=== PATIENT | female | born 1935 | race Caucasian/White ===

== ENCOUNTER → 2016-07-09 | Outpatient (CLI) | payer BC ==
[~2016-07-09] MED LIST: ACET-1256 PO; ACET-1311 PO; ACET-176 PO; AMIO0.1T PO; AMIO200T4 PO; ASPI325T45 PO; ASPI81TA28 PO; CALC600T9 PO; CALCTAB13 PO; CARB25TA12 PO; CHOL1000 PO; CHOL100010 PO; CLON0.5T3 PO; CLON1TAB3 PO; CZR25 PO; DOCU100C31 PO; DRGTP12 TD; DXM1 PO; FLUT0.15 NAE; FNTTP50 TD; GABA400C PO; LDDP5 TD; LOSA1TAB PO; LPR25 PO; LPT40 PO; MCLIN; METO25TA56 PO; METO50TA17 PO; MOML PO; MRLP17 PO; MULTCHW PO; MULTTAB63 PO; NALO1TAB2 PO; NF656 TD; NRN/600 PO; NTRGSL/4 SL; OXYC-57 PO; OXYC-609 PO; POLY335019 PO; PRLSR20 PO; PRT/40 PO; SPIR25TA PO; TRAM-10 PO; TYLOTC500 PO; WARF1TAB6 PO
[2016-07-09 09:57] LABS: BLOOD UREA NITROGEN 18 mg/dl (7-18); BUN/CREATININE RATIO 23.3 (10-20); CALCIUM 9.3 mg/dl (8.5-10.1); CARBON DIOXIDE 33 mmol/L (21-32); CHLORIDE 102 mmol/L (98-107); CREATININE 0.75 mg/dl (0.60-1.20); GLUCOSE 94 mg/dl (70-99); SODIUM 143 mmol/L (136-145)
== END | disposition home or self-care (01) ==
LOC: C.LAB1850 07:53
PROVIDERS: ATTEND Internal Medicine Geriatric Medicine
DX: I10 Essential (primary) hypertension (principal)

== ENCOUNTER → 2016-07-16 | Outpatient (CLI) | payer BC ==
--- NOTE | 2016-07-16 12:42 | DIAGNOSTIC IMAGING REPORT ---
RIGHT HUMERUS MIN 2 VIEWS ROUTINE CLINICAL HISTORY: Right arm pain following fall. COMPARISON: None FINDINGS: There is a moderately displaced comminuted right humeral head fracture that extends to the humeral neck. No additional fracture of the right humerus is identified on this examination. IMPRESSION: Acute moderately displaced, comminuted right humeral head fracture that extends through the greater tuberosity. Electronically signed by: Geoff Blue M.D. 07/16/2016 12:40 PM Dictated Date/Time: 07/16/2016 12:40 PM
--- NOTE | 2016-07-16 12:42 | DIAGNOSTIC IMAGING REPORT ---
RIGHT SHOULDER MIN 2 VIEWS ROUTINE CLINICAL HISTORY: Right shoulder pain following fall COMPARISON: Chest radiograph February 19, 2015. FINDINGS: There is an acute moderately displaced fracture that extends through the greater tuberosity. There is extension to the level of the humeral neck. There is inferior displacement of the humeral head. There is no evidence for anterior or posterior dislocation. Moderate AC joint arthritis is noted. IMPRESSION: Moderately displaced comminuted right humeral head fracture with extension to the humeral neck. Apparent inferior subluxation of the humeral head with respect to the glenoid. This could be positional. No evidence for anterior or posterior dislocation. Electronically signed by: Geoff Blue M.D. 07/16/2016 12:40 PM Dictated Date/Time: 07/16/2016 12:37 PM
--- NOTE | 2016-07-16 13:00 | DIAGNOSTIC IMAGING REPORT ---
RIGHT WRIST MIN 3 VIEWS ROUTINE, RIGHT FOREARM 2 VIEWS ROUTINE CLINICAL HISTORY: Right arm and wrist pain after fall. COMPARISON STUDY: None. FINDINGS: The bones are osteopenic. Vascular calcifications are noted. There is positive ulnar variance at the wrist. There is moderate cartilage space narrowing at the STT and radiocarpal joints. No acute fracture or dislocation within the right forearm or right wrist. Mild deformity at the distal radius and ulna favor old, healed fractures. IMPRESSION: No acute fracture or dislocation within the right forearm or right wrist. Electronically signed by: Prashant Medina M.D. 07/16/2016 12:58 PM Dictated Date/Time: 07/16/2016 12:53 PM
--- NOTE | 2016-07-16 13:07 | DIAGNOSTIC IMAGING REPORT ---
RIGHT RIBS UNILATERAL WITH PA CHEST CLINICAL HISTORY: Right-sided rib pain. Fall. COMPARISON STUDY: Chest 02/19/2015. FINDINGS: There is a right humeral head fracture which is mildly displaced. No pneumothorax. No pleural effusions. There is chronic elevation of the right hemidiaphragm. The heart is mildly enlarged. There are poststernotomy changes. No new focal lung consolidations. There are old, healed bilateral rib fractures. No acute rib fractures identified. IMPRESSION: 1. Old, healed bilateral rib fractures. No acute rib fractures. 2. Right humeral head fracture. Electronically signed by: Prashant Medina M.D. 07/16/2016 1:05 PM Dictated Date/Time: 07/16/2016 1:01 PM
== END | disposition home or self-care (01) ==
LOC: C.RADBC 11:23
PROVIDERS: ATTEND Internal Medicine Geriatric Medicine
DX: S42.201A Unspecified fracture of upper end of right humerus, initial encounter for closed fracture (principal); W19.XXXA Unspecified fall, initial encounter

== ENCOUNTER 2016-08-08 15:35 | Emergency (ER) | payer BC ==
[~2016-08-08] VITALS: Ht 152.4 cm; Wt 57.7 kg
[~2016-08-08 15:35] MED LIST changes: -ACET-1256 PO; -ACET-176 PO; -AMIO0.1T PO; -ASPI325T45 PO; -ASPI81TA28 PO; -CALC600T9 PO; -CHOL1000 PO; -CLON1TAB3 PO; -CZR25 PO; -DOCU100C31 PO; -DRGTP12 TD; -DXM1 PO; -FNTTP50 TD; -GABA400C PO; -LDDP5 TD; -LPR25 PO; -MCLIN; -METO25TA56 PO; -MOML PO; -MRLP17 PO; -MULTTAB63 PO; -NALO1TAB2 PO; -NF656 TD; -NRN/600 PO; -OXYC-57 PO; -OXYC-609 PO; -POLY335019 PO; -PRLSR20 PO; -TYLOTC500 PO
[2016-08-08 15:47] VITALS: TEMP 36.9; Ht 152.4 cm; Wt 57.7 kg
--- NOTE | 2016-08-08 15:53 | EMERGENCY ROOM VISIT NOTE ---
History Report prepared by Stephany: Judy Zelaya Under the Supervision of: Abby FlanaganO. First contact with patient: 15:37 Chief Complaint: FALL Stated Complaint: FALL, BILAT. HIP PAIN History of Present Illness The patient is an 81 year old female who presents to the Emergency Room with complaints of a sudden fall that occurred prior to arrival. The patient states that she fell backwards and hit her head. She states that she lives at home. The patient notes that she fell three weeks ago and broke her right shoulder. She states that she was discharged to [facility] for rehabilitation and then went home from there. The patient states that she is experiencing side pain, bilateral hip pain, and back pain. She notes that she is on Warfarin and was instructed to come to the emergency department for further work up. The patient notes a headache due to the fall, but denies any loss of consciousness due to the fall. Source of History: patient Onset: prior to arrival Position: other (global) Quality: other (fall) Timing: other (sudden) Associated Symptoms: + back pain, + headache, No LOC Note: Associated Symptoms: bilateral hip pain, side pain Review of Systems See HPI for pertinent positives & negatives. A total of 10 systems reviewed and were otherwise negative. Past Medical & Surgical Medical Problems: (1) Heart disease (2) HTN (hypertension) Family History Cancer Heart disease Hypertension Social History Smoking Status: Never Smoker Drug Use: none Marital Status: Housing Status: lives with significant other Occupation Status: retired Current/Historical Medications Scheduled Amiodarone Hcl (Cordarone), 100 MG PO BID Atorvastatin (Atorvastatin Calcium), 40 MG PO QPM Calcium Carbonate-Vitamin D (Calcium + D), 1 TAB PO BID Carbidopa/Levodopa (Sinemet 25MG/100MG), 1.5 TAB PO QID Cholecalciferol (Vitamin D3), 1 TAB PO DAILY Clonazepam (Klonopin), 0.5 MG PO BID Fluticasone Propionate (Nasal) (Flonase Allergy Relief), 2 SPRAYS REMI DAILY Losartan Potassium (Cozaar), 25 MG PO DAILY Metoprolol Tartrate (Metoprolol Tartrate), 12.5 MG PO BID Multiple Vitamins W/ Minerals (Centrum Silver), 1 TAB PO DAILY Pantoprazole (Pantoprazole Sodium), 40 MG PO QPM Spironolactone (Aldactone), 12.5 MG PO DAILY Warfarin Sod (Jantoven), 2 MG PO DAILY Scheduled PRN Acetaminophen (Tylenol), 325 MG PO DAILY PRN for Pain Nitroglycerin (Nitrostat), 0.4 MG SL UD PRN for Chest Pain Tramadol (Ultram), 1-2 TAB PO Q6H PRN for Pain Allergies Coded Allergies: Atropine (Verified Allergy, Mild, 08/08/16) Diphenoxylate (Verified Allergy, Mild, 08/08/16) Diazepam (Verified Allergy, Unknown, unknown, 08/08/16) Lisinopril (Verified Adverse Reaction, Unknown, [place]IGHT[place], 08/08/16) Physical Exam Vital Signs Date Time Temp Pulse Resp B/P Pulse Ox O2 Delivery O2 Flow Rate FiO2 08/08/16 18:05 82 18 163/114 98 Room Air 08/08/16 17:13 58 20 177/80 93 Room Air 08/08/16 17:13 59 08/08/16 15:47 36.9 63 18 197/73 93 Room Air Physical Exam GENERAL: Patient is awake, alert, non-anxious appearing and appears comfortable. EYES: The conjunctivae are clear. The pupils are round and reactive. EARS, NOSE, MOUTH AND THROAT: The nose is without any evidence of any deformity. Mucous membranes are moist tongue is midline NECK: No tenderness to palpation. Range of motion appeared uninhibited. RESPIRATORY: Normal respiratory effort is noted there is no evidence of wheezing rhonchi or rales CARDIOVASCULAR: Regular rate and rhythm noted to auscultation. Systolic murmur appreciated. GASTROINTESTINAL: The abdomen is soft. Bowel sounds are present in all quadrants. Abdomen is nontender BACK: Low lumbar tenderness to palpation. Range of motion elicited pain, no stepoff or ecchymosis noted. MUSCULOSKELETAL/EXTREMITIES: Right upper extremity is held in a sling from a previous injury. No range of motion limitations in the lower extremities. SKIN: There is no obvious evidence of any rash. There are no petechiae, pallor or cyanosis noted. NEUROLOGIC: Patient is awake alert and oriented x3. Medical Decision & Procedures ER Provider Diagnostic Interpretation: Radiology results as stated below per my review and radiologist interpretation: PELVIS 1 OR 2 VIEW ROUTINE CLINICAL HISTORY: fall trauma. Pain. COMPARISON: None. DISCUSSION: Moderate degenerative change. No acute bony abnormality. No evidence for acetabular protrusion. There is no evidence for soft tissue swelling. IMPRESSION: Degenerative change. No acute bony abnormality. Electronically signed by: Jericho Bryant M.D. 08/08/2016 5:22 PM Dictated Date/Time: 08/08/2016 5:[address] OF THE LUMBAR SPINE WITHOUT CONTRAST CLINICAL HISTORY: Fall. TECHNIQUE: Axial images of the lumbar spine were obtained without IV contrast. Sagittal and coronal reconstructions were viewed. COMPARISON STUDY: CT of the abdomen and pelvis January 22, 2015. FINDINGS: For purposes of numbering on this exam, the L5-S1 disc space is assigned to axial image 270 of 320. Grade I anterolisthesis of L4 on L5 is unchanged since CT of January 22, 2015. 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 There is a mild acute compression fracture involving the superior endplate of L3 with minimal loss of vertebral body height and no retropulsion. No extension into the posterior elements is identified on this exam. No additional acute lumbar spine fractures are present. Central canal and neural foramen are suboptimally assessed by CT. Paravertebral soft tissues are unremarkable. Mild to moderate multilevel degenerative changes of the lumbar spine are present. IMPRESSION: Acute mild compression fracture of the superior endplate of L3 with minimal loss of vertebral body height and no retropulsion. Electronically signed by: Geoff Blue M.D. 08/08/2016 4:45 PM Dictated Date/Time: 08/08/2016 4:[address] OF THE HEAD WITHOUT CONTRAST CLINICAL HISTORY: Fall. COMPARISON STUDY: MRI of the brain July 15, 2015. CT DOSE: 1566.26 mGy.cm TECHNIQUE: Helical axial images of the head were obtained without IV contrast. Automated exposure control was utilized for the study. FINDINGS: No acute intracranial hemorrhage, midline shift or mass effect is present. Ventricular system is stable. The basilar cisterns are patent. There are no extra-axial collections. White matter hypodensity suggests small vessel disease. There are no findings to suggest acute dural sinus thrombosis or acute territorial infarct. There is a posterior scalp contusion. There is no calvarial fracture. IMPRESSION: 1. No acute intracranial findings. 2. Posterior scalp contusion. No calvarial fracture. Electronically signed by: Geoff Blue M.D. 08/08/2016 4:37 PM Dictated Date/Time: 08/08/2016 4:35 PM CHEST 2 VIEWS ROUTINE CLINICAL HISTORY: fall trauma COMPARISON STUDY: 02/19/2015 FINDINGS: Chronic elevation right hemidiaphragm. Lungs are considered clear. No acute process. IMPRESSION: Negative chest. Electronically signed by: Jericho Bryant M.D. 08/08/2016 5:21 PM Dictated Date/Time: 08/08/2016 5:[address] DOSE: HISTORY: Trauma. Pain. fall TECHNIQUE: Multiaxial CT images of the cervical spine were performed and reformatted in the sagittal and coronal plane without the use of contrast. COMPARISON: None. FINDINGS: No fractures. No subluxation. Prevertebral soft tissues and the C1-C2 interval are intact. No pneumothorax. Moderate degenerative change throughout. There is slight wedge deformity superior endplate T1 radiographically considered old. IMPRESSION: Degenerative change. No acute process. Electronically signed by: Jericho Bryant M.D. 08/08/2016 4:38 PM Dictated Date/Time: 08/08/2016 4:35 PM Medications Administered Medications (Trade) Dose Ordered Sig/Naomi Route Start Time Stop Time Status Last Admin Dose Admin Acetaminophen (Tylenol Tab) 500 mg NOW STAT PO 08/08/16 17:56 08/08/16 17:57 DC 08/08/16 18:04 500 MG ED Course 1540: The patient was evaluated in room A3. A complete history and physical examination were performed. 1756: Ordered Tylenol Tab 500 mg PO. I reevaluated the patient and she is resting comfortably. I discussed the exam findings with her and I discussed the treatment plan. She verbalized complete understanding and agreement. She is ready to go home. Medical Decision Differential diagnosis: Etiologies such as fracture, dislocation, intra-abdominal, pneumothorax, intrathoracic , intracranial, neurologic, as well as other traumatic pathologies were entertained. Nursing notes reviewed. The patient is an 81-year-old female who had a fall from a standing position. She fell backwards. She was recently here for similar complaints and had a fracture to her right upper extremity. The patient states this is why she fell she lost her balance when she was trying use her walker. She fell backwards striking the back of her head. She had a small scalp contusion. She had no laceration. The patient is on blood thinners. CT the head as well as cervical spine were obtained but did not show any traumatic injury. The patient was found have a compression fracture in her lumbar spine. She was offered pain medication in the emergency department but did not wish to have any. She was taking pain medication because of her shoulder injury and feels that this might be why she is unstable on her feet. She was treated with Tylenol. She was reevaluated multiple times. She was encouraged to continue all medications as prescribed. She was also encouraged to follow-up with her family doctor soon as possible for further evaluation but return to the emergency Department immediately if symptoms change worsen or the need arises. Impression Primary Impression: Fall Additional Impressions: Head injury Lumbar compression fracture Scribe Attestation The scribe's documentation has been prepared under my direction and personally reviewed by me in its entirety. I confirm that the note above accurately reflects all work, treatment, procedures, and medical decision making performed by me. Departure Information Dispostion Home / Self-Care Referrals Jose A Ruiz M.D. (PCP) Forms HOME CARE DOCUMENTATION FORM, IMPORTANT VISIT INFORMATION Patient Instructions ED Fx Comp Vertebral, ED Head Injury Closed, My [facility] Additional Instructions Call your family in the morning to schedule a follow-up appointment. Rest and avoid any strenuous activity. Avoid any heavy lifting. Continue all medications as prescribed. Problem Qualifiers
--- NOTE | 2016-08-08 16:38 | DIAGNOSTIC IMAGING REPORT ---
CT OF THE HEAD WITHOUT CONTRAST CLINICAL HISTORY: Fall. COMPARISON STUDY: MRI of the brain July 15, 2015. CT DOSE: 1566.26 mGy.cm TECHNIQUE: Helical axial images of the head were obtained without IV contrast. Automated exposure control was utilized for the study. FINDINGS: No acute intracranial hemorrhage, midline shift or mass effect is present. Ventricular system is stable. The basilar cisterns are patent. There are no extra-axial collections. White matter hypodensity suggests small vessel disease. There are no findings to suggest acute dural sinus thrombosis or acute territorial infarct. There is a posterior scalp contusion. There is no calvarial fracture. IMPRESSION: 1. No acute intracranial findings. 2. Posterior scalp contusion. No calvarial fracture. Electronically signed by: Geoff Blue M.D. 08/08/2016 4:37 PM Dictated Date/Time: 08/08/2016 4:35 PM
--- NOTE | 2016-08-08 16:39 | DIAGNOSTIC IMAGING REPORT ---
CERVICAL SPINE CT CT DOSE: HISTORY: Trauma. Pain. fall TECHNIQUE: Multiaxial CT images of the cervical spine were performed and reformatted in the sagittal and coronal plane without the use of contrast. COMPARISON: None. FINDINGS: No fractures. No subluxation. Prevertebral soft tissues and the C1-C2 interval are intact. No pneumothorax. Moderate degenerative change throughout. There is slight wedge deformity superior endplate T1 radiographically considered old. IMPRESSION: Degenerative change. No acute process. Electronically signed by: Jericho Bryant M.D. 08/08/2016 4:38 PM Dictated Date/Time: 08/08/2016 4:35 PM
--- NOTE | 2016-08-08 16:47 | DIAGNOSTIC IMAGING REPORT ---
CT OF THE LUMBAR SPINE WITHOUT CONTRAST CLINICAL HISTORY: Fall. TECHNIQUE: Axial images of the lumbar spine were obtained without IV contrast. Sagittal and coronal reconstructions were viewed. COMPARISON STUDY: CT of the abdomen and pelvis January 22, 2015. FINDINGS: For purposes of numbering on this exam, the L5-S1 disc space is assigned to axial image 270 of 320. Grade I anterolisthesis of L4 on L5 is unchanged since CT of January 22, 2015. 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 There is a mild acute compression fracture involving the superior endplate of L3 with minimal loss of vertebral body height and no retropulsion. No extension into the posterior elements is identified on this exam. No additional acute lumbar spine fractures are present. Central canal and neural foramen are suboptimally assessed by CT. Paravertebral soft tissues are unremarkable. Mild to moderate multilevel degenerative changes of the lumbar spine are present. IMPRESSION: Acute mild compression fracture of the superior endplate of L3 with minimal loss of vertebral body height and no retropulsion. Electronically signed by: Geoff Blue M.D. 08/08/2016 4:45 PM Dictated Date/Time: 08/08/2016 4:37 PM
--- NOTE | 2016-08-08 17:22 | DIAGNOSTIC IMAGING REPORT ---
CHEST 2 VIEWS ROUTINE CLINICAL HISTORY: fall trauma COMPARISON STUDY: 02/19/2015 FINDINGS: Chronic elevation right hemidiaphragm. Lungs are considered clear. No acute process. IMPRESSION: Negative chest. Electronically signed by: Jericho Bryant M.D. 08/08/2016 5:21 PM Dictated Date/Time: 08/08/2016 5:20 PM
--- NOTE | 2016-08-08 17:23 | DIAGNOSTIC IMAGING REPORT ---
PELVIS 1 OR 2 VIEW ROUTINE CLINICAL HISTORY: fall trauma. Pain. COMPARISON: None. DISCUSSION: Moderate degenerative change. No acute bony abnormality. No evidence for acetabular protrusion. There is no evidence for soft tissue swelling. IMPRESSION: Degenerative change. No acute bony abnormality. Electronically signed by: Jericho Bryant M.D. 08/08/2016 5:22 PM Dictated Date/Time: 08/08/2016 5:21 PM
[2016-08-08] MEDS ORDERED: CHOL1000 PO (17:31)
[2016-08-08] MEDS ORDERED: CALC600T9 PO (17:31)
[2016-08-08] MEDS ORDERED: ACETAMINOPHEN 500 MG TAB PO STA (17:56)
[2016-08-08 18:05] VITALS: BP 163/114; PULSE 82; O2SAT 98
[2016-09-18] MEDS ORDERED: DXM1 PO (11:40)
[2016-09-18] MEDS ORDERED: MCLIN (11:40)
[2016-09-18] MEDS ORDERED: CLON1TAB3 PO (11:40)
[2016-09-18] MEDS ORDERED: CZR25 PO (11:40)
[2016-09-18] MEDS ORDERED: LPR25 PO (11:40)
[2017-03-20] MEDS ORDERED: OXYC-609 PO (13:11)
== END 2016-08-08 18:40 | disposition home or self-care (01) ==
LOC: EDBD 15:35 → C.EDA 15:36
DX: S09.90XA Unspecified injury of head, initial encounter (principal); S32.030A Wedge compression fracture of third lumbar vertebra, initial encounter for closed fracture; W19.XXXA Unspecified fall, initial encounter; Y92.019 Unspecified place in single-family (private) house as the place of occurrence of the external cause; I10 Essential (primary) hypertension; I51.9 Heart disease, unspecified; Z79.01 Long term (current) use of anticoagulants; Z79.899 Other long term (current) drug therapy; Z91.81 History of falling; Z88.8 Allergy status to other drugs, medicaments and biological substances; Z80.9 Family history of malignant neoplasm, unspecified; Z82.49 Family history of ischemic heart disease and other diseases of the circulatory system

== ENCOUNTER → 2016-08-30 | Outpatient (CLI) | payer BC ==
[~2016-08-30] MED LIST changes: +ACET-1256 PO; +ACET-176 PO; +AMIO0.1T PO; +ASPI325T45 PO; +ASPI81TA28 PO; +CALC600T9 PO; -CALCTAB13 PO; +CHOL1000 PO; -CHOL100010 PO; +CLON1TAB3 PO; +CZR25 PO; +DOCU100C31 PO; +DRGTP12 TD; +DXM1 PO; +FNTTP50 TD; +GABA400C PO; +LDDP5 TD; +LPR25 PO; +MCLIN; +METO25TA56 PO; +MOML PO; +MRLP17 PO; +MULTTAB63 PO; +NALO1TAB2 PO; +NF656 TD; +NRN/600 PO; +OXYC-57 PO; +OXYC-609 PO; +POLY335019 PO; +PRLSR20 PO; +TYLOTC500 PO
== END | disposition home or self-care (01) ==
LOC: C.MAMM 09:42
PROVIDERS: ATTEND Internal Medicine Geriatric Medicine
DX: M85.89 Other specified disorders of bone density and structure, multiple sites (principal); S42.309A Unspecified fracture of shaft of humerus, unspecified arm, initial encounter for closed fracture; S32.030A Wedge compression fracture of third lumbar vertebra, initial encounter for closed fracture; R29.6 Repeated falls; X58.XXXA Exposure to other specified factors, initial encounter

== ENCOUNTER 2016-09-13 05:14 | Inpatient (IN) | payer BC, OTHER ==
[~2016-09-13] VITALS: Ht 149.9 cm; Wt 58.1 kg
[~2016-09-13 05:14] MED LIST changes: -ACET-1256 PO; -ACET-176 PO; -AMIO0.1T PO; -ASPI325T45 PO; -ASPI81TA28 PO; -CLON1TAB3 PO; -CZR25 PO; -DOCU100C31 PO; -DRGTP12 TD; -DXM1 PO; -FNTTP50 TD; -GABA400C PO; -LDDP5 TD; -LPR25 PO; -MCLIN; -METO25TA56 PO; -MOML PO; -MRLP17 PO; -MULTTAB63 PO; -NALO1TAB2 PO; -NF656 TD; -NRN/600 PO; -OXYC-57 PO; -OXYC-609 PO; -POLY335019 PO; -PRLSR20 PO; -TYLOTC500 PO
[2016-09-13] MEDS ORDERED: SODIUM CHLORIDE 0.9% 1000ML 250 ML IV STA (05:45)
[2016-09-13] MEDS ORDERED: SODIUM CHLORIDE 0.9% 1000ML 1,000 ML IV STA (05:45)
--- NOTE | 2016-09-13 05:52 | EMERGENCY ROOM VISIT NOTE ---
History Report prepared by Stephany: Judy Zelaya Under the Supervision of: Dr. Jakub Pringle M.D. First contact with patient: 05:35 Chief Complaint: HIP PAIN Stated Complaint: BACK PAIN History of Present Illness The patient is an 81 year old female who presents to the Emergency Room with complaints of persistent left hip pain that began prior to arrival. The patient states that she has recently had several falls. She states that she fell and broke her right shoulder and also injured her back recently. The patient states that she is unsure why she continues to fall. She denies any weakness or loss of consciousness. The patient states that she cannot get out of bed on her own. She states that she mentioned her pain to her PCP yesterday at her three month check up. The patient notes left hip pain and left leg pain today. She denies any shortness of breath, chest pain, nausea, vomiting, or urinary symptoms. The patient notes that she is on Coumadin for her heart valve. 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 Source of History: patient Onset: prior to arrival Position: other (left hip) Timing: other (persistent) Associated Symptoms: No LOC, No SOB, No chest pain, No nausea, No urinary symptoms, No vomiting, No weakness Note: Associated Symptoms: left leg pain Review of Systems See HPI for pertinent positives & negatives. A total of 10 systems reviewed and were otherwise negative. Past Medical & Surgical Medical Problems: (1) Compression fracture of L3 lumbar vertebra (2) Frequent falls (3) Heart disease (4) HTN (hypertension) Old medical records were reviewed. Nurse's notes were reviewed and I agree with. Family History Cancer Heart disease Hypertension Social History Smoking Status: Never Smoker Drug Use: none Marital Status: Housing Status: lives with significant other Occupation Status: retired Current/Historical Medications Scheduled Amiodarone Hcl (Cordarone), 100 MG PO DAILY Atorvastatin (Atorvastatin Calcium), 40 MG PO QPM Calcium Carbonate-Vitamin D (Calcium + D), 1 TAB PO BID Carbidopa/Levodopa (Sinemet 25MG/100MG), 1.5 TAB PO QID Cholecalciferol (Vitamin D3), 1,000 MG PO DAILY Clonazepam (Klonopin), 0.5 MG PO BID Fluticasone Propionate (Nasal) (Flonase Allergy Relief), 1 SPRAY REMI DAILY Losartan Potassium (Cozaar), 50 MG PO DAILY Metoprolol Tartrate (Lopressor) (Lopressor), 12.5 MG PO BID Multiple Vitamins W/ Minerals (Centrum Silver), 1 TAB PO DAILY Pantoprazole (Pantoprazole Sodium), 40 MG PO QPM Spironolactone (Aldactone), 25 MG PO DAILY Warfarin Sod (Jantoven), 2 MG PO DAILY Scheduled PRN Acetaminophen (Tylenol), 1,000 MG PO TID PRN for Pain Docusate Sodium (Docusate Sodium), 100 MG PO BID PRN for Constipation Magnesium Hydroxide (Milk Of Magnesia), 30 ML PO DAILY PRN for Constipation Nitroglycerin (Nitrostat), 0.4 MG SL UD PRN for Chest Pain Allergies Coded Allergies: Atropine (Verified Allergy, Mild, 08/08/16) Diphenoxylate (Verified Allergy, Mild, 08/08/16) Diazepam (Verified Allergy, Unknown, unknown, 08/08/16) Lisinopril (Verified Adverse Reaction, Unknown, [place], 08/08/16) Physical Exam Vital Signs Date Time Temp Pulse Resp B/P Pulse Ox O2 Delivery O2 Flow Rate FiO2 09/13/16 16:50 97 16 194/89 97 Room Air 09/13/16 14:35 80 19 182/86 95 Room Air 09/13/16 12:44 69 180/84 96 Room Air 09/13/16 10:24 156/81 09/13/16 09:46 82 16 203/96 96 Room Air 09/13/16 09:13 81 96 09/13/16 07:54 80 18 174/87 93 Room Air 09/13/16 06:12 65 17 187/81 94 Room Air 09/13/16 05:19 36.7 70 18 215/89 92 Room Air Physical Exam General: Well developed well nourished, non-ill appearing older female in no acute distress, breathing comfortably on room air. Normal speech HEENT: Normal cephalic atraumatic. Pupils are equal round and reactive to light. Extraocular movements are intact. Oropharynx is pink with moist mucous membranes. No swelling of the mouth lips or tongue. Neck: Supple with a midline trachea. No meningeal signs or stiffness, no JVD or bruits. No Stridor. Chest: Clear to auscultation bilaterally. No wheezes or rhonchi. No increased work of breathing. Heart: regular rate and rhythm. Abdomen: Soft nontender, nondistended without rebound guarding or rigidity. Extremities: Left hip has mild tenderness with movement. No redness or warmth. No cyanosis clubbing or edema. No calf tenderness or assymetry Spine/Back. Non tender to palpation. No CVA tenderness Skin: Good turgor without rashes. Neurologic exam: Cranial nerves two through 12 are intact. Motor and sensation are intact and symmetrical throughout. Medical Decision & Procedures ER Provider Diagnostic Interpretation: CT results as stated below per my review and radiologist interpretation: CT pelvis PELVIS NO IV/ORAL CONT (CT) CLINICAL HISTORY: eval for fx on left trauma TECHNIQUE: Transaxial acquisition. Multiple axial reformatted images COMPARISON STUDY: None FINDINGS: Moderate degenerative change throughout. No evidence for fracture. No evidence for acetabular protrusion. IMPRESSION: Degenerative change. No acute process. Electronically signed by: Jericho Bryant M.D. 09/13/2016 6:50 AM Dictated Date/Time: 09/13/2016 6:47 AM Laboratory Results Test 09/13/16 06:00 09/13/16 06:53 Immature Granulocyte % (Auto) 0.8 % White Blood Count 11.82 K/uL (4.8-10.8) Red Blood Count 4.65 M/uL (4.2-5.4) Hemoglobin 14.1 g/dL (12.0-16.0) Hematocrit 41.7 % (37-47) Mean Corpuscular Volume 89.7 fL (80-100) Mean Corpuscular Hemoglobin 30.3 pg (25-34) Mean Corpuscular Hemoglobin Concent 33.8 g/dl (32-36) Platelet Count 343 K/uL (130-400) Mean Platelet Volume 8.1 fL (7.4-10.4) Neutrophils (%) (Auto) 80.3 % Lymphocytes (%) (Auto) 9.7 % Monocytes (%) (Auto) 8.2 % Eosinophils (%) (Auto) 0.8 % Basophils (%) (Auto) 0.2 % Neutrophils # (Auto) 9.49 K/uL (1.4-6.5) Lymphocytes # (Auto) 1.15 K/uL (1.2-3.4) Monocytes # (Auto) 0.97 K/uL (0.11-0.59) Eosinophils # (Auto) 0.09 K/uL (0-0.5) Basophils # (Auto) 0.02 K/uL (0-0.2) Immature Granulocyte # (Auto) 0.10 K/uL (0.00-0.02) Total Bilirubin 0.5 mg/dl (0.2-1) Direct Bilirubin 0.2 mg/dl (0-0.2) Aspartate Amino Transf (AST/SGOT) 16 U/L (15-37) Alanine Aminotransferase (ALT/SGPT) 14 U/L (12-78) Alkaline Phosphatase 139 U/L (45-117) Total Creatine Kinase 40 U/L (26-192) Creatine Kinase MB 1.0 ng/ml (0.5-3.6) Creatine Kinase MB Ratio 2.5 (0-3.0) Total Protein 7.0 gm/dl (6.4-8.2) Albumin 2.9 gm/dl (3.4-5.0) Lipase 78 U/L (73-393) Urine Color YELLOW Urine Appearance CLEAR (CLEAR) Urine pH 7.5 (4.5-7.5) Urine Specific [place] 1.005 (1.000-1.030) Urine Protein NEG (NEG) Urine Glucose (UA) NEG (NEG) Urine Ketones NEG (NEG) Urine Occult Blood NEG (NEG) Urine Nitrite NEG (NEG) Urine Bilirubin NEG (NEG) Urine Urobilinogen NEG (NEG) Urine Leukocyte Esterase NEG (NEG) Date/Time Source Procedure Growth Status 09/13/16 06:53 Urine , Clean Catch Urine Culture - Final THREE TYPES OF ORGANISMS PRESENT, ALL... Complete Laboratory studies as stated above per my review. Medications Administered Medications (Trade) Dose Ordered Sig/Naomi Route Start Time Stop Time Status Last Admin Dose Admin Sodium Chloride 250 ml @ 999 mls/hr Q16M STAT IV 09/13/16 05:45 09/13/16 06:00 DC 09/13/16 06:12 999 MLS/HR Sodium Chloride (Nss 1000ml) 1,000 ml @ 100 mls/hr Q10H STAT IV 09/13/16 05:45 09/13/16 15:44 DC 09/13/16 06:12 100 MLS/HR Acetaminophen (Tylenol Tab) 650 mg NOW STAT PO 09/13/16 07:29 09/13/16 07:32 DC 09/13/16 07:53 650 MG Metoprolol Tartrate (Lopressor Tab) 25 mg NOW PO 09/13/16 10:15 09/13/16 11:34 DC 09/13/16 10:47 25 MG Losartan Potassium (coZAAR TAB) 25 mg NOW PO 09/13/16 10:15 09/13/16 11:34 DC 09/13/16 10:47 25 MG Spironolactone (Aldactone Tab) 25 mg NOW ONCE PO 09/13/16 10:15 09/13/16 10:16 DC 09/13/16 10:47 25 MG Atorvastatin Calcium (Lipitor Tab) 40 mg NOW PO 09/13/16 10:15 09/13/16 11:33 DC 09/13/16 10:48 40 MG Amiodarone HCl (Cordarone Tab) 200 mg NOW ONCE PO 09/13/16 10:15 09/13/16 10:16 DC 09/13/16 10:47 200 MG Acetaminophen (Tylenol Tab) 1,000 mg NOW STAT PO 09/13/16 14:49 09/13/16 14:55 DC 09/13/16 14:49 1,000 MG Acetaminophen (Tylenol Tab) 650 mg Q4H PRN PO 09/13/16 18:45 09/14/16 12:28 DC 09/14/16 09:42 650 MG Ondansetron HCl (Zofran Inj) 4 mg Q6H PRN IV 09/13/16 18:45 10/13/16 18:44 09/14/16 09:44 4 MG Hydralazine HCl (HydrALAZINE INJ) 10 mg Q6H PRN IV. 09/13/16 18:45 10/13/16 18:44 09/15/16 04:23 10 MG ECG Indication: other (hip pain) Rate (beats per minute): 67 Rhythm: normal sinus Findings: no acute ischemic change, no ectopy, other (poor baseline, nonspecific T wave abnormalities) ED Course 0543: Past medical records reviewed. The patient was evaluated in room A10, and a complete history and physical examination were performed. 0545: Ordered Sodium Chloride 1000 ml @ 100 mls/hr IV, Sodium Chloride 250 ml @ 999 mls/hr IV. 0649: I went to reevaluate the patient and the nursing staff is obtaining a urine from the patient. 0659: I reevaluated the patient and she is resting comfortably. The patient is currently undergoing outpatient therapy at [facility]. The patient will have an OT/PT evaluation for [facility] consultation. 0730: The patient was signed out to Dr. Cole at change of shift. Medical Decision Differentials include, but are not limited to; hip or pelvic fracture, electrolyte or metabolic abnormality, UTI, hemorrhage. This patient comes in as described above she is weakness and frequent falls she is left leg pain. She has a history of compression fracture. She is on Coumadin. IV access established and blood work was obtained. I did obtain a pelvis CT and no acute fracture seen. Her INR came back at 5 elevated and in light of this I also did order a CAT scan of her head and abdomen and pelvis to rule out any retroperitoneal hemorrhage or any intracranial hemorrhage. She's nothing to suggest acute coronary syndrome or arrhythmia. She's had no acute electrolyte or metabolic abnormality. She does not feel that she is safe to go home. I did order PT and OT evaluation. She was signed to Dr. Vogel at shift change will follow-up on this. Impression Primary Impression: Left hip pain Scribe Attestation The scribe's documentation has been prepared under my direction and personally reviewed by me in its entirety. I confirm that the note above accurately reflects all work, treatment, procedures, and medical decision making performed by me. Departure Information Dispostion Still a Patient Referrals Jose A Ruiz M.D. (PCP)
[2016-09-13 06:15] LABS: BASO % 0.2 %; BASO ABS # 0.02 K/uL (0-0.2); COMPLETE YES; EOS % 0.8 %; HEMATOCRIT 41.7 % (37-47); IG% 0.8 %; LYMPH % 9.7 %; LYMPH ABS # 1.15 K/uL (1.2-3.4); MEAN CELL VOLUME 89.7 fL (80-100); MEAN CORPUSCULAR HEMOGLOBIN 30.3 pg (25-34); MEAN CORPUSCULAR HGB CONC 33.8 g/dl (32-36); MEAN PLATELET VOLUME 8.1 fL (7.4-10.4); MONO % 8.2 %; NEUT % 80.3 %; PLATELET COUNT 343 K/uL (130-400); RED BLOOD COUNT 4.65 M/uL (4.2-5.4); WHITE BLOOD COUNT 11.82 K/uL (4.8-10.8)
[2016-09-13] MEDS ORDERED: CLON1TAB3 PO (06:30)
[2016-09-13 06:31] LABS: BUN/CREATININE RATIO 19.8 (10-20); CALCIUM 8.9 mg/dl (8.5-10.1); CREATININE 0.53 mg/dl (0.60-1.20)
[2016-09-13] MEDS ORDERED: DOCU100C31 PO (06:31)
[2016-09-13 06:36] LABS: CKMB/CK RATIO 2.5 (0-3.0)
[2016-09-13] MEDS ORDERED: METO25TA56 PO (06:40)
[2016-09-13] MEDS ORDERED: ACET-1256 PO (06:43)
[2016-09-13 06:49] LABS: PARTIAL THROMBOPLASTIN RATIO 2.4; PROTHROMBIN TIME (PATIENT) 57.5 SECONDS (9.0-12.0)
[2016-09-13] MEDS ORDERED: MOML PO (06:49)
--- NOTE | 2016-09-13 06:51 | DIAGNOSTIC IMAGING REPORT ---
CT pelvis PELVIS NO IV/ORAL CONT (CT) CLINICAL HISTORY: eval for fx on left trauma TECHNIQUE: Transaxial acquisition. Multiple axial reformatted images COMPARISON STUDY: None FINDINGS: Moderate degenerative change throughout. No evidence for fracture. No evidence for acetabular protrusion. IMPRESSION: Degenerative change. No acute process. Electronically signed by: Jericho Bryant M.D. 09/13/2016 6:50 AM Dictated Date/Time: 09/13/2016 6:47 AM
[2016-09-13 07:20] LABS: URINE APPEARANCE CLEAR (CLEAR); URINE BILIRUBIN NEG (NEG); URINE COLOR YELLOW; URINE NITRITE NEG (NEG); URINE PH 7.5 (4.5-7.5); URINE SPECIFIC GRAVITY 1.005 (1.000-1.030); UROBILINOGEN NEG (NEG)
[2016-09-13 07:23] LABS: MANUAL MICROSCOPIC REQUIRED? NO; REVIEW REQ? NO
[2016-09-13] MEDS ORDERED: ACETAMINOPHEN 325 MG TAB PO STA (07:29)
[2016-09-13] MEDS ORDERED: OPTIRAY 320 IV PRN (08:00)
--- NOTE | 2016-09-13 08:01 | DIAGNOSTIC IMAGING REPORT ---
HEAD CT NONCONTRAST CT DOSE: HISTORY: Fall. Head injury. TECHNIQUE: Multiaxial CT images of the head were performed without the use of intravenous contrast. Automated exposure control was utilized for this study. Comparison: Head CT 08/08/2016. Findings: The paranasal sinuses and mastoid air cells are clear. The calvarium and skull base are intact. There is no mass, hematoma, midline shift, acute infarct. White matter hypodensity is nonspecific but suggestive of microvascular ischemic change. The ventricles and sulci demonstrate mild age-related involutional changes. Stable prominence of the extra-axial space at the left high convexity measuring 4.6 cm. This likely represents an arachnoid cyst. Impression: No significant change compared to the prior study. No acute intracranial abnormality. Electronically signed by: Prashant Medina M.D. 09/13/2016 8:00 AM Dictated Date/Time: 09/13/2016 7:55 AM
--- NOTE | 2016-09-13 08:05 | DIAGNOSTIC IMAGING REPORT ---
ABDOMEN AND PELVIS CT WITH IV CONTRAST CT DOSE: 1128.51 mGy.cm HISTORY: Trauma left hip and pelvis pain, elevated inh eval for hematoma TECHNIQUE: Multiaxial CT images of the abdomen and pelvis were performed following the use of intravenous contrast. COMPARISON STUDY: None. FINDINGS: Lung bases are generally clear. Minimal dependent basilar atelectasis. Findings suggesting early hepatic cirrhosis. Cleft posterior right hepatic margin with no well-defined perihepatic or subcapsular fluid pocket. Mild cortical scarring of the kidneys. No significant retroperitoneal hematoma. Spleen is uniform in bowel pattern overall is nonobstructive. There is no well-defined abscess or collection. Mild chronic sigmoid diverticulosis. No free fluid within the pelvic cul-de-sac. IMPRESSION: No acute process. Compression deformity L3 considered progressive compared to a prior study 08/08/2016. Mild posterior displacement of the posterior margin of the L3 vertebral body. Electronically signed by: Jericho Bryant M.D. 09/13/2016 8:03 AM Dictated Date/Time: 09/13/2016 7:59 AM
[2016-09-13 09:13] VITALS: BP 203/96; PULSE 81; O2SAT 96
--- NOTE | 2016-09-13 10:13 | EMERGENCY ROOM VISIT NOTE ---
ED Visit Note First contact with patient: 10:07 Received in sign out from Dr. Pringle Briefly patient is a 81-year-old female with persistent hip pain, no evidence of fracture seen on CT scan, likely requires admission to rehabilitation for continued pain and ambulatory dysfunction. Ordered the patient's morning medications as confirmed by the education reconciliation.. At the present time I am awaiting formal physical therapy and occupational therapy evaluation, [facility] will also be by to evaluate the patient for possible direct admission to their facility. Patient has received a formal evaluation by physical therapy, occupational therapy, and [facility]. There were attempting to obtain insurance approval, this was denied. Currently at 1415 we're attempting to do a doc to doc preapproval for acute rehabilitation. I have signed the patient over to Dr. Perez for a period appear consultation. If her not able to obtain. Appear consultation or the patient is denied for acute rehabilitation she'll likely be admitted for ambulatory dysfunction.
[2016-09-13] MEDS ORDERED: SPIRONOLACTONE 25 MG TAB PO ONE (10:15)
[2016-09-13] MEDS ORDERED: METOPROLOL TARTRATE 25 MG TAB PO SCH (10:15)
[2016-09-13] MEDS ORDERED: ATORVASTATIN 40 MG TAB PO SCH (10:15)
[2016-09-13] MEDS ORDERED: AMIODARONE 200 MG TAB PO ONE (10:15)
[2016-09-13] MEDS ORDERED: LOSARTAN POTASSIUM 25 MG TAB PO SCH (10:15)
[2016-09-13] MEDS ORDERED: ACETAMINOPHEN 500 MG TAB PO STA (14:49)
[2016-09-13] MEDS ORDERED: NITROGLYCERIN 0.4 MG SL PER TAB CHARGE SL PRN (18:45)
[2016-09-13] MEDS ORDERED: ALUMINUM/MAGNESIUM/SIMETH (MAALOX MAX) 30 ML UDC PO PRN (18:45)
[2016-09-13] MEDS ORDERED: MAGNESIUM HYDROXIDE SUSP 30 ML UDC PO PRN ×2 (18:45)
--- NOTE | 2016-09-13 19:06 | History and Physical ---
History & Physical Date & Time of Service: Sep 13, 2016 at 18:49 Chief Complaint: Back Pain Primary Care Physician: Jose A Ruiz M.D. History of Present Illness Source: patient, clinic records, hospital records This is an 81 y/o female with a history of CAD, A. fib, depression, CHF, hyperlipidemia, essential tremor, hypertension, Parkinson's, and GERD who presented to the ED on 09/13 with left hip pain. Patient states that she has been having multiple falls in the last few weeks. She states she's not sure why she's having these falls and denies any lightheadedness or dizziness. She states that these typically occur when she bends over and she then falls backward. The patient denies any weakness lately, but states that she's been more fatigued and napping more often. She presents to the ED today with left hip pain that she states has been going on for 1-2 weeks and that she suspects is due to one of her falls, but she is not sure which. She complains of no pain at rest. She has a 10 out of 10 sharp pain in the left hip going down the left leg with weightbearing or any range of motion. The patient was evaluated by physical therapy and occupational therapy in the ED and the patient has been accepted to [facility]. They will not be able to take her until tomorrow, so the patient will be admitted for observation until transport tomorrow. The patient denies fevers, chills, sweats, chest pain, palpitations, claudication, cough, wheezing, shortness of breath, nausea, vomiting, abdominal pain, dysuria , hematuria, urinary retention, paralysis, weakness, numbness and tingling. Past Medical/Surgical History Medical Problems: (1) Heart disease Status: Chronic (2) HTN (hypertension) Status: Chronic Family History Cancer Heart disease Hypertension Stroke Social History Smoking Status: Never Smoker Smokeless Tobacco Use: No Alcohol Use: none Drug Use: none Marital Status: Housing status: lives with significant other Occupational Status: retired Multi-Drug Resistant Organisms History of MDRO: No Allergies Coded Allergies: Atropine (Verified Allergy, Mild, 08/08/16) Diphenoxylate (Verified Allergy, Mild, 08/08/16) Diazepam (Verified Allergy, Unknown, unknown, 08/08/16) Lisinopril (Verified Adverse Reaction, Unknown, NIGHTMARES, 08/08/16) Home Medications Scheduled Amiodarone Hcl (Cordarone), 100 MG PO DAILY Atorvastatin (Atorvastatin Calcium), 40 MG PO QPM Calcium Carbonate-Vitamin D (Calcium + D), 1 TAB PO BID Carbidopa/Levodopa (Sinemet 25MG/100MG), 1.5 TAB PO QID Cholecalciferol (Vitamin D3), 1,000 MG PO DAILY Clonazepam (Klonopin), 0.5 MG PO BID Fluticasone Propionate (Nasal) (Flonase Allergy Relief), 1 SPRAY REMI DAILY Losartan Potassium (Cozaar), 50 MG PO DAILY Metoprolol Tartrate (Lopressor) (Lopressor), 12.5 MG PO BID Multiple Vitamins W/ Minerals (Centrum Silver), 1 TAB PO DAILY Pantoprazole (Pantoprazole Sodium), 40 MG PO QPM Spironolactone (Aldactone), 25 MG PO DAILY Warfarin Sod (Jantoven), 2 MG PO DAILY Scheduled PRN Acetaminophen (Tylenol), 1,000 MG PO TID PRN for Pain Docusate Sodium (Docusate Sodium), 100 MG PO BID PRN for Constipation Magnesium Hydroxide (Milk Of Magnesia), 30 ML PO DAILY PRN for Constipation Nitroglycerin (Nitrostat), 0.4 MG SL UD PRN for Chest Pain Review of Systems Constitutional: + fatigue, No chills, No fever, No sweats, No weakness Eyes: No diplopia, No eye pain, No worsening of vision ENT: No hearing loss, No sore throat, No trouble swallowing Respiratory: No cough, No shortness of breath, No wheezing Cardiovascular: + palpitations (occasional, none currently), No chest pain, No claudication Abdomen: + constipation, No nausea, No pain, No vomiting Musculoskeletal: No calf pain, No joint pain, No muscle pain Genitourinary - Female: No dysuria, No hematuria, No urinary retention Neurologic: No numbness/tingling, No paralysis, No weakness Integumentary: No color change, No itch, No rash Physical Exam Vital Signs Date Time Temp Pulse Resp B/P Pulse Ox O2 Delivery O2 Flow Rate FiO2 09/13/16 16:50 97 16 194/89 97 Room Air 09/13/16 14:35 80 19 182/86 95 Room Air 09/13/16 12:44 69 180/84 96 Room Air 09/13/16 10:24 156/81 09/13/16 09:46 82 16 203/96 96 Room Air 09/13/16 09:13 81 96 09/13/16 07:54 80 18 174/87 93 Room Air 09/13/16 06:12 65 17 187/81 94 Room Air 09/13/16 05:19 36.7 70 18 215/89 92 Room Air General Appearance: WD/WN, no apparent distress Head: normocephalic, atraumatic Eyes: normal inspection, PERRL, EOMI ENT: normal ENT inspection, hearing grossly normal, pharynx normal Neck: supple, no JVD, trachea midline Respiratory/Chest: lungs clear, normal breath sounds, no respiratory distress Cardiovascular: regular rate, rhythm, no gallop, no murmur Abdomen/GI: normal bowel sounds, soft, + tenderness (mild epigastric tenderness ) Extremities/Musculoskelatal: normal inspection, no calf tenderness, no pedal edema, + pertinent finding (L hip TTP. L lateral knee TTP.) Neurologic/Psych: alert, normal mood/affect, oriented x 3, + pertinent finding (essential tremor. bradykinesia, rigidity of Parkinson's) Skin: normal color, warm/dry, no rash Diagnostics Laboratory Results Results Past 24 Hours Test 09/13/16 05:45 09/13/16 06:00 09/13/16 06:53 Range/Units Creatine Kinase MB Ratio 2.5 0-3.0 White Blood Count 11.82 4.8-10.8 K/uL Red Blood Count 4.65 4.2-5.4 M/uL Hemoglobin 14.1 12.0-16.0 g/dL Hematocrit 41.7 37-47 % Mean Corpuscular Volume 89.7 80-100 fL Mean Corpuscular Hemoglobin 30.3 25-34 pg Mean Corpuscular Hemoglobin Concent 33.8 32-36 g/dl Platelet Count 343 130-400 K/uL Mean Platelet Volume 8.1 7.4-10.4 fL Neutrophils (%) (Auto) 80.3 % Lymphocytes (%) (Auto) 9.7 % Monocytes (%) (Auto) 8.2 % Eosinophils (%) (Auto) 0.8 % Basophils (%) (Auto) 0.2 % Neutrophils # (Auto) 9.49 1.4-6.5 K/uL Lymphocytes # (Auto) 1.15 1.2-3.4 K/uL Monocytes # (Auto) 0.97 0.11-0.59 K/uL Eosinophils # (Auto) 0.09 0-0.5 K/uL Basophils # (Auto) 0.02 0-0.2 K/uL RDW Standard Deviation 45.6 36.4-46.3 fL RDW Coefficient of Variation 14.0 11.5-14.5 % Immature Granulocyte % (Auto) 0.8 % Immature Granulocyte # (Auto) 0.10 0.00-0.02 K/uL Prothrombin Time 57.5 9.0-12.0 SECONDS Prothromb Time International Ratio 5.0 0.9-1.1 Activated Partial Thromboplast Time 61.3 21.0-31.0 SECONDS Partial Thromboplastin Ratio 2.4 Sodium Level 139 136-145 mmol/L Potassium Level 4.0 3.5-5.1 mmol/L Chloride Level 101 98-107 mmol/L Carbon Dioxide Level 32 21-32 mmol/L Anion Gap 6.0 3-11 mmol/L Blood Urea Nitrogen 11 7-18 mg/dl Creatinine 0.53 0.60-1.20 mg/dl Est Creatinine Clear Calc Drug Dose 65.7 ml/min Estimated GFR () 103.9 Estimated GFR (Non- 89.7 BUN/Creatinine Ratio 19.8 10-20 Random Glucose 91 70-99 mg/dl Calcium Level 8.9 8.5-10.1 mg/dl Total Bilirubin 0.5 0.2-1 mg/dl Direct Bilirubin 0.2 0-0.2 mg/dl Aspartate Amino Transf (AST/SGOT) 16 15-37 U/L Alanine Aminotransferase (ALT/SGPT) 14 12-78 U/L Alkaline Phosphatase 139 45-117 U/L Total Creatine Kinase 40 26-192 U/L Creatine Kinase MB 1.0 0.5-3.6 ng/ml Total Protein 7.0 6.4-8.2 gm/dl Albumin 2.9 3.4-5.0 gm/dl Lipase 78 73-393 U/L Urine Color YELLOW Urine Appearance CLEAR CLEAR Urine pH 7.5 4.5-7.5 Urine Specific [place] 1.005 1.000-1.030 Urine Protein NEG NEG Urine Glucose (UA) NEG NEG Urine Ketones NEG NEG Urine Occult Blood NEG NEG Urine Nitrite NEG NEG Urine Bilirubin NEG NEG Urine Urobilinogen NEG NEG Urine Leukocyte Esterase NEG NEG Microbiology Results 09/13/16 Urine Culture, Received Pending Diagnostic Radiology Reviewed the following studies and agree with interpretation as follows: Patient Name: HUSSAIN DIOP Unit Number: [id number] Dictated: 09/13/16646 Transcribed: 09/13/16646 MS Printed Date/Time: [~ rep prt dt]/[~ rep prt tm] [~ rep ct labl] - [~ rep ct ivnm] [facility] [place] [place] [address] Dictated: 09/13/16646 Transcribed: 09/13/16646 MS Printed Date/Time: [~ rep prt dt]/[~ rep prt tm] [~ rep ct labl] - [~ rep ct ivnm] Patient: HUSSAIN DIOP Address1: [address] [place] [address] Rec: [id number] Address2: Acct ID: [id number] [facility] Zip: [place] [address] Date: 1935 Sex: F Room/Bed: Ref Phy: Jose A Ruiz M.D. SC: GHASSAN Att Phy: Report #: [id number] Elyssa Phy: Jose A Ruiz M.D. Test: PVSWO Admit Phy: Traffic Sign Erection Supervisor: GIANFRANCO Interpreting Phy: Jericho Bryant M.D. Diagnosis: BACK PAIN Ordering Phy: Jakub Pringle M.D. Service Date: 09/13/16 Admit Date: 09/13/16 MNE: PWRSCRIBE CONF: DICTATED BY: Jericho Bryant M.D.]] CC: Jose A Ruiz M.D. Newcomb, Brian D., M.D. Endcc: [~ rep ct add3]] CT pelvis PELVIS NO IV/ORAL CONT (CT) CLINICAL HISTORY: eval for fx on left trauma TECHNIQUE: Transaxial acquisition. Multiple axial reformatted images COMPARISON STUDY: None FINDINGS: Moderate degenerative change throughout. No evidence for fracture. No evidence for acetabular protrusion. IMPRESSION: Degenerative change. No acute process. Electronically signed by: Jericho Bryant M.D. 09/13/2016 6:50 AM Dictated Date/Time: 09/13/2016 6:47 AM The status of this report is Signed. Draft = Not yet reviewed or approved by Radiologist. Signed = Reviewed and approved by Radiologist. <AttendingPhy></AttendingPhy> <FamilyPhy>Jose A Ruiz M.D.</FamilyPhy> < PrimaryPhy>Jose A Ruiz M.D.</PrimaryPhy> <UnitNumber>[id number]</UnitNumber > <VisitNumber>[id number]</VisitNumber> <PatientName>HUSSAIN DIOP</ PatientName> <DateOfBirth>1935</DateOfBirth> <Location>[facility]</Location> < ServiceDate>09/13/16</ServiceDate> <MNE>ESINDI</MNE> <OrderingPhy>Jakub Pringle M.D.</OrderingPhy> <OrderingPhyMNE>f rep ord dr pickens</OrderingPhyMNE> < DictatingPhyMNE>f rep dict dr pickens</DictatingPhyMNE> <CCListMNE>f rep ct mne</ CCListMNE> <AdmittingPhyMNE>f pt admit dr pickens</AdmittingPhyMNE> <AttendingPhyMNE >f pt attend dr pickens</AttendingPhyMNE> <ConsultingPhyMNE>f pt consult dr pickens</ConsultingPhyMNE> <FamilyPhyMNE>f pt fam dr pickens</FamilyPhyMNE> <OtherPhyMNE>f pt other dr pickens</OtherPhyMNE> < PrimaryPhyMNE>f pt prim care dr pickens</PrimaryPhyMNE> <ReferringPhyMNE>f pt referring dr pickens</ReferringPhyMNE> Patient Name: HUSSAIN DIOP Unit Number: [id number] Dictated: 09/13/16754 Transcribed: 09/13/16754 [facility] Printed Date/Time: [~ rep prt dt]/[~ rep prt tm] [~ rep ct labl] - [~ rep ct ivnm] [facility] [place] [place] [address] Dictated: 09/13/16754 Transcribed: 09/13/16754 [facility] Printed Date/Time: [~ rep prt dt]/[~ rep prt tm] [~ rep ct labl] - [~ rep ct ivnm] Patient: HUSSAIN DIOP Address1: [address] [facility] Rec: [id number] Address2: Acct ID: [id number] [facility] Zip: [place] [address] Date: 1935 Sex: F Room/Bed: Ref Phy: Jose A Ruiz M.D. SC: GHASSAN Att Phy: Report #: [id number] Elyssa Phy: Jose A Ruiz M.D. Test: HWO Admit Phy: Traffic Sign Erection Supervisor: [facility] Interpreting Phy: Prashant Medina MD Diagnosis: BACK PAIN Ordering Phy: Jakub Pringle M.D. Service Date: 09/13/16 Admit Date: 09/13/16 MNE: PWRSCRIBE CONF: DICTATED BY: Prashant Medina M.D.]] CC: Jose A Ruiz M.D. Newcomb, Brian D., M.D. Endcc: [~ rep ct add3]] HEAD CT NONCONTRAST CT DOSE: HISTORY: Fall. Head injury. TECHNIQUE: Multiaxial CT images of the head were performed without the use of intravenous contrast. Automated exposure control was utilized for this study. Comparison: Head CT 08/08/2016. Findings: The paranasal sinuses and mastoid air cells are clear. The calvarium and skull base are intact. There is no mass, hematoma, midline shift, acute infarct. White matter hypodensity is nonspecific but suggestive of microvascular ischemic change. The ventricles and sulci demonstrate mild age-related involutional changes. Stable prominence of the extra-axial space at the left high convexity measuring 4.6 cm. This likely represents an arachnoid cyst. Impression: No significant change compared to the prior study. No acute intracranial abnormality. Electronically signed by: Prashant Medina M.D. 09/13/2016 8:00 AM Dictated Date/Time: 09/13/2016 7:55 AM The status of this report is Signed. Draft = Not yet reviewed or approved by Radiologist. Signed = Reviewed and approved by Radiologist. <AttendingPhy></AttendingPhy> <FamilyPhy>Jose A Ruiz M.D.</FamilyPhy> < PrimaryPhy>Jose A Ruiz M.D.</PrimaryPhy> <UnitNumber>[id number]</UnitNumber > <VisitNumber>[id number]</VisitNumber> <PatientName>HUSSAIN DIOP</ PatientName> <DateOfBirth>1935</DateOfBirth> <Location>[facility]</Location> < ServiceDate>09/13/16</ServiceDate> <MNE>ESINDI</MNE> <OrderingPhy>Jakub Pringle M.D.</OrderingPhy> <OrderingPhyMNE>f rep ord dr pickens</OrderingPhyMNE> < DictatingPhyMNE>f rep dict dr pickens</DictatingPhyMNE> <CCListMNE>f rep ct mne</ CCListMNE> <AdmittingPhyMNE>f pt admit dr pickens</AdmittingPhyMNE> <AttendingPhyMNE >f pt attend dr pickens</AttendingPhyMNE> <ConsultingPhyMNE>f pt consult dr pickens</ConsultingPhyMNE> <FamilyPhyMNE>f pt fam dr pickens</FamilyPhyMNE> <OtherPhyMNE>f pt other dr pickens</OtherPhyMNE> < PrimaryPhyMNE>f pt prim care dr pickens</PrimaryPhyMNE> <ReferringPhyMNE>f pt referring dr pickens</ReferringPhyMNE> Patient Name: HUSSAIN DIOP Unit Number: [id number] Dictated: 09/13/16758 Transcribed: 09/13/16 075 MS Printed Date/Time: [~ rep prt dt]/[~ rep prt tm] [~ rep ct labl] - [~ rep ct ivnm] [facility] [place] [place] [address] Dictated: 09/13/16758 Transcribed: 09/13/16758 MS Printed Date/Time: [~ rep prt dt]/[~ rep prt tm] [~ rep ct labl] - [~ rep ct ivnm] Patient: HUSSAIN DIOP Address1: [address] [facility] Rec: [id number] Address2: Acct ID: [id number] [facility] Zip: [place] [address] Date: 1935 Sex: F Room/Bed: Ref Phy: Jose A Ruiz M.D. SC: GHASSAN Att Phy: Report #: [id number] Elyssa Phy: Jose A Ruiz M.D. Test: APIV Admit Phy: Traffic Sign Erection Supervisor: [facility] Interpreting Phy: Jericho Bryant M.D. Diagnosis: BACK PAIN Ordering Phy: Jakub Pringle M.D. Service Date: 09/13/16 Admit Date: 09/13/16 MNE: PWRSCRIBE CONF: DICTATED BY: Jericho Bryant M.D.]] CC: Jose A Ruiz M.D. Newcomb, Brian D., M.D. Endcc: [~ rep ct add3]] ABDOMEN AND PELVIS CT WITH IV CONTRAST CT DOSE: 1128.51 mGy.cm HISTORY: Trauma left hip and pelvis pain, elevated inh eval for hematoma TECHNIQUE: Multiaxial CT images of the abdomen and pelvis were performed following the use of intravenous contrast. COMPARISON STUDY: None. FINDINGS: Lung bases are generally clear. Minimal dependent basilar atelectasis. Findings suggesting early hepatic cirrhosis. Cleft posterior right hepatic margin with no well-defined perihepatic or subcapsular fluid pocket. Mild cortical scarring of the kidneys. No significant retroperitoneal hematoma. Spleen is uniform in bowel pattern overall is nonobstructive. There is no well-defined abscess or collection. Mild chronic sigmoid diverticulosis. No free fluid within the pelvic cul-de-sac. IMPRESSION: No acute process. Compression deformity L3 considered progressive compared to a prior study 08/08/2016. Mild posterior displacement of the posterior margin of the L3 vertebral body. Electronically signed by: Jericho Bryant M.D. 09/13/2016 8:03 AM Dictated Date/Time: 09/13/2016 7:59 AM The status of this report is Signed. Draft = Not yet reviewed or approved by Radiologist. Signed = Reviewed and approved by Radiologist. <AttendingPhy></AttendingPhy> <FamilyPhy>Jose A Ruiz M.D.</FamilyPhy> < PrimaryPhy>Jose A Ruiz M.D.</PrimaryPhy> <UnitNumber>[id number]</UnitNumber > <VisitNumber>[id number]</VisitNumber> <PatientName>HUSSAIN DIOP</ PatientName> <DateOfBirth>1935</DateOfBirth> <Location>[facility]</Location> < ServiceDate>09/13/16</ServiceDate> <MNE>ESINDI</MNE> <OrderingPhy>Jakub Pringle M.D.</OrderingPhy> <OrderingPhyMNE>f rep ord dr pickens</OrderingPhyMNE> < DictatingPhyMNE>f rep dict dr pickens</DictatingPhyMNE> <CCListMNE>f rep ct nelia</ CCListMNE> <AdmittingPhyMNE>f pt admit dr pickens</AdmittingPhyMNE> <AttendingPhyMNE >f pt attend dr pickens</AttendingPhyMNE> <ConsultingPhyMNE>f pt consult dr pickens</ConsultingPhyMNE> <FamilyPhyMNE>f pt fam dr pickens</FamilyPhyMNE> <OtherPhyMNE>f pt other dr pickens</OtherPhyMNE> < PrimaryPhyMNE>f pt prim care dr pickens</PrimaryPhyMNE> <ReferringPhyMNE>f pt referring dr pickens</ReferringPhyMNE> EKG Reviewed EKG and agree with interpretation as follows: 67 bpm, NSR Impression Assessment and Plan 81 y/o female with a history of CAD, A. fib, depression, CHF, hyperlipidemia, essential tremor, hypertension, Parkinson's, and GERD who presented to the ED on 09/13 with left hip pain. Patient with frequent falls lately. She was evaluated by physical therapy and occupational therapy in the ED and has been accepted to [facility]. Patient is being admitted for observation overnight until she can be transported to tomorrow. CT of abdomen and pelvis shows progressive L3 compression deformity. CT pelvis shows no fractures or acute findings, positive for degenerative changes. Head CT no acute disease. EKG no ischemic changes, normal sinus rhythm. BP 215/89 arrival. WBC is slightly elevated at 11.8. INR supratherapeutic at 5.0. Frequent falls, left hip pain--patient going to [facility] tomorrow -[facility] -PT/OT -Fall precautions -Check orthostatics HTN--last recorded BP 194/89 -Continue losartan 50 mg PO qd and Lopressor 12.5 mg PO BID -Cover with hydralazine 10 mg IV q6h prn SBP >180 Atrial fibrillation--currently in sinus rhythm -Continue amiodarone 100 mg PO qd and Lopressor as above -Hold warfarin as INR is supratherapeutic -Check PT/INR tomorrow morning Chronic diastolic CHF--stable, pt euvolemic -Continue spironolactone 25 mg PO qd HLD -Continue atorvastatin 40 mg PO qd Parkinson's -Continue carbidopa-levodopa 25/100 1.5 tablets PO QID Essential tremor -Continue clonazepam 0.5 mg PO BID GERD -Continue Protonix 40 mg PO qd DVT prophylaxis -Hold warfarin as INR supratherapeutic -DHAVAL Wynn Code Status -Level I, FULL RESUSCITATION STATUS I agree with PA assessment and plan and have seen and examined pt myself Pt with repeated fall VSS CVS: RRR no m/r/g INR supratherapeutic, hold coumadin [facility] in AM Cont PT/OT Level of Care Med/Surg (observation) Resuscitation Status FULL RESUSCITATION VTE Prophylaxis VTE Risk Assessment Done? Y/N: Yes Risk Level: Moderate Given or contraindicated: T.E.D. Stockings, SCD's
[2016-09-13] MEDS ORDERED: IV FLUIDS COMPLETED PRN (20:00)
[2016-09-13 20:10] VITALS: BP 198/79; PULSE 50; TEMP 36.7; Ht 149.9 cm; Wt 58.1 kg
[2016-09-13] MEDS ORDERED: DOCUSATE SODIUM 100 MG CAP PO PRN (20:45)
[2016-09-13] MEDS ORDERED: POLYETHYLENE (MIRALAX) 17 GM PACK PO PRN (20:45)
[2016-09-13] MEDS: HydrALAZINE HCL 20 MG/ML VIAL IV. PRN (20:53)
[2016-09-13] MEDS: METOPROLOL TARTRATE 25 MG TAB PO SCH (21:00)
[2016-09-13] MEDS ORDERED: CALCIUM 600MG + VIT D 400 IU TAB PO SCH (21:00)
[2016-09-13] MEDS: CALCIUM 600MG + VIT D 400 IU TAB PO SCH (21:15)
[2016-09-13] MEDS: PANTOprazole SOD 40 MG TAB PO SCH (21:15)
[2016-09-13] MEDS: ATORVASTATIN 40 MG TAB PO SCH (21:15)
[2016-09-13] MEDS: CARBIDOPA/LEVODOPA 25/100MG TAB PO SCH (21:15)
[2016-09-13] MEDS: CLONAZEPAM 0.5 MG TAB PO SCH (21:15)
[2016-09-13 21:45] VITALS: BP 162/75
[2016-09-13] MEDS: ACETAMINOPHEN 325 MG TAB PO PRN (21:58)
[2016-09-13 22:25] VITALS: BP 153/74
[2016-09-13 23:00] VITALS: BP 142/72; PULSE 85; TEMP 37.2; O2SAT 93
--- NOTE | 2016-09-13 23:24 | EMERGENCY ROOM VISIT NOTE ---
ED Visit Note First contact with patient: 15:01 81 yr old female with chronic weakness gradually worsening. On coumadin for her Afib with several falls over last few weeks resulting in fractures and worsening weakness. Living at home with though to point where she can not even get to bathroom without significant help from . Initially seen and evaluated by Dr Pringle this morning who did extensive labs, imaging, work- up for her worsening weakness. Found to have mild worsening of lumbar compression fracture, modestly serotherapeutic INR and just too weak to get around. Attempted to place throughout the day by Dr Cole. Awaiting Doc to Doc with insurance company when signed out to me. Dr Zambrano of her insurance company discussed case with me and notes that inpatient rehab will not be agreed , however she will be allowed nursing facility care. Case management did extensive work trying to place and she was tentatively accepted to [facility] though can not go until at earliest tomorrow. Thus we will bring in here overnight and further further monitoring.
[2016-09-14] MEDS: ONDANSETRON INJ 2 MG/ML 2 ML VIAL IV PRN ×2 (01:28→09:44)
[2016-09-14 05:35] VITALS: BP_SYST 136; BP_SYST 141; BP_DIAS 64; BP_DIAS 76; BP_DIAS 82; PULSE 101; PULSE 85; PULSE 92
[2016-09-14 06:58] VITALS: BP 147/78; PULSE 82; TEMP 37; O2SAT 92
[2016-09-14 07:25] LABS: HEMATOCRIT 43.5 % (37-47); MEAN CELL VOLUME 90.2 fL (80-100); MEAN CORPUSCULAR HEMOGLOBIN 30.5 pg (25-34); MEAN CORPUSCULAR HGB CONC 33.8 g/dl (32-36); MEAN PLATELET VOLUME 8.2 fL (7.4-10.4); PLATELET COUNT 377 K/uL (130-400); RED BLOOD COUNT 4.82 M/uL (4.2-5.4); WHITE BLOOD COUNT 11.22 K/uL (4.8-10.8)
[2016-09-14 07:28] LABS: PARTIAL THROMBOPLASTIN RATIO 2.3; PROTHROMBIN TIME (PATIENT) 44.3 SECONDS (9.0-12.0)
[2016-09-14 07:39] LABS: BUN/CREATININE RATIO 25.2 (10-20); CALCIUM 9.5 mg/dl (8.5-10.1); CREATININE 0.54 mg/dl (0.60-1.20); POTASSIUM 3.9 mmol/L (3.5-5.1)
[2016-09-14 07:42] LABS: INR 3.9 (0.9-1.1)
[2016-09-14] MEDS: FLUTICASONE PROPIONATE NA SPR 16 GM BTL NAE SCH (09:06)
[2016-09-14] MEDS: CALCIUM 600MG + VIT D 400 IU TAB PO SCH ×2 (09:07→20:36)
[2016-09-14] MEDS: CARBIDOPA/LEVODOPA 25/100MG TAB PO SCH ×4 (09:07→20:36)
[2016-09-14] MEDS: LOSARTAN POTASSIUM 50 MG TAB PO SCH (09:08)
[2016-09-14] MEDS: SPIRONOLACTONE 25 MG TAB PO SCH (09:08)
[2016-09-14] MEDS: AMIODARONE 200 MG TAB PO SCH (09:08)
[2016-09-14] MEDS: CHOLECALCIFEROL 1000 INTER.UNIT TAB PO SCH (09:08)
[2016-09-14] MEDS: CEROVITE ADV FORMULA TAB PO SCH (09:08)
[2016-09-14] MEDS: METOPROLOL TARTRATE 25 MG TAB PO SCH ×2 (09:09→20:36)
[2016-09-14] MEDS: CLONAZEPAM 0.5 MG TAB PO SCH ×2 (09:18→20:36)
[2016-09-14] MEDS: ACETAMINOPHEN 325 MG TAB PO PRN (09:42)
[2016-09-14] MEDS ORDERED: TAPENTADOL HCL 50 MG TAB PO PRN (12:15)
[2016-09-14] MEDS ORDERED: CALCITONIN SALMON NA 200 IU/AC 3.7 ML BTL ONE (13:00)
--- NOTE | 2016-09-14 13:54 | DIAGNOSTIC IMAGING REPORT ---
MRI OF THE LUMBAR SPINE WITHOUT IV CONTRAST CLINICAL HISTORY: Compression fracture. COMPARISON STUDY: Abdominal CT dated 09/13/2016. CT scan of the lumbar spine dated 08/08/2016. TECHNIQUE: MRI of the lumbar spine is performed utilizing various T1 and T2-weighted sequences in the axial and sagittal planes. IV contrast was not administered for this examination. FINDINGS: Lumbar spine: There is a severe compression deformity of L3. Mild edema is noted within the L3 vertebral body. Fragments are retropulsed by up to 5 mm. Vertebral body height is otherwise maintained throughout the lumbar spine. Minimal anterolisthesis is noted at L4-L5. Degenerative endplate edema is seen involving the inferior endplate of L2. The transverse and spinous processes are grossly intact. There is no evidence of spondylolysis. Small anterior osteophytes are noted throughout. No clear destructive osseous lesion is identified. Vertebral discs: Degenerative disc desiccation and mild loss of height is seen throughout the lumbar spine. Spinal cord: The visualized spinal cord is normal in morphology and signal intensity. The conus medullaris terminates at the T12-L1 interspace. The nerve roots of the cauda equina are normal in morphology. L1-L2: Unremarkable. L2-L3: There is minimal disc bulge eccentric to the left. This causes mild left-sided subarticular stenosis. Facet arthropathy is of no consequence. L3: Retropulsed fragments are identified. This causes moderate acquired compromise of the central canal with a minimum AP diameter of 9 mm. This likely abuts several of the transiting bilateral nerve roots. L3-L4: There is a small disc bulge eccentric to the left. This causes mild left-sided subarticular stenosis. Facet arthropathy causes mild left greater than right neural foraminal narrowing. There is no significant acquired compromise of the central canal at this level. L4-L5: There is a posterior disc bulge eccentric to the left. In conjunction with hypertrophy of the ligamentum flavum this causes moderate acquired compromise of the central canal with a minimum AP diameter of 5 mm. There is bilateral subarticular stenosis, with possible impingement on the exiting left L4 nerve root. This also likely abuts the transiting bilateral L5 nerve roots. L5-S1: Facet arthropathy causes mild bilateral neural foraminal stenosis. The disc bulge eccentric to the left causes left-sided subarticular stenosis. This may impinge on the exiting left L5 nerve root and may abut the transiting left S1 nerve root. Sacrum: Visualized sacrum is normal in morphology and signal intensity. Soft tissues: There is paravertebral edema identified at L3 at the level of the fracture. There is fatty atrophy of the paraspinous musculature. IMPRESSION: 1. There is a severe compression deformity of L3, and the degree of collapse has increased from the 08/08/2016 examination. Marrow edema is noted and there is surrounding paravertebral edema. 2. Retropulsed fragments at L3 contribute to acquired compromise of the central canal at this level and may impinge on the transiting nerve roots. See above discussion. 3. Vertebral body height is otherwise maintained throughout the lumbar spine. Degenerative endplate edema is noted in L2. 4. Multilevel lumbosacral spondylosis as above. There is moderate acquired compromise of the central canal at L4-L5. See discussion for detailed level by level analysis. Dictated: 09/14/2016 1:15 PM Transcribed: 09/14/2016 1:53 PM GRACE_Steven Electronically signed by: Cj Brown M.D. 09/14/2016 2:26 PM Dictated Date/Time: 09/14/2016 1:15 PM
[2016-09-14 14:00] VITALS: BP_SYST 116; BP_SYST 119; BP_SYST 127; BP_DIAS 68; BP_DIAS 69; BP_DIAS 71; PULSE 71; PULSE 75; PULSE 77
[2016-09-14] MEDS: ACETAMINOPHEN 500 MG TAB PO SCH ×2 (14:02→20:36)
[2016-09-14] MEDS: DEXAMETHASONE INJ 4 MG in SYRINGE 0 ML IV SCH ×2 (15:11→23:03)
--- NOTE | 2016-09-14 20:14 | Progress Note ---
Subjective Date of Service: Sep 14, 2016. Subjective Pt evaluation today including: conversation w/ patient, physical exam, chart review, lab review, review of studies (MRI L-spine), conversation w/ senior consumer insights consultant (orthopedics, Dr. Whitehead), review of inpatient medication list Pain: none in back, severe in left leg - latter w/ activity PO Intake: normal Voiding: no voiding problems pt still with considerable pain extending from the lateral left hip and down to the knee region. it is located on the side of the leg - denies anterior or posterior leg pain. denies paresthesias. if she lies still the pain is controlled; very severe, 10/10, with movement. denies back pain denies right leg pain denies that pain is worsened with laying on left side/left hip. Problem List Medical Problems: (1) Fall Status: Acute (2) Head injury Status: Acute (3) Left hip pain Status: Acute (4) Lumbar compression fracture Status: Acute Review of Systems Constitutional: No fever Respiratory: No dyspnea on exertion, No shortness of breath Cardiac: No chest pain Abdomen: No pain Objective Vital Signs Date Time Temp Pulse Resp B/P Pulse Ox O2 Delivery O2 Flow Rate FiO2 09/14/16 15:05 Room Air 09/14/16 14:00 71 127/71 75 119/68 77 116/69 09/14/16 07:15 Room Air 09/14/16 06:58 37.0 82 17 147/78 92 Room Air 09/14/16 05:35 92 136/76 09/14/16 05:35 85 141/64 09/14/16 05:35 101 141/82 09/13/16 23:45 Room Air 09/13/16 23:00 37.2 85 16 142/72 93 Room Air 09/13/16 22:25 153/74 09/13/16 21:45 162/75 09/13/16 20:10 36.7 50 16 198/79 Room Air Physical Exam General Appearance: no apparent distress, + pertinent finding (resting tremors of facial muscles and arms noted) ENT: pharynx normal Neck: no JVD Respiratory/Chest: lungs clear, no respiratory distress, no accessory muscle use Cardiovascular: regular rate, rhythm, no gallop, no murmur Abdomen: normal bowel sounds, non tender, soft, no organomegaly Extremities: no pedal edema, + pertinent finding (left hip - passive flexion, extension, and rotation do NOT reproduce ANY pain. NO pain over left trochanteric bursal area w/ palpation.) Neurologic/Psychiatric: alert, oriented x 3, + pertinent finding (strength 5/5 x 4 exts) Comments: back - no abnormalities of l-spine noted w/ inspection. No pain or tenderness over paraspinal areas or the l-spine spinous processes. Laboratory Results Last 24 Hours Test 09/14/16 06:40 White Blood Count 11.22 K/uL Red Blood Count 4.82 M/uL Hemoglobin 14.7 g/dL Hematocrit 43.5 % Mean Corpuscular Volume 90.2 fL Mean Corpuscular Hemoglobin 30.5 pg Mean Corpuscular Hemoglobin Concent 33.8 g/dl RDW Standard Deviation 47.0 fL RDW Coefficient of Variation 14.2 % Platelet Count 377 K/uL Mean Platelet Volume 8.2 fL Prothrombin Time 44.3 SECONDS Prothromb Time International Ratio 3.9 Activated Partial Thromboplast Time 60.6 SECONDS Partial Thromboplastin Ratio 2.3 Sodium Level 139 mmol/L Potassium Level 3.9 mmol/L Chloride Level 103 mmol/L Carbon Dioxide Level 27 mmol/L Anion Gap 9.0 mmol/L Blood Urea Nitrogen 14 mg/dl Creatinine 0.54 mg/dl Est Creatinine Clear Calc Drug Dose 64.5 ml/min Estimated GFR () 103.3 Estimated GFR (Non- 89.1 BUN/Creatinine Ratio 25.2 Random Glucose 85 mg/dl Calcium Level 9.5 mg/dl Assessment and Plan 81yo female: 1. left hip/left lateral leg pain - suspect radicular pain from L-spine disease. Incidental note made of L3 compression fracture that has WORSENED since imaging in July. She has had multiple falls since her initial fall in July that led to that compression fracture. I suspect the worsening L3 fracture is from the recurrent falls. MRI L-spine obtained today showing retrograde propulsion of bony fragments from the L3 fracture. There is also nerve compromise. I suspect much of her left leg pain is due to her radiculopathy. On exam there is no evidence of intrinsic left hip disease or trochanteric bursitis. 2. L3 compression fracture - worse radiographically and clinically - with suspected radiculopathy: * consult spine, Dr. Whitehead; patient has established relationship with [facility] * miacalcin nasal spray daily * tylenol 1 gm TID * nucynta prn * decadron 4mg IV q8h * PT, OT consults * will need rehab depending on what orthopedics recommends 3. CAD - no symptoms of ischemia. Cont BB, etc. Unclear why she does not take aspirin or plavix. 4. h/o a. fib - remains in NSR clinically. Cont to hold coumadin due to supratherapeutic INR. repeat INR in am. Cont amiodarone. Most recent TSH was normal. 5. falls - suspect 2nd to parkinson's disease. B12 level about 2 years ago was robust. TSH normal. gait training/rehab/therapy. 6. HTN - controlled with outpatient meds. 7. GERD - PPI. 8. essential tremor - BB. 9. parkinson's disease - continue sinemet per outpatient regimen. 10. chronic diastolic CHF - compensated. Patient with severe pain with any activity and with worsening L3 compression fracture. Needs orthopedic consultation. Will she need surgery? In my clinical judgment this beneficiary meets acute admission criteria, established by CMS, that includes being hospitalized through two midnights. Thus, will change to full admission status. Continued [facility] stay due to: ambulation difficulties, multiple IV medications needed, home environment unsafe for pt Discharge planning: senior care facility
[2016-09-14 20:28] VITALS: BP_SYST 134; BP_SYST 144; BP_SYST 161; BP_DIAS 72; BP_DIAS 78; BP_DIAS 87; PULSE 78; PULSE 80
[2016-09-14] MEDS: PANTOprazole SOD 40 MG TAB PO SCH (20:36)
[2016-09-14] MEDS: ATORVASTATIN 40 MG TAB PO SCH (20:36)
[2016-09-14] MEDS: POLYETHYLENE (MIRALAX) 17 GM PACK PO SCH (21:46)
[2016-09-14 22:45] VITALS: BP 137/75; PULSE 61; TEMP 36.7; O2SAT 93
[2016-09-15] VITALS (9 sets, daily range): BP systolic 105–192; BP diastolic 61–102; PULSE 72–91; TEMP 36.5–36.7; O2SAT 92–96
[2016-09-15] MEDS: HydrALAZINE HCL 20 MG/ML VIAL IV. PRN (04:23)
[2016-09-15] MEDS: DEXAMETHASONE INJ 4 MG in SYRINGE 0 ML IV SCH ×3 (06:31→22:25)
[2016-09-15 07:23] LABS: INR 3.5 (0.9-1.1); PROTHROMBIN TIME (PATIENT) 39.1 SECONDS (9.0-12.0)
[2016-09-15] MEDS: CARBIDOPA/LEVODOPA 25/100MG TAB PO SCH ×4 (08:35→20:46)
[2016-09-15] MEDS: CALCIUM 600MG + VIT D 400 IU TAB PO SCH ×2 (08:35→20:47)
[2016-09-15] MEDS: LOSARTAN POTASSIUM 50 MG TAB PO SCH (08:35)
[2016-09-15] MEDS: SPIRONOLACTONE 25 MG TAB PO SCH (08:36)
[2016-09-15] MEDS: AMIODARONE 200 MG TAB PO SCH (08:36)
[2016-09-15] MEDS: CEROVITE ADV FORMULA TAB PO SCH (08:37)
[2016-09-15] MEDS: CHOLECALCIFEROL 1000 INTER.UNIT TAB PO SCH (08:37)
[2016-09-15] MEDS: POLYETHYLENE (MIRALAX) 17 GM PACK PO SCH (08:37)
[2016-09-15] MEDS: METOPROLOL TARTRATE 25 MG TAB PO SCH ×2 (08:37→20:47)
[2016-09-15] MEDS: ACETAMINOPHEN 500 MG TAB PO SCH ×3 (08:38→20:46)
[2016-09-15] MEDS: CALCITONIN SALMON NA 200 IU/AC 3.7 ML BTL SCH (08:38)
[2016-09-15] MEDS: FLUTICASONE PROPIONATE NA SPR 16 GM BTL NAE SCH (08:38)
[2016-09-15] MEDS: CLONAZEPAM 0.5 MG TAB PO SCH ×2 (08:41→20:47)
--- NOTE | 2016-09-15 09:20 | HISTORY & PHYSICAL EXAMINATION ---
DATE OF ADMISSION: 09/14/2016 CHIEF ORTHOPEDIC COMPLAINT: Back and lower extremity difficulty HISTORY OF PRESENT ILLNESS: Abi is a delightful patient. She is 81. I am meeting her for the first time with back and lower extremity difficulty. At rest, she is comfortable. She does have pain with ambulation trying to get her mobilized. PAST MEDICAL HISTORY: Positive for coronary artery disease, atrial fibrillation, depression, heart failure, hyperlipidemia. She has Parkinson essential tremor. She has GERD. She has had multiple falls. She is a little unsure exactly what fall led to this painful process, but it within the last several weeks. Interestingly, her MRI scan has characteristics of much older injury. MEDICAL HISTORY: Listed. FAMILY HISTORY: Cancer, heart disease, hypertension. SOCIAL HISTORY: Nonsmoker, nonalcohol user. She is retired. She is . MEDICATIONS: All listed in the questionnaire. They are reviewed. I have not dictated those rather than be redundant. REVIEW OF SYSTEMS: She denies blurred vision, double vision, tinnitus, vertigo. No current chest pain. No nausea, vomiting. No urgency, frequency, dysuria. Major complaint is musculoskeletal back issues, lower extremity issues. PHYSICAL EXAMINATION: VITAL SIGNS: Blood pressure 180/81, pulse 65, respiration rate 16. GENERAL: She is in no acute distress. Her mentation is good. She is able to communicate well. No terrible distress. HEART AND LUNG: Normal. ABDOMEN: Soft, nontender. NEUROLOGIC: Intact. I did not discovering any motor loss, sensory or reflex changes. She did have pain with percussion to the spine in the area of her compression deformity. MRI scan of lumbar spine demonstrate a compression deformity L3, somewhat progressive over the last month. There is some mild posterior displacement. There is some mild stenosis present but not overly compromised. SUMMARY: Includes that is a delightful young lady, 81 years of age with a compression deformity of the spine L3, minimal canal compromise, moderate pain. DISPOSITION: I would recommend a nonsurgical approach to the problem. The kyphoplasty procedure would not be for her. The vertebrae quite frankly is too compressed. I would recommend physical therapy which is in order and ongoing, also I would recommend back brace for support and I will order that this morning.
--- NOTE | 2016-09-15 14:11 | Progress Note ---
Subjective Date of Service: Sep 15, 2016. Subjective Pt evaluation today including: conversation w/ patient, conversation w/ family , physical exam, chart review, lab review, review of studies, review of inpatient medication list Voiding: no voiding problems, no incontinence Pt still with pain extending from the lateral left hip and down to the knee region, she states pain 4-5/10. Pt denies any motor or sensory weakness in bilateral lower extremities. Pt denies any difficulty with urination and defecation. Pt MRI spine reviewed. Pt denies back pain, denies that pain is worsened with laying on left side/left hip. Problem List Medical Problems: (1) Fall Status: Acute (2) Head injury Status: Acute (3) Left hip pain Status: Acute (4) Lumbar compression fracture Status: Acute Review of Systems Constitutional: No fever Respiratory: No dyspnea on exertion, No shortness of breath Cardiac: No chest pain Abdomen: No pain Medications Medications (Trade) Dose Ordered Sig/Naomi Route Start Time Stop Time Status Last Admin Dose Admin Calcitonin Arabi 1 spray 1 spray DAILY NA 09/15/16 09:00 10/15/16 08:59 09/15/16 08:38 1 SPRAY Dexamethasone Sodium Phosphate/ Syringe (Decadron Inj/ Syringe) 1 ml @ 1 mls/min Q8H IV 09/14/16 15:00 10/14/16 14:59 09/15/16 13:50 1 MLS/MIN Polyethylene (Miralax Powder Packet) 17 gm DAILY PO 09/14/16 19:55 10/14/16 19:54 09/15/16 08:37 17 GM Objective Vital Signs Date Time Temp Pulse Resp B/P Pulse Ox O2 Delivery O2 Flow Rate FiO2 09/15/16 07:59 36.7 89 16 115/68 94 Room Air 09/15/16 07:45 Room Air 09/15/16 06:38 88 126/70 09/15/16 05:31 105/61 09/15/16 03:22 79 19 192/102 92 Room Air 09/15/16 03:21 74 19 167/91 92 Room Air 09/15/16 03:20 36.7 72 18 176/90 92 Room Air 09/14/16 23:59 Room Air 09/14/16 22:45 36.7 61 17 137/75 93 Room Air 09/14/16 20:28 78 134/72 78 144/78 80 161/87 09/14/16 15:05 Room Air Physical Exam Comments: General Appearance: no apparent distress, + pertinent finding (resting tremors of facial muscles and arms noted) ENT: pharynx normal Neck: no JVD Respiratory/Chest: lungs clear, no respiratory distress, no accessory muscle use Cardiovascular: regular rate, rhythm, no gallop, no murmur Abdomen: normal bowel sounds, non tender, soft, no organomegaly Extremities: no pedal edema, + pertinent finding (left hip - passive flexion, extension, and rotation do NOT reproduce ANY pain. NO pain over left trochanteric bursal area w/ palpation.) Neurologic/Psychiatric: alert, oriented x 3, + pertinent finding (strength 5/5 x 4 exts) Comments: back - no abnormalities of l-spine noted w/ inspection. No pain or tenderness over paraspinal areas or the l-spine spinous processes. Laboratory Results Last 24 Hours Test 09/15/16 06:03 Prothrombin Time 39.1 SECONDS Prothromb Time International Ratio 3.5 25-Hydroxy Vitamin D Total 38.6 ng/ml Assessment and Plan 1. left hip/left lateral leg pain - Radicular pain from L-spine disease. - Incidental note made of L3 compression fracture that has WORSENED since imaging in July. - She has had multiple falls since her initial fall in July that led to that compression fracture. - We suspect the worsening L3 fracture is from the recurrent falls. MRI L-spine obtained today showing retrograde propulsion of bony fragments from the L3 fracture. There is also nerve compromise. I suspect much of her left leg pain is due to her radiculopathy. On exam there is no evidence of intrinsic left hip disease or trochanteric bursitis. 2. L3 compression fracture - worse radiographically and clinically - with suspected radiculopathy: - Ortho on case, recommends non- approach surgical - Back brace. - tylenol 1 gm TID - nucynta prn - decadron 4mg IV q8h - PT/OT - need rehab depending on what orthopedics recommends - [facility] at [facility] time. 3. CAD - no symptoms of ischemia. Cont BB, etc. Unclear why she does not take aspirin or plavix. 4. H/o a. fib - remains in NSR clinically. -Cont to hold Coumadin due to supra-therapeutic INR 3.5 slowly rending down. -repeat INR in am. -Cont amiodarone. 5. falls - suspect 2nd to Parkinson's disease. - gait training/rehab/therapy. 6. HTN - controlled with outpatient meds. 7. GERD - PPI. 8. Essential tremor - BB. 9. Parkinson's disease - continue Sinemet per outpatient regimen. 10. chronic diastolic CHF - compensated. Continued [facility] stay due to: ambulation difficulties, multiple IV medications needed, home environment unsafe for pt Discharge planning: longterm facility
[2016-09-15 15:54] LABS: INR 3.5 (0.9-1.1); PROTHROMBIN TIME (PATIENT) 39.8 SECONDS (9.0-12.0)
[2016-09-15] MEDS: PANTOprazole SOD 40 MG TAB PO SCH (20:46)
[2016-09-15] MEDS: ATORVASTATIN 40 MG TAB PO SCH (20:47)
[2016-09-16] VITALS (10 sets, daily range): BP systolic 105–196; BP diastolic 61–90; PULSE 62–94; TEMP 36.2–36.9; O2SAT 93–96
[2016-09-16] MEDS: DEXAMETHASONE INJ 4 MG in SYRINGE 0 ML IV SCH ×3 (06:30→22:33)
[2016-09-16] MEDS: ACETAMINOPHEN 500 MG TAB PO SCH ×3 (08:29→20:41)
[2016-09-16] MEDS: METOPROLOL TARTRATE 25 MG TAB PO SCH ×2 (08:30→20:42)
[2016-09-16] MEDS: CEROVITE ADV FORMULA TAB PO SCH (08:30)
[2016-09-16] MEDS: AMIODARONE 200 MG TAB PO SCH (08:30)
[2016-09-16] MEDS: CARBIDOPA/LEVODOPA 25/100MG TAB PO SCH ×4 (08:30→20:40)
[2016-09-16] MEDS: CALCITONIN SALMON NA 200 IU/AC 3.7 ML BTL SCH (08:31)
[2016-09-16] MEDS: FLUTICASONE PROPIONATE NA SPR 16 GM BTL NAE SCH (08:31)
[2016-09-16] MEDS: SPIRONOLACTONE 25 MG TAB PO SCH (08:31)
[2016-09-16] MEDS: CHOLECALCIFEROL 1000 INTER.UNIT TAB PO SCH (08:31)
[2016-09-16] MEDS: LOSARTAN POTASSIUM 50 MG TAB PO SCH (08:31)
[2016-09-16] MEDS: CALCIUM 600MG + VIT D 400 IU TAB PO SCH ×2 (08:31→21:27)
[2016-09-16] MEDS: POLYETHYLENE (MIRALAX) 17 GM PACK PO SCH (08:34)
[2016-09-16] MEDS: CLONAZEPAM 0.5 MG TAB PO SCH ×2 (08:53→20:40)
[2016-09-16] MEDS: ATORVASTATIN 40 MG TAB PO SCH (20:40)
[2016-09-16] MEDS: PANTOprazole SOD 40 MG TAB PO SCH (20:42)
--- NOTE | 2016-09-16 23:08 | Progress Note ---
Subjective Date of Service: Sep 16, 2016. Subjective Pt evaluation today including: conversation w/ patient, physical exam, chart review, review of inpatient medication list Pain: no pain reported PO Intake: excellent Voiding: no voiding problems, no incontinence pt denies any complain at present, waiting placement in [facility] rehab. Problem List Medical Problems: (1) Fall Status: Acute (2) Head injury Status: Acute (3) Left hip pain Status: Acute (4) Lumbar compression fracture Status: Acute Review of Systems All Other Systems: Reviewed and Negative Objective Vital Signs Date Time Temp Pulse Resp B/P Pulse Ox O2 Delivery O2 Flow Rate FiO2 09/16/16 19:14 36.8 65 18 124/67 94 Room Air 09/16/16 15:38 173/75 09/16/16 15:36 196/84 09/16/16 15:36 169/87 09/16/16 15:30 Room Air 09/16/16 15:05 36.2 65 18 154/79 94 Room Air 09/16/16 14:42 149/77 167/75 163/74 09/16/16 08:00 Room Air 09/16/16 06:50 36.9 65 16 158/85 96 Room Air 09/16/16 02:19 76 17 105/76 96 Room Air 09/16/16 02:19 76 19 139/61 93 Room Air 09/16/16 02:19 67 19 147/64 94 Room Air 09/15/16 23:25 Room Air Physical Exam General Appearance: WD/WN, no apparent distress Neck: supple Respiratory/Chest: lungs clear, normal breath sounds, no respiratory distress Cardiovascular: regular rate, rhythm, no edema, no gallop, no murmur Abdomen: soft Extremities: no pedal edema, no calf tenderness Neurologic/Psychiatric: no motor/sensory deficits, alert, normal mood/affect, oriented x 3 Skin: no rash Assessment and Plan 1. left hip/left lateral leg pain - Radicular pain from L-spine disease. - Incidental note made of L3 compression fracture that has WORSENED since imaging in July. - She has had multiple falls since her initial fall in July that led to that compression fracture. - We suspect the worsening L3 fracture is from the recurrent falls. MRI L-spine obtained today showing retrograde propulsion of bony fragments from the L3 fracture. There is also nerve compromise. I suspect much of her left leg pain is due to her radiculopathy. On exam there is no evidence of intrinsic left hip disease or trochanteric bursitis. 2. L3 compression fracture - worse radiographically and clinically - with suspected radiculopathy: - Ortho on case, recommends non- approach surgical - Back brace waiting. - tylenol 1 gm TID - nucynta prn - decadron 4mg IV q8h - PT/OT - waiting for [facility] re[facility] for bed at this time. 3. CAD - no symptoms of ischemia. Cont BB, etc. Unclear why she does not take aspirin or plavix. 4. H/o a. fib - remains in NSR clinically. -Cont to hold Coumadin due to supra-therapeutic INR 3.5 slowly rending down. -repeat INR in am. -Cont amiodarone. 5. falls - suspect 2nd to Parkinson's disease. - gait training/rehab/therapy. 6. HTN - controlled with outpatient meds. 7. GERD - PPI. 8. Essential tremor - BB. 9. Parkinson's disease - continue Sinemet per outpatient regimen. 10. chronic diastolic CHF - compensated. Continued [facility] stay due to: ambulation difficulties, home environment unsafe for pt Discharge planning: [facility] facility
[2016-09-17 00:39] LABS: PROTHROMBIN TIME (PATIENT) 49.7 SECONDS (9.0-12.0)
[2016-09-17 00:49] LABS: INR 4.4 (0.9-1.1)
[2016-09-17] MEDS: DEXAMETHASONE INJ 4 MG in SYRINGE 0 ML IV SCH (06:26)
[2016-09-17 06:56] VITALS: BP 166/83; PULSE 74; TEMP 36.6; O2SAT 95
[2016-09-17] MEDS: FLUTICASONE PROPIONATE NA SPR 16 GM BTL NAE SCH (08:26)
[2016-09-17] MEDS: CALCITONIN SALMON NA 200 IU/AC 3.7 ML BTL SCH (08:27)
[2016-09-17] MEDS: SPIRONOLACTONE 25 MG TAB PO SCH (08:27)
[2016-09-17] MEDS: CALCIUM 600MG + VIT D 400 IU TAB PO SCH ×2 (08:29→20:45)
[2016-09-17] MEDS: LOSARTAN POTASSIUM 50 MG TAB PO SCH (08:30)
[2016-09-17] MEDS: AMIODARONE 200 MG TAB PO SCH (08:30)
[2016-09-17] MEDS: POLYETHYLENE (MIRALAX) 17 GM PACK PO SCH (08:31)
[2016-09-17] MEDS: METOPROLOL TARTRATE 25 MG TAB PO SCH ×2 (08:31→20:46)
[2016-09-17] MEDS: CARBIDOPA/LEVODOPA 25/100MG TAB PO SCH ×4 (08:32→20:44)
[2016-09-17] MEDS: CEROVITE ADV FORMULA TAB PO SCH (08:32)
[2016-09-17] MEDS: CLONAZEPAM 0.5 MG TAB PO SCH ×2 (08:34→20:44)
[2016-09-17] MEDS: ACETAMINOPHEN 500 MG TAB PO SCH ×3 (08:34→20:45)
[2016-09-17] MEDS: CHOLECALCIFEROL 1000 INTER.UNIT TAB PO SCH (08:35)
--- NOTE | 2016-09-17 09:53 | Progress Note ---
Subjective Date of Service: Sep 17, 2016. Subjective Pt evaluation today including: conversation w/ patient, physical exam, chart review, lab review, review of studies, conversation w/ apartment leasing consultant, review of inpatient medication list Voiding: no voiding problems In bed, decreased hearing, conversational, no special complaint, reported lower back has no pain when no movement and in resting Problem List Medical Problems: (1) Fall Status: Acute (2) Head injury Status: Acute (3) Left hip pain Status: Acute (4) Lumbar compression fracture Status: Acute Review of Systems Constitutional: + fatigue, + weakness, No chills, No fever, No problem reported , No sweats, No weight loss Eyes: No diplopia, No discharge, No eye pain, No redness, No worsening of vision ENT: No dental problems, No hearing loss, No nasal symptoms, No sore throat, No tinnitus, No trouble swallowing, No unusual epistaxis Respiratory: No cough, No dyspnea at rest, No dyspnea on exertion, No hemoptysis, No shortness of breath, No sputum, No wheezing Cardiac: No PND, No chest pain, No claudication, No edema, No orthopnea, No palpitations Abdomen: No constipation, No diarrhea, No nausea, No pain, No vomiting Musculoskeletal: + joint pain, No calf pain, No muscle pain, No swelling Female : No abnormal vaginal bleeding, No dysuria, No hematuria, No incontinence, No urinary frequency, No vaginal discharge Neurologic: No balance problems, No memory loss, No numbness/tingling, No paralysis, No vertigo, No weakness Psychiatric: No anhedonism, No anxiety, No depression symptoms, No insomnia, No substance abuse Heme: No abnormal bleeding/bruising, No clotting problems, No night sweats, No swollen lymph nodes Endo: No excessive thirst, No excessive urination, No fatigue Skin: No bleeding, No color change, No itch, No new/changing skin lesions, No rash Objective Vital Signs Date Time Temp Pulse Resp B/P Pulse Ox O2 Delivery O2 Flow Rate FiO2 09/17/16 08:01 Room Air 09/17/16 06:56 36.6 74 16 166/83 95 Room Air 09/16/16 23:25 Room Air 09/16/16 23:10 147/73 09/16/16 23:10 147/90 09/16/16 23:08 36.8 62 16 154/76 95 Room Air 09/16/16 19:14 36.8 65 18 124/67 94 Room Air 09/16/16 15:38 173/75 09/16/16 15:36 196/84 09/16/16 15:36 169/87 09/16/16 15:30 Room Air 09/16/16 15:05 36.2 65 18 154/79 94 Room Air 09/16/16 14:42 149/77 167/75 163/74 Physical Exam General Appearance: WD/WN, no apparent distress, + pertinent finding (frail) Eyes: normal inspection, PERRL, EOMI, sclerae normal ENT: normal ENT inspection, hearing grossly normal, pharynx normal Neck: supple, no adenopathy, thyroid normal, no JVD, no carotid bruits, trachea midline Respiratory/Chest: chest non-tender, normal breath sounds, no respiratory distress, + decreased breath sounds Cardiovascular: regular rate, rhythm, no edema, no gallop, no JVD, no murmur Abdomen: normal bowel sounds, non tender, soft, no organomegaly, no pulsatile mass Extremities: normal inspection, no pedal edema, no calf tenderness, normal capillary refill, pelvis stable, + pertinent finding (left lateral leg, and lower back has some mild tender, skin has no bluish, there is no signs of bleeding) Neurologic/Psychiatric: shirt trimmer II-XII nml as tested, no motor/sensory deficits, alert, normal mood/affect, oriented x 3 Skin: normal color, warm/dry, no rash Lymphatic: no adenopathy Laboratory Results Last 24 Hours Test 09/17/16 00:10 Prothrombin Time 49.7 SECONDS Prothromb Time International Ratio 4.4 Assessment and Plan 81 years white female admitted on 09/15/2016 because of frequent fall with fracture left hip/left lateral leg pain L3 compression fracture Stable worse radiographically and clinically with suspected radiculopathy: Ortho on case, recommends non- approach surgical - Back brace waiting. - tylenol 1 gm TID - nucynta prn - decadron 4mg IV q8h - PT/OT - [facility] time. hx of CAD and afib: Stable - no symptoms of ischemia. Cont BB, etc. Unclear why she does not take aspirin or plavix. - remains in NSR clinically. -Cont to hold Coumadin due to supra-therapeutic INR , today is 4.4, watch for sign of bleeding -repeat INR in am. -Cont amiodarone. Accelerated hypertension, will adjust the medication falls, GERD, Essential tremor, Parkinson's disease, chronic diastolic CHF - compensated: Stable continue current medication Possible going back to halfway after PT OT evaluation I called to [facility], message left to call me back, need to further discuss about code status, she was full code in last discharge Continued [facility] stay due to: ambulation difficulties, home environment unsafe for pt Discharge planning: detention facility
[2016-09-17] MEDS ORDERED: LOSARTAN POTASSIUM 25 MG TAB PO ONE (10:15)
[2016-09-17] MEDS: DEXAMETHASONE 1 MG TAB PO SCH ×2 (13:47→21:52)
[2016-09-17 15:23] VITALS: BP 154/83; PULSE 91; TEMP 37; O2SAT 92
[2016-09-17] MEDS: ATORVASTATIN 40 MG TAB PO SCH (20:44)
[2016-09-17] MEDS: PANTOprazole SOD 40 MG TAB PO SCH (20:45)
[2016-09-17 21:30] VITALS: BP_SYST 153; BP_SYST 160; BP_SYST 168; BP_DIAS 80; BP_DIAS 83
[2016-09-17 22:44] VITALS: BP_SYST 172; BP_SYST 175; BP_DIAS 63; BP_DIAS 87; PULSE 75; TEMP 36.8; O2SAT 96
[2016-09-18] VITALS (8 sets, daily range): BP systolic 135–193; BP diastolic 64–106; PULSE 51–74; TEMP 36.4–36.8; O2SAT 94–96
[2016-09-18] MEDS: DEXAMETHASONE 1 MG TAB PO SCH ×3 (05:30→20:42)
[2016-09-18 05:47] LABS: BASO % 0.1 %; BASO ABS # 0.01 K/uL (0-0.2); COMPLETE YES; HEMATOCRIT 43.3 % (37-47); IG% 1.1 %; LYMPH % 9.3 %; MEAN CELL VOLUME 88.7 fL (80-100); MEAN CORPUSCULAR HEMOGLOBIN 29.9 pg (25-34); MEAN CORPUSCULAR HGB CONC 33.7 g/dl (32-36); MONO % 8.7 %; NEUT % 80.8 %; PLATELET COUNT 396 K/uL (130-400); RED BLOOD COUNT 4.88 M/uL (4.2-5.4); WHITE BLOOD COUNT 10.71 K/uL (4.8-10.8)
[2016-09-18 06:03] LABS: PROTHROMBIN TIME (PATIENT) 42.9 SECONDS (9.0-12.0)
[2016-09-18 06:04] LABS: INR 3.8 (0.9-1.1)
[2016-09-18 06:11] LABS: CALCIUM 8.5 mg/dl (8.5-10.1); CREATININE 0.6 mg/dl (0.60-1.20); MAGNESIUM 2.4 mg/dl (1.8-2.4); POTASSIUM 4.6 mmol/L (3.5-5.1)
[2016-09-18] MEDS: CHOLECALCIFEROL 1000 INTER.UNIT TAB PO SCH (07:56)
[2016-09-18] MEDS: SPIRONOLACTONE 25 MG TAB PO SCH (07:56)
[2016-09-18] MEDS: AMIODARONE 200 MG TAB PO SCH (07:57)
[2016-09-18] MEDS: LOSARTAN POTASSIUM 25 MG TAB PO SCH (07:57)
[2016-09-18] MEDS: METOPROLOL TARTRATE 25 MG TAB PO SCH ×2 (07:57→20:42)
[2016-09-18] MEDS: FLUTICASONE PROPIONATE NA SPR 16 GM BTL NAE SCH (07:58)
[2016-09-18] MEDS: ACETAMINOPHEN 500 MG TAB PO SCH ×3 (07:58→20:43)
[2016-09-18] MEDS: CALCITONIN SALMON NA 200 IU/AC 3.7 ML BTL SCH (07:58)
[2016-09-18] MEDS: CEROVITE ADV FORMULA TAB PO SCH (07:59)
[2016-09-18] MEDS: CARBIDOPA/LEVODOPA 25/100MG TAB PO SCH ×4 (07:59→20:44)
[2016-09-18] MEDS: CALCIUM 600MG + VIT D 400 IU TAB PO SCH ×2 (07:59→20:42)
[2016-09-18] MEDS: POLYETHYLENE (MIRALAX) 17 GM PACK PO SCH (07:59)
[2016-09-18] MEDS: CLONAZEPAM 0.5 MG TAB PO SCH ×2 (08:04→20:42)
[2016-09-18] MEDS ORDERED: METOPROLOL TARTRATE 25 MG TAB PO ONE (09:45)
[2016-09-18] MEDS ORDERED: CZR25 PO (11:40)
[2016-09-18] MEDS ORDERED: DXM1 PO (11:40)
[2016-09-18] MEDS ORDERED: CLON1TAB3 PO (11:40)
[2016-09-18] MEDS ORDERED: MCLIN (11:40)
[2016-09-18] MEDS ORDERED: LPR25 PO (11:40)
--- NOTE | 2016-09-18 18:04 | Progress Note ---
Subjective Date of Service: Sep 18, 2016. Subjective Pt evaluation today including: conversation w/ patient, physical exam, chart review, lab review, review of studies, review of inpatient medication list HAS BEEN doing ok, has been up and walk with commercial real estate assistant Problem List Medical Problems: (1) Fall Status: Acute (2) Head injury Status: Acute (3) Left hip pain Status: Acute (4) Lumbar compression fracture Status: Acute Review of Systems Constitutional: + fatigue, + weakness Eyes: No diplopia, No discharge, No eye pain, No redness, No worsening of vision ENT: No dental problems, No hearing loss, No nasal symptoms, No sore throat, No tinnitus, No trouble swallowing, No unusual epistaxis Respiratory: No cough, No dyspnea at rest, No dyspnea on exertion, No hemoptysis, No shortness of breath, No sputum, No wheezing Cardiac: No PND, No chest pain, No claudication, No edema, No orthopnea, No palpitations Abdomen: No constipation, No diarrhea, No nausea, No pain, No vomiting Musculoskeletal: + joint pain, No calf pain, No muscle pain, No swelling Female : No abnormal vaginal bleeding, No dysuria, No hematuria, No incontinence, No urinary frequency, No vaginal discharge Neurologic: No balance problems, No memory loss, No numbness/tingling, No paralysis, No vertigo, No weakness Psychiatric: No anhedonism, No anxiety, No depression symptoms, No insomnia, No substance abuse Heme: No abnormal bleeding/bruising, No clotting problems, No night sweats, No swollen lymph nodes Endo: No excessive thirst, No excessive urination, No fatigue Skin: No bleeding, No color change, No itch, No new/changing skin lesions, No rash Objective Vital Signs Date Time Temp Pulse Resp B/P Pulse Ox O2 Delivery O2 Flow Rate FiO2 09/18/16 17:42 158/87 151/78 09/18/16 16:33 175/69 09/18/16 16:33 161/72 09/18/16 16:33 163/79 09/18/16 15:23 36.4 74 16 156/72 94 Room Air 09/18/16 09:49 65 16 148/73 96 Room Air 151/75 136/64 09/18/16 08:00 Room Air 09/18/16 07:24 36.5 73 16 193/81 94 Room Air 09/18/16 00:51 71 17 178/89 96 Room Air 09/18/16 00:51 66 18 190/106 95 Room Air 09/18/16 00:50 64 17 169/83 96 Room Air 09/17/16 23:20 Room Air 09/17/16 22:44 172/63 09/17/16 22:44 36.8 75 17 175/87 96 Room Air 09/17/16 21:30 160/80 09/17/16 21:30 168/83 09/17/16 21:30 153/80 09/17/16 20:05 Room Air Physical Exam General Appearance: WD/WN, no apparent distress, + thin, + pertinent finding ( frail) Eyes: normal inspection, PERRL, EOMI, sclerae normal ENT: normal ENT inspection, hearing grossly normal, pharynx normal Neck: supple, no adenopathy, thyroid normal, no JVD, no carotid bruits, trachea midline Respiratory/Chest: chest non-tender, normal breath sounds, no respiratory distress, no accessory muscle use, + decreased breath sounds Cardiovascular: regular rate, rhythm, no edema, no gallop, no JVD, no murmur Abdomen: normal bowel sounds, non tender, soft, no organomegaly, no pulsatile mass Extremities: normal range of motion, non-tender, normal inspection, no pedal edema, no calf tenderness, normal capillary refill, pelvis stable Neurologic/Psychiatric: scout 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 II-XII nml as tested, no motor/sensory deficits, alert, normal mood/affect, oriented x 3 Skin: normal color, warm/dry, no rash Lymphatic: no adenopathy Laboratory Results Last 24 Hours Test 09/18/16 05:05 09/18/16 05:08 White Blood Count 10.71 K/uL Red Blood Count 4.88 M/uL Hemoglobin 14.6 g/dL Hematocrit 43.3 % Mean Corpuscular Volume 88.7 fL Mean Corpuscular Hemoglobin 29.9 pg Mean Corpuscular Hemoglobin Concent 33.7 g/dl Platelet Count 396 K/uL Mean Platelet Volume 8.0 fL Neutrophils (%) (Auto) 80.8 % Lymphocytes (%) (Auto) 9.3 % Monocytes (%) (Auto) 8.7 % Eosinophils (%) (Auto) 0.0 % Basophils (%) (Auto) 0.1 % Neutrophils # (Auto) 8.65 K/uL Lymphocytes # (Auto) 1.00 K/uL Monocytes # (Auto) 0.93 K/uL Eosinophils # (Auto) 0.00 K/uL Basophils # (Auto) 0.01 K/uL RDW Standard Deviation 45.7 fL RDW Coefficient of Variation 14.0 % Immature Granulocyte % (Auto) 1.1 % Immature Granulocyte # (Auto) 0.12 K/uL Prothrombin Time 42.9 SECONDS Prothromb Time International Ratio 3.8 Sodium Level 138 mmol/L Potassium Level 4.6 mmol/L Chloride Level 101 mmol/L Carbon Dioxide Level 30 mmol/L Anion Gap 7.0 mmol/L Blood Urea Nitrogen 23 mg/dl Creatinine 0.60 mg/dl Est Creatinine Clear Calc Drug Dose 58.1 ml/min Estimated GFR () 99.8 Estimated GFR (Non- 86.1 BUN/Creatinine Ratio 38.0 Random Glucose 104 mg/dl Calcium Level 8.5 mg/dl Magnesium Level 2.4 mg/dl Assessment and Plan 81 years white female admitted on 09/15/2016 because of frequent fall with fracture left hip/left lateral leg pain, and L3 compression fracture Ortho on case, recommends non- approach surgical - cont back bracing, stable - tylenol 1 gm TID - nucynta prn - decadron 4mg IV q8h - cont PT/OT - waiting for rehab for bed at this time. hx of CAD and afib: Stable - no symptoms of ischemia. Cont BB, etc. Unclear why she does not take aspirin or plavix. - remains in NSR clinically. -Cont to hold Coumadin due to supra-therapeutic INR , yesterday was 4.4,today si better, watch for sign of bleeding -repeat INR in am. -Cont amiodarone. Accelerated hypertension, will adjust the medication, had increased losartan yesterday, today will increase metoprolol falls, GERD, Essential tremor, Parkinson's disease, chronic diastolic CHF - compensated: Stable continue current medication Possible going back to senior care after PT OT evaluation I called to [facility], message left to call me back, need to further discuss about code status, she was full code in last discharge today per request, i discussed pt's insurance, I reported that pt need ECf because of " frequent fall, high risks of fall, is on coumadin, coumadin is out off range, can cause if fall, and pt has fluctuation is BP " as well. Continued [facility] stay due to: ambulation difficulties, home environment unsafe for pt Discharge planning: senior living facility
[2016-09-18] MEDS: PANTOprazole SOD 40 MG TAB PO SCH (20:42)
[2016-09-18] MEDS: ATORVASTATIN 40 MG TAB PO SCH (20:42)
[2016-09-19] VITALS (11 sets, daily range): BP systolic 109–223; BP diastolic 57–103; PULSE 55–79; TEMP 36.3–36.8; O2SAT 90–96
[2016-09-19] MEDS: HydrALAZINE HCL 20 MG/ML VIAL IV. PRN (02:34)
[2016-09-19] MEDS: DEXAMETHASONE 1 MG TAB PO SCH ×2 (05:44→14:32)
[2016-09-19] MEDS: CLONAZEPAM 0.5 MG TAB PO SCH (08:15)
[2016-09-19] MEDS: LOSARTAN POTASSIUM 25 MG TAB PO SCH (08:16)
[2016-09-19] MEDS: POLYETHYLENE (MIRALAX) 17 GM PACK PO SCH (08:16)
[2016-09-19] MEDS: CEROVITE ADV FORMULA TAB PO SCH (08:16)
[2016-09-19] MEDS: ACETAMINOPHEN 500 MG TAB PO SCH ×2 (08:17→14:32)
[2016-09-19] MEDS: FLUTICASONE PROPIONATE NA SPR 16 GM BTL NAE SCH (08:17)
[2016-09-19] MEDS: CALCITONIN SALMON NA 200 IU/AC 3.7 ML BTL SCH (08:17)
[2016-09-19] MEDS: CARBIDOPA/LEVODOPA 25/100MG TAB PO SCH ×3 (08:19→16:01)
[2016-09-19] MEDS: SPIRONOLACTONE 25 MG TAB PO SCH (08:20)
[2016-09-19] MEDS: METOPROLOL TARTRATE 25 MG TAB PO SCH (08:20)
[2016-09-19] MEDS: CHOLECALCIFEROL 1000 INTER.UNIT TAB PO SCH (08:20)
[2016-09-19] MEDS: CALCIUM 600MG + VIT D 400 IU TAB PO SCH (08:20)
[2016-09-19] MEDS: AMIODARONE 200 MG TAB PO SCH (08:21)
--- NOTE | 2016-09-19 11:24 | Discharge Instructions ---
Discharge Instructions Date of Service Sep 19, 2016. Admission Reason for Admission: Frequent Falls Discharge Discharge Diagnosis / Problem: left hip/left lateral leg pain, and L3 compression fracture Discharge Goals Goal(s): Decrease discomfort, Improve function, Increase independence, Improve disease control, Improve nutritional status, Learn about illness, Diagnostic testing, Therapeutic intervention, Prevent Disease Progression, Specific goals Activity Recommendations Activity Limitations: as noted below Exercise/Sports Limitations: as tolerated . Instructions / Follow-Up Instructions / Follow-Up you have left hip/left lateral leg pain, and L3 compression fracture you need to follow up with Orthopedic as instructed you was on Coumadin, I continue to hold it due to supra-therapeutic INR, you need to be seen by your pcp in 3-5 days, and restart if appropriated, I would like to let you know again you are in high risks of fall , to be on coumadin and when fall may cause severe damage and , your blood pressure medicine has been changes you need to continue home health care to do therapy - you need to follow up with your primary care physician in 1 week, - call your pcp if have chest pain, sob, palpitation, or if has any questions - take medication as instructed, never overdose or any misuse, or take with alcohol, because misuse of medicine may cause organ damage or , call your primary care physician if have questions of medicaitons. - call your primary care physician OR go to local emergency room if has any fever/chill, chest pain, shortness of breathing, nausea/vomiting/abdominal pain , facial droop/slurry speech/local weakness, or if has any questions. - fall precaution - diet as instructed - you need to follow up with your subspecialist - you should understand that it is important to follow up the above instruction , and "not following the above instruction" may cause delayed or missed care of your medical conditions which may cause permanent organ damage and even . Current Hospital Diet Patient's current hospital diet: Regular Diet Discharge Diet Recommended Diet: AHA Diet (Heart Healthy) Pending Studies Studies pending at discharge: no Medical Emergencies . Who to Call and When: Medical Emergencies: If at any time you feel your situation is an emergency, please call 911 immediately. . Non-Emergent Contact Non-Emergency issues call your: Primary Care Provider, Specialist (ortho) . . "Provider Documentation" section prepared by Yoan Boggs. VTE Core Measure Inpt VTE Proph given/why not?: Jessica Mccabe, [facility]
--- NOTE | 2016-09-19 12:34 | Discharge Summary ---
Discharge Summary Date of Service Sep 19, 2016. Discharge Summary Admission Date: Sep 14, 2016 at 19:50 Discharge Date: Sep 19, 2016 Discharge Disposition: Home with services Principal Diagnosis: left hip/left lateral leg pain, and L3 compression fracture Problems/Secondary Diagnoses: supra-therapeutic INR, Accelerated hypertension Dementia -Risk on the fall Procedures: No Consultations: Orthopedic Medication Reconciliation New Medications: Calcitonin [place] (Calcitonin-[place]) 30 Goltry/3.7 Ml Soln 1 SPRAY NA DAILY for 30 Days Dexamethasone (Dexamethasone) 1 Mg Tab 2 MG PO Q8 for 8 Days, #15 TAB 2 tab po bid for 2 days, then 1 tab po bid for 2 days then 1 tab po daily for 2 days then 1/2 tab po daily for 2 days, then stop Losartan Potassium (Losartan Potassium) 25 Mg Tab 75 MG PO DAILY for 30 Days, #90 TAB Metoprolol Tartrate (Lopressor) 25 Mg Tab 25 MG PO BID for 30 Days, #60 TAB hold when sbp <105, HR <65 Continued Medications: Acetaminophen (Tylenol) 500 Mg Tab 1000 MG PO TID PRN for Pain, TAB Amiodarone Hcl (Cordarone) 200 Mg Tab 100 MG PO DAILY, TAB Atorvastatin (Atorvastatin Calcium) 40 Mg Tab 40 MG PO QPM Calcium Carbonate-Vitamin D (Calcium + D) 1 Tab Tab 1 TAB PO BID Carbidopa/Levodopa (Sinemet 25MG/100MG) Tab 1.5 TAB PO QID, TAB Cholecalciferol (Vitamin D3) 1,000 Unit Tab 1000 MG PO DAILY Clonazepam (Klonopin) 1 Mg Tab 0.5 MG PO BID for 3 Days, #3 TAB (This prescription has been renewed) Docusate Sodium (Docusate Sodium) 100 Mg Cap 100 MG PO BID PRN for Constipation, CAP Fluticasone Propionate (Nasal) (Flonase Allergy Relief) 50 Mcg/Act Spr 1 SPRAY REMI DAILY Magnesium Hydroxide (Milk Of Magnesia) 30 Ml Susp 30 ML PO DAILY PRN for Constipation, ML Multiple Vitamins W/ Minerals (Centrum Silver) 1 Chw Chw 1 TAB PO DAILY Nitroglycerin (Nitrostat) 0.4 Mg Tab 0.4 MG SL UD PRN for Chest Pain Pantoprazole (Pantoprazole Sodium) 40 Mg Tab 40 MG PO QPM TAKE THIS MEDICATION ONCE DAILY 30 MINUTES BEFORE A MEAL. Spironolactone (Aldactone) 25 Mg Tab 25 MG PO DAILY, TAB Discontinued Medications: Losartan Potassium (Cozaar) 25 Mg Tab 50 MG PO DAILY, TAB Metoprolol Tartrate (Lopressor) (Lopressor) 25 Mg Tab 12.5 MG PO BID, TAB Warfarin Sod (Jantoven) 1 Mg Tab 2 MG PO DAILY, TAB Discharge Exam Sitting up in chair, a little more stress because insurance company declined and is in surgery today Review of Systems: Constitutional: No chills, No fatigue, No fever, No problem reported, No sweats, No weakness, No weight loss Eyes: No diplopia, No discharge, No eye pain, No problem reported, No redness, No worsening of vision ENT: No dental problems, No hearing loss, No nasal symptoms, No problem reported, No sore throat, No tinnitus, No trouble swallowing, No unusual epistaxis Respiratory: No cough, No dyspnea at rest, No dyspnea on exertion, No hemoptysis, No problem reported, No shortness of breath, No sputum, No wheezing Cardiovascular: No PND, No chest pain, No claudication, No edema, No orthopnea, No palpitations, No problem reported Abdomen: No GI bleeding, No constipation, No diarrhea, No nausea, No pain, No problem reported, No vomiting Musculoskeletal: + joint pain (in left lower back), No calf pain, No muscle pain, No problem reported, No swelling Genitourinary - Female: No dysmenorrhea, No dysuria, No hematuria, No menorrhagia, No metrorrhagia, No , No problem reported, No rash, No urinary frequency, No urinary incontinence, No urinary retention, No urinary urgency, No vaginal bleeding, No vaginal discharge, No vaginal itching, No vulvodynia Neurologic: No balance problems, No memory loss, No numbness/tingling, No paralysis, No problem reported, No vertigo, No weakness Psychiatric: No anhedonism, No anxiety, No depression symptoms, No insomnia , No problem reported, No substance abuse Endocrine: No excessive thirst, No excessive urination, No fatigue, No problem reported Hematologic / Lymphatic: No abnormal bleeding/bruising, No clotting problems , No night sweats, No problem reported, No swollen lymph nodes Integumentary: No bleeding, No color change, No itch, No new/changing skin lesions, No problem reported, No rash Physical Exam: General Appearance: WD/WN, + pertinent finding (frail, pleasant, decreased cognition) Eyes: normal inspection, PERRL ENT: normal ENT inspection, hearing grossly normal Neck: supple, no adenopathy Respiratory/Chest: chest non-tender, no respiratory distress, no accessory muscle use, + decreased breath sounds Cardiovascular: regular rate, rhythm, no edema, no gallop, no murmur Abdomen / GI: normal bowel sounds, non tender, soft, no organomegaly, no pulsatile mass Extremities: normal inspection, no calf tenderness, normal capillary refill Neurologic/Psychiatric: 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-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 as tested, no motor/sensory deficits , alert, normal mood/affect, normal reflexes Skin: normal color, warm/dry Hospital Course 81 years white female admitted on 09/15/2016 because of frequent fall with fracture left hip/left lateral leg pain, and L3 compression fracture Ortho on case, recommends non- approach surgical - cont back bracing, stable, continue pain control - tylenol 1 gm TID - nucynta prn - decadron 4mg IV q8h, has been tapering down and have oral Decadron tapering dose to home - cont PT/OT -PT OT recommend rehabilitation placement, however insurance company declined it , I talked to the insurance company physician, I feel this is unreasonable hx of CAD and afib: Stable - no symptoms of ischemia. Cont BB, etc. Unclear why she does not take aspirin or plavix. May need to consider aspirin or Plavix if not restart all Coumadin - remains in NSR clinically. -Cont to hold Coumadin due to supra-therapeutic INR , yesterday was 4.4,today si better, watch for sign of bleeding, has ordered labs of BMP PT/INR in 2 days and PCP to adjust that dose, PCP need to decide if need to continue Coumadin or not - I person and not recommend about continue Coumadin because patient is high risk on the fall and can cause severe damages if fall and on Coumadin -Cont amiodarone. Accelerated hypertension, is better,, had increased losartan to 75 mg by mouth daily increase metoprolol to 25 mg by mouth twice a day, need to watch no vital signs and adjust the medicine accordingly falls, GERD, Essential tremor, Parkinson's disease, chronic diastolic CHF - compensated: Stable continue current medication I called to [facility], message left to call me back, need to further discuss about code status, she was full code in last discharge, I never get a phone call From On 09/18/2016, i discussed pt's insurance, I reported that pt need ECf because of " frequent fall, high risks of fall, is on coumadin, coumadin is out off range, can cause if fall, and pt has fluctuation is BP " as well. Instructions / Follow-Up you have left hip/left lateral leg pain, and L3 compression fracture you need to follow up with Orthopedic as instructed you was on Coumadin, I continue to hold it due to supra-therapeutic INR, you need to be seen by your pcp in 3-5 days, and restart if appropriated, I would like to let you know again you are in high risks of fall , to be on coumadin and when fall may cause severe damage and , your blood pressure medicine has been changes you need to continue home health care to do therapy - you need to follow up with your primary care physician in 1 week, - call your pcp if have chest pain, sob, palpitation, or if has any questions - take medication as instructed, never overdose or any misuse, or take with alcohol, because misuse of medicine may cause organ damage or , call your primary care physician if have questions of medicaitons. - call your primary care physician OR go to local emergency room if has any fever/chill, chest pain, shortness of breathing, nausea/vomiting/abdominal pain , facial droop/slurry speech/local weakness, or if has any questions. - fall precaution - diet as instructed - you need to follow up with your subspecialist - you should understand that it is important to follow up the above instruction , and "not following the above instruction" may cause delayed or missed care of your medical conditions which may cause permanent organ damage and even . Total Time Spent: Greater than 30 minutes This includes examination of the patient, discharge planning, medication reconciliation, and communication with other providers. Discharge Instructions Please refer to the electronic Patient Visit Report (Discharge Instructions) for additional information. Additional Copies To Jose A Ruiz M.D.
[2017-03-20] MEDS ORDERED: OXYC-609 PO (13:11)
== END 2016-09-19 16:30 | disposition home health service (06) | DRG 543 ==
LOC: ENRESERVDT → ENRESERVTM → EDBD 05:14 → C.EDA 05:15 → C.MSW 18:45 → OBSVTOIN 09-14 19:50
PROVIDERS: ADMIT Hospitalist; ATTEND Hospitalist
DX: M48.56XA Collapsed vertebra, not elsewhere classified, lumbar region, initial encounter for fracture (principal); I50.32 Chronic diastolic (congestive) heart failure; M54.16 Radiculopathy, lumbar region; I25.10 Atherosclerotic heart disease of native coronary artery without angina pectoris; I48.91 Unspecified atrial fibrillation; F32.9 Major depressive disorder, single episode, unspecified; E78.5 Hyperlipidemia, unspecified; I10 Essential (primary) hypertension; G20 Parkinson's disease; K21.9 Gastro-esophageal reflux disease without esophagitis; Z80.9 Family history of malignant neoplasm, unspecified; Z82.49 Family history of ischemic heart disease and other diseases of the circulatory system; Z82.3 Family history of stroke; Z88.8 Allergy status to other drugs, medicaments and biological substances; K59.00 Constipation, unspecified; F03.90 Unspecified dementia, unspecified severity, without behavioral disturbance, psychotic disturbance, mood disturbance, and anxiety; Z91.81 History of falling; Z79.899 Other long term (current) drug therapy

== ENCOUNTER → 2016-09-21 | Outpatient (CLI) | payer BC ==
[~2016-09-21] MED LIST changes: +ACET-1256 PO; -ACET-1311 PO; +ACET-176 PO; +AMIO0.1T PO; +ASPI325T45 PO; +ASPI81TA28 PO; +CLON1TAB3 PO; +CZR25 PO; +DOCU100C31 PO; +DRGTP12 TD; +DXM1 PO; +FNTTP50 TD; +FNTTP75 TOP; +GABA400C PO; +LDDP5 TD; -LOSA1TAB PO; +LPR25 PO; +MCLIN; -METO50TA17 PO; +MOML PO; +MRLP17 PO; +MULTTAB63 PO; +NALO1TAB2 PO; +NF656 TD; +NRN/600 PO; +OXYC-57 PO; +OXYC-609 PO; +PANT40TA2 PO; +POLY335019 PO; +PRLSR20 PO; -PRT/40 PO; -TRAM-10 PO; +TYLOTC500 PO; -WARF1TAB6 PO
[2016-09-21 09:51] LABS: BLOOD UREA NITROGEN 21 mg/dl (7-18); BUN/CREATININE RATIO 39.6 (10-20); CALCIUM 8.7 mg/dl (8.5-10.1); CARBON DIOXIDE 27 mmol/L (21-32); CHLORIDE 98 mmol/L (98-107); CREATININE 0.54 mg/dl (0.60-1.20); GLUCOSE 95 mg/dl (70-99); POTASSIUM 4.2 mmol/L (3.5-5.1); SODIUM 133 mmol/L (136-145)
[2016-09-21 09:52] LABS: INR 1.7 (0.9-1.1); PROTHROMBIN TIME (PATIENT) 18.7 SECONDS (9.0-12.0)
--- NOTE | 2016-09-24 10:30 | CODING QUERY NO DIAGNOSIS ---
Valid Physician Order Needed A valid physician order must be submitted in order to properly bill for the service(s) provided, including date of service(s), valid diagnosis, and physician signature. If these tests are done on a recurring basis the original physican order must be submitted in order to code and bill for the service(s) provided. Please fax us the original, signed physician order so that we may expedite billing to [phone] DOS 09/21/2016 * PARTIAL RENAL PROFILE * PT/INR Thank you Lily [facility]
== END | disposition home or self-care (01) ==
LOC: C.LABSPEC 09:19
PROVIDERS: ATTEND Internal Medicine Geriatric Medicine
DX: I48.91 Unspecified atrial fibrillation (principal); I10 Essential (primary) hypertension; R53.1 Weakness

== ENCOUNTER 2016-09-29 12:39 | Observation (INO) | payer BC ==
[~2016-09-29] VITALS: Ht 152.4 cm; Wt 55.0 kg
[~2016-09-29 12:39] MED LIST changes: -ACET-176 PO; -AMIO0.1T PO; -ASPI325T45 PO; -ASPI81TA28 PO; -CLON0.5T3 PO; -DRGTP12 TD; -FNTTP50 TD; -FNTTP75 TOP; -GABA400C PO; -LDDP5 TD; -MRLP17 PO; -MULTTAB63 PO; -NALO1TAB2 PO; -NF656 TD; -NRN/600 PO; -OXYC-57 PO; -OXYC-609 PO; -POLY335019 PO; -PRLSR20 PO; -TYLOTC500 PO
--- NOTE | 2016-09-29 13:23 | DIAGNOSTIC IMAGING REPORT ---
THORACIC SPINE 3 VIEWS ROUTINE CLINICAL HISTORY: thoracic back pain COMPARISON STUDY: 03/19/2008 FINDINGS: There are postsurgical changes of a midline sternotomy. The paraspinal line is not significantly displaced. The bones are osteopenic. There are multilevel degenerative changes. There is a mild age-indeterminate T2 compression deformity.. IMPRESSION: Mild age-indeterminate T2 compression deformity. Multilevel degenerative change. Electronically signed by: Yaya Curtis M.D. 09/29/2016 1:21 PM Dictated Date/Time: 09/29/2016 1:19 PM
--- NOTE | 2016-09-29 13:24 | DIAGNOSTIC IMAGING REPORT ---
PELVIS 1 OR 2 VIEW ROUTINE CLINICAL HISTORY: Left hip pain status post trauma COMPARISON STUDY: 08/08/2016 FINDINGS: The bones are mildly osteopenic. No fractures or dislocations are visualized. Vascular calcifications are visualized. IMPRESSION: No fractures identified. Electronically signed by: Yaya Curtis M.D. 09/29/2016 1:22 PM Dictated Date/Time: 09/29/2016 1:21 PM
[2016-09-29] MEDS ORDERED: ACETAMINOPHEN 325 MG TAB PO STA (14:24)
[2016-09-29] MEDS ORDERED: ASPI81TA28 PO (14:25)
[2016-09-29] MEDS ORDERED: TYLOTC500 PO (14:25)
--- NOTE | 2016-09-29 14:42 | EMERGENCY ROOM VISIT NOTE ---
ED Visit Note First contact with patient: 12:48 81-year-old female with prior back injury now here with her recent fall. The patient was fully evaluated by Kristopher Santiago PA-C. Please see his note. I also independently evaluated the patient and spoke with the patient and . They feel that she is unable to return home because she is unable to walk. Case management was consulted.
[2016-09-29] MEDS ORDERED: MAGNESIUM HYDROXIDE SUSP 30 ML UDC PO PRN ×2 (16:45)
[2016-09-29] MEDS ORDERED: DOCUSATE SODIUM 100 MG CAP PO PRN (16:45)
[2016-09-29] MEDS ORDERED: POLYETHYLENE (MIRALAX) 17 GM PACK PO PRN (16:45)
[2016-09-29] MEDS ORDERED: ONDANSETRON INJ 2 MG/ML 2 ML VIAL IV PRN (16:45)
[2016-09-29] MEDS ORDERED: NITROGLYCERIN 0.4 MG SL PER TAB CHARGE SL PRN (16:45)
--- NOTE | 2016-09-29 17:01 | EMERGENCY ROOM VISIT NOTE ---
History First contact with patient: 12:48 Chief Complaint: HIP PAIN Stated Complaint: FALL History of Present Illness The patient is a 81 year old white female who presents to the Emergency Room by S ambulance with complaints of back pain and left hip pain after falling at home today. Patient was previously admitted here 2 weeks ago for back pain after a fall. A thorough workup was performed, which found an acute compression fracture of L3 with nerve root impingement. She was initially scheduled to go to [facility], but her insurance denied both rehabilitation as well as a alf facility. She went home with home health. She has been doing a home exercise program. She states today she was standing, doing her shoulder exercises with a rehabilitation cane. She lost her balance and fell backwards, landing on her buttock and back. She did not strike her head. There was no loss of consciousness. She complains of pain in her back both thoracic and lumbar. She also complains of pain over her left hip. Her was unable to get her up and called EMS. She has not been a bee [place] yet. She denies any numbness or tingling. Back pain is worse with attempts at sitting up. No nausea or vomiting. No other complaints. Review of Systems REVIEW OF SYSTEM: HEENT: No visual problems, hearing loss, or tinnitus. There is no difficulty swallowing and no oral lesions are present. PULMONARY: No cough, shortness of breath, sputum production or hemoptysis. CARDIOVASCULAR: No chest pain, palpitations, shortness of breath or peripheral edema. GASTROINTESTINAL: No diarrhea, constipation, nausea, vomiting, or abdominal pain. GENITOURINARY: No dysuria, frequency, urgency or nocturia. NEUROLOGIC: No muscle tenderness, epilepsy or history of neurological problems. MUSCULOSKELETAL: No prior history of joint tenderness/swelling. Positive history of arthritis and arthralgias. SKIN: No rashes or lesions. PSYCHIATRIC: No history of depression or mental illness. ENDOCRINE: No history of diabetes, thyroid disorders, or abnormal hair growth. Past Medical/Surgical History Medical Problems: (1) Compression fracture of L3 lumbar vertebra (2) Frequent falls (3) Heart disease (4) HTN (hypertension) Family History Cancer Heart disease Hypertension Stroke Social History Smoking Status: Never Smoker Smokeless Tobacco Use: No Drug Use: none Marital Status: Housing Status: lives with significant other Occupation Status: retired Current/Historical Medications Scheduled Acetaminophen (Tylenol), 1,000 MG PO DAILY Amiodarone Hcl (Cordarone), 100 MG PO DAILY Aspirin (Aspirin Ec), 81 MG PO DAILY Atorvastatin (Atorvastatin Calcium), 40 MG PO QPM Calcitonin Maxwell (Calcitonin-Maxwell), 1 SPRAY NA DAILY Calcium Carbonate-Vitamin D (Calcium + D), 1 TAB PO BID Carbidopa/Levodopa (Sinemet 25MG/100MG), 1.5 TAB PO QID Cholecalciferol (Vitamin D3), 1,000 MG PO DAILY Clonazepam (Klonopin), 0.5 MG PO BID Dexamethasone (Dexamethasone), 2 MG PO Q8 Fluticasone Propionate (Nasal) (Flonase Allergy Relief), 1 SPRAY REMI DAILY Losartan Potassium (Losartan Potassium), 75 MG PO DAILY Metoprolol Tartrate (Lopressor), 25 MG PO BID Multiple Vitamins W/ Minerals (Centrum Silver), 1 TAB PO DAILY Pantoprazole (Pantoprazole Sodium), 40 MG PO QPM Spironolactone (Aldactone), 25 MG PO DAILY Scheduled PRN Docusate Sodium (Docusate Sodium), 100 MG PO BID PRN for Constipation Magnesium Hydroxide (Milk Of Magnesia), 30 ML PO DAILY PRN for Constipation Nitroglycerin (Nitrostat), 0.4 MG SL UD PRN for Chest Pain Allergies Coded Allergies: Atropine (Verified Allergy, Mild, 09/29/16) Diphenoxylate (Verified Allergy, Mild, 09/29/16) Diazepam (Verified Allergy, Unknown, unknown, 09/29/16) Lisinopril (Verified Adverse Reaction, Unknown, NIGHTMARES, 09/29/16) Physical Exam Vital Signs Date Time Temp Pulse Resp B/P Pulse Ox O2 Delivery O2 Flow Rate FiO2 09/29/16 16:42 144/74 95 09/29/16 14:35 58 20 208/94 96 Room Air 09/29/16 12:48 36.4 78 18 188/82 92 Room Air Pain Rating (0-10): 5.0 Physical Exam Gen.: Frail, elderly white female, in no acute distress. Laying on a bed. Alert and oriented. Skin:Warm and dry with fair turgor. No rashes or lesions. Mild ecchymosis on her buttock. No edema or erythema. The patient is not diaphoretic. No abrasions. HEENT: Normocephalic atraumatic. Eyes PERRLA, EOMI. No conjunctiva or scleral injection. Nares patent bilaterally without turbinate enlargement. No significant drainage. No epistaxis. Oropharynx without erythema or exudate. Uvula midline, oral mucosa moist. No lesions present. Heart: Heart RRR. No G/R. Peripheral pulses are 2+. Lungs: Lungs are clear to auscultation. No crackles rhonchi or wheezing. Good air movement. The patient is able to take a deep breath. Abdomen: Abdomen was inspected, auscultated, and palpated. Bowel sounds present x 4. Soft, nontender to palpation. No hepato-splenomegaly. No masses noted. Musculoskeletal: Patient has full range of motion of her shoulders, elbows, and wrists. No pain with palpation over the shoulders or upper extremities. She has intact passive and active motion to her hips, knees, and ankles. No pain with log rolling of the legs or passive hip flexion. No pain with palpation over the anterior flexion crease in either leg, greater trochanters, or knees. No discomfort with palpation over her cervical spine. Full range of motion of her neck for rotation, lateral flexion, and forward flexion. Mild discomfort with palpation over her thoracic spine. This is around the T8 level. She has significant discomfort with palpation over the right erector muscle extending into the right SI joint. She denies pain with palpation over the lumbar spine or left SI joint. Neurologic: Gross sensation is intact across the upper and lower extremities by soft touch. DTRs are 1+ bilaterally at the knees. Peripheral pulses are 2+. She has a baseline tremor of her right arm and jaw. She denies any diagnosis of Parkinson's. Medical Decision & Procedures ER Provider Diagnostic Interpretation: Radiographic imaging obtained today of the pelvis and thoracic spine was obtained. No evidence for acute fracture is present. She does have an old T2 fracture that is not tender at this time. These were read by radiology. She previously had an MRI of the lumbar spine 2 weeks ago suggesting an acute lumbar spine fracture with nerve root impingement. No MRI imaging was repeated. Laboratory Results Test 09/29/16 16:42 Medications Administered Medications (Trade) Dose Ordered Sig/Naomi Route Start Time Stop Time Status Last Admin Dose Admin Acetaminophen (Tylenol Tab) 650 mg NOW STAT PO 09/29/16 14:24 09/29/16 14:25 DC 09/29/16 14:55 650 MG Tylenol 650 mg by mouth ED Course Patient and her were educated regarding today's findings. Conservative care measures were discussed. Radiographic imaging was obtained. She was given Tylenol 650 mg orally. PT and OT consults were obtained. She was able to ambulate 30 feet with a walker while in the ED. She really had no significant pain during the ambulation trial. Worst pain was getting up and down from the bed. She would like to go to [facility] if possible. I think that a rehabilitation hospital would be good option for her to develop strength and better balance. This is her second fall in 2 weeks. [facility] does not have a bed today, and her feels she cannot go home. She will be observed overnight in hopes of placement tomorrow. Case was discussed with the [facility] hospitalist, who will admit the patient for observation. She remained stable while in the ED. Patient was seen in conjunction with Dr. Paz , who also evaluated the patient and concurred with today's diagnosis and treatment plan. Medical Decision Possibility of intracranial injury, cervical spine injury, acute lumbar fracture , nerve root impingement, Parkinson's disease, cardiac event, pelvic fracture, hip fracture were all considered. Impression Primary Impression: Frequent falls Additional Impressions: Fall at home Right lumbar pain Departure Information Referrals Jose A Ruiz M.D. (PCP) Patient Instructions My [facility] Problem Qualifiers Additional Impressions: Fall at home Encounter type: initial encounter Qualified Codes: W19.XXXA - Unspecified fall, initial encounter; Y92.099 - Unspecified place in other non-institutional residence as the place of occurrence of the external cause
--- NOTE | 2016-09-29 17:08 | History and Physical ---
History & Physical Date & Time of Service: Sep 29, 2016 at 16:51 Chief Complaint: FALL Primary Care Physician: Jose A Ruiz M.D. History of Present Illness Source: patient, spouse Pt is a81 yo female with hx of diastolic CHF, afib, parkinsons, CAD with recent admission to [facility] 2 weeks ago for mechanical fall sustaining compression fracture. Pt was discharged home after acute inpt rehab was declined. Pt reports doing her exercises at home for strength and gait training when she fell backwards and landed on her hip. Pt reports no chest pain, LOC, palpitations, shortness of breath, dizziness, headaches, visual changes prior to fall. No sustained fractures on thoracic and pelvis XR. Pt was brought to ER for placement. Past Medical/Surgical History Medical Problems: (1) Heart disease Status: Chronic (2) HTN (hypertension) Status: Chronic Family History Cancer Heart disease Hypertension Stroke Social History Smoking Status: Never Smoker Drug Use: none Marital Status: Housing status: lives with significant other Occupational Status: retired Multi-Drug Resistant Organisms History of MDRO: No Allergies Coded Allergies: Atropine (Verified Allergy, Mild, 09/29/16) Diphenoxylate (Verified Allergy, Mild, 09/29/16) Diazepam (Verified Allergy, Unknown, unknown, 09/29/16) Lisinopril (Verified Adverse Reaction, Unknown, NIGHTMARES, 09/29/16) Home Medications Scheduled Acetaminophen (Tylenol), 1,000 MG PO DAILY Amiodarone Hcl (Cordarone), 100 MG PO DAILY Aspirin (Aspirin Ec), 81 MG PO DAILY Atorvastatin (Atorvastatin Calcium), 40 MG PO QPM Calcitonin [place] (Calcitonin-Be[place]), 1 SPRAY NA DAILY Calcium Carbonate-Vitamin D (Calcium + D), 1 TAB PO BID Carbidopa/Levodopa (Sinemet 25MG/100MG), 1.5 TAB PO QID Cholecalciferol (Vitamin D3), 1,000 MG PO DAILY Clonazepam (Klonopin), 0.5 MG PO BID Dexamethasone (Dexamethasone), 2 MG PO Q8 Fluticasone Propionate (Nasal) (Flonase Allergy Relief), 1 SPRAY REMI DAILY Losartan Potassium (Losartan Potassium), 75 MG PO DAILY Metoprolol Tartrate (Lopressor), 25 MG PO BID Multiple Vitamins W/ Minerals (Centrum Silver), 1 TAB PO DAILY Pantoprazole (Pantoprazole Sodium), 40 MG PO QPM Spironolactone (Aldactone), 25 MG PO DAILY Scheduled PRN Docusate Sodium (Docusate Sodium), 100 MG PO BID PRN for Constipation Magnesium Hydroxide (Milk Of Magnesia), 30 ML PO DAILY PRN for Constipation Nitroglycerin (Nitrostat), 0.4 MG SL UD PRN for Chest Pain Review of Systems Constitutional: + fatigue, + weakness, No chills, No fever Respiratory: No cough, No sputum Cardiovascular: No chest pain, No orthopnea Abdomen: No constipation, No diarrhea, No nausea, No pain, No vomiting Musculoskeletal: + joint pain, No muscle pain Genitourinary - Female: No dysuria, No urinary frequency, No urinary urgency Neurologic: No paralysis, No weakness Psychiatric: No anhedonism, No depression symptoms Physical Exam Vital Signs Date Time Temp Pulse Resp B/P Pulse Ox O2 Delivery O2 Flow Rate FiO2 09/29/16 16:42 144/74 95 09/29/16 14:35 58 20 208/94 96 Room Air 09/29/16 12:48 36.4 78 18 188/82 92 Room Air General Appearance: WD/WN, + mild distress, + thin Eyes: normal inspection, EOMI Neck: supple, no adenopathy Respiratory/Chest: lungs clear, normal breath sounds Cardiovascular: no edema, no gallop Abdomen/GI: non tender, soft Neurologic/Psych: alert, normal mood/affect, oriented x 3, + pertinent finding (rolling tremor in bilateral hands) Skin: warm/dry, no rash Diagnostics Laboratory Results Results Past 24 Hours Test 09/29/16 16:42 Range/Units Impression Assessment and Plan 81 years white female admitted on 09/15/2016 because of frequent fall with fracture who comes to ER s/p mechanical fall at home Mechanical fall with hx of L3 compression fracture Thoracic XR determined old compression fx and pelvix XR determined no acute fx No LOC or preceeding sx prior to fall - tylenol PRN - cont decadron taper - cont PT/OT - awaiting [facility] placement, CM consulted hx of CAD and afib: stable - no symptoms of ischemia. Cont BB, has been recently taken off coumadin and placed on ASA only - cont amiodarone. Accelerated hypertension - cont amio, BB, losartan, hydralazine PRN Essential tremor/Parkinson's disease - stable, cont sinemet, neurology consulted Chronic diastolic CHF - compensated, will trend trops, cont spirnolactone, BB, lipitor Pt is DNR VTE Prophylaxis VTE Risk Assessment Done? Y/N: Yes Risk Level: Moderate
[2016-09-29] MEDS ORDERED: HydrALAZINE HCL 20 MG/ML VIAL IV. PRN (17:15)
[2016-09-29 17:21] VITALS: Ht 152.4 cm; Wt 55.0 kg
[2016-09-29] MEDS ORDERED: IV FLUIDS COMPLETED PRN (18:00)
[2016-09-29 18:45] VITALS: BP 190/83; PULSE 73; TEMP 36.9; O2SAT 95
[2016-09-29 20:06] LABS: BASO % 0.1 %; BASO ABS # 0.02 K/uL (0-0.2); COMPLETE YES; EOS % 0.4 %; HEMATOCRIT 44.5 % (37-47); IG% 2.5 %; LYMPH % 12.2 %; LYMPH ABS # 1.94 K/uL (1.2-3.4); MEAN CELL VOLUME 88.6 fL (80-100); MEAN CORPUSCULAR HEMOGLOBIN 30.7 pg (25-34); MEAN CORPUSCULAR HGB CONC 34.6 g/dl (32-36); MEAN PLATELET VOLUME 8.2 fL (7.4-10.4); MONO % 10.3 %; NEUT % 74.5 %; PLATELET COUNT 316 K/uL (130-400); RED BLOOD COUNT 5.02 M/uL (4.2-5.4); WHITE BLOOD COUNT 15.87 K/uL (4.8-10.8)
[2016-09-29] MEDS: CARBIDOPA/LEVODOPA 25/100MG TAB PO SCH ×2 (20:22→20:37)
[2016-09-29 20:25] LABS: INR 0.9 (0.9-1.1); PROTHROMBIN TIME (PATIENT) 10.1 SECONDS (9.0-12.0)
[2016-09-29 20:29] LABS: BUN/CREATININE RATIO 14.3 (10-20); CALCIUM 9.4 mg/dl (8.5-10.1); CREATININE 0.84 mg/dl (0.60-1.20); POTASSIUM 3.9 mmol/L (3.5-5.1)
[2016-09-29 20:30] VITALS: BP 117/64; PULSE 65; O2SAT 93
[2016-09-29 20:32] LABS: ALB/GLOB RATIO 0.8 (0.9-2)
[2016-09-29] MEDS: CLONAZEPAM 0.5 MG TAB PO SCH (20:33)
[2016-09-29] MEDS: ATORVASTATIN 40 MG TAB PO SCH (20:34)
[2016-09-29] MEDS: METOPROLOL TARTRATE 25 MG TAB PO SCH (20:36)
[2016-09-29] MEDS: PANTOprazole SOD 40 MG TAB PO SCH (20:37)
[2016-09-29] MEDS: DEXAMETHASONE 1 MG TAB PO SCH (22:18)
[2016-09-29] MEDS: HEPARIN SOD 5000 UNIT/0.5 ML CARP SQ SCH (22:19)
[2016-09-29 22:59] VITALS: BP 123/68; PULSE 59; TEMP 36.8; O2SAT 95
[2016-09-30] MEDS: DEXAMETHASONE 1 MG TAB PO SCH ×3 (05:52→21:35)
[2016-09-30] MEDS: HEPARIN SOD 5000 UNIT/0.5 ML CARP SQ SCH ×3 (05:54→21:36)
[2016-09-30 06:48] LABS: INR 0.9 (0.9-1.1); PROTHROMBIN TIME (PATIENT) 10.1 SECONDS (9.0-12.0)
[2016-09-30 08:01] VITALS: BP 120/71; PULSE 60; TEMP 37; O2SAT 92
[2016-09-30] MEDS: FLUTICASONE PROPIONATE NA SPR 16 GM BTL NAE SCH (08:42)
[2016-09-30] MEDS: CALCITONIN SALMON NA 200 IU/AC 3.7 ML BTL SCH (08:42)
[2016-09-30] MEDS: SPIRONOLACTONE 25 MG TAB PO SCH (08:43)
[2016-09-30] MEDS: AMIODARONE 200 MG TAB PO SCH (08:44)
[2016-09-30] MEDS: ASPIRIN 81 MG ECTAB PO SCH (08:45)
[2016-09-30] MEDS: LOSARTAN POTASSIUM 25 MG TAB PO SCH (08:45)
[2016-09-30] MEDS: CLONAZEPAM 0.5 MG TAB PO SCH ×2 (08:45→21:24)
[2016-09-30] MEDS: METOPROLOL TARTRATE 25 MG TAB PO SCH ×2 (08:46→21:26)
[2016-09-30] MEDS: CARBIDOPA/LEVODOPA 25/100MG TAB PO SCH ×4 (08:47→21:25)
[2016-09-30] MEDS: ACETAMINOPHEN 500 MG TAB PO SCH (08:48)
[2016-09-30 08:52] LABS: BASO % 0.1 %; BASO ABS # 0.01 K/uL (0-0.2); COMPLETE YES; IG% 2.3 %; LYMPH % 5.5 %; MEAN CELL VOLUME 89.2 fL (80-100); MEAN CORPUSCULAR HEMOGLOBIN 30.8 pg (25-34); MEAN CORPUSCULAR HGB CONC 34.5 g/dl (32-36); MEAN PLATELET VOLUME 8.1 fL (7.4-10.4); MONO % 6.5 %; NEUT % 85.6 %; PLATELET COUNT 315 K/uL (130-400); RED BLOOD COUNT 4.71 M/uL (4.2-5.4); WHITE BLOOD COUNT 12.84 K/uL (4.8-10.8)
[2016-09-30] MEDS: LIDODERM (LIDOCAINE) PATCH 5% TD SCH (11:08)
--- NOTE | 2016-09-30 11:48 | Progress Note ---
Subjective Date of Service: Sep 30, 2016. Subjective Pt evaluation today including: conversation w/ patient, conversation w/ family , physical exam, chart review, lab review, review of studies, review of inpatient medication list Resting comfortably in chair States mod pain still No fevers or chills Awaiting placement Concerns addressed Problem List Medical Problems: (1) Fall Status: Acute (2) Fall at home Status: Acute (3) Head injury Status: Acute (4) Left hip pain Status: Acute (5) Lumbar compression fracture Status: Acute (6) Right lumbar pain Status: Acute Review of Systems Constitutional: No chills, No fever Respiratory: No cough, No dyspnea on exertion, No shortness of breath, No sputum, No wheezing Cardiac: No chest pain, No orthopnea Abdomen: No diarrhea, No nausea, No pain, No vomiting Musculoskeletal: + joint pain, + muscle pain Female : No dysuria, No urinary frequency Psychiatric: No anhedonism, No depression symptoms Objective Vital Signs Date Time Temp Pulse Resp B/P Pulse Ox O2 Delivery O2 Flow Rate FiO2 09/30/16 08:13 Room Air 09/30/16 08:01 37.0 60 16 120/71 92 Room Air 09/29/16 23:40 Room Air 09/29/16 22:59 36.8 59 14 123/68 95 Room Air 09/29/16 20:30 65 117/64 93 Room Air 09/29/16 18:45 36.9 73 16 190/83 95 Room Air 09/29/16 18:45 Room Air 09/29/16 18:38 70 16 140/79 96 09/29/16 17:21 Room Air 09/29/16 16:42 144/74 95 09/29/16 14:35 58 20 208/94 96 Room Air 09/29/16 12:48 36.4 78 18 188/82 92 Room Air Physical Exam General Appearance: WD/WN, + mild distress Neck: supple, no adenopathy Respiratory/Chest: lungs clear, normal breath sounds Cardiovascular: regular rate, rhythm, no edema, no gallop Abdomen: non tender, soft Neurologic/Psychiatric: alert, normal mood/affect Laboratory Results Last 24 Hours Test 09/29/16 19:55 09/29/16 21:50 09/30/16 06:24 White Blood Count 15.87 K/uL 12.84 K/uL Red Blood Count 5.02 M/uL 4.71 M/uL Hemoglobin 15.4 g/dL 14.5 g/dL Hematocrit 44.5 % 42.0 % Mean Corpuscular Volume 88.6 fL 89.2 fL Mean Corpuscular Hemoglobin 30.7 pg 30.8 pg Mean Corpuscular Hemoglobin Concent 34.6 g/dl 34.5 g/dl Platelet Count 316 K/uL 315 K/uL Mean Platelet Volume 8.2 fL 8.1 fL Neutrophils (%) (Auto) 74.5 % 85.6 % Lymphocytes (%) (Auto) 12.2 % 5.5 % Monocytes (%) (Auto) 10.3 % 6.5 % Eosinophils (%) (Auto) 0.4 % 0.0 % Basophils (%) (Auto) 0.1 % 0.1 % Neutrophils # (Auto) 11.81 K/uL 11.01 K/uL Lymphocytes # (Auto) 1.94 K/uL 0.70 K/uL Monocytes # (Auto) 1.64 K/uL 0.83 K/uL Eosinophils # (Auto) 0.06 K/uL 0.00 K/uL Basophils # (Auto) 0.02 K/uL 0.01 K/uL RDW Standard Deviation 46.5 fL 47.8 fL RDW Coefficient of Variation 14.6 % 14.8 % Immature Granulocyte % (Auto) 2.5 % 2.3 % Immature Granulocyte # (Auto) 0.40 K/uL 0.29 K/uL Prothrombin Time 10.1 SECONDS 10.1 SECONDS Prothromb Time International Ratio 0.9 0.9 Activated Partial Thromboplast Time 26.9 SECONDS Partial Thromboplastin Ratio 1.0 Sodium Level 135 mmol/L Potassium Level 3.9 mmol/L Chloride Level 98 mmol/L Carbon Dioxide Level 28 mmol/L Anion Gap 9.0 mmol/L Blood Urea Nitrogen 12 mg/dl Creatinine 0.84 mg/dl Est Creatinine Clear Calc Drug Dose 41.6 ml/min Estimated GFR () 76.1 Estimated GFR (Non- 65.6 BUN/Creatinine Ratio 14.3 Random Glucose 159 mg/dl Calcium Level 9.4 mg/dl Total Bilirubin 0.7 mg/dl Aspartate Amino Transf (AST/SGOT) 16 U/L Alanine Aminotransferase (ALT/SGPT) 30 U/L Alkaline Phosphatase 115 U/L Total Protein 6.8 gm/dl Albumin 3.0 gm/dl Globulin 3.8 gm/dl Albumin/Globulin Ratio 0.8 Troponin I < 0.015 ng/ml < 0.015 ng/ml Assessment and Plan 81 years white female admitted on 09/15/2016 because of frequent fall with fracture who comes to ER s/p mechanical fall at home Mechanical fall with hx of L3 compression fracture Thoracic XR determined old compression fx and pelvix XR determined no acute fx No LOC or preceeding sx prior to fall - tylenol PRN, add lidoderm patch as well - cont decadron taper, leukocytosis trending down - cont PT/OT - awaiting [facility] placement, CM consulted hx of CAD and afib: stable - no symptoms of ischemia. Cont BB, has been recently taken off coumadin and placed on ASA only - cont amiodarone, EKG no ischemic changes - trops x 2 sets unremarkable Accelerated hypertension - cont amio, BB, losartan, hydralazine PRN Essential tremor/Parkinson's disease - stable, cont sinemet, neurology consulted Chronic diastolic CHF - compensated, will trend trops, cont spirnolactone, BB, lipitor Pt is DNR
--- NOTE | 2016-09-30 12:24 | Neurology Consultation ---
Neurology Consultation Date of Consultation: Sep 30, 2016. Attending Physician: Edu Tong D.O. Primary Care Physician: Jose A Ruiz M.D. Reason for Consultation: Consult requested for fall, Parkinson's, tremors History of Present Illness Source: patient, clinic records, hospital records This is a 81-year-old female who was recently hospitalized and discharged on September 19 for multiple falls, hip pain, and L3 compression fracture. At the time she was was recommended inpatient rehabilitation, but reportedly refused. Patient went back home with home physical therapy, but continues to fall. Patient returned back to the hospital after a fall. No major injuries this time. At last hospitalization the patient's Coumadin was held secondary to supratherapeutic INR and "fall risk". The patient followed up with her primary care physician September 28 there was a discussion about resuming anticoagulation, but further note reportedly the patient refused. Patient was last seen in neurology clinic by Dr. Hess in February 2016. He is mainly seen her for moderate to severe essential tremors. He had started her on Sinemet for some mild parkinsonism symptoms, but she does not clearly have Parkinson's disease. Patient also currently takes clonazepam twice a day for treatment of essential tremors. She's been tried on primidone in the past without results. She is currently on a beta willian for cardiac reasons. Patient reports that when she falls she does tend to fall backwards. She doesn't know why she falls. She denies any lightheadedness, dizziness, or presyncopal symptoms. She denies any specific weakness. She reports that she just loses her balance and falls. Terms of her tremor she reports that the tremors that bother her the most are with action when she's trying to hold something such as a spoon or fork. She reports that her older brother has similar tremors. 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 fib Mild cognitive impairment Hypertension Recent L3 compression fracture Family History Family history CAD, cancer, hypertension Brother with what sounds like benign essential tremors Father: coronary artery disease Sibling(s): coronary artery disease Social History Patient is and typically lives with her . Independent in her activities of daily living. Walks with a cane or walker. No tobacco or alcohol use. Smoking Status: Never smoker Smokeless Tobacco Use: No Drug Use: none Marital Status: Housing Status: lives with significant other Occupation Status: retired Allergies Coded Allergies: Atropine (Verified Allergy, Mild, 09/29/16) Diphenoxylate (Verified Allergy, Mild, 09/29/16) Diazepam (Verified Allergy, Unknown, unknown, 09/29/16) Lisinopril (Verified Adverse Reaction, Unknown, NIGHTMARES, 09/29/16) Current Inpatient Medications Current Inpatient Medications Medications (Trade) Dose Ordered Sig/Naomi Route Start Time Stop Time Status Last Admin Dose Admin Heparin Sodium (Porcine) (Heparin Sq 5000 Unit/0.5ml) 5,000 unit Q8 SQ 09/29/16 22:00 10/29/16 21:59 09/30/16 05:54 5,000 UNIT Acetaminophen (Tylenol Tab) 650 mg Q4H PRN PO 09/29/16 16:45 10/29/16 16:44 Polyethylene (Miralax Powder Packet) 17 gm DAILY PRN PO 09/29/16 16:45 10/29/16 16:44 Ondansetron HCl (Zofran Inj) 4 mg Q6H PRN IV 09/29/16 16:45 10/29/16 16:44 Acetaminophen (Tylenol Tab) 1,000 mg DAILY PO 09/30/16 09:00 10/30/16 08:59 09/30/16 08:48 1,000 MG Amiodarone HCl (Cordarone Tab) 100 mg DAILY PO 09/30/16 09:00 10/30/16 08:59 09/30/16 08:44 100 MG Aspirin (Ecotrin Tab) 81 mg DAILY PO 09/30/16 09:00 10/30/16 08:59 09/30/16 08:45 81 MG Atorvastatin Calcium (Lipitor Tab) 40 mg QPM PO 09/29/16 21:00 10/29/16 20:59 09/29/16 20:34 40 MG Calcitonin [place] (Fortical Nasal [place]) 1 spray DAILY NA 09/30/16 09:00 10/30/16 08:59 09/30/16 08:42 1 SPRAY Carbidopa/Levodopa (Sinemet 25/ 100MG Tab) 1.5 tab QID PO 09/29/16 17:00 10/29/16 16:59 09/30/16 08:47 1.5 TAB Clonazepam (Klonopin Tab) 0.5 mg BID PO 09/29/16 21:00 10/29/16 20:59 09/30/16 08:45 0.5 MG Dexamethasone (Decadron Tab) 2 mg Q8 PO 09/29/16 22:00 10/29/16 21:59 09/30/16 05:52 2 MG Docusate Sodium (coLACE CAP) 100 mg BID PRN PO 09/29/16 16:45 10/29/16 16:44 Fluticasone Propionate (Flonase Nasal [place]) 1 sprays DAILY REMI 09/30/16 09:00 10/30/16 08:59 09/30/16 08:42 1 SPRAYS Losartan Potassium (coZAAR TAB) 75 mg DAILY PO 09/30/16 09:00 10/30/16 08:59 09/30/16 08:45 75 MG Magnesium Hydroxide (Milk Of Magnesia Susp) 30 ml DAILY PRN PO 09/29/16 16:45 10/29/16 16:44 Metoprolol Tartrate (Lopressor Tab) 25 mg BID PO 09/29/16 21:00 10/29/16 20:59 09/30/16 08:46 25 MG Nitroglycerin (Nitrostat Tab) 0.4 mg UD PRN SL 09/29/16 16:45 10/29/16 16:44 Pantoprazole Sodium (Protonix Tab) 40 mg QPM PO 09/29/16 21:00 10/29/16 20:59 09/29/16 20:37 40 MG Spironolactone (Aldactone Tab) 25 mg DAILY PO 09/30/16 09:00 10/30/16 08:59 09/30/16 08:43 25 MG Hydralazine HCl (HydrALAZINE INJ) 10 mg Q4 PRN IV. 09/29/16 17:15 10/29/16 17:14 Miscellaneous (Iv Fluids Completed) 1 ea PRN PRN N/A 09/29/16 18:00 09/29/17 17:59 Lidocaine (Lidoderm Patch 5%) 1 patch QAM TD 09/30/16 11:00 10/30/16 10:59 09/30/16 11:08 1 PATCH Miscellaneous (Remove Lidoderm Patch) 1 ea DAILY@21 N/A 09/30/16 21:00 10/30/16 20:59 Review of Systems A complete review of systems otherwise negative except for the above noted in history of present illness. The patient denies any numbness or tingling. Denies any focal weakness. Does have low back pain. Physical Exam Vital Signs (Past 24 Hrs): Date Time Temp Pulse Resp B/P Pulse Ox O2 Delivery O2 Flow Rate FiO2 09/30/16 08:13 Room Air 09/30/16 08:01 37.0 60 16 120/71 92 Room Air 09/29/16 23:40 Room Air 09/29/16 22:59 36.8 59 14 123/68 95 Room Air 09/29/16 20:30 65 117/64 93 Room Air 09/29/16 18:45 36.9 73 16 190/83 95 Room Air 09/29/16 18:45 Room Air 09/29/16 18:38 70 16 140/79 96 09/29/16 17:21 Room Air 09/29/16 16:42 144/74 95 09/29/16 14:35 58 20 208/94 96 Room Air 09/29/16 12:48 36.4 78 18 188/82 92 Room Air Gen.: Patient is alert and sitting in bed, in no acute distress. HEENT: Normocephalic /atraumatic, no scleral icterus Heart: Regular rate and rhythm Extremities: No gross deformities or rashes noted Neurological examination: Mental status: Patient is alert and oriented x3. Attention and concentration normal for the situation. Good fund of knowledge. Able to give her own history. Speech is fluent without any dysarthria or aphasia noted Cranial nerve: Funduscopic examination was unremarkable. No papilledema. Pupils equally round and reactive to light. Extraocular muscles intact without nystagmus. No facial asymmetry noted. Facial sensation intact. Tongue is midline. Good palatal elevation. Good shoulder shrug bilaterally. Hearing grossly intact to voice. Strength: 5/5 both proximal and distally in all extremities. Patient does have some give way weakness with proximal left lower extremity strength Testing likely secondary to pain on that side. There is no arm drift. Tone is normal. No cogwheel rigidity. Patient does have moderate chin tremor and moderate high-frequency low to moderate amplitude action tremor in bilateral hands cystoscopy with benign essential tremor. I did not see any resting Parkinson's tremors on today's examination. Sensation: Grossly intact to light touch in all extremities. Deep tendon reflexes: +1 in bilateral biceps, brachioradialis and patellar. Coordination: Patient had good finger to nose without dysmetria Station within the bed was normal Laboratory Results Past 24 Hours: 09/30/16 06:24 Red Blood Count 4.71, Mean Corpuscular Volume 89.2, Mean Corpuscular Hemoglobin 30.8, Mean Corpuscular Hemoglobin Concent 34.5, Mean Platelet Volume 8.1, Neutrophils (%) (Auto) 85.6, Lymphocytes (%) (Auto) 5.5, Monocytes (%) (Auto) 6.5, Eosinophils (%) (Auto) 0.0, Basophils (%) (Auto) 0.1, Neutrophils # (Auto) 11.01, Lymphocytes # (Auto) 0.70, Monocytes # (Auto) 0.83, Eosinophils # (Auto) 0.00, Basophils # (Auto) 0.01 09/29/16 19:55 Test 09/29/16 19:55 09/30/16 06:24 Activated Partial Thromboplast Time 26.9 SECONDS (21.0-31.0) Partial Thromboplastin Ratio 1.0 Anion Gap 9.0 mmol/L (3-11) Est Creatinine Clear Calc Drug Dose 41.6 ml/min Estimated GFR () 76.1 Estimated GFR (Non- 65.6 BUN/Creatinine Ratio 14.3 (10-20) Calcium Level 9.4 mg/dl (8.5-10.1) Total Bilirubin 0.7 mg/dl (0.2-1) Aspartate Amino Transf (AST/SGOT) 16 U/L (15-37) Alanine Aminotransferase (ALT/SGPT) 30 U/L (12-78) Alkaline Phosphatase 115 U/L (45-117) Total Protein 6.8 gm/dl (6.4-8.2) Albumin 3.0 gm/dl (3.4-5.0) Globulin 3.8 gm/dl (2.5-4.0) Albumin/Globulin Ratio 0.8 (0.9-2) White Blood Count 12.84 K/uL (4.8-10.8) Red Blood Count 4.71 M/uL (4.2-5.4) Hemoglobin 14.5 g/dL (12.0-16.0) Hematocrit 42.0 % (37-47) Mean Corpuscular Volume 89.2 fL (80-100) Mean Corpuscular Hemoglobin 30.8 pg (25-34) Mean Corpuscular Hemoglobin Concent 34.5 g/dl (32-36) Platelet Count 315 K/uL (130-400) Mean Platelet Volume 8.1 fL (7.4-10.4) Neutrophils (%) (Auto) 85.6 % Lymphocytes (%) (Auto) 5.5 % Monocytes (%) (Auto) 6.5 % Eosinophils (%) (Auto) 0.0 % Basophils (%) (Auto) 0.1 % Neutrophils # (Auto) 11.01 K/uL (1.4-6.5) Lymphocytes # (Auto) 0.70 K/uL (1.2-3.4) Monocytes # (Auto) 0.83 K/uL (0.11-0.59) Eosinophils # (Auto) 0.00 K/uL (0-0.5) Basophils # (Auto) 0.01 K/uL (0-0.2) RDW Standard Deviation 47.8 fL (36.4-46.3) RDW Coefficient of Variation 14.8 % (11.5-14.5) Immature Granulocyte % (Auto) 2.3 % Immature Granulocyte # (Auto) 0.29 K/uL (0.00-0.02) Prothrombin Time 10.1 SECONDS (9.0-12.0) Prothromb Time International Ratio 0.9 (0.9-1.1) Troponin I < 0.015 ng/ml (0-0.045) Impression This is a 81-year-old female with multiple falls that are likely multifactorial including poor balance, deconditioning, joint and back pain, etc. Patient's most prominent tremors are moderate to severe benign essential tremors for which she takes clonazepam twice a day. I do not see anything that is highly concerning for Parkinson's at this time and the patient does not carry the diagnosis of idiopathic Parkinson's disease. She is on Sinemet for some mild parkinsonism symptoms. Plan I do not see any need to adjust her clonazepam or Sinemet at this time. Strongly recommend inpatient rehabilitation for frequent falls. Patient would prefer to go to [facility] and I agree that this would be a good option. Strongly recommend resuming anticoagulation for A. fib for stroke prevention. Patient is at high risk for strokes not on anticoagulation. If the patient has an issue with restarting Coumadin, could consider other alternative anticoagulation agents such as Xarelto or Pradaxa. "Fall risk" is not an appropriate contraindication to anticoagulation in the setting of A. fib. It would take 195 falls in a year on anticoagulation to equal 1 adverse intracranial bleeding event. Follow-up with Dr. Hess in neurology clinic regarding management of benign essential tremors as previously scheduled in October. Thank you for allowing me to participate in this patient's care. If there is any questions or concerns, feel free to call/page me.
[2016-09-30 15:23] VITALS: BP 119/71; PULSE 53; TEMP 36.3; O2SAT 95
[2016-09-30] MEDS: ATORVASTATIN 40 MG TAB PO SCH (21:26)
[2016-09-30] MEDS: PANTOprazole SOD 40 MG TAB PO SCH (21:27)
[2016-09-30 22:50] VITALS: BP 138/66; PULSE 52; TEMP 36.3; O2SAT 95
[2016-10-01] MEDS: DEXAMETHASONE 1 MG TAB PO SCH ×3 (05:27→21:22)
[2016-10-01] MEDS: HEPARIN SOD 5000 UNIT/0.5 ML CARP SQ SCH ×3 (05:29→21:28)
[2016-10-01] MEDS: ACETAMINOPHEN 325 MG TAB PO PRN ×3 (05:30→23:33)
[2016-10-01 07:48] VITALS: BP 130/80; PULSE 56; TEMP 36.3; O2SAT 94
[2016-10-01 07:49] LABS: PROTHROMBIN TIME (PATIENT) 10.2 SECONDS (9.0-12.0)
[2016-10-01 08:00] VITALS: O2SAT 94
[2016-10-01 08:37] LABS: BASO % 0.1 %; BASO ABS # 0.01 K/uL (0-0.2); COMPLETE YES; IG% 2.3 %; LYMPH % 6.4 %; LYMPH ABS # 0.76 K/uL (1.2-3.4); MEAN CELL VOLUME 87.9 fL (80-100); MEAN CORPUSCULAR HEMOGLOBIN 30.8 pg (25-34); MEAN PLATELET VOLUME 8.1 fL (7.4-10.4); MONO % 5.8 %; NEUT % 85.4 %; PLATELET COUNT 303 K/uL (130-400); RED BLOOD COUNT 4.55 M/uL (4.2-5.4)
[2016-10-01] MEDS: CALCITONIN SALMON NA 200 IU/AC 3.7 ML BTL SCH (08:43)
[2016-10-01] MEDS: FLUTICASONE PROPIONATE NA SPR 16 GM BTL NAE SCH (08:43)
[2016-10-01] MEDS: CLONAZEPAM 0.5 MG TAB PO SCH ×2 (08:44→21:21)
[2016-10-01] MEDS: ACETAMINOPHEN 500 MG TAB PO SCH (08:44)
[2016-10-01] MEDS: ASPIRIN 81 MG ECTAB PO SCH (08:44)
[2016-10-01] MEDS: CARBIDOPA/LEVODOPA 25/100MG TAB PO SCH ×4 (08:44→21:22)
[2016-10-01] MEDS: SPIRONOLACTONE 25 MG TAB PO SCH (08:45)
[2016-10-01] MEDS: AMIODARONE 200 MG TAB PO SCH (08:45)
[2016-10-01] MEDS: LOSARTAN POTASSIUM 25 MG TAB PO SCH (08:46)
[2016-10-01] MEDS: METOPROLOL TARTRATE 25 MG TAB PO SCH ×2 (08:47→21:22)
[2016-10-01] MEDS: LIDODERM (LIDOCAINE) PATCH 5% TD SCH (08:49)
[2016-10-01 11:11] VITALS: BP 134/67; PULSE 72; O2SAT 97
--- NOTE | 2016-10-01 12:36 | Progress Note ---
Subjective Date of Service: Oct 01, 2016. Subjective Pt evaluation today including: conversation w/ patient, physical exam, chart review, lab review, review of studies, review of inpatient medication list Pain improved on lidoderm patch Awaiting placement No other concerns addressed No acute events overnight Problem List Medical Problems: (1) Fall Status: Acute (2) Fall at home Status: Acute (3) Head injury Status: Acute (4) Left hip pain Status: Acute (5) Lumbar compression fracture Status: Acute (6) Right lumbar pain Status: Acute Review of Systems Constitutional: No chills, No fever Respiratory: No cough, No dyspnea on exertion, No shortness of breath, No sputum, No wheezing Cardiac: No chest pain, No orthopnea Abdomen: No constipation, No diarrhea, No nausea, No pain Musculoskeletal: + joint pain, No muscle pain Female : No dysuria, No urinary frequency Objective Vital Signs Date Time Temp Pulse Resp B/P Pulse Ox O2 Delivery O2 Flow Rate FiO2 10/01/16 11:11 72 97 10/01/16 08:00 94 Room Air 10/01/16 07:48 36.3 56 16 130/80 94 Room Air 10/01/16 07:20 Room Air 09/30/16 23:30 Room Air 09/30/16 22:50 36.3 52 16 138/66 95 Room Air 09/30/16 15:55 Room Air 09/30/16 15:23 36.3 53 16 119/71 95 Room Air Physical Exam General Appearance: WD/WN, no apparent distress Neck: supple, no adenopathy Respiratory/Chest: lungs clear, normal breath sounds Cardiovascular: no edema, no gallop Abdomen: normal bowel sounds, non tender, soft Neurologic/Psychiatric: alert, normal mood/affect Laboratory Results Last 24 Hours Test 09/30/16 14:47 10/01/16 07:23 10/01/16 08:10 Troponin I < 0.015 ng/ml Prothrombin Time 10.2 SECONDS Prothromb Time International Ratio 1.0 White Blood Count 11.80 K/uL Red Blood Count 4.55 M/uL Hemoglobin 14.0 g/dL Hematocrit 40.0 % Mean Corpuscular Volume 87.9 fL Mean Corpuscular Hemoglobin 30.8 pg Mean Corpuscular Hemoglobin Concent 35.0 g/dl Platelet Count 303 K/uL Mean Platelet Volume 8.1 fL Neutrophils (%) (Auto) 85.4 % Lymphocytes (%) (Auto) 6.4 % Monocytes (%) (Auto) 5.8 % Eosinophils (%) (Auto) 0.0 % Basophils (%) (Auto) 0.1 % Neutrophils # (Auto) 10.07 K/uL Lymphocytes # (Auto) 0.76 K/uL Monocytes # (Auto) 0.69 K/uL Eosinophils # (Auto) 0.00 K/uL Basophils # (Auto) 0.01 K/uL RDW Standard Deviation 46.8 fL RDW Coefficient of Variation 14.7 % Immature Granulocyte % (Auto) 2.3 % Immature Granulocyte # (Auto) 0.27 K/uL Assessment and Plan 81 years white female admitted on 09/15/2016 because of frequent fall with fracture who comes to ER s/p mechanical fall at home Mechanical fall with hx of L3 compression fracture Thoracic XR determined old compression fx and pelvix XR determined no acute fx No LOC or preceeding sx prior to fall - tylenol PRN, add lidoderm patch as well - cont decadron taper, leukocytosis trending down - cont PT/OT - awaiting [facility] placement, CM consulted hx of CAD and afib: stable - no symptoms of ischemia. Cont BB, has been recently taken off coumadin and placed on ASA only - cont amiodarone, EKG no ischemic changes - trops x 3 sets unremarkable Accelerated hypertension - cont amio, BB, losartan, hydralazine PRN Essential tremor/Parkinson's disease - stable, cont sinemet, neurology consulted, no further changes in meds Chronic diastolic CHF - compensated, will trend trops, cont spirnolactone, BB, lipitor Pt is DNR
[2016-10-01 15:11] VITALS: BP 147/82; PULSE 60; TEMP 36.4; O2SAT 96
[2016-10-01 19:40] VITALS: BP 167/62
[2016-10-01] MEDS: PANTOprazole SOD 40 MG TAB PO SCH (21:22)
[2016-10-01] MEDS: ATORVASTATIN 40 MG TAB PO SCH (21:23)
[2016-10-01 23:25] VITALS: BP 136/76; PULSE 60; TEMP 36.9; O2SAT 95
[2016-10-02] MEDS: DEXAMETHASONE 1 MG TAB PO SCH ×3 (05:14→19:08)
[2016-10-02] MEDS: HEPARIN SOD 5000 UNIT/0.5 ML CARP SQ SCH ×3 (05:16→21:14)
[2016-10-02 07:31] VITALS: BP 142/68; PULSE 50; TEMP 36.6; O2SAT 94
[2016-10-02 07:41] LABS: HEMATOCRIT 38.6 % (37-47); MEAN CELL VOLUME 87.3 fL (80-100); MEAN CORPUSCULAR HEMOGLOBIN 30.8 pg (25-34); MEAN CORPUSCULAR HGB CONC 35.2 g/dl (32-36); PLATELET COUNT 278 K/uL (130-400); RED BLOOD COUNT 4.42 M/uL (4.2-5.4); WHITE BLOOD COUNT 12.03 K/uL (4.8-10.8)
[2016-10-02 07:45] VITALS: O2SAT 94
[2016-10-02 07:50] LABS: PROTHROMBIN TIME (PATIENT) 10.5 SECONDS (9.0-12.0)
[2016-10-02] MEDS: CALCITONIN SALMON NA 200 IU/AC 3.7 ML BTL SCH (08:26)
[2016-10-02] MEDS: FLUTICASONE PROPIONATE NA SPR 16 GM BTL NAE SCH (08:26)
[2016-10-02] MEDS: SPIRONOLACTONE 25 MG TAB PO SCH (08:27)
[2016-10-02] MEDS: AMIODARONE 200 MG TAB PO SCH (08:28)
[2016-10-02] MEDS: ASPIRIN 81 MG ECTAB PO SCH (08:29)
[2016-10-02] MEDS: LOSARTAN POTASSIUM 25 MG TAB PO SCH (08:29)
[2016-10-02] MEDS: METOPROLOL TARTRATE 25 MG TAB PO SCH ×2 (08:30→21:12)
[2016-10-02] MEDS: CARBIDOPA/LEVODOPA 25/100MG TAB PO SCH ×4 (08:31→21:10)
[2016-10-02] MEDS: ACETAMINOPHEN 500 MG TAB PO SCH (08:32)
[2016-10-02] MEDS: LIDODERM (LIDOCAINE) PATCH 5% TD SCH (08:33)
[2016-10-02] MEDS: CLONAZEPAM 0.5 MG TAB PO SCH ×2 (08:36→21:11)
[2016-10-02] MEDS ORDERED: BISACODYL 10 MG SUPP PR ONE (11:00)
[2016-10-02] MEDS ORDERED: MRLP17 PO (14:50)
[2016-10-02] MEDS ORDERED: LDDP5 TD (14:50)
--- NOTE | 2016-10-02 15:04 | Hospitalist Progress Note ---
Hospitalist Progress Note Date of Service Oct 02, 2016. (Yamilet Painting PA-C) Subjective Pt evaluation today including: conversation w/ patient, conversation w/ family , physical exam, chart review, lab review, review of studies, review of inpatient medication list Patient denies any further chest pain overnight. No significant pain reported. Lidocaine patch is helping. Very much wants to go to rehabilitation. Denies any shortness of breath. No dizziness. No bowel movement in 3 days. Denies abdominal pain or nausea. Additional Comments: 6 system review negative. Please see pertinent positives in the history of present illness section. (Yamilet Painting PA-C) Objective Vital Signs Date Time Temp Pulse Resp B/P Pulse Ox O2 Delivery O2 Flow Rate FiO2 10/02/16 07:45 94 Room Air 10/02/16 07:31 36.6 50 16 142/68 94 Room Air 10/01/16 23:30 Room Air 10/01/16 23:25 36.9 60 18 136/76 95 Room Air 10/01/16 19:40 167/62 10/01/16 15:11 36.4 60 18 147/82 96 Room Air 10/01/16 15:10 Room Air (Yamilet Painting PA-C) Physical Exam General Appearance: no apparent distress Neck: no JVD Respiratory/Chest: lungs clear Cardiovascular: + pertinent finding (occasionally irregular. No murmur auscultated.) Abdomen: normal bowel sounds, non tender, soft Extremities: non-tender, no pedal edema Neurologic/Psychiatric: no motor/sensory deficits, oriented x 3 Skin: warm/dry (Yamilet Painting, CONNOR) Laboratory Results 10/02/16 07:24 Test 10/02/16 07:24 Red Blood Count 4.42 M/uL (4.2-5.4) Mean Corpuscular Volume 87.3 fL (80-100) Mean Corpuscular Hemoglobin 30.8 pg (25-34) Mean Corpuscular Hemoglobin Concent 35.2 g/dl (32-36) RDW Standard Deviation 47.0 fL (36.4-46.3) RDW Coefficient of Variation 14.9 % (11.5-14.5) Mean Platelet Volume 8.0 fL (7.4-10.4) Prothrombin Time 10.5 SECONDS (9.0-12.0) Prothromb Time International Ratio 1.0 (0.9-1.1) Last 24 Hours Test 10/02/16 07:24 White Blood Count 12.03 K/uL Red Blood Count 4.42 M/uL Hemoglobin 13.6 g/dL Hematocrit 38.6 % Mean Corpuscular Volume 87.3 fL Mean Corpuscular Hemoglobin 30.8 pg Mean Corpuscular Hemoglobin Concent 35.2 g/dl RDW Standard Deviation 47.0 fL RDW Coefficient of Variation 14.9 % Platelet Count 278 K/uL Mean Platelet Volume 8.0 fL Prothrombin Time 10.5 SECONDS Prothromb Time International Ratio 1.0 (Yamilet Painting, PA-C) Assessment and Plan 81 years white female admitted on 09/15/2016 because of frequent fall with fracture who comes to ER s/p mechanical fall at home Episode of chest pain last night-EKG reviewed. No acute changes noted. No further symptoms overnight. -continue to monitor Mechanical fall with hx of L3 compression fracture -Thoracic XR determined old compression fx and pelvix XR determined no acute fx -No LOC or preceeding sx prior to fall -taper decadron further today to 2 mg po BID - tylenol PRN, add lidoderm patch as well -denied [facility] -referral made for [facility] Constipation -Schedule Colace 100 mg po BID -Schedule MiraLAX 1 packet daily -Dulcolax suppository now hx of CAD and afib: see above - trops x 3 sets unremarkable -Continue beta willian and amiodarone -Patient was taken off of Coumadin per her primary care physician due to fall risk. She was put on ASA. I will defer to her primary care physician for anticoagulation Tremor/Parkinson's disease -Continue Sinemet and Klonopin at current dose -Neurology consulted. No changes to medications recommended Chronic diastolic CHF - compensated -cont spirolactone Pt is DNR DISPO -Denied acute rehabilitation at [facility]. Awaiting referral for [facility]. This chart was completed in part utilizing [employer] Speech Voice Recognition software. Attempts were made to minimize the grammatical errors, random word insertions, pronoun errors and incomplete sentences. Any formal questions or concerns about the content, text or information contained within the body of this dictation should be directly addressed to the provider for clarification. (Yamilet Painting, PAVelvet) Attending Attestation: Pt seen/examined, chart reviewed, care plan d/w PA Yamilet Painting. I agree w/ the rudolph components of her documentation. Pt c/o left lateral hip pain and pain traveling to left knee. Some back pain. Had chest pain last night - EKG obtained during episode - no acute ST changes, and pain self-resolved. "felt like a wire" on my chest (points to just below both costal margins). VSS gen - nad heart - RRR, s1, s2 abd - soft, NT musculo - tender over left trochanteric bursal area neuro - significant tremors at rest A/P: 1. frequent falls 2. chest pain in patient with known CAD 3. essential tremor 4. left hip pain - trochanteric bursitis vs referred pain from L-spine disease repeat BMP, mag, troponin in AM will need cardiac w/u if chest pain recurs PT, OT consider bursal injection if pain persists await determination on rehab Lelo PALACIO MD (Jordy Palacio MD)
[2016-10-02 15:08] VITALS: BP 136/71; PULSE 73; TEMP 36.3; O2SAT 94
[2016-10-02 19:40] LABS: URINE APPEARANCE CLEAR (CLEAR); URINE BILIRUBIN NEG (NEG); URINE COLOR YELLOW; URINE NITRITE NEG (NEG); URINE PH 5.5 (4.5-7.5); URINE SPECIFIC GRAVITY 1.015 (1.000-1.030); UROBILINOGEN NEG (NEG)
[2016-10-02 19:46] LABS: MANUAL MICROSCOPIC REQUIRED? NO; REVIEW REQ? NO
[2016-10-02 21:05] VITALS: BP 160/80; PULSE 73
[2016-10-02] MEDS: ATORVASTATIN 40 MG TAB PO SCH (21:10)
[2016-10-02] MEDS: PANTOprazole SOD 40 MG TAB PO SCH (21:11)
[2016-10-02] MEDS: DOCUSATE SODIUM 100 MG CAP PO SCH (21:11)
[2016-10-02] MEDS: ACETAMINOPHEN 325 MG TAB PO PRN (21:13)
[2016-10-03 00:03] VITALS: BP 145/72; PULSE 62; TEMP 36.5; O2SAT 98
[2016-10-03] MEDS: HEPARIN SOD 5000 UNIT/0.5 ML CARP SQ SCH ×2 (05:40→13:57)
[2016-10-03 06:46] LABS: BLOOD UREA NITROGEN 21 mg/dl (7-18); BUN/CREATININE RATIO 33.5 (10-20); CALCIUM 8.7 mg/dl (8.5-10.1); CARBON DIOXIDE 27 mmol/L (21-32); CHLORIDE 100 mmol/L (98-107); CREATININE 0.64 mg/dl (0.60-1.20); GLUCOSE 125 mg/dl (70-99); POTASSIUM 4.3 mmol/L (3.5-5.1); SODIUM 133 mmol/L (136-145)
[2016-10-03 07:22] VITALS: BP 155/73; PULSE 51; TEMP 36.6; O2SAT 94
[2016-10-03 08:00] VITALS: O2SAT 94
[2016-10-03] MEDS ORDERED: POLYETHYLENE (MIRALAX) 17 GM PACK PO SCH (09:00)
[2016-10-03] MEDS: CLONAZEPAM 0.5 MG TAB PO SCH (09:37)
[2016-10-03] MEDS: FLUTICASONE PROPIONATE NA SPR 16 GM BTL NAE SCH (09:37)
[2016-10-03] MEDS: DEXAMETHASONE 1 MG TAB PO SCH (09:37)
[2016-10-03] MEDS: CALCITONIN SALMON NA 200 IU/AC 3.7 ML BTL SCH (09:37)
[2016-10-03 09:40] VITALS: BP 152/83; PULSE 72
[2016-10-03] MEDS: DOCUSATE SODIUM 100 MG CAP PO SCH (09:41)
[2016-10-03] MEDS: SPIRONOLACTONE 25 MG TAB PO SCH (09:41)
[2016-10-03] MEDS: AMIODARONE 200 MG TAB PO SCH (09:42)
[2016-10-03] MEDS: LOSARTAN POTASSIUM 25 MG TAB PO SCH (09:43)
[2016-10-03] MEDS: METOPROLOL TARTRATE 25 MG TAB PO SCH (09:43)
[2016-10-03] MEDS: ACETAMINOPHEN 500 MG TAB PO SCH (09:44)
[2016-10-03] MEDS: LIDODERM (LIDOCAINE) PATCH 5% TD SCH (09:45)
[2016-10-03] MEDS: CARBIDOPA/LEVODOPA 25/100MG TAB PO SCH ×2 (09:45→13:00)
[2016-10-03] MEDS: ASPIRIN 81 MG ECTAB PO SCH (09:46)
[2016-10-03 12:32] VITALS: BP 152/83; PULSE 72; TEMP 36.6; O2SAT 94
--- NOTE | 2016-10-03 14:01 | Discharge Instructions ---
Discharge Instructions Date of Service Oct 03, 2016. Admission Reason for Admission: Afib Compression Fracture Of L3 Lumbar Vertebra Discharge Discharge Diagnosis / Problem: L3 compression fracture, parkinsons disease, frequent falls Discharge Goals Goal(s): Improve function Activity Recommendations Activity Limitations: per Instructions/Follow-up section . Current Hospital Diet Patient's current hospital diet: AHA Diet (Heart Healthy) Discharge Diet Recommended Diet: AHA Diet (Heart Healthy) Pending Studies Studies pending at discharge: no Medical Emergencies . Who to Call and When: Medical Emergencies: If at any time you feel your situation is an emergency, please call 911 immediately. . Non-Emergent Contact Non-Emergency issues call your: Primary Care Provider . . "Provider Documentation" section prepared by Jakub Dugan. VTE Core Measure Inpt VTE Proph given/why not?: Unfractionated heparin SQ
--- NOTE | 2016-10-04 00:51 | DISCHARGE SUMMARY ---
Please see dictated H\T\P for full details. HISTORY OF PRESENT ILLNESS: An 81-year-old who presented complaining of back pain and frequent falls. A workup was performed and a compression fracture of L3 with nerve root impingement was discovered. She was brought in for treatment of frequent falls and L3 compression fracture. She was seen in consultation by Dr. Theresa Cates. Neurology did not recommend any adjustment of her clonazepam or Sinemet at this time. She recommended inpatient rehabilitation for frequent falls and she recommended reconsidering anticoagulation for atrial fibrillation and stroke protection. The patient had refused in the past and today I did bring this up with the patient prior to discharge. She again is declining further medications for stroke prevention at this time. She has got a lidocaine patch daily and MiraLax. She is on Tylenol 1000 mg daily, amiodarone 100 mg daily, aspirin 81 mg daily, atorvastatin 40 daily, calcitonin one spray daily, calcium carbonate 1 tab b.i.d., Sinemet 25/100 q.i.d., vitamin D3 1000 mg daily, clonazepam 0.5 mg b.i.d., Colace 100 b.i.d., fluticasone 50 mcg sprays daily, losartan 75 daily, milk of mag 30 mL daily p.r.n. constipation, metoprolol 25 twice a day, multivitamin 1 daily, nitroglycerin 0.4 p.r.n. chest pain, Protonix 40 daily, and spironolactone 25 daily. Time spent reviewing the chart, discussion with the patient on the day of discharge - 31 minutes. Advanced care planning. She does not want to be resuscitated.
[2017-03-20] MEDS ORDERED: OXYC-609 PO (13:11)
[2017-04-12] MEDS ORDERED: FNTTP75 TOP (13:37)
== END 2016-10-03 15:05 ==
LOC: ENRESERVTM → ENRESERVDT → EDBD 12:39 → C.EDB 12:40 → C.MSN 16:50 → EDBEDREQ 16:53
PROVIDERS: ADMIT Hospitalist; ATTEND Internal Medicine
DX: S32.030A Wedge compression fracture of third lumbar vertebra, initial encounter for closed fracture (principal); W19.XXXA Unspecified fall, initial encounter; Z91.81 History of falling; I16.9 Hypertensive crisis, unspecified; G20 Parkinson's disease; R07.9 Chest pain, unspecified; K59.00 Constipation, unspecified; I48.91 Unspecified atrial fibrillation; I25.10 Atherosclerotic heart disease of native coronary artery without angina pectoris; I50.32 Chronic diastolic (congestive) heart failure; M25.552 Pain in left hip; E78.5 Hyperlipidemia, unspecified; Z66 Do not resuscitate; Z82.49 Family history of ischemic heart disease and other diseases of the circulatory system; Z82.3 Family history of stroke

== ENCOUNTER 2016-11-05 08:57 | Observation (INO) | payer BC ==
[~2016-11-05] VITALS: Ht 152.4 cm; Wt 57.3 kg
[~2016-11-05 08:57] MED LIST changes: -ACET-1256 PO; +ASPI81TA28 PO; -DXM1 PO; +LDDP5 TD; +MRLP17 PO; +TYLOTC500 PO
[2016-11-05] MEDS ORDERED: AMIO0.1T PO (09:15)
[2016-11-05] MEDS ORDERED: ASPI325T45 PO (09:15)
[2016-11-05] MEDS ORDERED: ONDANSETRON INJ 2 MG/ML 2 ML VIAL IV STA (09:21)
[2016-11-05] MEDS ORDERED: SODIUM CHLORIDE 0.9% 500ML 500 ML IV STA (09:21)
[2016-11-05] MEDS ORDERED: MoRPHine SULFATE 4 MG/ML 1 ML CARP\\VIAL IV STA (09:21)
--- NOTE | 2016-11-05 10:11 | DIAGNOSTIC IMAGING REPORT ---
CT LUMBAR SPINE WITHOUT CT DOSE: 369.53 mGycm CLINICAL HISTORY: severe worsening lower back pain TECHNIQUE: Helical images were acquired in transverse plane. Reformatted sagittal and coronal images were reviewed. CONTRAST: No contrast was administered COMPARISON STUDY: None. FINDINGS: L1-2 level: There is no evidence of significant disc bulge or focal herniation. There is no evidence of spinal or foraminal stenosis. L2-3 level: There is a severe L3 burst fracture demonstrating greater than 90% loss in height. There is retropulsion of fragments resulting in moderate spinal canal narrowing. There is no significant foraminal narrowing. L3-4 level: There is a severe L3 burst fracture with retropulsion. There is mild spinal canal narrowing. There is no significant foraminal narrowing L4-5 level: There is a circumferential disc bulge and moderate spinal stenosis. There is a moderate superior endplate L5 compression deformity. There is a grade 1 spinal listhesis of L4 on L5. L5-S1 level: There is no evidence of significant disc bulge or focal herniation. There is no evidence of spinal or foraminal stenosis. IMPRESSION: 1. Interval development of a severe L3 burst fracture with greater than 90% loss in height and retropulsion of fragments. This results in moderate spinal canal narrowing 2. L4-5 disc bulge with moderate spinal stenosis 3. Interval development of a mild to moderate superior endplate L5 compression fracture with 33% loss in height. Electronically signed by: Yaya Curtis M.D. 11/05/2016 10:09 AM Dictated Date/Time: 11/05/2016 10:05 AM
[2016-11-05 10:39] LABS: BASO % 0.1 %; BASO ABS # 0.02 K/uL (0-0.2); COMPLETE YES; EOS % 0.2 %; HEMATOCRIT 37.6 % (37-47); IG% 1.7 %; LYMPH ABS # 1.24 K/uL (1.2-3.4); MEAN CELL VOLUME 94.9 fL (80-100); MEAN CORPUSCULAR HEMOGLOBIN 30.6 pg (25-34); MEAN CORPUSCULAR HGB CONC 32.2 g/dl (32-36); MEAN PLATELET VOLUME 7.9 fL (7.4-10.4); MONO % 8.9 %; NEUT % 80.1 %; PLATELET COUNT 322 K/uL (130-400); RED BLOOD COUNT 3.96 M/uL (4.2-5.4); WHITE BLOOD COUNT 13.76 K/uL (4.8-10.8)
[2016-11-05 10:52] LABS: BUN/CREATININE RATIO 29.1 (10-20); CALCIUM 8.1 mg/dl (8.5-10.1); CREATININE 0.42 mg/dl (0.60-1.20); POTASSIUM 4.3 mmol/L (3.5-5.1)
[2016-11-05 12:30] VITALS: BP 148/75
--- NOTE | 2016-11-05 12:50 | EMERGENCY ROOM VISIT NOTE ---
History Report prepared by Stephany: Bonita Hernandez Under the Supervision of: Dr. Aidan Jhaveri D.O. First contact with patient: 09:09 Chief Complaint: BACK PAIN Stated Complaint: BACK PAIN History of Present Illness The patient is a 81 year old female who presents to the Emergency Room with complaints of constant lower back pain that started 2-3 months ago, but it worsened 2 days ago. She states that she was not doing anything strenuous when the pain started and she states that the pain feels better when she stands up. Tylenol and a lidocaine patch on her back have offered minimal relief of her pain. The patient's states that the patient first broke her shoulder 2- 3 months ago after falling. She fell again after she broke her shoulder and hit her back. The patient was then diagnosed with a compression fracture in her lower spine. She states that she has followed with an orthopedic doctor for her shoulder, but not for her back. The patient denies any recent falls or strenuous activity that could have caused her back pain to worsen. The patient denies weakness, numbness including groin numbness, and difficulty urinating or having bowel movements. She states that she does not have any other complaints beside the back pain. The patient states that she is experiencing some ear pressure, but that is because she missed her ear treatments. The patient's adds that the patient is receiving physical therapy at home, but it has not improved her pain much. Source of History: patient Onset: 2-3 months ago, worsened 2 days ago Position: back (lower) Quality: other (lower back pain) Timing: constant, worsening Modifying Factors (Relieving): other (standing up) Associated Symptoms: No numbness (including groin numbness), No weakness Note: no difficulty urinating or having bowel movements Review of Systems See HPI for pertinent positives & negatives. A total of 10 systems reviewed and were otherwise negative. Past Medical & Surgical Medical Problems: (1) Compression fracture of L3 lumbar vertebra (2) Frequent falls (3) Heart disease (4) HTN (hypertension) Family History Cancer Heart disease Hypertension Stroke Social History Smoking Status: Never Smoker Drug Use: none Marital Status: Housing Status: lives with significant other Occupation Status: retired Current/Historical Medications Scheduled Amiodarone Hcl (Amiodarone Hcl), 50 MG PO BID Aspirin (Aspirin), 325 MG PO DAILY Atorvastatin (Atorvastatin Calcium), 40 MG PO QPM Calcitonin Meridian (Calcitonin-Meridian), 1 SPRAY NA DAILY Calcium Carbonate-Vitamin D (Calcium + D), 1 TAB PO BID Carbidopa/Levodopa (Sinemet 25MG/100MG), 1.5 TAB PO QID Cholecalciferol (Vitamin D3), 1,000 MG PO DAILY Clonazepam (Klonopin), 0.5 MG PO BID Fluticasone Propionate (Nasal) (Flonase Allergy Relief), 1 SPRAY REMI DAILY Losartan Potassium (Losartan Potassium), 75 MG PO DAILY Metoprolol Tartrate (Lopressor), 25 MG PO BID Multiple Vitamins W/ Minerals (Centrum Silver), 1 TAB PO DAILY Pantoprazole (Pantoprazole Sodium), 40 MG PO QPM Spironolactone (Aldactone), 25 MG PO DAILY Scheduled PRN Acetaminophen (Tylenol), 1,000 MG PO TID PRN for Pain Docusate Sodium (Docusate Sodium), 100 MG PO BID PRN for Constipation Magnesium Hydroxide (Milk Of Magnesia), 30 ML PO DAILY PRN for Constipation Nitroglycerin (Nitrostat), 0.4 MG SL UD PRN for Chest Pain Allergies Coded Allergies: Atropine (Verified Allergy, Mild, 11/05/16) Diphenoxylate (Verified Allergy, Mild, 11/05/16) Diazepam (Verified Allergy, Unknown, unknown, 11/05/16) Hydrochlorothiazide (Unverified Adverse Reaction, Unknown, UNKNOWN, ) Lisinopril (Verified Adverse Reaction, Unknown, NIGHTMARES, 11/05/16) Physical Exam Vital Signs Date Time Temp Pulse Resp B/P Pulse Ox O2 Delivery O2 Flow Rate FiO2 11/05/16 13:40 75 18 143/90 98 Room Air 11/05/16 13:31 78 11/05/16 12:38 70 16 175/80 96 Room Air 11/05/16 11:01 36.4 58 18 135/59 90 Room Air 11/05/16 10:07 51 20 116/50 93 Room Air 11/05/16 09:34 54 11/05/16 09:07 36.6 59 18 98/51 93 Room Air Physical Exam GENERAL: alert, sitting up in bed with knees flexed, well appearing, well nourished, mild distress, non-toxic EYE EXAM: normal conjunctiva OROPHARYNX: no exudate, no erythema, lips, buccal mucosa, and tongue normal and mucous membranes are moist NECK: supple, no nuchal rigidity, no adenopathy, non-tender LUNGS: Clear to auscultation. Normal chest wall mechanics HEART: no murmurs, S1 normal and S2 normal ABDOMEN: abdomen soft, non-tender, normo-active bowel sounds, no masses, no rebound or guarding. BACK: Back is symmetrical on inspection and there is no deformity, acute reproducible tenderness in lower lumbar midline and bilateral paraspinal regions , no CVA tenderness. SKIN: no rashes and no bruising UPPER EXTREMITIES: upper extremities are grossly normal. LOWER EXTREMITIES: Flexion/extension of hip, knee, ankle, and EHL 5/5 bilaterally, gross sensation intact, DPs 2/4. NEURO EXAM: Normal sensorium, resting twitch of head, cranial nerves II-XII grossly intact, normal speech, no gross weakness of arms. Medical Decision & Procedures ER Provider Diagnostic Interpretation: Radiology results as stated below per my review and the radiologist's interpretation: CT LUMBAR SPINE WITHOUT FINDINGS: L1-2 level: There is no evidence of significant disc bulge or focal herniation. There is no evidence of spinal or foraminal stenosis. L2-3 level: There is a severe L3 burst fracture demonstrating greater than 90% loss in height. There is retropulsion of fragments resulting in moderate spinal canal narrowing. There is no significant foraminal narrowing. L3-4 level: There is a severe L3 burst fracture with retropulsion. There is mild spinal canal narrowing. There is no significant foraminal narrowing L4-5 level: There is a circumferential disc bulge and moderate spinal stenosis. There is a moderate superior endplate L5 compression deformity. There is a grade 1 spinal listhesis of L4 on L5. L5-S1 level: There is no evidence of significant disc bulge or focal herniation. There is no evidence of spinal or foraminal stenosis. IMPRESSION: 1. Interval development of a severe L3 burst fracture with greater than 90% loss in height and retropulsion of fragments. This results in moderate spinal canal narrowing 2. L4-5 disc bulge with moderate spinal stenosis 3. Interval development of a mild to moderate superior endplate L5 compression fracture with 33% loss in height. Electronically signed by: Yaya Curtis M.D. 11/05/2016 10:09 AM Dictated Date/Time: 11/05/2016 10:05 AM Laboratory Results 11/05/16 10:15 Red Blood Count 3.96, Mean Corpuscular Volume 94.9, Mean Corpuscular Hemoglobin 30.6, Mean Corpuscular Hemoglobin Concent 32.2, Mean Platelet Volume 7.9, Neutrophils (%) (Auto) 80.1, Lymphocytes (%) (Auto) 9.0, Monocytes (%) (Auto) 8.9, Eosinophils (%) (Auto) 0.2, Basophils (%) (Auto) 0.1, Neutrophils # (Auto) 11.01, Lymphocytes # (Auto) 1.24, Monocytes # (Auto) 1.22, Eosinophils # (Auto) 0.03, Basophils # (Auto) 0.02 11/05/16 10:15 Test 11/05/16 10:15 White Blood Count 13.76 K/uL (4.8-10.8) Red Blood Count 3.96 M/uL (4.2-5.4) Hemoglobin 12.1 g/dL (12.0-16.0) Hematocrit 37.6 % (37-47) Mean Corpuscular Volume 94.9 fL (80-100) Mean Corpuscular Hemoglobin 30.6 pg (25-34) Mean Corpuscular Hemoglobin Concent 32.2 g/dl (32-36) Platelet Count 322 K/uL (130-400) Mean Platelet Volume 7.9 fL (7.4-10.4) Neutrophils (%) (Auto) 80.1 % Lymphocytes (%) (Auto) 9.0 % Monocytes (%) (Auto) 8.9 % Eosinophils (%) (Auto) 0.2 % Basophils (%) (Auto) 0.1 % Neutrophils # (Auto) 11.01 K/uL (1.4-6.5) Lymphocytes # (Auto) 1.24 K/uL (1.2-3.4) Monocytes # (Auto) 1.22 K/uL (0.11-0.59) Eosinophils # (Auto) 0.03 K/uL (0-0.5) Basophils # (Auto) 0.02 K/uL (0-0.2) RDW Standard Deviation 61.0 fL (36.4-46.3) RDW Coefficient of Variation 17.5 % (11.5-14.5) Immature Granulocyte % (Auto) 1.7 % Immature Granulocyte # (Auto) 0.24 K/uL (0.00-0.02) Anion Gap 2.0 mmol/L (3-11) Est Creatinine Clear Calc Drug Dose 84.7 ml/min Estimated GFR () 112.2 Estimated GFR (Non- 96.8 BUN/Creatinine Ratio 29.1 (10-20) Calcium Level 8.1 mg/dl (8.5-10.1) Laboratory results per my review. Medications Administered Medications (Trade) Dose Ordered Sig/Naomi Route Start Time Stop Time Status Last Admin Dose Admin Sodium Chloride (Nss 500ml) 500 ml @ 999 mls/hr Q31M STAT IV 11/05/16 09:21 11/05/16 09:51 DC 11/05/16 09:28 999 MLS/HR Ondansetron HCl (Zofran Inj) 4 mg NOW STAT IV 11/05/16 09:21 11/05/16 09:22 DC 11/05/16 09:32 4 MG Morphine Sulfate (MoRPHine SULFATE INJ) 4 mg NOW STAT IV 11/05/16 09:21 11/05/16 09:22 DC 11/05/16 09:33 4 MG Carbidopa/Levodopa (Sinemet 25/ 100MG Tab) 1.5 tab ONE ONCE PO 11/05/16 13:30 11/05/16 13:31 DC 11/05/16 13:40 1.5 TAB ED Course ED COURSE: Vital signs were reviewed and showed hypotension and bradycardia. The patients medical record was reviewed The above diagnostic studies were performed and reviewed. ED treatments and interventions as stated above. 0911: The patient was evaluated in room A12. A complete history and physical examination was performed. 0921: Ordered Morphine Sulfate 4 mg IV, Zofran Inj 4 mg IV, Sodium Chloride 500 ml @ 999 mls/hr IV 1107: I reviewed the patient's case with Dr. Curtis - Radiology. He said that the L3 fracture is unchanged, but the L5 fracture is new when compared to previous studies. 1110: I reassessed the patient. I also updated the patient and her about the CT results. 1145: I reevaluated the patient and discussed the option of going to a rehab facility. She said that she would prefer to go to [facility]. 1220: I updated the patient's on the treatment plan. He is in agreement. 1242: I reviewed the patient's case with Dr. Whitehead - Orthopedic Surgery. He is going to come in to evaluate the patient. 1244: Upon reevaluation, the patient is resting comfortably. I discussed my findings with the patient and her . They understand and agree with the treatment plan. Based on the patients age, coexisting illnesses, exam and lab findings the decision to treat as an inpatient was made. The patient remained stable while under my care. The patient will be evaluated by Dr. Whitehead for further management. 1254: Dr. Whitehead is at bedside. 1315: Dr. Whitehead informed me that he is going to admit the patient. Medical Decision Differential diagnoses includes but is not limited to lumbar radiculopathy, muscle strain, facture, cauda equina, mass, and disc herniation. Patient is an 81-year-old female who presents the ER with worsening lower lumbar back pain. She was recently seen and evaluated by orthopedic spine for significant compression deformity of L3. She returns with worsening pain and CT of her spine shows old compression at L3 along with an acute compression 30% at L5. Patient was given IV pain meds. CBC shows a mild leukocytosis. Updated family at bedside. Patient felt uncomfortable going home with her pain. Discussed with care management and she will be evaluated by PT and OT. Consulted orthopedics who evaluated her at bedside and recommended observation overnight. Patient was admitted to orthopedic spine surgery. I do favor the leukocytosis is likely secondary to her pain. Consults Time Called: 1105 Consulting Physician: Dr. Curtis - Radiology Returned Call: 1104 I reviewed the patient's case with Dr. Curtis - Radiology. He said that the L3 fracture is unchanged, but the L5 fracture is new when compared to previous studies. Additional Consults: Time Called: 1124, 1240 Consulted Physician: Dr. Whitehead - Orthopedic Surgery Returned Call: 1242 Additional Comments: I reviewed the patient's case with Dr. Whitehead - Orthopedic Surgery. He is going to come in to evaluate the patient. Impression Primary Impression: Compression fracture of L5 lumbar vertebra Additional Impression: Compression fracture of L3 lumbar vertebra Scribe Attestation The scribe's documentation has been prepared under my direction and personally reviewed by me in its entirety. I confirm that the note above accurately reflects all work, treatment, procedures, and medical decision making performed by me. Departure Information Dispostion Being Evaluated By Surgeon (Dr. Whitehead - Orthopedic Surgery) Referrals Jose A Ruiz M.D. (PCP) Patient Instructions My [facility] Problem Qualifiers Primary Impression: Compression fracture of L5 lumbar vertebra Encounter type: initial encounter Fracture type: closed Qualified Codes: S32.050A - Wedge compression fracture of fifth lumbar vertebra, initial encounter for closed fracture Additional Impression: Compression fracture of L3 lumbar vertebra Encounter type: initial encounter Fracture type: closed Qualified Codes: S32.030A - Wedge compression fracture of third lumbar vertebra, initial encounter for closed fracture
[2016-11-05] MEDS ORDERED: MoRPHine SULFATE 2 MG/ML CARP IV PRN (13:15)
[2016-11-05] MEDS ORDERED: TRAMADOL HCL 50 MG TAB PO PRN (13:15)
[2016-11-05] MEDS ORDERED: DOCUSATE SODIUM 100 MG CAP PO PRN (13:30)
[2016-11-05] MEDS ORDERED: CARBIDOPA/LEVODOPA 25/100MG TAB PO ONE (13:30)
[2016-11-05] MEDS ORDERED: NITROGLYCERIN 0.4 MG SL PER TAB CHARGE SL PRN (13:30)
[2016-11-05] MEDS ORDERED: MAGNESIUM HYDROXIDE SUSP 30 ML UDC PO PRN (13:30)
--- NOTE | 2016-11-05 13:39 | HISTORY & PHYSICAL EXAMINATION ---
DATE OF ADMISSION: 11/05/2016 FAMILY PHYSICIAN: Dr. Jose A Ruiz and Dr. Whitehead. CHIEF COMPLAINT: Back pain. HISTORY OF PRESENT ILLNESS: Abi is a delightful young lady. She is 81 years of age. She has had some ongoing low back pain, worsening over the last 24-48 hours, was not doing much until she had this significant pain. She did have some Ultram at home and helped her, she ran out, had some Tylenol, minimally help her. She has also had some shoulder issues in the past. We are seeing her in the Emergency Room, she is minimally controlled and partially ambulatory with a 2-person assist. PAST MEDICAL HISTORY: Positive for old compression fracture/burst fracture, frequent falls, heart disease, hypertension, GERD, occasional pulmonary issues. FAMILY HISTORY: Heart disease, cancer, hypertension. SOCIAL HISTORY: Nonsmoker, no drug use. , lives with her . She is retired. MEDICATIONS: Amiodarone, aspirin, atorvastatin, calcium, levodopa, cholecalciferol, clonazepam, losartan, metoprolol, vitamin with minerals, and Aldactone. ALLERGIES: ATROPINE, DIAZEPAM, HYDROCHLOROTHIAZIDE, LISINOPRIL. REVIEW OF SYSTEMS: She denies any blurred vision, double vision, tinnitus, vertigo or passing out. Denies currently any chest pain, palpitations, angina. No asthma, wheezing, no shortness of breath, no coughing. No nausea, vomiting, bowel and bladder, constipation. All negative. No urgency, frequency, dysuria or loss of bowel or bladder function. PHYSICAL EXAMINATION: GENERAL: She is alert, oriented. VITAL SIGNS: Blood pressure 175/80, respirations 16, pulse 70 and regular. CARDIAC: Normal S1, S2, slight murmur. LUNGS: Clear. ABDOMEN: Soft and nontender, good bowel sounds in all quadrants. EXTREMITIES: Intact. She has 5/5 strength and there is no edema and no clubbing. IMAGES: Demonstrated a severe L3 burst fracture, loss of significant height, a bulging disk and mild endplate compression L5, slight loss of height. IMPRESSION: Delightful young lady, multiple medical problems - burst compression fracture, L3 exacerbated by L5 compression fracture as well. DISPOSITION: We will treat her medically versus surgically. Will get her admitted to hospital next hour or two, will have medical management to see her in addition. I anticipate and optimistically would get her to [facility] within 24-48 hours so to speak. She will definitely spend a night with us, maybe 2 nights before she goes to [facility], if she is approved. LIN
[2016-11-05] MEDS ORDERED: IV FLUIDS COMPLETED PRN (14:00)
--- NOTE | 2016-11-05 14:10 | Medical Consult ---
Consultation Date of Consultation: November 05, 2016. Attending Physician: Dr. Whitehead Reason for Consultation: Medical Management History of Present Illness Ms. 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 Consulted for medical management. She fell approx. 2-3 months ago that resulted in a shoulder fx and had a subsequent fall. She was admitted in September and D/C'd to [facility] for rehab but returned home. She cannot recall any aggravating factors that made her back pain worsen over the past couple days and she denies recent falls. Currently, home PT and medicinal pain management is not effective. Associated radicular pain that has been ongoing since the fall that radiates on the anterior aspect of the thighs bilat. She denies numbness/tingling. She denies loss of bladder/bowel function or saddle paresthesias. In regards to A Fib she is unsure if it is paroxysmal vs chronic but appears paroxysmal. She was previously on Coumadin but was D/C'd on previous admission. Records reviewed recommending reinstitution per neurology and D/C'd per cardiology due to high risk will falls. Per PCP note, patient declined reinstitution and is currently using ASA 325 mg daily. Patient reports recent increase in Sinemet from 1.5 tabs to 2 tabs QID to better control tremor. Past Medical/Surgical History Medical Problems: (1) Compression fracture of L5 lumbar vertebra Status: Acute (2) Fall Status: Acute (3) Fall at home Status: Acute (4) Head injury Status: Acute (5) Left hip pain Status: Acute (6) Lumbar compression fracture Status: Acute (7) Right lumbar pain Status: Acute Family History Cancer Heart disease Hypertension Stroke Social History Smoking Status: Never Smoker Smokeless Tobacco Use: No Alcohol Use: none Drug Use: none Marital Status: Housing Status: lives with significant other Occupation Status: retired Allergies Coded Allergies: Atropine (Verified Allergy, Mild, 11/05/16) Diphenoxylate (Verified Allergy, Mild, 11/05/16) Diazepam (Verified Allergy, Unknown, unknown, 11/05/16) Hydrochlorothiazide (Unverified Adverse Reaction, Unknown, UNKNOWN, ) Lisinopril (Verified Adverse Reaction, Unknown, NIGHTMARES, 11/05/16) Current Inpatient Medications Current Inpatient Medications Medications (Trade) Dose Ordered Sig/Naomi Route Start Time Stop Time Status Last Admin Dose Admin Lactated Ringer's (Lr 1000ml) 1,000 ml @ 75 mls/hr [id number] IV 11/05/16 13:04 12/05/16 13:03 UNV Acetaminophen (Tylenol Tab) 650 mg Q6H PRN PO 11/05/16 13:15 12/05/16 13:14 UNV Docusate Sodium 100 mg 100 mg BID PO 11/05/16 21:00 12/05/16 20:59 UNV Dexamethasone Sodium Phosphate/ Syringe (Decadron Inj/ Syringe) 2 ml @ 1 mls/min Q8 IV 11/05/16 14:00 11/06/16 06:01 UNV Ondansetron HCl (Zofran Inj) 4 mg Q6H PRN IV 11/05/16 13:15 12/05/16 13:14 UNV Acetaminophen/ Hydrocodone Bitart (Spraggs 5/325 Tab) Moderate to Severe [place]an... Q4H PRN PO 11/05/16 13:15 11/19/16 13:14 UNV Tramadol HCl (Ultram Tab) 50 mg Q4H PRN PO 11/05/16 13:15 12/05/16 13:14 UNV Morphine Sulfate (MoRPHine SULFATE INJ) 2 mg Q4H PRN IV 11/05/16 13:15 11/19/16 13:14 UNV Aspirin (Ecotrin Tab) 325 mg DAILY PO 11/06/16 09:00 12/06/16 08:59 UNV Atorvastatin Calcium (Lipitor Tab) 40 mg QPM PO 11/05/16 21:00 12/05/16 20:59 UNV Calcitonin Turner (Fortical Nasal [place]) 1 spray DAILY NA 11/06/16 09:00 12/06/16 08:59 UNV Clonazepam (Klonopin Tab) 0.5 mg BID PO 11/05/16 21:00 12/05/16 20:59 UNV Docusate Sodium (coLACE CAP) 100 mg BID PRN PO 11/05/16 13:30 12/05/16 13:29 UNV Losartan Potassium (coZAAR TAB) 75 mg DAILY PO 11/06/16 09:00 12/06/16 08:59 UNV Magnesium Hydroxide (Milk Of Magnesia Susp) 30 ml DAILY PRN PO 11/05/16 13:30 12/05/16 13:29 UNV Metoprolol Tartrate (Lopressor Tab) 25 mg BID PO 11/05/16 21:00 12/05/16 20:59 UNV Nitroglycerin (Nitrostat Tab) 0.4 mg UD PRN SL 11/05/16 13:30 12/05/16 13:29 UNV Pantoprazole Sodium (Protonix Tab) 40 mg QPM PO 11/05/16 21:00 12/05/16 20:59 UNV Non-Formulary Medication (Amiodarone Hcl ) 50 mg BID PO 11/05/16 21:00 12/05/16 20:59 UNV Non-Formulary Medication (Calcium Carbonate-Vitamin D (Calcium + D)) 1 tab BID PO 11/05/16 21:00 12/05/16 20:59 UNV Non-Formulary Medication (Multiple Vitamins W/ Minerals (Centrum Silver)) 1 tab DAILY PO 11/06/16 09:00 12/06/16 08:59 UNV Miscellaneous (Iv Fluids Completed) 1 ea PRN PRN N/A 11/05/16 14:00 11/05/17 13:59 UNV Carbidopa/Levodopa (Sinemet 25/ 100MG Tab) 2 tab QID PO 11/05/16 17:00 12/05/16 16:59 UNV Spironolactone (Aldactone Tab) 12.5 mg DAILY PO 11/06/16 09:00 12/06/16 08:59 UNV Review of Systems Constitutional: No chills, No fever Eyes: No worsening of vision ENT: + nasal symptoms (post-nasal drip), No sore throat, No trouble swallowing Respiratory: No shortness of breath Cardiovascular: No chest pain, No palpitations Abdomen: + nausea (intermittent), No constipation, No diarrhea, No pain, No vomiting Musculoskeletal: No calf pain Genitourinary - Female: No dysuria Neurologic: + problem reported (radicular pain from back that travels down front of thighs bilat; essential tremor), No numbness/tingling Hematologic / Lymphatic: No abnormal bleeding/bruising Integumentary: No rash Physical Exam Date Time Temp Pulse Resp B/P Pulse Ox O2 Delivery O2 Flow Rate FiO2 11/05/16 13:40 75 18 143/90 98 Room Air 11/05/16 13:31 78 11/05/16 12:38 70 16 175/80 96 Room Air 11/05/16 11:01 36.4 58 18 135/59 90 Room Air 11/05/16 10:07 51 20 116/50 93 Room Air 11/05/16 09:34 54 11/05/16 09:07 36.6 59 18 98/51 93 Room Air General Appearance: WD/WN, no apparent distress Head: normocephalic, atraumatic Eyes: sclerae normal ENT: hearing grossly normal Neck: supple, no JVD, trachea midline Respiratory/Chest: lungs clear, normal breath sounds, no respiratory distress, no accessory muscle use Cardiovascular: regular rate, rhythm, no gallop, no murmur Abdomen/GI: normal bowel sounds, non tender, soft Back: normal inspection Extremities/Musculoskelatal: no calf tenderness, no pedal edema Neurologic/Psych: alert, oriented x 3, + pertinent finding (5/5 strength of lower extremities bilat to dorsiflexion/plantarflexion; sensation intact bilateral lower extremities; chronic essential tremor of facial features and hands) Skin: normal color, warm/dry Laboratory Results Last 24 Hours Test 11/05/16 10:15 White Blood Count 13.76 K/uL Red Blood Count 3.96 M/uL Hemoglobin 12.1 g/dL Hematocrit 37.6 % Mean Corpuscular Volume 94.9 fL Mean Corpuscular Hemoglobin 30.6 pg Mean Corpuscular Hemoglobin Concent 32.2 g/dl Platelet Count 322 K/uL Mean Platelet Volume 7.9 fL Neutrophils (%) (Auto) 80.1 % Lymphocytes (%) (Auto) 9.0 % Monocytes (%) (Auto) 8.9 % Eosinophils (%) (Auto) 0.2 % Basophils (%) (Auto) 0.1 % Neutrophils # (Auto) 11.01 K/uL Lymphocytes # (Auto) 1.24 K/uL Monocytes # (Auto) 1.22 K/uL Eosinophils # (Auto) 0.03 K/uL Basophils # (Auto) 0.02 K/uL RDW Standard Deviation 61.0 fL RDW Coefficient of Variation 17.5 % Immature Granulocyte % (Auto) 1.7 % Immature Granulocyte # (Auto) 0.24 K/uL Sodium Level 137 mmol/L Potassium Level 4.3 mmol/L Chloride Level 102 mmol/L Carbon Dioxide Level 33 mmol/L Anion Gap 2.0 mmol/L Blood Urea Nitrogen 12 mg/dl Creatinine 0.42 mg/dl Est Creatinine Clear Calc Drug Dose 84.7 ml/min Estimated GFR () 112.2 Estimated GFR (Non- 96.8 BUN/Creatinine Ratio 29.1 Random Glucose 104 mg/dl Calcium Level 8.1 mg/dl Assessment & Plan Documented By: Deshaun Garcia Ms. 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 Consulted for medical management Multiple Falls with Multiple Compression Fx: - Pain management, PT/OT, DVT prophylaxis per primary - Dr. Whitehead Paroxysmal Atrial Fibrillation: NSR with Rate Control - Metoprolol 25 mg BID and Amiodarone 50 mg BID - Recently on Coumadin (was stopped previous admission) taking daily ASA 325 mg -- Allscripts reviewed - Neuro suggests anticoagulation but Dr. 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 Hess - Sinement 2 tabs QID - recently increased from 1.5 tabs per Neuro Diastolic CHF and CAD S/P CABG: Stable - Follows with Dr. Tamayo HLD: - Atorvastatin 40 mg daily GERD: - Protonix 40 mg daily Code Status: FULL RESUSCITATION Disposition: Per primary team - plan for medical management and possible HSNV - Med Rec completed for changes to Sinemet and Spironolactone Resident Physician Supervision Note: Pt seen/examined independently. I discussed the case with the resident and agree with the findings and plan as documented in the note. Any exceptions or clarifications are listed here: 81 y/o F Hx AF, CHF, CAD, HTN Presents with intractable back pain due to lumbar compression Fx - assessed/ admitted by orthopedics - unlikely to undergo surgical intervention at present O/E 1) AAO x 3 2) S1,2 irr 3) CTAB 4) NT, ND 5) No C/C P: -Fracture management per ortho -Cont B willian and ASA for AF - not candidate for anticoagulation -CAD - no evidence of ACS - cont B willian, ASA, Lipitor -CHF - Euvolemic on admission - cont Aldactone , ALESSIO, B willian will follow daily pending DC
[2016-11-05 14:30] VITALS: BP 162/84; PULSE 93; TEMP 36.4; O2SAT 93
[2016-11-05] MEDS ORDERED: HydrALAZINE HCL 20 MG/ML VIAL IV. PRN (14:30)
[2016-11-05] MEDS: LACTATED RINGER'S 1000ML 1,000 ML IV SCH (14:55)
[2016-11-05 15:30] VITALS: BP 145/74; PULSE 75; TEMP 36.8; Ht 152.4 cm; Wt 57.3 kg
[2016-11-05 15:35] VITALS: BP 145/74; PULSE 75; TEMP 36.8; O2SAT 91
[2016-11-05] MEDS ORDERED: CARBIDOPA/LEVODOPA 25/100MG TAB PO SCH (17:00)
[2016-11-05] MEDS: DEXAMETHASONE INJ 8 MG in SYRINGE 0 ML IV SCH (17:22)
[2016-11-05] MEDS: CARBIDOPA/LEVODOPA 25/100MG TAB PO SCH ×2 (17:23→21:22)
[2016-11-05 17:50] VITALS: O2SAT 91
[2016-11-05] MEDS: CLONAZEPAM 0.5 MG TAB PO SCH (21:21)
[2016-11-05] MEDS: PANTOprazole SOD 40 MG TAB PO SCH (21:22)
[2016-11-05] MEDS: ATORVASTATIN 40 MG TAB PO SCH (21:23)
[2016-11-05] MEDS: METOPROLOL TARTRATE 25 MG TAB PO SCH (21:23)
[2016-11-05] MEDS: AMIODARONE 200 MG TAB PO SCH (21:24)
[2016-11-05] MEDS: DOCUSATE SODIUM 100 MG CAP PO SCH (21:24)
[2016-11-05] MEDS: CALCIUM 600MG + VIT D 400 IU TAB PO SCH (21:24)
[2016-11-05] MEDS: ACETAMINOPHEN 325 MG TAB PO PRN (21:42)
[2016-11-05 22:55] VITALS: BP 143/79; PULSE 71; TEMP 36.7; O2SAT 92
[2016-11-06] MEDS: DEXAMETHASONE INJ 8 MG in SYRINGE 0 ML IV SCH ×2 (00:38→07:49)
[2016-11-06] MEDS: HYDROCODONE/ACETAMOPHEN 5/325MG TAB PO PRN ×2 (00:39→09:24)
[2016-11-06] MEDS: LACTATED RINGER'S 1000ML 1,000 ML IV SCH ×2 (02:28→16:07)
[2016-11-06] MEDS: ONDANSETRON INJ 2 MG/ML 2 ML VIAL IV PRN (03:09)
[2016-11-06 07:47] VITALS: BP 174/80; PULSE 65; TEMP 36.4; O2SAT 91
[2016-11-06 07:54] VITALS: O2SAT 91
[2016-11-06] MEDS ORDERED: LOSARTAN POTASSIUM 25 MG TAB PO SCH (09:00)
[2016-11-06] MEDS ORDERED: SPIRONOLACTONE 25 MG TAB PO SCH (09:00)
[2016-11-06] MEDS: CLONAZEPAM 0.5 MG TAB PO SCH ×2 (09:23→21:18)
[2016-11-06] MEDS: CALCIUM 600MG + VIT D 400 IU TAB PO SCH ×2 (09:24→21:09)
[2016-11-06] MEDS: DOCUSATE SODIUM 100 MG CAP PO SCH ×2 (09:24→21:10)
[2016-11-06] MEDS: METOPROLOL TARTRATE 25 MG TAB PO SCH ×2 (09:26→21:11)
[2016-11-06] MEDS: CARBIDOPA/LEVODOPA 25/100MG TAB PO SCH ×4 (09:26→21:10)
[2016-11-06] MEDS: CEROVITE ADV FORMULA TAB PO SCH (09:27)
[2016-11-06] MEDS: ASPIRIN 325 MG ECTAB PO SCH (09:27)
[2016-11-06] MEDS: CALCITONIN SALMON NA 200 IU/AC 3.7 ML BTL SCH (09:28)
[2016-11-06] MEDS: SPIRONOLACTONE 25 MG TAB PO SCH (09:28)
[2016-11-06] MEDS: AMIODARONE 200 MG TAB PO SCH ×2 (09:29→21:10)
--- NOTE | 2016-11-06 09:51 | PROGRESS NOTE ---
DATE: 11/06/2016 SUBJECTIVE: Her pain seems to be slightly better today than it was yesterday upon admission. She denies any nausea or vomiting. No bowel or bladder issues. No chest pain or shortness of breath. No neurological issues to report. OBJECTIVE: Vital signs stable. Alert, oriented. White cell count 13.76, hemoglobin 12.1. ASSESSMENT: Compression fracture of lumbar spine, acute injury on a chronic problem. DISPOSITION: Try to get up and ambulatory today. Get her involved with physical therapy. Hopefully get her to [facility] tomorrow, 11/07/2016 or 11/08/2016.
--- NOTE | 2016-11-06 10:51 | Progress Note ---
Subjective Date of Service: November 06, 2016. Subjective Pt evaluation today including: conversation w/ patient, physical exam, chart review, lab review, review of studies, review of inpatient medication list Resting comfortably in bed No acute events overnight Awaiting rehab Problem List Medical Problems: (1) Compression fracture of L5 lumbar vertebra Status: Acute (2) Fall Status: Acute (3) Fall at home Status: Acute (4) Head injury Status: Acute (5) Left hip pain Status: Acute (6) Lumbar compression fracture Status: Acute (7) Right lumbar pain Status: Acute Review of Systems Constitutional: No chills, No fever Respiratory: No cough, No dyspnea on exertion, No shortness of breath, No sputum, No wheezing Cardiac: No chest pain, No orthopnea Abdomen: No diarrhea, No nausea, No pain, No vomiting Musculoskeletal: + joint pain, No muscle pain Female : No dysuria, No urinary frequency Objective Vital Signs Date Time Temp Pulse Resp B/P Pulse Ox O2 Delivery O2 Flow Rate FiO2 11/06/16 07:54 91 Room Air 11/06/16 07:50 Room Air 11/06/16 07:47 36.4 65 22 174/80 91 Room Air 11/06/16 00:30 Room Air 11/05/16 22:55 36.7 71 18 143/79 92 Room Air 11/05/16 17:50 91 Room Air 11/05/16 15:35 36.8 75 16 145/74 91 Room Air 11/05/16 15:30 36.8 75 16 145/74 Room Air 11/05/16 14:30 36.4 93 16 162/84 93 Room Air 11/05/16 14:15 74 18 143/90 98 11/05/16 13:40 75 18 143/90 98 Room Air 11/05/16 13:31 78 11/05/16 12:38 70 16 175/80 96 Room Air 11/05/16 11:01 36.4 58 18 135/59 90 Room Air Physical Exam General Appearance: WD/WN, no apparent distress Neck: supple, no adenopathy Respiratory/Chest: lungs clear, normal breath sounds Cardiovascular: no edema, no gallop Abdomen: non tender, soft Neurologic/Psychiatric: alert, oriented x 3 Assessment and Plan Ms. 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 Consulted for medical management Multiple Falls with Multiple Compression Fx: - Pain management, PT/OT, DVT prophylaxis per primary - Dr. Whitehead Paroxysmal Atrial Fibrillation: NSR with Rate Control - Metoprolol 25 mg BID and Amiodarone 50 mg BID - Recently on Coumadin (was stopped previous admission) taking daily ASA 325 mg -- Allscripts reviewed - Neuro suggests anticoagulation but Dr. 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 Hess - Sinement 2 tabs QID - recently increased from 1.5 tabs per Neuro Diastolic CHF and CAD S/P CABG: Stable - Follows with Dr. Tamayo HLD: - Atorvastatin 40 mg daily GERD: - Protonix 40 mg daily Code Status: FULL RESUSCITATION
[2016-11-06] MEDS ORDERED: LOSARTAN POTASSIUM 50 MG TAB PO ONE (11:30)
[2016-11-06 13:07] VITALS: BP 120/68; PULSE 66; O2SAT 93
[2016-11-06 15:31] VITALS: BP 150/75; PULSE 64; TEMP 36.5; O2SAT 93
[2016-11-06] MEDS: ACETAMINOPHEN 325 MG TAB PO PRN (19:29)
[2016-11-06] MEDS: PANTOprazole SOD 40 MG TAB PO SCH (21:09)
[2016-11-06] MEDS: ATORVASTATIN 40 MG TAB PO SCH (21:12)
[2016-11-06 21:19] VITALS: BP 175/82; PULSE 70
[2016-11-06 23:31] VITALS: BP 178/83; PULSE 58; TEMP 36.5; O2SAT 95
[2016-11-07] VITALS (7 sets, daily range): BP systolic 103–172; BP diastolic 55–81; PULSE 69–78; TEMP 36.5; O2SAT 90–96
[2016-11-07] MEDS: ACETAMINOPHEN 325 MG TAB PO PRN ×2 (03:27→21:03)
[2016-11-07] MEDS: ONDANSETRON INJ 2 MG/ML 2 ML VIAL IV PRN (03:56)
[2016-11-07] MEDS: LACTATED RINGER'S 1000ML 1,000 ML IV SCH ×2 (04:28→17:20)
--- NOTE | 2016-11-07 08:18 | Discharge Instructions ---
Discharge Instructions Date of Service November 07, 2016. Admission Reason for Admission: Compression Fracture Of L3 & L5 Lumbar Vertebra Discharge Discharge Diagnosis / Problem: as above, Discharge Goals Goal(s): Decrease discomfort, Improve function Activity Recommendations Activity Limitations: as noted below Lifting Limitations: until after follow-up appointment Exercise/Sports Limitations: gradually increase as tolerated, until after follow-up appointment Driving or Machine Use: . Current Hospital Diet Patient's current hospital diet: AHA Diet (Heart Healthy) Discharge Diet Recommended Diet: Regular Diet Pending Studies Studies pending at discharge: no Medical Emergencies . Who to Call and When: Medical Emergencies: If at any time you feel your situation is an emergency, please call 911 immediately. . Non-Emergent Contact Non-Emergency issues call your: Primary Care Provider . "Provider Documentation" section prepared by Carter Whitehead. . VTE Core Measure Inpt VTE Proph given/why not?: Treatment not indicated
[2016-11-07] MEDS: DOCUSATE SODIUM 100 MG CAP PO SCH ×2 (08:55→20:42)
[2016-11-07] MEDS: METOPROLOL TARTRATE 25 MG TAB PO SCH ×2 (08:55→20:43)
[2016-11-07] MEDS: ASPIRIN 325 MG ECTAB PO SCH (08:55)
[2016-11-07] MEDS: CALCIUM 600MG + VIT D 400 IU TAB PO SCH ×2 (08:56→20:44)
[2016-11-07] MEDS: SPIRONOLACTONE 25 MG TAB PO SCH (08:56)
[2016-11-07] MEDS: CARBIDOPA/LEVODOPA 25/100MG TAB PO SCH ×4 (08:56→20:41)
[2016-11-07] MEDS: CALCITONIN SALMON NA 200 IU/AC 3.7 ML BTL SCH (08:56)
[2016-11-07] MEDS: AMIODARONE 200 MG TAB PO SCH ×2 (08:57→20:45)
[2016-11-07] MEDS: CEROVITE ADV FORMULA TAB PO SCH (08:57)
--- NOTE | 2016-11-07 08:58 | PROGRESS NOTE ---
DATE: 11/07/2016 DATE: 11/07/2016. SUBJECTIVE: She is improving. She is stable, pain is moderately controlled. She is up and using the restroom. She is alert, oriented, no significant confusion. OBJECTIVE: Vital signs stable. Alert, oriented. Taking p.o., had a bowel movement as well. ASSESSMENT: Compression fracture of the lumbar spine along with multiple medical problems. DISPOSITION: We are trying to get her to [facility] later on today or maybe tomorrow morning with a back brace for support. She can be up ambulatory at [facility]. Medications will be controlled as well. There are no surgical indications.
[2016-11-07] MEDS ORDERED: LOSARTAN POTASSIUM 50 MG TAB PO SCH (09:00)
[2016-11-07] MEDS: CLONAZEPAM 0.5 MG TAB PO SCH ×2 (09:01→20:40)
[2016-11-07] MEDS: ATORVASTATIN 40 MG TAB PO SCH (20:42)
[2016-11-07] MEDS: PANTOprazole SOD 40 MG TAB PO SCH (20:43)
[2016-11-08] MEDS: LACTATED RINGER'S 1000ML 1,000 ML IV SCH (05:45)
[2016-11-08 08:00] VITALS: BP 178/71; PULSE 73; TEMP 36.5; O2SAT 93
[2016-11-08] MEDS: SPIRONOLACTONE 25 MG TAB PO SCH (08:47)
[2016-11-08] MEDS: CARBIDOPA/LEVODOPA 25/100MG TAB PO SCH ×2 (08:47→13:11)
[2016-11-08] MEDS: CALCIUM 600MG + VIT D 400 IU TAB PO SCH (08:48)
[2016-11-08] MEDS: AMIODARONE 200 MG TAB PO SCH (08:48)
[2016-11-08] MEDS: DOCUSATE SODIUM 100 MG CAP PO SCH (08:48)
[2016-11-08] MEDS: ASPIRIN 325 MG ECTAB PO SCH (08:48)
[2016-11-08] MEDS: METOPROLOL TARTRATE 25 MG TAB PO SCH (08:48)
[2016-11-08] MEDS: CALCITONIN SALMON NA 200 IU/AC 3.7 ML BTL SCH (08:49)
[2016-11-08] MEDS: CLONAZEPAM 0.5 MG TAB PO SCH (08:53)
[2016-11-08] MEDS ORDERED: LOSARTAN POTASSIUM 50 MG TAB PO SCH (09:00)
[2016-11-08] MEDS: CEROVITE ADV FORMULA TAB PO SCH (09:14)
[2016-11-08] MEDS ORDERED: NURSING VERBAL MED ORDER ONE (10:15)
[2016-11-08] MEDS ORDERED: BISACODYL 10 MG SUPP PR STA (11:57)
--- NOTE | 2016-11-08 13:38 | PROGRESS NOTE ---
DATE: 11/08/2016 DATE: 11/08/2016. SUBJECTIVE: Moderate complaints of pain. Denies chest pain, shortness of breath. She admits to constipation and lack of bowel movement. No confusion. Neurologically intact. Pain controlled. ASSESSMENT: Compression fracture at L3-L5 lumbar spine, multiple other medical problems. DISPOSITION: We are trying to get her to [facility] later on this afternoon, that is our #1 goal. If that fails, she will be sent home later on today with [facility] home health services. Prescriptions are on the chart.
[2016-11-08 15:05] VITALS: BP 178/71; PULSE 73; TEMP 36.5; O2SAT 93
--- NOTE | 2016-11-09 17:01 | DISCHARGE SUMMARY ---
DISCHARGE DIAGNOSES: Multiple medical comorbidities, constipation, and compression fractures x2. HISTORY AND HOSPITAL COURSE: Ms. Marquez was admitted for pain control earlier in the week. We treated her medically, supportive care, back brace for support, and a walker for support and she responded nicely. By the , she was improved, stable for discharge. We work towards [facility] that was not approved. Home with home health would seem to be appropriate. She was discharged home in improved stable condition. We should see her back in 1 week. Instructions, precautions education provided.
[2017-03-20] MEDS ORDERED: OXYC-609 PO (13:11)
[2017-04-12] MEDS ORDERED: FNTTP75 TOP (13:37)
== END 2016-11-08 16:00 | disposition home health service (06) ==
LOC: ENRESERVDT → ENRESERVTM → EDBD 08:57 → C.EDA 08:59 → C.MSN 13:15
PROVIDERS: ADMIT Orthopaedic Surgery Orthopaedic Surgery of the Spine; ATTEND Orthopaedic Surgery Orthopaedic Surgery of the Spine
DX: S32.031D Stable burst fracture of third lumbar vertebra, subsequent encounter for fracture with routine healing (principal); S32.051D Stable burst fracture of fifth lumbar vertebra, subsequent encounter for fracture with routine healing; W19.XXXD Unspecified fall, subsequent encounter; Y92.009 Unspecified place in unspecified non-institutional (private) residence as the place of occurrence of the external cause; Z91.81 History of falling; I48.0 Paroxysmal atrial fibrillation; I11.0 Hypertensive heart disease with heart failure; I50.30 Unspecified diastolic (congestive) heart failure; I25.10 Atherosclerotic heart disease of native coronary artery without angina pectoris; E78.5 Hyperlipidemia, unspecified; K21.9 Gastro-esophageal reflux disease without esophagitis; Z95.1 Presence of aortocoronary bypass graft; Z79.82 Long term (current) use of aspirin; Z79.899 Other long term (current) drug therapy

== ENCOUNTER → 2016-11-12 | Outpatient (CLI) | payer OTHER, BC ==
[~2016-11-12] MED LIST changes: +ACET-176 PO; +AMIO0.1T PO; -AMIO200T4 PO; +ASPI325T45 PO; -ASPI81TA28 PO; +CLON0.5T3 PO; +DRGTP12 TD; +FNTTP50 TD; +FNTTP75 TOP; +GABA400C PO; -LDDP5 TD; -MRLP17 PO; +MULTTAB63 PO; +NALO1TAB2 PO; +NF656 TD; +NRN/600 PO; +OXYC-57 PO; +OXYC-609 PO; +POLY335019 PO; +PRLSR20 PO
--- NOTE | 2016-11-12 16:53 | DIAGNOSTIC IMAGING REPORT ---
LUMBAR SPINE CT CT DOSE: 631.45 mGy.cm HISTORY: Fracture L3 BURST FRACTURE TECHNIQUE: Multiaxial CT images of the lumbar spine were performed and reformatted in the sagittal and coronal plane without the use of contrast. COMPARISON: 11/05/2016 FINDINGS: Unchanged study from the prior exam. L3 compression deformity showing near complete loss of vertebral body height. Posterior displacement of the superior segment of the posterior endplate. This is unchanged. Slight compression deformity superior endplate L4 as well as moderate compression deformity of the L5 vertebral body. All findings are similar. The L4 slight compression deformity is perhaps minimally progressive. There is no significant retropulsion of any component of the L4 vertebral body. There is a fracture of the pedicles at L5. This is unchanged. Degenerative changes of posterior elbow is noted throughout. Osteoporosis. IMPRESSION: 1. Burst fracture L3 unchanged from the prior study. Moderate/moderately significant narrowing of the spinal canal unchanged. 2. Mild L4-L5 compression deformity The progressive from the prior study. 3. Mild superior endplate L5 compression deformity unchanged. 4. Fracture posterior pedicles of L5 unchanged. 6. Osteoporosis with no additional acute compression deformity. Electronically signed by: Jericho Bryant M.D. 11/12/2016 4:51 PM Dictated Date/Time: 11/12/2016 4:47 PM
== END | disposition home or self-care (01) ==
LOC: C.CTS 16:16
PROVIDERS: ATTEND Physical Medicine & Rehabilitation
DX: S32.030A Wedge compression fracture of third lumbar vertebra, initial encounter for closed fracture (principal); X58.XXXA Exposure to other specified factors, initial encounter

== ENCOUNTER 2016-12-02 10:44 | Emergency (ER) | payer BC ==
[~2016-12-02] VITALS: Ht 152.4 cm; Wt 54.3 kg
[~2016-12-02 10:44] MED LIST changes: -ACET-176 PO; -CLON0.5T3 PO; -DRGTP12 TD; -FNTTP50 TD; -FNTTP75 TOP; -GABA400C PO; -MULTTAB63 PO; -NALO1TAB2 PO; -NF656 TD; -NRN/600 PO; -OXYC-57 PO; -OXYC-609 PO; -POLY335019 PO; -PRLSR20 PO
[2016-12-02 10:54] VITALS: TEMP 36.6; Ht 152.4 cm; Wt 54.3 kg
[2016-12-02] MEDS ORDERED: SODIUM CHLORIDE 0.9% 500ML 500 ML IV STA (11:01)
[2016-12-02] MEDS ORDERED: FENTANYL 12 MCG/HR TDSY TD STA (11:08)
[2016-12-02] MEDS ORDERED: ONDANSETRON INJ 2 MG/ML 2 ML VIAL IV STA (11:08)
[2016-12-02] MEDS ORDERED: MoRPHine SULFATE 10 MG/ML CARP/VIAL IV STA ×2 (11:08→13:18)
--- NOTE | 2016-12-02 11:10 | EMERGENCY ROOM VISIT NOTE ---
History Report prepared by Stephany: Malia Francis Under the Supervision of: Dr. Michael Guo M.D. First contact with patient: 10:53 Stated Complaint: BACK PAIN History of Present Illness The patient is an 81 year old female who presents to the Emergency Room with complaints of worsening back pain for the past day. She was brought to the ED via EMS and is accompanied by her . She reports she fell in July 2016 and sustained 4 lumbar compression fractures. Since the fall, she has experienced intermittent back pain. Her pain returned 5 days ago, and the patient came here to the ED for her symptoms. She was transferred to [facility] and was then sent to [facility] for rehabilitation, and was discharged home 2 days ago. The patient states "my is a nervous wreck that I am going to fall at home" and both she and her admit it may be time for a longer rehabilitation stay in order for her to regain some strength. Her gave her 2 Tramadol around 0630 this morning, which provided minimal relief. When her pain continued after the Tramadol, she called an ambulance. She was given 100 mcg of Fentanyl IV in the field, which provided good relief. She reports she experienced a fall approximately 4 months ago and sustained several lumbar fractures, and every since then she has experienced back pain. This morning her back was bothering her, so her gave her 2 Tramadol, which provided minimal relief. When her pain continued, she called an ambulance. The patient was at [facility] until just a few days ago and she and her note it might be time for her to have a longer stay in a rehabilitation hospital or [facility] in order to help her get her strength up. 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 A total of 10 systems reviewed and were otherwise negative. Past Medical & Surgical Medical Problems: (1) Compression fracture of L3 lumbar vertebra (2) Frequent falls (3) Heart disease (4) HTN (hypertension) Family History Cancer Heart disease Hypertension Stroke Social History Smoking Status: Never Smoker Drug Use: none Marital Status: Housing Status: lives with significant other Occupation Status: retired Current/Historical Medications Scheduled Amiodarone Hcl (Amiodarone Hcl), 50 MG PO BID Aspirin (Aspirin), 325 MG PO DAILY Atorvastatin (Atorvastatin Calcium), 40 MG PO QPM Calcitonin Everett (Calcitonin-Everett), 1 SPRAY NA DAILY Calcium Carbonate-Vitamin D (Calcium + D), 1 TAB PO BID Carbidopa/Levodopa (Sinemet 25MG/100MG), 2 TAB PO QID Cholecalciferol (Vitamin D3), 1,000 MG PO DAILY Clonazepam (Klonopin), 0.5 MG PO BID Clonazepam (Klonopin), 0.5 MG PO BID Fentanyl (Fentanyl), 12 MCG TD CQ72HR Fluticasone Propionate (Nasal) (Flonase Allergy Relief), 1 SPRAY REMI DAILY Losartan Potassium (Losartan Potassium), 75 MG PO DAILY Metoprolol Tartrate (Lopressor), 25 MG PO BID Multiple Vitamins W/ Minerals (Centrum Silver), 1 TAB PO DAILY Pantoprazole (Pantoprazole Sodium), 40 MG PO QPM Polyethylene Glycol 3350 (Miralax), 17 GM PO DAILY Spironolactone (Aldactone), 12.5 MG PO DAILY Scheduled PRN Acetaminophen (Tylenol), 1,000 MG PO TID PRN for Pain Docusate Sodium (Docusate Sodium), 100 MG PO BID PRN for Constipation Nitroglycerin (Nitrostat), 0.4 MG SL UD PRN for Chest Pain Oxycodone/Acetaminophen 5MG/325MG (Percocet 5MG/325MG), 1 TABLET PO Q6H PRN for Pain Oxycodone/Acetaminophen 5MG/325MG (Percocet 5MG/325MG), 1-2 TAB PO Q6H PRN for Pain Allergies Coded Allergies: Atropine (Verified Allergy, Mild, 12/02/16) Diphenoxylate (Verified Allergy, Mild, 12/02/16) Diazepam (Verified Allergy, Unknown, unknown, 12/02/16) Hydrochlorothiazide (Unverified Adverse Reaction, Unknown, UNKNOWN, ) Lisinopril (Verified Adverse Reaction, Unknown, NIGHTMARES, 12/02/16) Physical Exam Vital Signs Date Time Temp Pulse Resp B/P (MAP) Pulse Ox O2 Delivery O2 Flow Rate FiO2 12/02/16 18:25 90 20 166/86 93 Room Air 12/02/16 18:03 157/74 12/02/16 16:24 73 15 91 12/02/16 16:19 70 15 90 12/02/16 16:14 74 20 90 12/02/16 16:09 72 18 90 12/02/16 16:04 72 22 89 12/02/16 15:59 71 15 90 12/02/16 15:54 72 14 90 12/02/16 15:49 72 19 89 12/02/16 15:44 71 21 89 12/02/16 15:39 73 17 89 12/02/16 15:34 70 19 89 12/02/16 15:29 70 26 89 12/02/16 15:24 70 27 90 12/02/16 15:19 71 17 96 12/02/16 15:17 70 20 128/75 96 Room Air 12/02/16 15:16 128/75 12/02/16 15:14 73 21 12/02/16 15:09 71 18 12/02/16 15:04 75 22 12/02/16 14:59 82 22 12/02/16 14:54 82 23 12/02/16 14:49 88 16 12/02/16 14:44 82 17 12/02/16 14:39 82 18 12/02/16 14:34 88 20 12/02/16 14:29 82 17 12/02/16 14:24 79 18 12/02/16 14:19 69 17 12/02/16 14:14 71 21 12/02/16 14:09 75 17 12/02/16 14:04 67 14 12/02/16 13:59 67 19 12/02/16 13:54 69 23 12/02/16 13:49 75 21 96 12/02/16 13:44 71 19 97 12/02/16 13:39 65 17 96 12/02/16 13:34 65 16 94 12/02/16 13:29 64 20 97 12/02/16 13:24 69 16 97 12/02/16 13:19 68 13 96 12/02/16 13:14 72 18 96 12/02/16 13:09 72 20 98 12/02/16 13:06 71 12/02/16 13:04 67 20 159/79 96 Nasal Cannula 2.0 12/02/16 12:55 159/79 12/02/16 12:15 98 Nasal Cannula 2.0 12/02/16 12:10 63 16 172/78 98 12/02/16 10:54 36.6 67 20 166/75 97 Room Air Physical Exam GENERAL: Patient is a healthy-appearing well-nourished female HEAD: Normocephalic atraumatic EYES: Ocular movements intact pupils equal and react to light OROPHARYNX mucous membranes are moist no exudates present no erythema or edema present NECK: Supple no nuchal rigidity CHEST: Good equal expansion LUNGS: Clear and equal to auscultation CARDIAC: Normal S1 and S2 ABDOMEN: Soft nontender no guarding BACK: No CVA tenderness EXTREMITIES: No pain upon palpation normal muscle strength in all groups, no clubbing cyanosis or edema NEURO: Patient is following commands, is answering questions appropriately. Alert and oriented x3 Cranial Nerves 2-12 grossly intact Medical Decision & Procedures ER Provider Diagnostic Interpretation: Radiology results as stated below per my review and radiologist interpretation: CT OF THE CERVICAL SPINE CLINICAL HISTORY: Severe neck pain COMPARISON STUDY: 08/08/2016 CT DOSE: 1787.24 mGy.cm TECHNIQUE: CT scan of the cervical spine was performed from the skull base to the thoracic inlet. Images are reviewed in the axial, sagittal, and coronal planes. IV contrast was not administered for this examination. FINDINGS: The visualized portions of the lung apices reveal no evidence of pneumothorax. There is a multinodular thyroid gland similar to the prior study The prevertebral soft tissues are normal. No acute fractures or subluxations are visualized. There are minor T2 and T3 endplate deformities likely old There are minor multilevel degenerative changes. IMPRESSION: No evidence of acute fracture or traumatic subluxation. Electronically signed by: Yaya Curtis M.D. 12/02/2016 11:[address] LUMBAR SPINE WITHOUT CT DOSE: CLINICAL HISTORY: Severe back pain. History of prior fracture. TECHNIQUE: Helical images were acquired in transverse plane. Reformatted sagittal and coronal images were reviewed. CONTRAST: No contrast was administered COMPARISON STUDY: 11/12/2016 FINDINGS: Again evident is a severe L3 burst fracture demonstrating greater than 90% loss in height. There is a progressive superior endplate L4 compression fracture demonstrating greater than 50% loss in height. There is a stable L5 compression fracture demonstrating approximately 50% loss in height. There is persistent retropulsion of the L3 fracture with secondary spinal canal narrowing. There is also moderate to severe spinal stenosis at the L4-5 level. IMPRESSION: 1. Persistent severe L3 burst fracture demonstrating greater than 90% loss in height. There is retropulsion with moderate spinal canal narrowing 2. Progressive L4 compression fracture, including a fracture of the left pedicle. 3. Moderate to severe spinal stenosis at the L4-5 level 4. Stable L5 compression fracture. Electronically signed by: Yaya Curtis M.D. 12/02/2016 12:[address] THORACIC SPINE WITHOUT CT DOSE: CLINICAL HISTORY: Severe back pain TECHNIQUE: Helical images were acquired in the transverse plane. Sagittal and coronal reformatted images were acquired. COMPARISON STUDY: Conventional radiographic study dated 09/29/2016 FINDINGS: The bones are osteopenic. There are mild multilevel degenerative changes present. No acute fractures are visualized. There is no pneumothorax. There is a somewhat dilated pulmonary trunk. There are dependent airspace opacities likely atelectatic. There are minor T2, T3, and T4 endplate deformities which are felt to be old. There is ankylosis of the upper thoracic spine. There is elevation right hemidiaphragm. IMPRESSION: 1. Minor old T2-T4 endplate deformities. No acute fractures or subluxations. 2. Ankylosis of the upper thoracic spine 3. Elevation right hemidiaphragm 4. Persistent dilatation of the pulmonary trunk 5. Dependent airspace opacities likely atelectatic Electronically signed by: Yaya Curtis M.D. 12/02/2016 12:02 PM Laboratory Results 12/02/16 11:15 Red Blood Count 4.13, Mean Corpuscular Volume 94.4, Mean Corpuscular Hemoglobin 31.2, Mean Corpuscular Hemoglobin Concent 33.1, Mean Platelet Volume 7.9, Neutrophils (%) (Auto) 72.7, Lymphocytes (%) (Auto) 15.7, Monocytes (%) (Auto) 9.8, Eosinophils (%) (Auto) 0.6, Basophils (%) (Auto) 0.2, Neutrophils # (Auto) 6.61, Lymphocytes # (Auto) 1.43, Monocytes # (Auto) 0.89, Eosinophils # (Auto) 0.05, Basophils # (Auto) 0.02 12/02/16 11:15 Test 12/02/16 11:15 White Blood Count 9.09 K/uL (4.8-10.8) Red Blood Count 4.13 M/uL (4.2-5.4) Hemoglobin 12.9 g/dL (12.0-16.0) Hematocrit 39.0 % (37-47) Mean Corpuscular Volume 94.4 fL (80-100) Mean Corpuscular Hemoglobin 31.2 pg (25-34) Mean Corpuscular Hemoglobin Concent 33.1 g/dl (32-36) Platelet Count 353 K/uL (130-400) Mean Platelet Volume 7.9 fL (7.4-10.4) Neutrophils (%) (Auto) 72.7 % Lymphocytes (%) (Auto) 15.7 % Monocytes (%) (Auto) 9.8 % Eosinophils (%) (Auto) 0.6 % Basophils (%) (Auto) 0.2 % Neutrophils # (Auto) 6.61 K/uL (1.4-6.5) Lymphocytes # (Auto) 1.43 K/uL (1.2-3.4) Monocytes # (Auto) 0.89 K/uL (0.11-0.59) Eosinophils # (Auto) 0.05 K/uL (0-0.5) Basophils # (Auto) 0.02 K/uL (0-0.2) RDW Standard Deviation 59.0 fL (36.4-46.3) RDW Coefficient of Variation 17.0 % (11.5-14.5) Immature Granulocyte % (Auto) 1.0 % Immature Granulocyte # (Auto) 0.09 K/uL (0.00-0.02) Anion Gap 8.0 mmol/L (3-11) Est Creatinine Clear Calc Drug Dose 75.0 ml/min Estimated GFR () 111.3 Estimated GFR (Non- 96.1 BUN/Creatinine Ratio 28.9 (10-20) Calcium Level 9.0 mg/dl (8.5-10.1) Total Bilirubin 0.5 mg/dl (0.2-1) Direct Bilirubin 0.2 mg/dl (0-0.2) Aspartate Amino Transf (AST/SGOT) 16 U/L (15-37) Alanine Aminotransferase (ALT/SGPT) 10 U/L (12-78) Alkaline Phosphatase 136 U/L (45-117) Total Creatine Kinase 20 U/L (26-192) Creatine Kinase MB 1.0 ng/ml (0.5-3.6) Creatine Kinase MB Ratio 5.0 (0-3.0) Troponin I < 0.015 ng/ml (0-0.045) Total Protein 6.2 gm/dl (6.4-8.2) Albumin 2.9 gm/dl (3.4-5.0) Lipase 70 U/L (73-393) Labs reviewed by ED physician. Medications Administered Medications (Trade) Dose Ordered Sig/Naomi Route Start Time Stop Time Status Last Admin Dose Admin Sodium Chloride 500 ml @ 999 mls/hr Q31M STAT IV 12/02/16 11:01 12/02/16 11:31 DC 12/02/16 11:19 999 MLS/HR Fentanyl (Duragesic Patch) 12 mcg Q72H STAT TD 12/02/16 11:08 12/02/16 11:09 DC 12/02/16 12:11 12 MCG Morphine Sulfate (MoRPHine SULFATE INJ) 6 mg NOW STAT IV 12/02/16 11:08 12/02/16 11:09 DC 12/02/16 11:21 6 MG Ondansetron HCl (Zofran Inj) 4 mg NOW STAT IV 12/02/16 11:08 12/02/16 11:09 DC 12/02/16 11:19 4 MG Promethazine HCl 25 mg/Sodium Chloride 51 ml @ 204 mls/hr NOW STAT IV 12/02/16 13:18 12/02/16 13:32 DC 12/02/16 13:49 204 MLS/HR Acetaminophen (Tylenol Tab) 500 mg STK-MED ONCE PO 12/02/16 18:28 12/02/16 18:29 DC 12/02/16 18:28 500 MG ECG Indication: chest pain Rate (beats per minute): 70 Rhythm: normal sinus Findings: no acute ischemic change, no ectopy ED Course 1056: Past medical records reviewed. The patient was evaluated in room C9. A complete history and physical examination was performed. 1101: NSS 500 ml @ 999 mls/hr IV. 1108: Zofran 4 mg IV, Morphine Sulfate 6 mg IV, Fentanyl 12 mcg TD. 1310: One of our ED techs informed me the patient is currently complaining of chest pain. 1318: Promethazine HCl 25 mg/NSS 51 ml @ 204 mls/hr IV. Medical Decision Medication Reconciliation: I attest that I have personally reviewed the patient' s current medication list Blood Pressure Screening: Patient was found to have an elevated blood pressure and was referred to their primary care doctor for recheck and further treatment This is an 81-year-old female who presents emergency department because she feels she is unable to care for herself at home and her pain is out of control at home. The patient recently finished a stent at [facility]. She was given fentanyl by emergency ambulance and upon arrival to emergency department she is pain-free. I feel we should trialed patient on a fentanyl patch. The patient feels that she cannot return home so I contacted case management to begin placement. She was evaluated by physical therapy as well as occupational therapy in the emergency department. CAT scans of her spine do not show any acute process. Patient was in the emergency department for an extended period of time until she was finally accepted at [facility]. She was written for pain medication and was discharged. Impression Primary Impression: Back pain Scribe Attestation The scribe's documentation has been prepared under my direction and personally reviewed by me in its entirety. I confirm that the note above accurately reflects all work, treatment, procedures, and medical decision making performed by me. Departure Information Dispostion Home / Self-Care Prescriptions Oxycodone/Acetaminophen 5MG/325MG (PERCOCET 5MG/325MG) Tab 1-2 TAB PO Q6H Y for Pain, #14 TAB Prov: Michael Guo MD 12/02/16 Clonazepam (KLONOPIN) 0.5 Mg Tab 0.5 MG PO BID for 2 Days, #4 TAB Prov: Michael Guo MD 12/02/16 Fentanyl (Fentanyl) 12 Mcg Tdsy 12 MCG TD CQ72HR for 3 Days, #1 PATCH Prov: Michael Guo MD 12/02/16 Referrals Jose A Ruiz M.D. (PCP) Problem Qualifiers Primary Impression: Back pain Back pain location: low back pain Chronicity: chronic Back pain laterality : midline Sciatica presence: without sciatica Qualified Codes: M54.5 - Low back pain; G89.29 - Other chronic pain
[2016-12-02 11:28] LABS: BASO % 0.2 %; BASO ABS # 0.02 K/uL (0-0.2); COMPLETE YES; EOS % 0.6 %; LYMPH % 15.7 %; LYMPH ABS # 1.43 K/uL (1.2-3.4); MEAN CELL VOLUME 94.4 fL (80-100); MEAN CORPUSCULAR HEMOGLOBIN 31.2 pg (25-34); MEAN CORPUSCULAR HGB CONC 33.1 g/dl (32-36); MEAN PLATELET VOLUME 7.9 fL (7.4-10.4); MONO % 9.8 %; NEUT % 72.7 %; PLATELET COUNT 353 K/uL (130-400); RED BLOOD COUNT 4.13 M/uL (4.2-5.4); WHITE BLOOD COUNT 9.09 K/uL (4.8-10.8)
[2016-12-02] MEDS ORDERED: OXYC-57 PO ×2 (11:36→17:27)
[2016-12-02] MEDS ORDERED: POLY335019 PO (11:36)
[2016-12-02 11:48] LABS: BUN/CREATININE RATIO 28.9 (10-20); CREATININE 0.43 mg/dl (0.60-1.20); POTASSIUM 4.3 mmol/L (3.5-5.1)
--- NOTE | 2016-12-02 11:58 | DIAGNOSTIC IMAGING REPORT ---
CT OF THE CERVICAL SPINE CLINICAL HISTORY: Severe neck pain COMPARISON STUDY: 08/08/2016 CT DOSE: 1787.24 mGy.cm TECHNIQUE: CT scan of the cervical spine was performed from the skull base to the thoracic inlet. Images are reviewed in the axial, sagittal, and coronal planes. IV contrast was not administered for this examination. FINDINGS: The visualized portions of the lung apices reveal no evidence of pneumothorax. There is a multinodular thyroid gland similar to the prior study The prevertebral soft tissues are normal. No acute fractures or subluxations are visualized. There are minor T2 and T3 endplate deformities likely old There are minor multilevel degenerative changes. IMPRESSION: No evidence of acute fracture or traumatic subluxation. Electronically signed by: Yaya Curtis M.D. 12/02/2016 11:57 AM Dictated Date/Time: 12/02/2016 11:53 AM
--- NOTE | 2016-12-02 12:04 | DIAGNOSTIC IMAGING REPORT ---
CT THORACIC SPINE WITHOUT CT DOSE: CLINICAL HISTORY: Severe back pain TECHNIQUE: Helical images were acquired in the transverse plane. Sagittal and coronal reformatted images were acquired. COMPARISON STUDY: Conventional radiographic study dated 09/29/2016 FINDINGS: The bones are osteopenic. There are mild multilevel degenerative changes present. No acute fractures are visualized. There is no pneumothorax. There is a somewhat dilated pulmonary trunk. There are dependent airspace opacities likely atelectatic. There are minor T2, T3, and T4 endplate deformities which are felt to be old. There is ankylosis of the upper thoracic spine. There is elevation right hemidiaphragm. IMPRESSION: 1. Minor old T2-T4 endplate deformities. No acute fractures or subluxations. 2. Ankylosis of the upper thoracic spine 3. Elevation right hemidiaphragm 4. Persistent dilatation of the pulmonary trunk 5. Dependent airspace opacities likely atelectatic Electronically signed by: Yaya Curtis M.D. 12/02/2016 12:02 PM Dictated Date/Time: 12/02/2016 11:57 AM
[2016-12-02 12:15] VITALS: O2SAT 98
--- NOTE | 2016-12-02 12:16 | DIAGNOSTIC IMAGING REPORT ---
CT LUMBAR SPINE WITHOUT CT DOSE: CLINICAL HISTORY: Severe back pain. History of prior fracture. TECHNIQUE: Helical images were acquired in transverse plane. Reformatted sagittal and coronal images were reviewed. CONTRAST: No contrast was administered COMPARISON STUDY: 11/12/2016 FINDINGS: Again evident is a severe L3 burst fracture demonstrating greater than 90% loss in height. There is a progressive superior endplate L4 compression fracture demonstrating greater than 50% loss in height. There is a stable L5 compression fracture demonstrating approximately 50% loss in height. There is persistent retropulsion of the L3 fracture with secondary spinal canal narrowing. There is also moderate to severe spinal stenosis at the L4-5 level. IMPRESSION: 1. Persistent severe L3 burst fracture demonstrating greater than 90% loss in height. There is retropulsion with moderate spinal canal narrowing 2. Progressive L4 compression fracture, including a fracture of the left pedicle. 3. Moderate to severe spinal stenosis at the L4-5 level 4. Stable L5 compression fracture. Electronically signed by: Yaya Curtis M.D. 12/02/2016 12:15 PM Dictated Date/Time: 12/02/2016 12:06 PM
[2016-12-02] MEDS ORDERED: PROMETHAZINE HCL INJ 25 MG in SODIUM CHLORIDE 0.9% 50ML 50 ML IV STA (13:18)
[2016-12-02] MEDS ORDERED: DRGTP12 TD (17:20)
[2016-12-02] MEDS ORDERED: CLON0.5T3 PO (17:27)
[2016-12-02 18:25] VITALS: BP 166/86; PULSE 90; O2SAT 93
[2016-12-02] MEDS ORDERED: ACETAMINOPHEN 500 MG TAB PO ONE (18:28)
[2017-03-20] MEDS ORDERED: OXYC-609 PO (13:11)
[2017-04-12] MEDS ORDERED: FNTTP75 TOP (13:37)
== END 2016-12-02 18:31 | disposition short-term general hospital (02) ==
LOC: EDBD 10:44 → C.EDC 10:45
DX: M54.5 Low back pain (principal); Z87.81 Personal history of (healed) traumatic fracture; R29.6 Repeated falls; I51.9 Heart disease, unspecified; I10 Essential (primary) hypertension; Z80.9 Family history of malignant neoplasm, unspecified; Z82.49 Family history of ischemic heart disease and other diseases of the circulatory system; Z79.82 Long term (current) use of aspirin; Z79.899 Other long term (current) drug therapy

== ENCOUNTER → 2017-02-01 | Outpatient (CLI) | payer BC ==
[~2017-02-01] MED LIST changes: +ACET-176 PO; +DRGTP12 TD; +FNTTP50 TD; +GABA400C PO; -MOML PO; +MULTTAB63 PO; +NALO1TAB2 PO; +NF656 TD; +NRN/600 PO; +OXYC-57 PO; +OXYC-609 PO; -PANT40TA2 PO; +POLY335019 PO; +PRLSR20 PO; +PRT/40 PO
[2017-02-01 09:12] LABS: BASO % 0.4 %; BASO ABS # 0.04 K/uL (0-0.2); COMPLETE YES; EOS % 2.1 %; HEMATOCRIT 44.4 % (37-47); IG% 1.9 %; LYMPH ABS # 3.55 K/uL (1.2-3.4); MEAN CELL VOLUME 99.1 fL (80-100); MEAN CORPUSCULAR HEMOGLOBIN 31.9 pg (25-34); MEAN CORPUSCULAR HGB CONC 32.2 g/dl (32-36); MEAN PLATELET VOLUME 8.6 fL (7.4-10.4); MONO % 9.3 %; NEUT % 53.3 %; PLATELET COUNT 364 K/uL (130-400); RED BLOOD COUNT 4.48 M/uL (4.2-5.4); WHITE BLOOD COUNT 10.77 K/uL (4.8-10.8)
[2017-02-01 09:20] LABS: ALT/SGPT 12 U/L (12-78); BLOOD UREA NITROGEN 13 mg/dl (7-18); BUN/CREATININE RATIO 22.2 (10-20); CALCIUM 9.8 mg/dl (8.5-10.1); CARBON DIOXIDE 30 mmol/L (21-32); CHLORIDE 104 mmol/L (98-107); CHOLESTEROL 115 mg/dl (0-200); CREATININE 0.59 mg/dl (0.60-1.20); GLUCOSE 81 mg/dl (70-99); POTASSIUM 4.1 mmol/L (3.5-5.1); SODIUM 141 mmol/L (136-145)
[2017-02-01 09:23] LABS: ALKALINE PHOSPHATASE 123 U/L (45-117); AST/SGOT 12 U/L (15-37); CHOLESTEROL/HDL RATIO 2.7; HDL CHOLESTEROL 43 mg/dl; LDL CHOLESTEROL CALCULATED 41 mg/dl; TRIGLYCERIDES 154 mg/dl (0-150); VERY LOW DENSITY LIPOPROT CALC 31 mg/dl
== END ==
LOC: C.LABCC 07:50
PROVIDERS: ATTEND Internal Medicine
DX: E78.5 Hyperlipidemia, unspecified (principal); I10 Essential (primary) hypertension

== ENCOUNTER → 2017-02-13 | Outpatient (CLI) | payer BC | LOC: C.LABCC 12:34 | PROVIDERS: ATTEND Internal Medicine | DX: R19.7 Diarrhea, unspecified (principal) ==

== ENCOUNTER → 2017-03-06 | Outpatient (CLI) | payer BC ==
[2017-03-06 19:36] LABS: URINE APPEARANCE CLEAR (CLEAR); URINE BILIRUBIN NEG (NEG); URINE COLOR DK YELLOW; URINE NITRITE NEG (NEG); URINE PH 5.5 (4.5-7.5); UROBILINOGEN NEG (NEG)
[2017-03-06 20:24] LABS: MANUAL MICROSCOPIC REQUIRED? NO; REVIEW REQ? NO
== END ==
LOC: C.LABCC 17:51
PROVIDERS: ATTEND Internal Medicine
DX: R35.0 Frequency of micturition (principal)

== ENCOUNTER → 2017-03-11 | Outpatient (CLI) | payer BC | LOC: C.LABCC 08:59 | PROVIDERS: ATTEND Internal Medicine | DX: I48.91 Unspecified atrial fibrillation (principal); M19.90 Unspecified osteoarthritis, unspecified site; K21.9 Gastro-esophageal reflux disease without esophagitis; I11.0 Hypertensive heart disease with heart failure ==

== ENCOUNTER 2017-03-14 09:55 | Inpatient (IN) | payer BC, OTHER ==
[~2017-03-14] VITALS: Ht 149.9 cm; Wt 54.0 kg
[~2017-03-14 09:55] MED LIST changes: -ACET-176 PO; -FNTTP50 TD; -GABA400C PO; -MULTTAB63 PO; -NALO1TAB2 PO; -NF656 TD; -NRN/600 PO; -OXYC-609 PO; -PRLSR20 PO
[2017-03-14] MEDS ORDERED: ONDANSETRON INJ 2 MG/ML 2 ML VIAL IV STA (10:58)
[2017-03-14] MEDS ORDERED: OPTIRAY 320 IV PRN (11:30)
[2017-03-14] MEDS ORDERED: NALO1TAB2 PO (11:31)
[2017-03-14] MEDS ORDERED: FNTTP50 TD (11:31)
[2017-03-14] MEDS ORDERED: OXYC-609 PO (11:33)
[2017-03-14] MEDS ORDERED: ACET-176 PO (11:34)
[2017-03-14] MEDS ORDERED: MULTTAB63 PO (11:36)
[2017-03-14] MEDS ORDERED: NRN/600 PO (11:39)
[2017-03-14] MEDS ORDERED: GABA400C PO (11:39)
[2017-03-14] MEDS ORDERED: NF656 TD (11:41)
[2017-03-14] MEDS ORDERED: PRLSR20 PO (11:46)
[2017-03-14 11:51] LABS: INR 0.9 (0.9-1.1); PARTIAL THROMBOPLASTIN RATIO 1.2; PROTHROMBIN TIME (PATIENT) 10.1 SECONDS (9.0-12.0)
[2017-03-14 11:57] LABS: BASO % 0.2 %; BASO ABS # 0.02 K/uL (0-0.2); COMPLETE YES; EOS % 0.5 %; HEMATOCRIT 41.4 % (37-47); IG% 0.8 %; LYMPH % 13.2 %; LYMPH ABS # 1.54 K/uL (1.2-3.4); MEAN CELL VOLUME 95.6 fL (80-100); MEAN CORPUSCULAR HEMOGLOBIN 31.6 pg (25-34); MEAN CORPUSCULAR HGB CONC 33.1 g/dl (32-36); MEAN PLATELET VOLUME 8.2 fL (7.4-10.4); MONO % 8.8 %; NEUT % 76.5 %; PLATELET COUNT 388 K/uL (130-400); RED BLOOD COUNT 4.33 M/uL (4.2-5.4)
[2017-03-14 12:03] LABS: ALT/SGPT 7 U/L (12-78); BLOOD UREA NITROGEN 12 mg/dl (7-18); BUN/CREATININE RATIO 25.3 (10-20); CALCIUM 9.2 mg/dl (8.5-10.1); CARBON DIOXIDE 32 mmol/L (21-32); CHLORIDE 102 mmol/L (98-107); CREATININE 0.47 mg/dl (0.60-1.20); GLUCOSE 179 mg/dl (70-99); SODIUM 140 mmol/L (136-145)
[2017-03-14 12:08] LABS: ALKALINE PHOSPHATASE 129 U/L (45-117); AST/SGOT 14 U/L (15-37)
--- NOTE | 2017-03-14 14:35 | DIAGNOSTIC IMAGING REPORT ---
CT OF THE ABDOMEN AND PELVIS WITH CONTRAST CLINICAL HISTORY: Abdominal pain. Severe back pain. COMPARISON STUDY: CT of the abdomen and pelvis September 13, [address] December 02, 2016. TECHNIQUE: Following IV administration of 92 mL of Optiray-320, axial images of the abdomen and pelvis were obtained from the lung bases to the proximal femurs. Images were reviewed in the axial, sagittal, and coronal planes. IV contrast was administered without complication. A dose lowering technique was utilized adhering to the principles of ALARA. Oral contrast was administered. CT DOSE: 767.94 mGycm FINDINGS: The heart is moderately enlarged. There is extensive coronary artery calcification. A bandlike hypodensity within the right hepatic lobe is unchanged. No pneumatosis, free air or portal venous gas is present. The spleen, adrenal glands, kidneys and pancreas are unremarkable. There is no evidence for a bowel obstruction. Study is mildly, must by motion artifact. There is sigmoid diverticulosis without evidence for acute diverticulitis. There is no evidence for a bowel obstruction. No hydronephrosis is present. There is extensive atherosclerotic plaque of the abdominal aorta. There is a moderate T11 compression fracture with 50% loss of vertebral body height and mild retropulsion. This is new since CT of December 02, 2016. Severe L3, L4 and L5 compression fractures have slightly progressed since prior exam. These fractures are not acute. No additional acute fractures are present. IMPRESSION: 1. Moderate T11 compression fracture which is new since CT of December 02, 2016. This fracture is likely subacute to acute. Mild retropulsion with 50% loss of vertebral body height. 2. Slight progression of the severe L3, L4 and L5 compression fracture since exam of December 02, 2016. 3. Layering material within the gallbladder which could reflect sludge or stones. Mild gallbladder distention without pericholecystic infiltration. 4. Sigmoid diverticulosis without evidence for acute diverticulitis. Electronically signed by: Geoff Blue M.D. 03/14/2017 2:34 PM Dictated Date/Time: 03/14/2017 2:06 PM
[2017-03-14] MEDS ORDERED: MoRPHine SULFATE 4 MG/ML 1 ML CARP\\VIAL IV STA (15:11)
--- NOTE | 2017-03-14 17:00 | DIAGNOSTIC IMAGING REPORT ---
GALLBLADDER-ABD LIMITED CLINICAL HISTORY: 81 years-old Female presenting with epigastric pain eval for cholecystitis. TECHNIQUE: Real-time grayscale and limited color Doppler ultrasound imaging of the abdomen limited to the right upper quadrant was performed. COMPARISON: CT performed earlier the same day. FINDINGS: Pancreas: Visualized portions of the pancreatic head and body normal. Liver: Normal echogenicity and echotexture. The liver measures 12.3 cm in maximal sagittal dimension. No sonographic evidence of hepatic mass. Main portal vein patent with normal directional flow. Biliary: No intrahepatic biliary ductal dilatation. Common bile duct measures up to 4 mm in diameter. Gallbladder: Again demonstrated is the distended gallbladder measuring over 10 cm in length. No gallbladder wall thickening or mucosal irregularity. Layering sludge noted with few small gallstones suspected. No pericholecystic fluid or inflammatory change. Right kidney: Normal in appearance and size, measuring 10.8 cm. No hydronephrosis. Ascites: None. IMPRESSION: 1. Findings most consistent with physiologic distention of the gallbladder with gallbladder sludge and few gallstones. The absence of biliary ductal dilatation, gallbladder wall thickening, wall irregularity, or pericholecystic fluid or inflammatory change against cholecystitis. If there is continuing clinical concern for cholecystitis, nuclear medicine hepatobiliary scan could be obtained. Electronically signed by: Steve Adamson M.D. 03/14/2017 4:59 PM Dictated Date/Time: 03/14/2017 4:55 PM
--- NOTE | 2017-03-14 17:32 | EMERGENCY ROOM VISIT NOTE ---
History Report prepared by Stephany: Shannan Mora Under the Supervision of: Dr. Bry Miguel M.D. First contact with patient: 10:44 Chief Complaint: ABDOMINAL PAIN Stated Complaint: ABDOMINAL PAIN Nursing Triage Summary: pt to the ED from [facility] via EMS with c/o 2 days of worsening abd pain last BM was today and it was a normal large one per EMS pt states that the pain goes across her back to her abd . pt has a hx of back pain and a back brace was sent with her in a bag from [facility]. pt has a fentyl patch on left shoulder and was given 10 mg oxy IR MANAGER PAYROLL by staff at [facility] at 9 am EMS gave 4mg zofran IV MANAGER PAYROLL History of Present Illness The patient is an 81 year old female who presents to the Emergency Room with complaints of persistent upper abdominal pain starting 3 days ago. She present to the ED by EMS. She describes the pain as a tightness. The pain goes around to her back and down her legs. She has had back pain which goes down the legs in the past due to her previous back injury. She has had leg swelling intermittently for the past week. She has had burning on urination for the past 4-5 days. She denies any urinary frequency. She was constipated, but had a large BM this morning. She felt nauseous this morning. She denies any chest pain. She denies any SOB, vomiting, or fever. She has had a hysterectomy. She still has her gallbladder. She is unsure if she still has her appendix. Source of History: patient Onset: 3 days ago Position: abdomen (upper) Quality: other (tightness) Timing: other (persistent) Associated Symptoms: + nausea, + back pain, + urinary symptoms, No fevers, No chest pain, No SOB, No vomiting Note: Pt reports leg swelling. Review of Systems See HPI for pertinent positives & negatives. A total of 10 systems reviewed and were otherwise negative. Past Medical & Surgical Medical Problems: (1) Compression fracture of L3 lumbar vertebra (2) Frequent falls (3) Heart disease (4) HTN (hypertension) Family History Cancer Heart disease Hypertension Stroke Social History Smoking Status: Never Smoker Drug Use: none Marital Status: Housing Status: lives with significant other Occupation Status: retired Current/Historical Medications Scheduled Acetaminophen (Apap Extra Strength), 1,000 MG PO BID Amiodarone Hcl (Amiodarone Hcl), 50 MG PO BID Aspirin (Aspirin), 325 MG PO DAILY Atorvastatin (Atorvastatin Calcium), 40 MG PO QPM Calcitonin Bradford (Calcitonin-Bradford), 1 SPRAY NA DAILY Calcium Carbonate-Vitamin D (Calcium + D), 1 TAB PO BID Carbidopa/Levodopa (Sinemet 25MG/100MG), 1 TAB PO QID Cholecalciferol (Vitamin D3), 1,000 MG PO DAILY Clonazepam (Klonopin), 0.5 MG PO BID Fentanyl (Duragesic), 50 MCG TD [id number] Fluticasone Propionate (Nasal) (Flonase Allergy Relief), 1 SPRAY REMI DAILY Gabapentin (Neurontin), 400 MG PO BID Gabapentin (Neurontin), 600 MG PO QAM Lidocaine (Lidoderm Patch 5%), 1 PATCH TD QAM Losartan Potassium (Losartan Potassium), 75 MG PO DAILY Metoprolol Tartrate (Lopressor), 25 MG PO BID Multiple Vitamins W/ Minerals (Therems M), 1 TAB PO QAM Naloxegol Oxalate (Movantik), 1 TAB PO QAM Omeprazole (Prilosec), 20 MG PO DAILY Polyethylene Glycol 3350 (Miralax), 17 GM PO DAILY Spironolactone (Aldactone), 12.5 MG PO DAILY Scheduled PRN Docusate Sodium (Docusate Sodium), 100 MG PO BID PRN for Constipation Nitroglycerin (Nitrostat), 0.4 MG SL UD PRN for Chest Pain Oxycodone HCl (Oxycodone HCl), 1 TAB PO Q6H PRN for Pain Allergies Coded Allergies: Atropine (Verified Allergy, Mild, 03/14/17) Diphenoxylate (Verified Allergy, Mild, 03/14/17) Diazepam (Verified Allergy, Unknown, unknown, 03/14/17) Hydrochlorothiazide (Unverified Adverse Reaction, Unknown, UNKNOWN, ) Lisinopril (Verified Adverse Reaction, Unknown, NIGHTMARES, 03/14/17) Physical Exam Vital Signs Date Time Temp Pulse Resp B/P (MAP) Pulse Ox O2 Delivery O2 Flow Rate FiO2 03/14/17 16:23 69 16 186/87 03/14/17 16:05 74 18 189/85 90 Room Air 03/14/17 14:28 71 03/14/17 13:53 69 18 181/88 97 Room Air 03/14/17 11:29 55 16 128/72 94 03/14/17 10:06 74 03/14/17 10:04 37.2 72 16 168/116 96 Room Air Physical Exam Constitutional: Vital signs reviewed. Eyes: Pupils are equal round reactive to light. Conjunctiva are noninjected. ENT: Pharynx is clear without erythema or exudate. Mucous membranes are dry. Neck supple without meningeal signs. Respiratory: Clear to auscultation bilaterally. Breath sounds are equal bilaterally. Cardiovascular: Regular rate and rhythm. No rubs or gallops. GI: Soft, nondistended. Epigastric and LUQ tenderness. No guarding. Bowel sounds are present. Musculoskeletal: No peripheral edema. No lower extremity tenderness. Integumentary: No cyanosis. Neurological: The patient is awake and alert. No focal deficits. Motor and sensation are intact throughout the lower extremities. Psychiatric: Normal affect. Medical Decision & Procedures ER Provider Diagnostic Interpretation: Radiology results as stated below per my review and the radiologist's interpretation: CT OF THE ABDOMEN AND PELVIS WITH CONTRAST CLINICAL HISTORY: Abdominal pain. Severe back pain. COMPARISON STUDY: CT of the abdomen and pelvis September 13, [address] December 02, 2016. TECHNIQUE: Following IV administration of 92 mL of Optiray-320, axial images of the abdomen and pelvis were obtained from the lung bases to the proximal femurs. Images were reviewed in the axial, sagittal, and coronal planes. IV contrast was administered without complication. A dose lowering technique was utilized adhering to the principles of ALARA. Oral contrast was administered. CT DOSE: 767.94 mGycm FINDINGS: The heart is moderately enlarged. There is extensive coronary artery calcification. A bandlike hypodensity within the right hepatic lobe is unchanged. No pneumatosis, free air or portal venous gas is present. The spleen, adrenal glands, kidneys and pancreas are unremarkable. There is no evidence for a bowel obstruction. Study is mildly, must by motion artifact. There is sigmoid diverticulosis without evidence for acute diverticulitis. There is no evidence for a bowel obstruction. No hydronephrosis is present. There is extensive atherosclerotic plaque of the abdominal aorta. There is a moderate T11 compression fracture with 50% loss of vertebral body height and mild retropulsion. This is new since CT of December 02, 2016. Severe L3, L4 and L5 compression fractures have slightly progressed since prior exam. These fractures are not acute. No additional acute fractures are present. IMPRESSION: 1. Moderate T11 compression fracture which is new since CT of December 02, 2016. This fracture is likely subacute to acute. Mild retropulsion with 50% loss of vertebral body height. 2. Slight progression of the severe L3, L4 and L5 compression fracture since exam of December 02, 2016. 3. Layering material within the gallbladder which could reflect sludge or stones. Mild gallbladder distention without pericholecystic infiltration. 4. Sigmoid diverticulosis without evidence for acute diverticulitis. Electronically signed by: Geoff Blue M.D. 03/14/2017 2:34 PM Dictated Date/Time: 03/14/2017 2:06 PM GALLBLADDER-ABD LIMITED CLINICAL HISTORY: 81 years-old Female presenting with epigastric pain eval for cholecystitis. TECHNIQUE: Real-time grayscale and limited color Doppler ultrasound imaging of the abdomen limited to the right upper quadrant was performed. COMPARISON: CT performed earlier the same day. FINDINGS: Pancreas: Visualized portions of the pancreatic head and body normal. Liver: Normal echogenicity and echotexture. The liver measures 12.3 cm in maximal sagittal dimension. No sonographic evidence of hepatic mass. Main portal vein patent with normal directional flow. Biliary: No intrahepatic biliary ductal dilatation. Common bile duct measures up to 4 mm in diameter. Gallbladder: Again demonstrated is the distended gallbladder measuring over 10 cm in length. No gallbladder wall thickening or mucosal irregularity. Layering sludge noted with few small gallstones suspected. No pericholecystic fluid or inflammatory change. Right kidney: Normal in appearance and size, measuring 10.8 cm. No hydronephrosis. Ascites: None. IMPRESSION: 1. Findings most consistent with physiologic distention of the gallbladder with gallbladder sludge and few gallstones. The absence of biliary ductal dilatation, gallbladder wall thickening, wall irregularity, or pericholecystic fluid or inflammatory change against cholecystitis. If there is continuing clinical concern for cholecystitis, nuclear medicine hepatobiliary scan could be obtained. Electronically signed by: Steve Adamson M.D. 03/14/2017 4:59 PM Dictated Date/Time: 03/14/2017 4:55 PM Laboratory Results 03/14/17 11:16 Red Blood Count 4.33, Mean Corpuscular Volume 95.6, Mean Corpuscular Hemoglobin 31.6, Mean Corpuscular Hemoglobin Concent 33.1, Mean Platelet Volume 8.2, Neutrophils (%) (Auto) 76.5, Lymphocytes (%) (Auto) 13.2, Monocytes (%) (Auto) 8.8, Eosinophils (%) (Auto) 0.5, Basophils (%) (Auto) 0.2, Neutrophils # (Auto) 8.96, Lymphocytes # (Auto) 1.54, Monocytes # (Auto) 1.03, Eosinophils # (Auto) 0.06, Basophils # (Auto) 0.02 03/14/17 11:16 Test 03/14/17 11:16 White Blood Count 11.70 K/uL (4.8-10.8) Red Blood Count 4.33 M/uL (4.2-5.4) Hemoglobin 13.7 g/dL (12.0-16.0) Hematocrit 41.4 % (37-47) Mean Corpuscular Volume 95.6 fL (80-100) Mean Corpuscular Hemoglobin 31.6 pg (25-34) Mean Corpuscular Hemoglobin Concent 33.1 g/dl (32-36) Platelet Count 388 K/uL (130-400) Mean Platelet Volume 8.2 fL (7.4-10.4) Neutrophils (%) (Auto) 76.5 % Lymphocytes (%) (Auto) 13.2 % Monocytes (%) (Auto) 8.8 % Eosinophils (%) (Auto) 0.5 % Basophils (%) (Auto) 0.2 % Neutrophils # (Auto) 8.96 K/uL (1.4-6.5) Lymphocytes # (Auto) 1.54 K/uL (1.2-3.4) Monocytes # (Auto) 1.03 K/uL (0.11-0.59) Eosinophils # (Auto) 0.06 K/uL (0-0.5) Basophils # (Auto) 0.02 K/uL (0-0.2) RDW Standard Deviation 46.0 fL (36.4-46.3) RDW Coefficient of Variation 13.3 % (11.5-14.5) Immature Granulocyte % (Auto) 0.8 % Immature Granulocyte # (Auto) 0.09 K/uL (0.00-0.02) Prothrombin Time 10.1 SECONDS (9.0-12.0) Prothromb Time International Ratio 0.9 (0.9-1.1) Activated Partial Thromboplast Time 29.9 SECONDS (21.0-31.0) Partial Thromboplastin Ratio 1.2 Anion Gap 6.0 mmol/L (3-11) Est Creatinine Clear Calc Drug Dose 65.3 ml/min Estimated GFR () 108.1 Estimated GFR (Non- 93.3 BUN/Creatinine Ratio 25.3 (10-20) Calcium Level 9.2 mg/dl (8.5-10.1) Total Bilirubin 0.3 mg/dl (0.2-1) Direct Bilirubin 0.1 mg/dl (0-0.2) Aspartate Amino Transf (AST/SGOT) 14 U/L (15-37) Alanine Aminotransferase (ALT/SGPT) 7 U/L (12-78) Alkaline Phosphatase 129 U/L (45-117) Troponin I < 0.015 ng/ml (0-0.045) Total Protein 6.1 gm/dl (6.4-8.2) Albumin 2.8 gm/dl (3.4-5.0) Lipase 100 U/L (73-393) Laboratory results as reviewed by me. Medications Administered Medications (Trade) Dose Ordered Sig/Naomi Route Start Time Stop Time Status Last Admin Dose Admin Ondansetron HCl (Zofran Inj) 4 mg NOW STAT IV 03/14/17 10:58 03/14/17 11:00 DC 03/14/17 11:28 4 MG Morphine Sulfate (MoRPHine SULFATE INJ) 4 mg NOW STAT IV 03/14/17 15:11 03/14/17 15:13 DC 03/14/17 16:11 4 MG ECG Indication: abdominal pain (upper) Rate (beats per minute): 70 Rhythm: normal sinus Findings: Q waves (lead 3), no ectopy Comparison ECG Date: 05-Nov-2016 Change: no significant change ED Course 1048: The patient was evaluated in room C7. A complete history and physical exam was performed. 1058: Zofran Inj 4 mg IV. 1511: Morphine Sulfate 4 mg IV. 1519: I reevaluated the patient. She is still having pain mostly in the epigastric region at this time. I discussed the test results with her. She denies any falls despite the findings today. She will go for an ultrasound for gallbladder. 1634: I discussed the patients case with Dr. Whitehead, orthopedic surgery [place] and [facility]. He recommends she be kept in a brace. No intervention is recommended at this time. 1705: I reevaluated the patient. She is still having abdominal pain. I discussed the test results with her. She verbalized agreement of the treatment plan. She will be evaluated for further management and a HIDA scan. 1710: I spoke with Dr. Tong of [facility] hospitalist service. We discussed the patient and her results. The patient will be further evaluated by him. Medical Decision This is an 81-year-old female presents with abdominal pain rating to her back. Differential diagnosis includes cholelithiasis, cholecystitis, pancreatitis, peptic ulcer disease, vertebral fracture, UTI. I did perform a limited focused review of portions of the patient's old chart on the electronic medical record. The patient was here December 02 for back pain. She had a CT of the back which showed persistent L3 burst fracture with 90% loss of height and retropulsion as well as L4 and L5 compression fracture. I did evaluate the patient as noted above. IV access was established. I did treat patient with Zofran IV. I did order and personally review the patient's 12-lead EKG as described above. I did order and review the patient's blood work as noted in the electronic medical record. I did order a CT of the abdomen and pelvis. I did review the images myself as well as the radiology report as described above. She has some distention of her gallbladder with stones and sludge. She also has a new compression fracture T11. I did discuss the case with Dr.' Whitehead who is her orthopedic spine doctor. He states that there is no need for any acute intervention. She can continue wearing her brace. On reassessment she is still having pain and tenderness in the epigastric region. Her pain is moving somewhat to the right side as well. I did recommend gallbladder ultrasound for further evaluation. I did treat her with IV morphine. Ultrasound gallbladder shows distention with stones and sludge but no signs of acute cholecystitis. On reassessment the patient is still having pain and tenderness in the upper abdomen. At this time I did recommend hospitalization for further evaluation and HIDA scanning. I did discuss the case with the hospitalist and outsole caser. Medication Reconcilliation Current Medication List: was personally reviewed by me Blood Pressure Screening Patient's blood pressure: Elevated blood pressure Blood pressure disposition: Referred to PCP Consults Time Called: 1632 Consulting Physician: Dr. Whitehead, orthopedic surgery [place] [facility] Returned Call: 1634 I discussed the patient's case with him. He recommends she be kept in a brace. No intervention is recommended at this time. Additional Consults: Time Called: 1707 Consulted Physician: Dr. Tong of [facility] hospitalist service Returned Call: 1710 Additional Comments: I spoke with him. We discussed the patient and her results. The patient will be further evaluated by him. Impression Primary Impression: Upper abdominal pain Additional Impressions: Cholelithiasis Thoracic compression fracture Scribe Attestation The scribe's documentation has been prepared under my direct and personally reviewed by me in its entirety. I confirm that the note above accurately reflects all work, treatment, procedures, and medical decision making performed by me. Departure Information Dispostion Being Evaluated By Hospitalist Referrals [facility] (PCP) Patient Instructions My [facility] Problem Qualifiers Additional Impressions: Cholelithiasis Cholelithiasis location: gallbladder Cholecystitis presence: without cholecystitis Biliary obstruction: without biliary obstruction Qualified Codes: K80.20 - Calculus of gallbladder without cholecystitis without obstruction Thoracic compression fracture Encounter type: initial encounter Fracture type: closed Qualified Codes: S22.000A - Wedge compression fracture of unspecified thoracic vertebra, initial encounter for closed fracture
[2017-03-14] MEDS ORDERED: ENOXAPARIN 40 MG/0.4 ML SYR SQ SCH (18:15)
[2017-03-14] MEDS ORDERED: ACETAMINOPHEN 325 MG TAB PO PRN (18:15)
[2017-03-14] MEDS ORDERED: POLYETHYLENE (MIRALAX) 17 GM PACK PO PRN (18:15)
[2017-03-14] MEDS ORDERED: FENTANYL 75 MCG/HR TDSY TD SCH (18:15)
[2017-03-14] MEDS ORDERED: ONDANSETRON INJ 2 MG/ML 2 ML VIAL IV PRN (18:15)
[2017-03-14] MEDS ORDERED: DOCUSATE SODIUM 100 MG CAP PO PRN (18:15)
[2017-03-14] MEDS ORDERED: NITROGLYCERIN 0.4 MG SL PER TAB CHARGE SL PRN (18:15)
[2017-03-14] MEDS ORDERED: MAGNESIUM HYDROXIDE SUSP 30 ML UDC PO PRN (18:15)
[2017-03-14] MEDS ORDERED: ALUMINUM/MAGNESIUM/SIMETH (MAALOX MAX) 30 ML UDC PO PRN (18:15)
--- NOTE | 2017-03-14 19:10 | History and Physical ---
History & Physical Date & Time of Service: Mar 14, 2017 at 18:38 Chief Complaint: Abdominal Pain Primary Care Physician: Hansa Suarez History of Present Illness Source: patient, clinic records, hospital records, [facility] ([facility] records) This is an 81 y/o female with a history of a-fib, HTN, HLD, CAD, diastolic CHF, essential tremor, Parkinson's disease, depression, and GERD who presented to the ED on 03/14 with back and abdominal pain. The patient's back pain has been chronic in the lower back, but today she complains of pain in her mid back that radiates down all the way down her legs to her feet. The patient has known compression fractures of L3, L4, and L5. CT scan today revealed a new compression fracture of T11. The patient also complains of RUQ and epigastric abdominal pain that started a few days ago. She rates this a 8/10 sharp pain that is not associated with her meals. The pain is intermittent and she is not sure what makes it better or worse. She has not had much appetite lately and has been nauseous but denies vomiting. The patient denies fevers, chills, sweats, chest pain, palpitations, claudication, cough, wheezing, shortness of breath, vomiting, dysuria, hematuria, urinary retention, paralysis, weakness, numbness and tingling. Past Medical/Surgical History Medical Problems: (1) Heart disease Status: Chronic (2) HTN (hypertension) Status: Chronic HLD CAD A-fib Diastolic CHF Essential tremor Parkinson's disease Depression GERD Family History Cancer Heart disease Hypertension Stroke Social History Smoking Status: Never Smoker Smokeless Tobacco Use: No Alcohol Use: none Drug Use: none Marital Status: Housing status: [facility] ([facility]) Occupational Status: retired Multi-Drug Resistant Organisms History of MDRO: No Allergies Coded Allergies: Atropine (Verified Allergy, Mild, 03/14/17) Diphenoxylate (Verified Allergy, Mild, 03/14/17) Diazepam (Verified Allergy, Unknown, unknown, 03/14/17) Hydrochlorothiazide (Unverified Adverse Reaction, Unknown, UNKNOWN, ) Lisinopril (Verified Adverse Reaction, Unknown, NIGHTMARES, 03/14/17) Home Medications Scheduled Acetaminophen (Apap Extra Strength), 1,000 MG PO BID Amiodarone Hcl (Amiodarone Hcl), 50 MG PO BID Aspirin (Aspirin), 325 MG PO DAILY Atorvastatin (Atorvastatin Calcium), 40 MG PO QPM Calcitonin [place] (Calcitonin-Glendale), 1 SPRAY NA DAILY Calcium Carbonate-Vitamin D (Calcium + D), 1 TAB PO BID Carbidopa/Levodopa (Sinemet 25MG/100MG), 1 TAB PO QID Cholecalciferol (Vitamin D3), 1,000 MG PO DAILY Clonazepam (Klonopin), 0.5 MG PO BID Fentanyl (Duragesic), 50 MCG TD [id number] Fluticasone Propionate (Nasal) (Flonase Allergy Relief), 1 SPRAY REMI DAILY Gabapentin (Neurontin), 400 MG PO BID Gabapentin (Neurontin), 600 MG PO QAM Lidocaine (Lidoderm Patch 5%), 1 PATCH TD QAM Losartan Potassium (Losartan Potassium), 75 MG PO DAILY Metoprolol Tartrate (Lopressor), 25 MG PO BID Multiple Vitamins W/ Minerals (Therems M), 1 TAB PO QAM Naloxegol Oxalate (Movantik), 1 TAB PO QAM Omeprazole (Prilosec), 20 MG PO DAILY Polyethylene Glycol 3350 (Miralax), 17 GM PO DAILY Spironolactone (Aldactone), 12.5 MG PO DAILY Scheduled PRN Docusate Sodium (Docusate Sodium), 100 MG PO BID PRN for Constipation Nitroglycerin (Nitrostat), 0.4 MG SL UD PRN for Chest Pain Oxycodone HCl (Oxycodone HCl), 1 TAB PO Q6H PRN for Pain Review of Systems Constitutional: No fever, No chills, No sweats, No weakness, No fatigue Eyes: No worsening of vision, No eye pain, No diplopia ENT: No hearing loss, No sore throat, No trouble swallowing Respiratory: No cough, No wheezing, No shortness of breath Cardiovascular: No chest pain, No claudication, No palpitations Abdomen: + pain, + nausea, No vomiting Musculoskeletal: + joint pain (back pain), No muscle pain, No calf pain Genitourinary - Female: No dysuria, No urinary retention, No hematuria Neurologic: No paralysis, No weakness, No numbness/tingling Integumentary: No rash, No itch, No color change Physical Exam Vital Signs Date Time Temp Pulse Resp B/P (MAP) Pulse Ox O2 Delivery O2 Flow Rate FiO2 03/14/17 16:23 69 16 186/87 03/14/17 16:05 74 18 189/85 90 Room Air 03/14/17 14:28 71 03/14/17 13:53 69 18 181/88 97 Room Air 03/14/17 11:29 55 16 128/72 94 03/14/17 10:06 74 03/14/17 10:04 37.2 72 16 168/116 96 Room Air General appearance: Well-developed, well-nourished, no apparent distress Head: Normocephalic, atraumatic Eyes: Normal inspection, PERRL, EOMI ENT: Normal ENT inspection, hearing grossly normal, pharynx normal Neck: Supple, no JVD, trachea midline Respiratory/Chest: Lungs clear to auscultation, normal breath sounds, no respiratory distress Cardiovascular: Regular rate & rhythm, no gallop, no murmur Abdomen/GI: +RUQ, RLQ TTP. Normal bowel sounds, soft Extremities/Musculoskeletal: Normal inspection, no calf tenderness, no pedal edema Neurological/Psych: +Tremor, bradykinesia. Alert, normal mood/affect, oriented x 3 Skin: Normal color, warm/dry, no rash Diagnostics Laboratory Results Results Past 24 Hours Test 03/14/17 11:16 Range/Units White Blood Count 11.70 4.8-10.8 K/uL Red Blood Count 4.33 4.2-5.4 M/uL Hemoglobin 13.7 12.0-16.0 g/dL Hematocrit 41.4 37-47 % Mean Corpuscular Volume 95.6 80-100 fL Mean Corpuscular Hemoglobin 31.6 25-34 pg Mean Corpuscular Hemoglobin Concent 33.1 32-36 g/dl Platelet Count 388 130-400 K/uL Mean Platelet Volume 8.2 7.4-10.4 fL Neutrophils (%) (Auto) 76.5 % Lymphocytes (%) (Auto) 13.2 % Monocytes (%) (Auto) 8.8 % Eosinophils (%) (Auto) 0.5 % Basophils (%) (Auto) 0.2 % Neutrophils # (Auto) 8.96 1.4-6.5 K/uL Lymphocytes # (Auto) 1.54 1.2-3.4 K/uL Monocytes # (Auto) 1.03 0.11-0.59 K/uL Eosinophils # (Auto) 0.06 0-0.5 K/uL Basophils # (Auto) 0.02 0-0.2 K/uL RDW Standard Deviation 46.0 36.4-46.3 fL RDW Coefficient of Variation 13.3 11.5-14.5 % Immature Granulocyte % (Auto) 0.8 % Immature Granulocyte # (Auto) 0.09 0.00-0.02 K/uL Prothrombin Time 10.1 9.0-12.0 SECONDS Prothromb Time International Ratio 0.9 0.9-1.1 Activated Partial Thromboplast Time 29.9 21.0-31.0 SECONDS Partial Thromboplastin Ratio 1.2 Sodium Level 140 136-145 mmol/L Potassium Level 4.0 3.5-5.1 mmol/L Chloride Level 102 98-107 mmol/L Carbon Dioxide Level 32 21-32 mmol/L Anion Gap 6.0 3-11 mmol/L Blood Urea Nitrogen 12 7-18 mg/dl Creatinine 0.47 0.60-1.20 mg/dl Est Creatinine Clear Calc Drug Dose 65.3 ml/min Estimated GFR () 108.1 Estimated GFR (Non- 93.3 BUN/Creatinine Ratio 25.3 10-20 Random Glucose 179 70-99 mg/dl Calcium Level 9.2 8.5-10.1 mg/dl Total Bilirubin 0.3 0.2-1 mg/dl Direct Bilirubin 0.1 0-0.2 mg/dl Aspartate Amino Transf (AST/SGOT) 14 15-37 U/L Alanine Aminotransferase (ALT/SGPT) 7 12-78 U/L Alkaline Phosphatase 129 45-117 U/L Troponin I < 0.015 0-0.045 ng/ml Total Protein 6.1 6.4-8.2 gm/dl Albumin 2.8 3.4-5.0 gm/dl Lipase 100 73-393 U/L Diagnostic Radiology Reviewed the following studies and agree with interpretation as follows: Patient Name: HUSSAIN DIOP Unit Number: [id number] Dictated: 03/14/171405 Transcribed: 03/14/171405 SAMREEN Printed Date/Time: [~ rep prt dt]/[~ rep prt tm] [~ rep ct labl] - [~ rep ct ivnm] [facility] [place] [address] Dictated: 03/14/171405 Transcribed: 03/14/17 140 JA Printed Date/Time: [~ rep prt dt]/[~ rep prt tm] [~ rep ct labl] - [~ rep ct ivnm] Patient: HUSSAIN DIOP Address1: [address] Rec: [id number] Address2: Acct ID: [id number] [facility] Zip: [place] [address] Date: 1935 Sex: F Room/Bed: Ref Phy: Jose A Ruiz M.D. SC: KIANNA Att Phy: Report #: [id number] Elyssa Phy: Hansa Suarez Test: APW Admit Phy: Private Equity Associate: JELANI Interpreting Phy: Geoff Blue MD Diagnosis: ABDOMINAL PAIN Ordering Phy: Bry Miguel MD Service Date: 03/14/17 Admit Date: 03/14/17 MNE: [id number] CONF: DICTATED BY: Geoff Blue MD]] CC: Dundee, Bry Muñoz M.D. Guillard, Frank, M.D. Endcc: [~ rep ct add3]] CT OF THE ABDOMEN AND PELVIS WITH CONTRAST CLINICAL HISTORY: Abdominal pain. Severe back pain. COMPARISON STUDY: CT of the abdomen and pelvis September 13, [address] December 02, 2016. TECHNIQUE: Following IV administration of 92 mL of Optiray-320, axial images of the abdomen and pelvis were obtained from the lung bases to the proximal femurs. Images were reviewed in the axial, sagittal, and coronal planes. IV contrast was administered without complication. A dose lowering technique was utilized adhering to the principles of ALARA. Oral contrast was administered. CT DOSE: 767.94 mGycm FINDINGS: The heart is moderately enlarged. There is extensive coronary artery calcification. A bandlike hypodensity within the right hepatic lobe is unchanged. No pneumatosis, free air or portal venous gas is present. The spleen, adrenal glands, kidneys and pancreas are unremarkable. There is no evidence for a bowel obstruction. Study is mildly, must by motion artifact. There is sigmoid diverticulosis without evidence for acute diverticulitis. There is no evidence for a bowel obstruction. No hydronephrosis is present. There is extensive atherosclerotic plaque of the abdominal aorta. There is a moderate T11 compression fracture with 50% loss of vertebral body height and mild retropulsion. This is new since CT of December 02, 2016. Severe L3, L4 and L5 compression fractures have slightly progressed since prior exam. These fractures are not acute. No additional acute fractures are present. IMPRESSION: 1. Moderate T11 compression fracture which is new since CT of December 02, 2016. This fracture is likely subacute to acute. Mild retropulsion with 50% loss of vertebral body height. 2. Slight progression of the severe L3, L4 and L5 compression fracture since exam of December 02, 2016. 3. Layering material within the gallbladder which could reflect sludge or stones. Mild gallbladder distention without pericholecystic infiltration. 4. Sigmoid diverticulosis without evidence for acute diverticulitis. Electronically signed by: Geoff Blue M.D. 03/14/2017 2:34 PM Dictated Date/Time: 03/14/2017 2:06 PM The status of this report is Signed. Draft = Not yet reviewed or approved by Radiologist. Signed = Reviewed and approved by Radiologist. <AttendingPhy></AttendingPhy> <FamilyPhy>Jose A Ruiz M.D.</FamilyPhy> < PrimaryPhy>[facility]</PrimaryPhy> <UnitNumber>[id number]</UnitNumber> < VisitNumber>[id number]</VisitNumber> <PatientName>HUSSAIN DIOP</ PatientName> <DateOfBirth>1935</DateOfBirth> <Location>[facility]</Location> < ServiceDate>03/14/17</ServiceDate> <MNE>ESINDI</MNE> <OrderingPhy>Bry Miguel MD</OrderingPhy> <OrderingPhyMNE>f rep ord dr pickens</OrderingPhyMNE> < DictatingPhyMNE>f rep dict dr pickens</DictatingPhyMNE> <CCListMNE>f rep ct jime</ CCListMNE> <AdmittingPhyMNE>f pt admit dr pickens</AdmittingPhyMNE> <AttendingPhyMNE >f pt attend dr pickens</AttendingPhyMNE> <ConsultingPhyMNE>f pt consult dr pickens</ConsultingPhyMNE> <FamilyPhyMNE>f pt fam dr pickens</FamilyPhyMNE> <OtherPhyMNE>f pt other dr pickens</OtherPhyMNE> < PrimaryPhyMNE>f pt prim care dr pickens</PrimaryPhyMNE> <ReferringPhyMNE>f pt referring dr pickens</ReferringPhyMNE> Patient Name: HUSSAIN DIOP Unit Number: [id number] Dictated: 03/14/171654 Transcribed: 03/14/171654 PBS Printed Date/Time: [~ rep prt dt]/[~ rep prt tm] [~ rep ct labl] - [~ rep ct ivnm] [facility] [place] [address] Dictated: 03/14/171654 Transcribed: 03/14/171654 PBS Printed Date/Time: [~ rep prt dt]/[~ rep prt tm] [~ rep ct labl] - [~ rep ct ivnm] Patient: HUSSAIN DIOP Address1: [address] [place] [address] Rec: [id number] Address2: Acct ID: [id number] [facility] Zip: [place] [address] Date: 1935 Sex: F Room/Bed: Ref Phy: Jose A Ruiz M.D. SC: KIANNA Att Phy: Report #: [id number] Elyssa Phy: Hansa Suarez Test: GB Admit Phy: Private Equity Associate: ARLIN Interpreting Phy: Steve Adamson MD Diagnosis: ABDOMINAL PAIN Ordering Phy: Bry Miguel MD Service Date: 03/14/17 Admit Date: 03/14/17 MNE: [id number] CONF: DICTATED BY: Steve Adamson MD]] CC: Hansa Suarez Thomas S., M.D. Guillard, Frank, M.D. Endcc: [~ rep ct add3]] GALLBLADDER-ABD LIMITED CLINICAL HISTORY: 81 years-old Female presenting with epigastric pain eval for cholecystitis. TECHNIQUE: Real-time grayscale and limited color Doppler ultrasound imaging of the abdomen limited to the right upper quadrant was performed. COMPARISON: CT performed earlier the same day. FINDINGS: Pancreas: Visualized portions of the pancreatic head and body normal. Liver: Normal echogenicity and echotexture. The liver measures 12.3 cm in maximal sagittal dimension. No sonographic evidence of hepatic mass. Main portal vein patent with normal directional flow. Biliary: No intrahepatic biliary ductal dilatation. Common bile duct measures up to 4 mm in diameter. Gallbladder: Again demonstrated is the distended gallbladder measuring over 10 cm in length. No gallbladder wall thickening or mucosal irregularity. Layering sludge noted with few small gallstones suspected. No pericholecystic fluid or inflammatory change. Right kidney: Normal in appearance and size, measuring 10.8 cm. No hydronephrosis. Ascites: None. IMPRESSION: 1. Findings most consistent with physiologic distention of the gallbladder with gallbladder sludge and few gallstones. The absence of biliary ductal dilatation, gallbladder wall thickening, wall irregularity, or pericholecystic fluid or inflammatory change against cholecystitis. If there is continuing clinical concern for cholecystitis, nuclear medicine hepatobiliary scan could be obtained. Electronically signed by: Steve Adamson M.D. 03/14/2017 4:59 PM Dictated Date/Time: 03/14/2017 4:55 PM The status of this report is Signed. Draft = Not yet reviewed or approved by Radiologist. Signed = Reviewed and approved by Radiologist. <AttendingPhy></AttendingPhy> <FamilyPhy>Jose A Ruiz M.D.</FamilyPhy> < PrimaryPhy>[facility]</PrimaryPhy> <UnitNumber>[id number]</UnitNumber> < VisitNumber>[id number]</VisitNumber> <PatientName>HUSSAIN DIOP</ PatientName> <DateOfBirth>1935</DateOfBirth> <Location>[facility]</Location> < ServiceDate>03/14/17</ServiceDate> <MNE>ESINDI</MNE> <OrderingPhy>Bry Miguel MD</OrderingPhy> <OrderingPhyMNE>f rep ord dr pickens</OrderingPhyMNE> < DictatingPhyMNE>f rep dict dr pickens</DictatingPhyMNE> <CCListMNE>f rep ct nelia</ CCListMNE> <AdmittingPhyMNE>f pt admit dr pickens</AdmittingPhyMNE> <AttendingPhyMNE >f pt attend dr pickens</AttendingPhyMNE> <ConsultingPhyMNE>f pt consult dr pickens</ConsultingPhyMNE> <FamilyPhyMNE>f pt fam dr pickens</FamilyPhyMNE> <OtherPhyMNE>f pt other dr pickens</OtherPhyMNE> < PrimaryPhyMNE>f pt prim care dr pickens</PrimaryPhyMNE> <ReferringPhyMNE>f pt referring dr pickens</ReferringPhyMNE> EKG Reviewed EKG and agree with interpretation as follows: 70 bpm, NSR Impression Assessment and Plan 81 y/o female with a history of a-fib, HTN, HLD, CAD, diastolic CHF, essential tremor, Parkinson's disease, depression, and GERD who presented to the ED on with back and abdominal pain. Pt afebrile, VSS on arrival. Abdomen/pelvis CT shows new T11 compression fracture and progressive L3, L4, and L5 compression fractures. Mild gallbladder distention. Gallbladder ultrasound shows distention, sludge and few gallstones. No evidence of acute cholecystitis. EKG no ischemic changes. WBC 11.70, labs otherwise grossly unremarkable. Abdominal pain -Admit to med/surg -NPO after midnight -HIDA scan tomorrow -Morphine 4 mg IV q2h prn pain -Zofran 4 mg IV q6h prn nausea Chronic back pain, new T11 compression fracture -Dr. Whitehead consulted by ED physician. No surgical intervention, continue back brace -Increase fentanyl patch to 75 mcg TD q72h -Continue lidoderm patch and gabapentin 600 mg PO qam, 400 mg in afternoon and at night Atrial fibrillation--currently in sinus rhythm -Continue amiodarone 50 mg PO BID and Lopressor 25 mg PO BID -No anticoagulation per [facility] records HTN--last recorded BP 186/87 -Continue losartan 75 mg PO qd and Lopressor as above -Cover with hydralazine 10 mg IV q6h prn SBP >180 HLD -Continue atorvastatin 40 mg PO qd Chronic diastolic CHF--stable, pt euvolemic -Continue spironolactone 12.5 mg PO qd, losartan as above Essential tremor -Continue clonazepam 0.5 mg PO BID Parkinson's disease -Continue carbidopa-levodopa 25/100 1 tablet PO QID GERD -Prilosec converted to Protonix 40 mg PO qd DVT prophylaxis -Enoxaparin 40 mg SC q24h -DHAVAL lara and OSORIOs Code Status -Level V, DO NOT RESUSCITATE I agree with PA assessment and plan and have seen and examined pt myself Noted to have RUQ pain US pos for sludge Agree with HIDA Also noted new compression fx Spoke with ortho, no new recs at this time Will need to address pain control as well Will likely need rehab Level of Care Med/Surg Resuscitation Status DO NOT RESUSCITATE VTE Prophylaxis VTE Risk Assessment Done? Y/N: Yes Risk Level: Moderate Given or contraindicated: Enoxaparin (Lovenox)SQ, T.E.D. Stockings, SCD's
[2017-03-14] MEDS ORDERED: HydrALAZINE HCL 20 MG/ML VIAL IV. PRN (19:15)
[2017-03-14] MEDS: MoRPHine SULFATE 4 MG/ML 1 ML CARP\\VIAL IV PRN ×2 (20:27→23:34)
[2017-03-14 20:57] VITALS: O2SAT 96; Ht 149.9 cm; Wt 54.0 kg
[2017-03-14 21:48] VITALS: BP 132/69; PULSE 77; O2SAT 94
[2017-03-14] MEDS: ATORVASTATIN 40 MG TAB PO SCH (21:52)
[2017-03-14] MEDS: GABAPENTIN 400 MG CAP PO SCH (21:52)
[2017-03-14] MEDS: ACETAMINOPHEN 500 MG TAB PO SCH (21:52)
[2017-03-14] MEDS: HEPARIN SOD 5000 UNIT/0.5 ML CARP SQ SCH (21:53)
[2017-03-14] MEDS: CLONAZEPAM 1 MG TAB PO SCH (21:53)
[2017-03-14] MEDS: AMIODARONE 200 MG TAB PO SCH (21:54)
[2017-03-14] MEDS: METOPROLOL TARTRATE 25 MG TAB PO SCH (21:56)
[2017-03-14] MEDS: CARBIDOPA/LEVODOPA 25/100MG TAB PO SCH (21:56)
[2017-03-14 22:44] LABS: MANUAL MICROSCOPIC REQUIRED? NO; REVIEW REQ? NO; URINE APPEARANCE CLEAR (CLEAR); URINE BILIRUBIN NEG (NEG); URINE COLOR YELLOW; URINE NITRITE NEG (NEG); URINE SPECIFIC GRAVITY 1.043 (1.000-1.030); UROBILINOGEN NEG (NEG)
[2017-03-14 23:30] VITALS: BP 176/81; PULSE 78; TEMP 36.6; O2SAT 92
[2017-03-14] MEDS ORDERED: INFLUENZA VACCINE HIGH DOSE 65+ 0.5 ML SYR IM. ONE (23:45)
[2017-03-14] MEDS ORDERED: INFLUENZA ADMINISTRATION CHARGE ONE (23:45)
[2017-03-15 00:05] VITALS: O2SAT 96
[2017-03-15 07:18] VITALS: BP 180/74; PULSE 65; TEMP 36.6; O2SAT 99
[2017-03-15] MEDS: MoRPHine SULFATE 4 MG/ML 1 ML CARP\\VIAL IV PRN ×3 (07:42→16:01)
[2017-03-15 07:45] LABS: HEMATOCRIT 40.9 % (37-47); MEAN CELL VOLUME 96.5 fL (80-100); MEAN CORPUSCULAR HEMOGLOBIN 31.1 pg (25-34); MEAN CORPUSCULAR HGB CONC 32.3 g/dl (32-36); MEAN PLATELET VOLUME 8.2 fL (7.4-10.4); PLATELET COUNT 361 K/uL (130-400); RED BLOOD COUNT 4.24 M/uL (4.2-5.4); WHITE BLOOD COUNT 9.68 K/uL (4.8-10.8)
[2017-03-15] MEDS: AMIODARONE 200 MG TAB PO SCH ×2 (08:00→20:22)
[2017-03-15] MEDS: CEROVITE ADV FORMULA TAB PO SCH (08:00)
[2017-03-15] MEDS: CHOLECALCIFEROL 1000 INTER.UNIT TAB PO SCH (08:00)
[2017-03-15] MEDS: CLONAZEPAM 1 MG TAB PO SCH ×2 (08:00→20:15)
[2017-03-15] MEDS: CARBIDOPA/LEVODOPA 25/100MG TAB PO SCH ×4 (08:00→20:19)
[2017-03-15] MEDS: PANTOprazole SOD 40 MG TAB PO SCH (08:00)
[2017-03-15] MEDS: SPIRONOLACTONE 25 MG TAB PO SCH (08:00)
[2017-03-15] MEDS: ACETAMINOPHEN 500 MG TAB PO SCH ×2 (08:00→20:21)
[2017-03-15] MEDS: LOSARTAN POTASSIUM 25 MG TAB PO SCH (08:00)
[2017-03-15] MEDS: ASPIRIN 325 MG ECTAB PO SCH (08:00)
[2017-03-15] MEDS: METOPROLOL TARTRATE 25 MG TAB PO SCH ×2 (08:00→20:21)
[2017-03-15 08:17] LABS: BUN/CREATININE RATIO 29.1 (10-20); CALCIUM 9.3 mg/dl (8.5-10.1); CREATININE 0.47 mg/dl (0.60-1.20); POTASSIUM 4.6 mmol/L (3.5-5.1)
[2017-03-15] MEDS: GABAPENTIN 600 MG TAB PO SCH (08:30)
--- NOTE | 2017-03-15 10:15 | Clinical Documentation Query ---
CLINICAL DOCUMENTATION QUERY 81 year old female who presents to the Emergency Room with complaints of persistent upper abdominal pain. CT scan showed new T11 compression fracture. H&P described no recent trauma. In your clinical opinion is this patient being managed for: ( x ) T11 osteoporotic compression fracture ( ) Not Agree ( ) Other explanation of clinical findings (Please Explain) ( ) Unable to determine (Please Define) ( ) Need to Discuss The medical record reflects the following clinical findings, treatment, and risk factors. Clinical Indicators: As above. On Calcium Vitamin D supplementation at home, Female and 81 yrs old. Treatment: ortho consult, PT/OT, Risk Factors: Age, sex, bone fracture w/o described significant trauma. Please clarify and document your clinical opinion in the progress notes and discharge summary. Terms such as "probable", "suspected", "likely", "questionable", "possible", or "still to be ruled out" are acceptable. IF IN AGREEMENT, YOU MUST DOCUMENT ABOVE DIAGNOSTIC STATEMENT IN DAILY PROGRESS NOTES AND DISCHARGE SUMMARY. This document is not part of the patient's record. Thank You, Adonay Nowak, AIDA [phone]
[2017-03-15 10:28] VITALS: BP 160/74; PULSE 69
[2017-03-15] MEDS: CHECK FENTANYL PATCH PLACEMENT SCH ×2 (10:33→16:06)
[2017-03-15] MEDS: LIDODERM (LIDOCAINE) PATCH 5% TD SCH (10:37)
[2017-03-15] MEDS: CALCITONIN SALMON NA 200 IU/AC 3.7 ML BTL SCH (10:37)
[2017-03-15] MEDS: FLUTICASONE PROPIONATE NA SPR 16 GM BTL NAE SCH (10:38)
[2017-03-15] MEDS: HEPARIN SOD 5000 UNIT/0.5 ML CARP SQ SCH ×2 (10:39→20:23)
--- NOTE | 2017-03-15 12:43 | Hospitalist Progress Note ---
Hospitalist Progress Note Date of Service Mar 15, 2017. Subjective Pt evaluation today including: conversation w/ patient, conversation w/ family , physical exam, chart review, lab review, review of studies, review of inpatient medication list Patient seen and evaluated. Continues to have back and RUQ pain that seems to be improving with medications. Patient states she was not able to sit up and participate in PT today due to pain and felt bad. Reports she got up last night to go to the bathroom because she did realize the call button was not the same as it is in [facility]. She denies recent falls and does not recall direct injury to her back. Constitutional: No fever, No chills Respiratory: No cough, No shortness of breath Cardiovascular: No chest pain Abdomen: + pain (RUQ and into back), + nausea, No vomiting, No diarrhea, No constipation Musculoskeletal: + problem reported (mid to low back pain) Heme: No abnormal bleeding/bruising Medications Current Inpatient Medications Medications (Trade) Dose Ordered Sig/Naomi Route Start Time Stop Time Status Last Admin Dose Admin Ioversol (Optiray 320) 100 ml UD PRN IV 03/14/17 11:30 03/18/17 11:29 Acetaminophen (Tylenol Tab) 650 mg Q4H PRN PO 03/14/17 18:15 04/13/17 18:14 Al Hydrox/Mg Hydrox/Simethicone (Maalox Max Susp) 15 ml Q4H PRN PO 03/14/17 18:15 04/13/17 18:14 Magnesium Hydroxide (Milk Of Magnesia Susp) 30 ml Q6H PRN PO 03/14/17 18:15 04/13/17 18:14 Polyethylene (Miralax Powder Packet) 17 gm DAILY PRN PO 03/14/17 18:15 04/13/17 18:14 Ondansetron HCl (Zofran Inj) 4 mg Q6H PRN IV 03/14/17 18:15 04/13/17 18:14 Acetaminophen (Tylenol Tab) 1,000 mg BID PO 03/14/17 20:09 04/13/17 20:59 03/14/17 21:52 1,000 MG Aspirin (Ecotrin Tab) 325 mg DAILY PO 03/15/17 08:00 04/14/17 08:59 Atorvastatin Calcium (Lipitor Tab) 40 mg QPM PO 03/14/17 21:00 04/13/17 20:59 03/14/17 21:52 40 MG Calcitonin Jachin (Fortical Nasal [place]) 1 spray DAILY NA 03/15/17 08:00 04/14/17 08:59 03/15/17 10:37 1 SPRAY Carbidopa/Levodopa (Sinemet 25/ 100MG Tab) 1 tab QID PO 03/14/17 20:09 04/13/17 20:59 03/14/17 21:56 1 TAB Cholecalciferol (Vitamin D Tab) 1,000 inter.unit DAILY PO 03/15/17 08:00 04/14/17 08:59 Clonazepam (Klonopin Tab) 0.5 mg BID PO 03/14/17 20:09 04/13/17 20:59 03/14/17 21:53 0.5 MG Docusate Sodium (coLACE CAP) 100 mg BID PRN PO 03/14/17 18:15 04/13/17 18:14 Fluticasone Propionate (Flonase Nasal [place]) 1 sprays DAILY REMI 03/15/17 08:00 04/14/17 08:59 03/15/17 10:38 1 SPRAYS Gabapentin (Neurontin Cap) 400 mg BID@1630,2230 PO 03/14/17 22:30 04/13/17 22:29 03/14/17 21:52 400 MG Gabapentin (Neurontin Tab) 600 mg DAILY@0830 PO 03/15/17 08:30 04/14/17 08:29 Lidocaine (Lidoderm Patch 5%) 1 patch QAM TD 03/15/17 08:00 04/14/17 08:59 03/15/17 10:37 1 PATCH Losartan Potassium (coZAAR TAB) 75 mg DAILY PO 03/15/17 08:00 04/14/17 08:59 Metoprolol Tartrate (Lopressor Tab) 25 mg BID PO 03/14/17 20:09 04/13/17 20:59 03/14/17 21:56 25 MG Multivitamins/ Minerals (Multivitamin W/ Minerals Tab) 1 tab QAM PO 03/15/17 08:00 04/14/17 08:59 Nitroglycerin (Nitrostat Tab) 0.4 mg UD PRN SL 03/14/17 18:15 04/13/17 18:14 Spironolactone (Aldactone Tab) 12.5 mg DAILY PO 03/15/17 08:00 04/14/17 08:59 Amiodarone HCl (Cordarone Tab) 50 mg BID PO 03/14/17 20:09 04/13/17 20:59 03/14/17 21:54 50 MG Pantoprazole Sodium (Protonix Tab) 40 mg QAM PO 03/15/17 08:00 04/14/17 08:59 Miscellaneous (Remove Lidoderm Patch) 1 ea DAILY@21 N/A 03/14/17 21:00 04/13/17 20:59 03/14/17 21:53 1 EA Morphine Sulfate (MoRPHine SULFATE INJ) 4 mg Q2H PRN IV 03/14/17 19:15 03/28/17 19:14 03/15/17 10:29 4 MG Hydralazine HCl (HydrALAZINE INJ) 10 mg Q6H PRN IV. 03/14/17 19:15 04/13/17 19:14 Fentanyl (Duragesic Patch) 75 mcg Q3D TD 03/16/17 09:00 03/30/17 08:59 Heparin Sodium (Porcine) (Heparin Sq 5000 Unit/0.5ml) 5,000 unit Q12H SQ 03/14/17 21:00 04/13/17 20:59 03/15/17 10:39 5,000 UNIT Miscellaneous Information (Check Fentanyl Patch Placement) 1 ea QS N/A 03/15/17 00:00 04/14/17 00:00 03/15/17 10:33 1 EA Miscellaneous (Fentanyl Patch Remove & Waste) 1 ea Q3D@0859 N/A 03/16/17 08:59 04/15/17 08:58 Objective Vital Signs Date Time Temp Pulse Resp B/P (MAP) Pulse Ox O2 Delivery O2 Flow Rate FiO2 03/15/17 10:28 69 160/74 (102) 03/15/17 08:08 Room Air 03/15/17 07:18 36.6 65 16 180/74 (109) 99 Room Air 03/15/17 00:05 96 Room Air 03/14/17 23:30 36.6 78 22 176/81 (112) 92 Room Air 03/14/17 21:48 77 132/69 (90) 94 Room Air 03/14/17 20:57 96 Nasal Cannula 2.0 03/14/17 19:55 37.2 73 16 160/94 90 03/14/17 19:53 160/94 03/14/17 19:30 73 16 03/14/17 19:01 213/109 03/14/17 19:00 80 15 03/14/17 18:30 64 18 03/14/17 18:01 198/88 03/14/17 18:00 71 32 03/14/17 17:43 181/101 03/14/17 17:30 61 15 03/14/17 17:09 211/93 03/14/17 17:08 204/96 03/14/17 16:23 186/87 03/14/17 16:23 69 16 186/87 03/14/17 16:05 74 18 189/85 90 Room Air 03/14/17 16:04 189/85 03/14/17 16:00 75 23 92 03/14/17 15:30 67 16 91 03/14/17 15:00 68 11 92 03/14/17 14:28 71 03/14/17 13:53 69 18 181/88 97 Room Air 03/14/17 11:29 55 16 128/72 94 Physical Exam General Appearance: no apparent distress Eyes: sclerae normal ENT: hearing grossly normal Neck: supple, no JVD, trachea midline Respiratory/Chest: lungs clear, normal breath sounds, no respiratory distress, no accessory muscle use Cardiovascular: regular rate, rhythm, no gallop, no murmur Abdomen: normal bowel sounds, non tender, soft Extremities: no pedal edema, no calf tenderness, + pertinent finding (strength equal in lower extremities but mildly weak; sensation and gross motor intact) Neurologic/Psychiatric: alert, oriented x 3 Skin: normal color, warm/dry Laboratory Results Last 24 Hours Test 03/14/17 19:00 03/15/17 06:52 Urine Color YELLOW Urine Appearance CLEAR Urine pH 6.0 Urine Specific [place] 1.043 Urine Protein NEG Urine Glucose (UA) NEG Urine Ketones NEG Urine Occult Blood NEG Urine Nitrite NEG Urine Bilirubin NEG Urine Urobilinogen NEG Urine Leukocyte Esterase NEG White Blood Count 9.68 K/uL Red Blood Count 4.24 M/uL Hemoglobin 13.2 g/dL Hematocrit 40.9 % Mean Corpuscular Volume 96.5 fL Mean Corpuscular Hemoglobin 31.1 pg Mean Corpuscular Hemoglobin Concent 32.3 g/dl RDW Standard Deviation 47.5 fL RDW Coefficient of Variation 13.5 % Platelet Count 361 K/uL Mean Platelet Volume 8.2 fL Sodium Level 141 mmol/L Potassium Level 4.6 mmol/L Chloride Level 103 mmol/L Carbon Dioxide Level 33 mmol/L Anion Gap 5.0 mmol/L Blood Urea Nitrogen 14 mg/dl Creatinine 0.47 mg/dl Est Creatinine Clear Calc Drug Dose 71.6 ml/min Estimated GFR () 108.1 Estimated GFR (Non- 93.3 BUN/Creatinine Ratio 29.1 Random Glucose 79 mg/dl Calcium Level 9.3 mg/dl Assessment and Plan 81 y/o female with a history of a-fib, HTN, HLD, CAD, diastolic CHF, essential tremor, Parkinson's disease, depression, and GERD who presented to the ED on with back and abdominal pain. Pt afebrile, VSS on arrival. Abdomen/pelvis CT shows new T11 compression fracture and progressive L3, L4, and L5 compression fractures. Mild gallbladder distention. Gallbladder ultrasound shows distention, sludge and few gallstones. No evidence of acute cholecystitis. EKG no ischemic changes. WBC 11.70, labs otherwise grossly unremarkable. Abdominal Pain: Possible from Sludge - HIDA scan - pending - Morphine New T11 Compression Fx with Old Fx: - Orthopedics recommend brace and no surgical intervention - Fentanyl 75 mcg Q72H and Lidoderm patch - Gabapentin 600 mg AM and 400 mg afternoon and night Paroxysmal A Fib: Currently NSR - Amiodarone 50 mg BID and Lopressor 25 mg BID - No current anticoagulant HTN: - Losartan 75 mg daily and Hydralazine PRN CHronic Diastolic CHF: Appears Euvolemic - Sprionolactone 12.5 mg daily DVT Prophylaxis: Heparin 5000 units SC BID Code Status: DO NOT RESUSCITATE Disposition: - Await further testing and PT/OT evaluations - will likely need more skilled care upon return home Continued [facility] stay due to: multiple IV medications needed Discharge planning: senior care facility
--- NOTE | 2017-03-15 16:01 | DIAGNOSTIC IMAGING REPORT ---
HEPATOBILIARY HIDA IMAGING HISTORY: Pain. Nausea. RUQ pain COMPARISON: None. TECHNIQUE: Immediately following the intravenous administration of 4.9 mCi Tc-99m Choletec, dynamic anterior abdominal imaging was performed. FINDINGS: Uniform hepatic tracer accumulation is shown. Prompt intrahepatic biliary excretion is seen. The gallbladder, common bile duct, and small bowel are all visualized by 30 minutes. This appearance represents the normal sequence of biliary excretion. IMPRESSION: No evidence for cystic duct obstruction. Slight prominence of the biliary duct system The above report was generated using voice recognition software. It may contain grammatical, syntax or spelling errors. Electronically signed by: Jericho Bryant M.D. 03/15/2017 4:00 PM Dictated Date/Time: 03/15/2017 3:57 PM
[2017-03-15] MEDS ORDERED: HYDROmorphone INJ 1 MG/ML SYR IV STA (16:38)
[2017-03-15] MEDS ORDERED: HYDROmorphone INJ 1 MG/ML SYR ONE (16:41)
[2017-03-15 16:46] VITALS: BP 179/78; PULSE 93; TEMP 36.7; O2SAT 92
[2017-03-15] MEDS: GABAPENTIN 400 MG CAP PO SCH ×2 (16:50→20:18)
[2017-03-15 19:58] VITALS: BP 124/64; PULSE 102; TEMP 36.8; O2SAT 91
[2017-03-15] MEDS: KETOROLAC TROMETHAMINE 15 MG/ML VIAL IV. PRN (20:17)
[2017-03-15] MEDS: ATORVASTATIN 40 MG TAB PO SCH (20:20)
[2017-03-15 23:35] VITALS: BP 133/77; PULSE 82; TEMP 36.3; O2SAT 94
[2017-03-16] MEDS: KETOROLAC TROMETHAMINE 15 MG/ML VIAL IV. PRN (06:09)
[2017-03-16 06:59] VITALS: BP 127/74; PULSE 77; TEMP 36.5; O2SAT 94
[2017-03-16] MEDS: FLUTICASONE PROPIONATE NA SPR 16 GM BTL NAE SCH (07:29)
[2017-03-16] MEDS: CALCITONIN SALMON NA 200 IU/AC 3.7 ML BTL SCH (07:29)
[2017-03-16] MEDS: CHECK FENTANYL PATCH PLACEMENT SCH ×3 (07:29→15:31)
[2017-03-16] MEDS: LOSARTAN POTASSIUM 25 MG TAB PO SCH (07:30)
[2017-03-16] MEDS: GABAPENTIN 600 MG TAB PO SCH (07:30)
[2017-03-16] MEDS: CEROVITE ADV FORMULA TAB PO SCH (07:30)
[2017-03-16] MEDS: PANTOprazole SOD 40 MG TAB PO SCH (07:30)
[2017-03-16] MEDS: METOPROLOL TARTRATE 25 MG TAB PO SCH ×2 (07:30→19:51)
[2017-03-16] MEDS: ASPIRIN 325 MG ECTAB PO SCH (07:30)
[2017-03-16] MEDS: CARBIDOPA/LEVODOPA 25/100MG TAB PO SCH ×4 (07:31→19:52)
[2017-03-16] MEDS: AMIODARONE 200 MG TAB PO SCH ×2 (07:31→19:51)
[2017-03-16] MEDS: SPIRONOLACTONE 25 MG TAB PO SCH (07:31)
[2017-03-16] MEDS: CLONAZEPAM 1 MG TAB PO SCH ×2 (07:31→19:52)
[2017-03-16] MEDS: CHOLECALCIFEROL 1000 INTER.UNIT TAB PO SCH (07:32)
[2017-03-16] MEDS: ACETAMINOPHEN 500 MG TAB PO SCH ×2 (07:32→19:52)
[2017-03-16] MEDS: LIDODERM (LIDOCAINE) PATCH 5% TD SCH (07:33)
[2017-03-16] MEDS: HYDROmorphone INJ 1 MG/ML SYR IV PRN ×3 (07:48→21:22)
[2017-03-16 08:00] VITALS: O2SAT 94
[2017-03-16] MEDS: FENTANYL 75 MCG/HR TDSY TD SCH (08:33)
[2017-03-16] MEDS: FENTANYL PATCH REMOVE & WASTE SCH (08:50)
[2017-03-16] MEDS: HEPARIN SOD 5000 UNIT/0.5 ML CARP SQ SCH ×2 (08:51→22:02)
[2017-03-16 08:54] LABS: HEMATOCRIT 42.2 % (37-47); MEAN CORPUSCULAR HEMOGLOBIN 31.5 pg (25-34); MEAN CORPUSCULAR HGB CONC 32.5 g/dl (32-36); MEAN PLATELET VOLUME 8.1 fL (7.4-10.4); PLATELET COUNT 365 K/uL (130-400); RED BLOOD COUNT 4.35 M/uL (4.2-5.4)
[2017-03-16 09:23] LABS: BUN/CREATININE RATIO 40.2 (10-20); CALCIUM 9.5 mg/dl (8.5-10.1); CREATININE 0.43 mg/dl (0.60-1.20); POTASSIUM 4.2 mmol/L (3.5-5.1)
--- NOTE | 2017-03-16 12:50 | Progress Note ---
Subjective Date of Service: Mar 16, 2017. Subjective Pt evaluation today including: conversation w/ patient, conversation w/ family , physical exam, chart review, lab review, review of studies Voiding: no voiding problems Pt is seen and examined by me.pt is doing better and denies any abdominal pain, nausea, vomiting and diarrhea. Pt is having pain in her back . Problem List Medical Problems: (1) Back pain Status: Acute (2) Cholelithiasis Status: Acute (3) Compression fracture of L5 lumbar vertebra Status: Acute (4) Fall Status: Acute (5) Fall at home Status: Acute (6) Head injury Status: Acute (7) Left hip pain Status: Acute (8) Lumbar compression fracture Status: Acute (9) Right lumbar pain Status: Acute (10) Thoracic compression fracture Status: Acute (11) Upper abdominal pain Status: Acute Review of Systems Constitutional: + weight loss, No fever, No sweats Eyes: No worsening of vision Respiratory: No cough Cardiac: No chest pain Abdomen: No pain, No nausea, No vomiting, No diarrhea, No constipation Musculoskeletal: + problem reported (back pain) Neurologic: + weakness, No memory loss Heme: No abnormal bleeding/bruising Endo: + fatigue Skin: No rash Objective Vital Signs Date Time Temp Pulse Resp B/P (MAP) Pulse Ox O2 Delivery O2 Flow Rate FiO2 03/16/17 08:00 94 Room Air 03/16/17 06:59 36.5 77 18 127/74 (91) 94 Room Air 03/16/17 00:05 Room Air 03/15/17 23:35 36.3 82 16 133/77 (95) 94 Room Air 03/15/17 20:05 Room Air 03/15/17 19:58 36.8 102 20 124/64 (84) 91 03/15/17 16:46 36.7 93 18 179/78 (111) 92 Room Air 03/15/17 16:00 Room Air Physical Exam Comments: General Appearance: no apparent distress Eyes: sclerae normal ENT: hearing grossly normal Neck: supple, no JVD, trachea midline Respiratory/Chest: lungs clear, normal breath sounds, no respiratory distress, no accessory muscle use Cardiovascular: regular rate, rhythm, no gallop, no murmur Abdomen: normal bowel sounds, non tender, soft Extremities: no pedal edema, no calf tenderness, + pertinent finding (strength equal in lower extremities but mildly weak; sensation and gross motor intact) Neurologic/Psychiatric: alert, oriented x 3 Skin: normal color, warm/dry Laboratory Results Last 24 Hours Test 03/16/17 08:24 White Blood Count 9.50 K/uL Red Blood Count 4.35 M/uL Hemoglobin 13.7 g/dL Hematocrit 42.2 % Mean Corpuscular Volume 97.0 fL Mean Corpuscular Hemoglobin 31.5 pg Mean Corpuscular Hemoglobin Concent 32.5 g/dl RDW Standard Deviation 47.8 fL RDW Coefficient of Variation 13.4 % Platelet Count 365 K/uL Mean Platelet Volume 8.1 fL Sodium Level 139 mmol/L Potassium Level 4.2 mmol/L Chloride Level 102 mmol/L Carbon Dioxide Level 29 mmol/L Anion Gap 8.0 mmol/L Blood Urea Nitrogen 17 mg/dl Creatinine 0.43 mg/dl Est Creatinine Clear Calc Drug Dose 78.3 ml/min Estimated GFR () 111.3 Estimated GFR (Non- 96.1 BUN/Creatinine Ratio 40.2 Random Glucose 79 mg/dl Calcium Level 9.5 mg/dl Assessment and Plan 81 y/o female with a history of a-fib, HTN, HLD, CAD, diastolic CHF, essential tremor, Parkinson's disease, depression, and GERD who presented to the ED on with back and abdominal pain. Pt afebrile, VSS on arrival. Abdomen/pelvis CT shows new T11 compression fracture and progressive L3, L4, and L5 compression fractures. Mild gallbladder distention. Gallbladder ultrasound shows distention, sludge and few gallstones. No evidence of acute cholecystitis. EKG no ischemic changes. WBC 11.70, labs otherwise grossly unremarkable. Abdominal Pain: Possible from Sludge - normal HIDA rules out infection/inflammation - LFT not elevated - small stones and sludge on US but no wall thickening to suggest cholecystitis - patient can eat, no surgical consult needed New T11 Compression Fx with Old Fx: - pain control, brace, PT/O - she was at [facility], can return there once pain is adequately controlled Paroxysmal A Fib: Currently NSR - Amiodarone 50 mg BID and Lopressor 25 mg BID - No current anticoagulant HTN: - Losartan 75 mg daily and Hydralazine PRN CHronic Diastolic CHF: Appears Euvolemic - Sprionolactone 12.5 mg daily DVT Prophylaxis: Heparin 5000 units SC BID Code Status: DO NOT RESUSCITATE Continued [facility] stay due to: multiple IV medications needed Discharge planning: half-way facility
[2017-03-16 14:55] VITALS: BP 105/65; PULSE 60; TEMP 36.8; O2SAT 93
[2017-03-16] MEDS: GABAPENTIN 400 MG CAP PO SCH ×2 (15:31→21:21)
[2017-03-16] MEDS ORDERED: CHECK FENTANYL PATCH PLACEMENT SCH (16:00)
[2017-03-16] MEDS: ATORVASTATIN 40 MG TAB PO SCH (19:52)
[2017-03-17] MEDS: CHECK FENTANYL PATCH PLACEMENT SCH ×3 (00:01→15:46)
[2017-03-17 00:05] VITALS: BP 121/59; PULSE 77; TEMP 36.6; O2SAT 96
[2017-03-17] MEDS: HYDROmorphone INJ 1 MG/ML SYR IV PRN ×3 (01:42→14:31)
[2017-03-17 07:19] VITALS: BP 131/66; PULSE 56; TEMP 36.6; O2SAT 94
[2017-03-17] MEDS: CALCITONIN SALMON NA 200 IU/AC 3.7 ML BTL SCH (07:58)
[2017-03-17] MEDS: CEROVITE ADV FORMULA TAB PO SCH (07:58)
[2017-03-17] MEDS: FLUTICASONE PROPIONATE NA SPR 16 GM BTL NAE SCH (07:58)
[2017-03-17] MEDS: PANTOprazole SOD 40 MG TAB PO SCH (07:58)
[2017-03-17] MEDS: CLONAZEPAM 1 MG TAB PO SCH ×2 (07:58→20:53)
[2017-03-17] MEDS: LOSARTAN POTASSIUM 25 MG TAB PO SCH (07:58)
[2017-03-17] MEDS: METOPROLOL TARTRATE 25 MG TAB PO SCH ×2 (07:58→20:50)
[2017-03-17] MEDS: CARBIDOPA/LEVODOPA 25/100MG TAB PO SCH ×4 (07:58→20:48)
[2017-03-17] MEDS: ASPIRIN 325 MG ECTAB PO SCH (07:59)
[2017-03-17] MEDS: SPIRONOLACTONE 25 MG TAB PO SCH (07:59)
[2017-03-17] MEDS: AMIODARONE 200 MG TAB PO SCH ×2 (07:59→20:49)
[2017-03-17] MEDS: CHOLECALCIFEROL 1000 INTER.UNIT TAB PO SCH (07:59)
[2017-03-17] MEDS: GABAPENTIN 600 MG TAB PO SCH (07:59)
[2017-03-17] MEDS: LIDODERM (LIDOCAINE) PATCH 5% TD SCH (08:00)
[2017-03-17] MEDS: ACETAMINOPHEN 500 MG TAB PO SCH ×2 (08:00→20:50)
[2017-03-17] MEDS: HEPARIN SOD 5000 UNIT/0.5 ML CARP SQ SCH ×2 (08:05→20:51)
[2017-03-17 08:06] LABS: HEMATOCRIT 38.9 % (37-47); MEAN CELL VOLUME 95.1 fL (80-100); MEAN CORPUSCULAR HEMOGLOBIN 31.3 pg (25-34); MEAN CORPUSCULAR HGB CONC 32.9 g/dl (32-36); MEAN PLATELET VOLUME 8.3 fL (7.4-10.4); PLATELET COUNT 337 K/uL (130-400); RED BLOOD COUNT 4.09 M/uL (4.2-5.4); WHITE BLOOD COUNT 9.59 K/uL (4.8-10.8)
[2017-03-17 08:36] LABS: BUN/CREATININE RATIO 37.6 (10-20); CALCIUM 8.9 mg/dl (8.5-10.1); CREATININE 0.5 mg/dl (0.60-1.20)
[2017-03-17 08:55] LABS: POTASSIUM 4.3 mmol/L (3.5-5.1)
[2017-03-17 10:33] VITALS: BP 130/66; PULSE 66; O2SAT 94
[2017-03-17 14:56] VITALS: BP 107/70; PULSE 56; TEMP 36.5; O2SAT 92
--- NOTE | 2017-03-17 16:39 | Progress Note ---
Subjective Date of Service: Mar 17, 2017. Subjective Pt evaluation today including: conversation w/ patient, physical exam, chart review, lab review, review of studies Voiding: no voiding problems pt is seen and examined by me. Pt denies cp,sob, dizziness ,palpitation and abd pain.Pt denies nausea, vomiting and diarrhea. Pt denies fever, chills,rigors and sweats. Problem List Medical Problems: (1) Back pain Status: Acute (2) Cholelithiasis Status: Acute (3) Compression fracture of L5 lumbar vertebra Status: Acute (4) Fall Status: Acute (5) Fall at home Status: Acute (6) Head injury Status: Acute (7) Left hip pain Status: Acute (8) Lumbar compression fracture Status: Acute (9) Right lumbar pain Status: Acute (10) Thoracic compression fracture Status: Acute (11) Upper abdominal pain Status: Acute Review of Systems Constitutional: No fever, No sweats Eyes: No worsening of vision Respiratory: No cough Cardiac: No chest pain Abdomen: No pain, No nausea, No vomiting, No diarrhea, No constipation Musculoskeletal: + problem reported (back pain) Neurologic: + weakness, No memory loss Heme: No abnormal bleeding/bruising Endo: + fatigue Skin: No rash Objective Vital Signs Date Time Temp Pulse Resp B/P (MAP) Pulse Ox O2 Delivery O2 Flow Rate FiO2 03/17/17 14:56 36.5 56 20 107/70 (82) 92 Room Air 03/17/17 10:33 66 94 03/17/17 08:00 Room Air 03/17/17 07:19 36.6 56 20 131/66 (87) 94 Room Air 03/17/17 00:05 36.6 77 18 121/59 (79) 96 Room Air Physical Exam Comments: General Appearance: no apparent distress Eyes: sclerae normal ENT: hearing grossly normal Neck: supple, no JVD, trachea midline Respiratory/Chest: lungs clear, normal breath sounds, no respiratory distress, no accessory muscle use Cardiovascular: regular rate, rhythm, no gallop, no murmur Abdomen: normal bowel sounds, non tender, soft Extremities: no pedal edema, no calf tenderness, + pertinent finding (strength equal in lower extremities but mildly weak; sensation and gross motor intact) Neurologic/Psychiatric: alert, oriented x 3 Skin: normal color, warm/dry Laboratory Results Last 24 Hours Test 03/17/17 07:23 White Blood Count 9.59 K/uL Red Blood Count 4.09 M/uL Hemoglobin 12.8 g/dL Hematocrit 38.9 % Mean Corpuscular Volume 95.1 fL Mean Corpuscular Hemoglobin 31.3 pg Mean Corpuscular Hemoglobin Concent 32.9 g/dl RDW Standard Deviation 46.3 fL RDW Coefficient of Variation 13.3 % Platelet Count 337 K/uL Mean Platelet Volume 8.3 fL Sodium Level 137 mmol/L Potassium Level 4.3 mmol/L Chloride Level 101 mmol/L Carbon Dioxide Level 31 mmol/L Anion Gap 5.0 mmol/L Blood Urea Nitrogen 19 mg/dl Creatinine 0.50 mg/dl Est Creatinine Clear Calc Drug Dose 67.3 ml/min Estimated GFR () 105.9 Estimated GFR (Non- 91.4 BUN/Creatinine Ratio 37.6 Random Glucose 86 mg/dl Calcium Level 8.9 mg/dl Assessment and Plan 81 y/o female with a history of a-fib, HTN, HLD, CAD, diastolic CHF, essential tremor, Parkinson's disease, depression, and GERD who presented to the ED on with back and abdominal pain. Pt afebrile, VSS on arrival. Abdomen/pelvis CT shows new T11 compression fracture and progressive L3, L4, and L5 compression fractures. Mild gallbladder distention. Gallbladder ultrasound shows distention, sludge and few gallstones. No evidence of acute cholecystitis. EKG no ischemic changes. WBC 11.70, labs otherwise grossly unremarkable. Abdominal Pain: Possible from Sludge - normal HIDA rules out infection/inflammation - LFT not elevated - small stones and sludge on US but no wall thickening to suggest cholecystitis - patient can eat, no surgical consult needed New T11 Compression Fx with Old Fx: - pain is better control today , brace, PT/O - she was at [facility], can return there once pain is adequately controlled Paroxysmal A Fib: Currently NSR - Amiodarone 50 mg BID and Lopressor 25 mg BID - No current anticoagulant HTN: - Losartan 75 mg daily and Hydralazine PRN CHronic Diastolic CHF: Appears Euvolemic - Sprionolactone 12.5 mg daily DVT Prophylaxis: Heparin 5000 units SC BID Code Status: DO NOT RESUSCITATE Pt may discharge tomorrow if pain is better controlled, she need a rehab Continued [facility] stay due to: multiple IV medications needed [facility]charge planning: [facility] facility
[2017-03-17] MEDS: GABAPENTIN 400 MG CAP PO SCH ×2 (17:20→20:48)
[2017-03-17] MEDS: KETOROLAC TROMETHAMINE 15 MG/ML VIAL IV. PRN (17:28)
[2017-03-17] MEDS: ATORVASTATIN 40 MG TAB PO SCH (20:51)
[2017-03-17 23:08] VITALS: BP 133/72; PULSE 72; TEMP 36.9; O2SAT 94
[2017-03-18] MEDS: CHECK FENTANYL PATCH PLACEMENT SCH ×3 (00:17→15:19)
[2017-03-18] MEDS: HYDROmorphone INJ 1 MG/ML SYR IV PRN ×4 (04:57→20:20)
[2017-03-18 07:15] VITALS: BP 159/68; PULSE 55; TEMP 36.4; O2SAT 95
[2017-03-18] MEDS: CLONAZEPAM 1 MG TAB PO SCH ×2 (08:02→20:07)
[2017-03-18] MEDS: METOPROLOL TARTRATE 25 MG TAB PO SCH ×2 (08:03→20:08)
[2017-03-18] MEDS: CEROVITE ADV FORMULA TAB PO SCH (08:03)
[2017-03-18] MEDS: GABAPENTIN 600 MG TAB PO SCH (08:03)
[2017-03-18] MEDS: PANTOprazole SOD 40 MG TAB PO SCH (08:03)
[2017-03-18] MEDS: ASPIRIN 325 MG ECTAB PO SCH (08:03)
[2017-03-18] MEDS: LOSARTAN POTASSIUM 25 MG TAB PO SCH (08:03)
[2017-03-18] MEDS: CARBIDOPA/LEVODOPA 25/100MG TAB PO SCH ×4 (08:04→20:08)
[2017-03-18] MEDS: FLUTICASONE PROPIONATE NA SPR 16 GM BTL NAE SCH (08:04)
[2017-03-18] MEDS: CALCITONIN SALMON NA 200 IU/AC 3.7 ML BTL SCH (08:05)
[2017-03-18] MEDS: LIDODERM (LIDOCAINE) PATCH 5% TD SCH (08:10)
[2017-03-18] MEDS: ACETAMINOPHEN 500 MG TAB PO SCH ×2 (08:10→20:10)
[2017-03-18] MEDS: HEPARIN SOD 5000 UNIT/0.5 ML CARP SQ SCH ×2 (08:11→20:18)
[2017-03-18] MEDS: AMIODARONE 200 MG TAB PO SCH ×2 (08:11→20:09)
[2017-03-18] MEDS: SPIRONOLACTONE 25 MG TAB PO SCH (08:11)
[2017-03-18] MEDS: CHOLECALCIFEROL 1000 INTER.UNIT TAB PO SCH (08:11)
[2017-03-18] MEDS: GABAPENTIN 400 MG CAP PO SCH ×2 (15:20→21:29)
[2017-03-18 15:21] VITALS: BP 154/76; PULSE 78; TEMP 36.8; O2SAT 94
[2017-03-18] MEDS: KETOROLAC TROMETHAMINE 15 MG/ML VIAL IV. PRN (15:22)
[2017-03-18] MEDS: ATORVASTATIN 40 MG TAB PO SCH (21:29)
--- NOTE | 2017-03-18 21:47 | Progress Note ---
Subjective Date of Service: Mar 18, 2017. Subjective Pt evaluation today including: conversation w/ patient, physical exam, chart review, lab review Pt is seen and examined by me. Patient reports lower back pain is strong in intensity 10/10. Nurse states that it improves with dilaudid. Pt denies cp,sob, dizziness ,palpitation and abd pain.Pt denies nausea, vomiting and diarrhea. Pt denies fever, chills,rigors and sweats Problem List Medical Problems: (1) Back pain Status: Acute (2) Cholelithiasis Status: Acute (3) Compression fracture of L5 lumbar vertebra Status: Acute (4) Fall Status: Acute (5) Fall at home Status: Acute (6) Head injury Status: Acute (7) Left hip pain Status: Acute (8) Lumbar compression fracture Status: Acute (9) Right lumbar pain Status: Acute (10) Thoracic compression fracture Status: Acute (11) Upper abdominal pain Status: Acute Review of Systems Constitutional: No fever, No chills Eyes: No worsening of vision, No eye pain ENT: No hearing loss, No unusual epistaxis Respiratory: No cough, No sputum Cardiac: No chest pain, No orthopnea Breast: No breast lump Abdomen: No pain, No nausea Musculoskeletal: No muscle pain Female : No urinary frequency Psychiatric: No depression symptoms, No anhedonism Heme: No abnormal bleeding/bruising Skin: No rash, No itch All Other Systems: Reviewed and Negative Medications Current Inpatient Medications Medications (Trade) Dose Ordered Sig/Naomi Route Start Time Stop Time Status Last Admin Dose Admin Acetaminophen (Tylenol Tab) 650 mg Q4H PRN PO 03/14/17 18:15 04/13/17 18:14 Al Hydrox/Mg Hydrox/Simethicone (Maalox Max Susp) 15 ml Q4H PRN PO 03/14/17 18:15 04/13/17 18:14 Magnesium Hydroxide (Milk Of Magnesia Susp) 30 ml Q6H PRN PO 03/14/17 18:15 04/13/17 18:14 Polyethylene (Miralax Powder Packet) 17 gm DAILY PRN PO 03/14/17 18:15 04/13/17 18:14 Ondansetron HCl (Zofran Inj) 4 mg Q6H PRN IV 03/14/17 18:15 04/13/17 18:14 03/15/17 16:01 4 MG Acetaminophen (Tylenol Tab) 1,000 mg BID PO 03/14/17 20:09 04/13/17 20:59 03/18/17 20:10 1,000 MG Aspirin (Ecotrin Tab) 325 mg DAILY PO 03/15/17 08:00 04/14/17 08:59 03/18/17 08:03 325 MG Atorvastatin Calcium (Lipitor Tab) 40 mg QPM PO 03/14/17 21:00 04/13/17 20:59 03/18/17 21:29 40 MG Calcitonin Hoagland (Fortical Nasal Baldwin) 1 spray DAILY NA 03/15/17 08:00 04/14/17 08:59 03/18/17 08:05 1 SPRAY Carbidopa/Levodopa (Sinemet 25/ 100MG Tab) 1 tab QID PO 03/14/17 20:09 04/13/17 20:59 03/18/17 20:08 1 TAB Cholecalciferol (Vitamin D Tab) 1,000 inter.unit DAILY PO 03/15/17 08:00 04/14/17 08:59 03/18/17 08:11 1,000 INTER.UNIT Clonazepam (Klonopin Tab) 0.5 mg BID PO 03/14/17 20:09 04/13/17 20:59 03/18/17 20:07 0.5 MG Docusate Sodium (coLACE CAP) 100 mg BID PRN PO 03/14/17 18:15 04/13/17 18:14 Fluticasone Propionate (Flonase Nasal Baldwin) 1 sprays DAILY REMI 03/15/17 08:00 04/14/17 08:59 03/18/17 08:04 1 SPRAYS Gabapentin (Neurontin Cap) 400 mg BID@1630,2230 PO 03/14/17 22:30 04/13/17 22:29 03/18/17 21:29 400 MG Gabapentin (Neurontin Tab) 600 mg DAILY@0830 PO 03/15/17 08:30 04/14/17 08:29 03/18/17 08:03 600 MG Lidocaine (Lidoderm Patch 5%) 1 patch QAM TD 03/15/17 08:00 04/14/17 08:59 03/18/17 08:10 1 PATCH Losartan Potassium (coZAAR TAB) 75 mg DAILY PO 03/15/17 08:00 04/14/17 08:59 03/18/17 08:03 75 MG Metoprolol Tartrate (Lopressor Tab) 25 mg BID PO 03/14/17 20:09 04/13/17 20:59 03/18/17 20:08 25 MG Multivitamins/ Minerals (Multivitamin W/ Minerals Tab) 1 tab QAM PO 03/15/17 08:00 04/14/17 08:59 03/18/17 08:03 1 TAB Nitroglycerin (Nitrostat Tab) 0.4 mg UD PRN SL 03/14/17 18:15 04/13/17 18:14 Spironolactone (Aldactone Tab) 12.5 mg DAILY PO 03/15/17 08:00 04/14/17 08:59 03/18/17 08:11 12.5 MG Amiodarone HCl (Cordarone Tab) 50 mg BID PO 03/14/17 20:09 04/13/17 20:59 03/18/17 20:09 50 MG Pantoprazole Sodium (Protonix Tab) 40 mg QAM PO 03/15/17 08:00 04/14/17 08:59 03/18/17 08:03 40 MG Miscellaneous (Remove Lidoderm Patch) 1 ea DAILY@21 N/A 03/14/17 21:00 04/13/17 20:59 03/18/17 20:07 1 EA Hydralazine HCl (HydrALAZINE INJ) 10 mg Q6H PRN IV. 03/14/17 19:15 04/13/17 19:14 Fentanyl (Duragesic Patch) 75 mcg Q3D TD 03/16/17 09:00 03/30/17 08:59 03/16/17 08:33 75 MCG Heparin Sodium (Porcine) (Heparin Sq 5000 Unit/0.5ml) 5,000 unit Q12H SQ 03/14/17 21:00 04/13/17 20:59 03/18/17 20:18 5,000 UNIT Miscellaneous Information (Check Fentanyl Patch Placement) 1 ea QS N/A 03/15/17 00:00 04/14/17 00:00 03/18/17 15:19 1 EA Miscellaneous (Fentanyl Patch Remove & Waste) 1 ea Q3D@0859 N/A 03/16/17 08:59 04/15/17 08:58 03/16/17 08:50 1 EA Ketorolac Tromethamine (Toradol Inj) 15 mg Q6H PRN IV. 03/15/17 13:15 03/20/17 13:14 03/18/17 15:22 15 MG Hydromorphone HCl (Dilaudid Inj) 1 mg Q4 PRN IV 03/15/17 16:45 03/29/17 16:44 03/18/17 20:20 1 MG Objective Vital Signs Date Time Temp Pulse Resp B/P (MAP) Pulse Ox O2 Delivery O2 Flow Rate FiO2 03/18/17 15:21 36.8 78 20 154/76 (102) 94 Room Air 03/18/17 08:15 Room Air 03/18/17 07:15 36.4 55 20 159/68 (98) 95 Room Air 03/18/17 00:00 Room Air 03/17/17 23:08 36.9 72 18 133/72 (92) 94 Nasal Cannula Physical Exam General Appearance: WD/WN, no apparent distress, + moderate distress, + pertinent finding (Tenderness to midline of lumbar spine and paraspinal muscles. ) Neck: supple, no adenopathy Respiratory/Chest: chest non-tender, lungs clear, normal breath sounds Cardiovascular: regular rate, rhythm, no edema Abdomen: normal bowel sounds, non tender, soft, no organomegaly Skin: normal color, warm/dry Assessment and Plan Assessment and Plan 81 y/o female with a history of a-fib, HTN, HLD, CAD, diastolic CHF, essential tremor, Parkinson's disease, depression, and GERD who presented to the ED on with back and abdominal pain. Pt afebrile, VSS on arrival. Abdomen/pelvis CT shows new T11 compression fracture and progressive L3, L4, and L5 compression fractures. Mild gallbladder distention. Gallbladder ultrasound shows distention, sludge and few gallstones. No evidence of acute cholecystitis. EKG no ischemic changes. WBC 11.70, labs otherwise grossly unremarkable. Abdominal Pain: Possible from Sludge - normal HIDA rules out infection/inflammation - LFT not elevated - small stones and sludge on US but no wall thickening to suggest cholecystitis - patient can eat, no surgical consult needed New T11 Compression Fx with Old Fx: - pain is not controlled. -Px no using brace, prefers to be seated [email or web address] explained that this will make pain worse. - It appears that dilaudid controls pain as patient is not opiate naive. - will convert meds tomorrow to PO - will consult ortho given that imaging showed about 50% loss of vertebrae height. -Patient has no preference on ortho. will consult [facility]. - she was at [facility], can return there once pain is adequately controlled Paroxysmal A Fib: Currently NSR - Amiodarone 50 mg BID and Lopressor 25 mg BID - No current anticoagulant HTN: - Losartan 75 mg daily and Hydralazine PRN CHronic Diastolic CHF: Appears Euvolemic - Sprionolactone 12.5 mg daily DVT Prophylaxis: Heparin 5000 units SC BID Code Status: DO NOT RESUSCITATE Pt may discharge tomorrow if pain is better controlled, she need a rehab Continued [facility] stay due to: multiple IV medications needed Discharge planning: prison facility Continued [facility] stay due to: multiple IV medications needed Discharge planning: prison facility
[2017-03-19] MEDS: HYDROmorphone INJ 1 MG/ML SYR IV PRN ×3 (00:14→15:31)
[2017-03-19] MEDS: CHECK FENTANYL PATCH PLACEMENT SCH ×3 (00:15→17:14)
[2017-03-19 00:29] VITALS: BP 145/67; PULSE 67; TEMP 36.8; O2SAT 92
[2017-03-19 07:34] VITALS: BP 181/72; PULSE 77; TEMP 36.8; O2SAT 91
[2017-03-19] MEDS: CLONAZEPAM 1 MG TAB PO SCH ×2 (08:04→20:57)
[2017-03-19] MEDS: CEROVITE ADV FORMULA TAB PO SCH (08:05)
[2017-03-19] MEDS: CARBIDOPA/LEVODOPA 25/100MG TAB PO SCH ×4 (08:06→21:00)
[2017-03-19] MEDS: LOSARTAN POTASSIUM 25 MG TAB PO SCH (08:06)
[2017-03-19] MEDS: ASPIRIN 325 MG ECTAB PO SCH (08:06)
[2017-03-19] MEDS: METOPROLOL TARTRATE 25 MG TAB PO SCH ×2 (08:07→20:56)
[2017-03-19] MEDS: CHOLECALCIFEROL 1000 INTER.UNIT TAB PO SCH (08:07)
[2017-03-19] MEDS: PANTOprazole SOD 40 MG TAB PO SCH (08:07)
[2017-03-19] MEDS: SPIRONOLACTONE 25 MG TAB PO SCH (08:07)
[2017-03-19] MEDS: AMIODARONE 200 MG TAB PO SCH ×2 (08:13→21:00)
[2017-03-19] MEDS: ACETAMINOPHEN 500 MG TAB PO SCH ×2 (08:14→21:00)
[2017-03-19] MEDS: GABAPENTIN 600 MG TAB PO SCH (08:15)
[2017-03-19] MEDS: LIDODERM (LIDOCAINE) PATCH 5% TD SCH (08:16)
[2017-03-19] MEDS: FLUTICASONE PROPIONATE NA SPR 16 GM BTL NAE SCH (08:16)
[2017-03-19] MEDS: CALCITONIN SALMON NA 200 IU/AC 3.7 ML BTL SCH (08:17)
[2017-03-19] MEDS: FENTANYL PATCH REMOVE & WASTE SCH (08:59)
[2017-03-19] MEDS: HEPARIN SOD 5000 UNIT/0.5 ML CARP SQ SCH ×2 (09:00→21:06)
[2017-03-19] MEDS ORDERED: FENTANYL PATCH REMOVE & WASTE SCH (09:00)
--- NOTE | 2017-03-19 09:59 | DIAGNOSTIC IMAGING REPORT ---
THORACIC SPINE 2-VIEWS, LUMBAR SPINE FLEX/EXT ONLY HISTORY: 81 years-old Female back pain acute back pain without reported trauma. COMPARISON: CT abdomen and pelvis 03/14/2017 TECHNIQUE: 2 views of the thoracic spine and lateral flexion and extension views of the lumbar spine. FINDINGS: THORACIC SPINE: Bones are severely demineralized. Compression deformity of T11 is unchanged from comparison CT. Again, this demonstrates a few millimeters of retropulsion. Remaining thoracic levels are normal in height and alignment. Multilevel endplate spurring intervertebral disc space narrowing is noted. No malalignment. There is atherosclerosis of the aorta. Sternotomy wires are partially imaged. Contrast is seen within the colon. LUMBAR SPINE: Compression deformities of the L3, L4 and L5 vertebral bodies redemonstrated. L1 and L2 vertebral bodies appear preserved. There is no significant change in alignment with flexion and extension. Proximal 8 mm retrolisthesis of L3 on L4 is noted, unchanged. IMPRESSION: 1. Compression deformities of T11, L3, L4 and L5 appear unchanged from comparison CT. Degree of retropulsion is better assessed on comparison CT. 2. No new compression deformity identified. 3. No change in alignment on flexion and extension views. The above report was generated using voice recognition software. It may contain grammatical, syntax or spelling errors. Electronically signed by: Ever Scott M.D. 03/19/2017 9:58 AM Dictated Date/Time: 03/19/2017 9:52 AM
[2017-03-19] MEDS: FENTANYL 75 MCG/HR TDSY TD SCH (10:08)
--- NOTE | 2017-03-19 10:46 | Orthopedic Consultation ---
Orthopedic Consultation Date of Consultation: Mar 19, 2017. Attending Physician: Griffin Littlejohn M.D. Reason for Consultation: Acute T11 compression fracture History of Present Illness Is a very pleasant 81-year-old female that we are asked to see in consultation regards to new acute compression fracture. She is somewhat of a difficult historian. She is a resident of [place] was brought to the [facility] emergency room a few days ago for worsening abdominal pain. She reports this pain is in the right lower quadrant. She also reports chronic back pain. She has seen Dr. Lowe several months ago for lumbar compression fractures and was treated conservatively with an LSO brace. She also reports pain involving both legs. 50% right leg 50% left leg. She states it runs along the anterior thighs and shins. Walking and activities exacerbate the symptoms. She is most comfortable sitting. Lying down does increase back as well as lower extremity pain. She normally ambulates with a walker. She does report multiple falls over the past several months. Currently since her admission she has a fentanyl patch plus a Lidoderm patch for pain control. Past Medical/Surgical History Medical Problems: (1) Back pain Status: Acute (2) Cholelithiasis Status: Acute (3) Compression fracture of L5 lumbar vertebra Status: Acute (4) Fall Status: Acute (5) Fall at home Status: Acute (6) Head injury Status: Acute (7) Left hip pain Status: Acute (8) Lumbar compression fracture Status: Acute (9) Right lumbar pain Status: Acute (10) Thoracic compression fracture Status: Acute (11) Upper abdominal pain Status: Acute Family History Cancer Heart disease Hypertension Stroke Social History Smoking Status: Never Smoker Smokeless Tobacco Use: No Alcohol Use: none Drug Use: none Marital Status: Housing Status: lives with significant other Occupation Status: retired Allergies Coded Allergies: Atropine (Verified Allergy, Mild, 03/14/17) Diphenoxylate (Verified Allergy, Mild, 03/14/17) Diazepam (Verified Allergy, Unknown, unknown, 03/14/17) Hydrochlorothiazide (Unverified Adverse Reaction, Unknown, UNKNOWN, ) Lisinopril (Verified Adverse Reaction, Unknown, NIGHTMARES, 03/14/17) Home Medications Scheduled Acetaminophen (Apap Extra Strength), 1,000 MG PO BID Amiodarone Hcl (Amiodarone Hcl), 50 MG PO BID Aspirin (Aspirin), 325 MG PO DAILY Atorvastatin (Atorvastatin Calcium), 40 MG PO QPM Calcitonin [place] (Calcitonin-[place]), 1 SPRAY NA DAILY Calcium Carbonate-Vitamin D (Calcium + D), 1 TAB PO BID Carbidopa/Levodopa (Sinemet 25MG/100MG), 1 TAB PO QID Cholecalciferol (Vitamin D3), 1,000 MG PO DAILY Clonazepam (Klonopin), 0.5 MG PO BID Fentanyl (Duragesic), 50 MCG TD [id number] Fluticasone Propionate (Nasal) (Flonase Allergy Relief), 1 SPRAY REMI DAILY Gabapentin (Neurontin), 400 MG PO BID Gabapentin (Neurontin), 600 MG PO QAM Lidocaine (Lidoderm Patch 5%), 1 PATCH TD QAM Losartan Potassium (Losartan Potassium), 75 MG PO DAILY Metoprolol Tartrate (Lopressor), 25 MG PO BID Multiple Vitamins W/ Minerals (Therems M), 1 TAB PO QAM Naloxegol Oxalate (Movantik), 1 TAB PO QAM Omeprazole (Prilosec), 20 MG PO DAILY Polyethylene Glycol 3350 (Miralax), 17 GM PO DAILY Spironolactone (Aldactone), 12.5 MG PO DAILY Scheduled PRN Docusate Sodium (Docusate Sodium), 100 MG PO BID PRN for Constipation Nitroglycerin (Nitrostat), 0.4 MG SL UD PRN for Chest Pain Oxycodone HCl (Oxycodone HCl), 1 TAB PO Q6H PRN for Pain Current Inpatient Medications Current Inpatient Medications Medications (Trade) Dose Ordered Sig/Naomi Route Start Time Stop Time Status Last Admin Dose Admin Acetaminophen (Tylenol Tab) 650 mg Q4H PRN PO 03/14/17 18:15 04/13/17 18:14 Al Hydrox/Mg Hydrox/Simethicone (Maalox Max Susp) 15 ml Q4H PRN PO 03/14/17 18:15 04/13/17 18:14 Magnesium Hydroxide (Milk Of Magnesia Susp) 30 ml Q6H PRN PO 03/14/17 18:15 04/13/17 18:14 Polyethylene (Miralax Powder Packet) 17 gm DAILY PRN PO 03/14/17 18:15 04/13/17 18:14 Ondansetron HCl (Zofran Inj) 4 mg Q6H PRN IV 03/14/17 18:15 04/13/17 18:14 03/15/17 16:01 4 MG Acetaminophen (Tylenol Tab) 1,000 mg BID PO 03/14/17 20:09 04/13/17 20:59 03/19/17 08:14 1,000 MG Aspirin (Ecotrin Tab) 325 mg DAILY PO 03/15/17 08:00 04/14/17 08:59 03/19/17 08:06 325 MG Atorvastatin Calcium (Lipitor Tab) 40 mg QPM PO 03/14/17 21:00 04/13/17 20:59 03/18/17 21:29 40 MG Calcitonin [place] (Fortical Nasal [place]) 1 spray DAILY NA 03/15/17 08:00 04/14/17 08:59 03/19/17 08:17 1 SPRAY Carbidopa/Levodopa (Sinemet 25/ 100MG Tab) 1 tab QID PO 03/14/17 20:09 04/13/17 20:59 03/19/17 08:06 1 TAB Cholecalciferol (Vitamin D Tab) 1,000 inter.unit DAILY PO 03/15/17 08:00 04/14/17 08:59 03/19/17 08:07 1,000 INTER.UNIT Clonazepam (Klonopin Tab) 0.5 mg BID PO 03/14/17 20:09 04/13/17 20:59 03/19/17 08:04 0.5 MG Docusate Sodium (coLACE CAP) 100 mg BID PRN PO 03/14/17 18:15 04/13/17 18:14 Fluticasone Propionate (Flonase Nasal [place]) 1 sprays DAILY REMI 03/15/17 08:00 04/14/17 08:59 03/19/17 08:16 1 SPRAYS Gabapentin (Neurontin Cap) 400 mg BID@1630,2230 PO 03/14/17 22:30 04/13/17 22:29 03/18/17 21:29 400 MG Gabapentin (Neurontin Tab) 600 mg DAILY@0830 PO 03/15/17 08:30 04/14/17 08:29 03/19/17 08:15 600 MG Lidocaine (Lidoderm Patch 5%) 1 patch QAM TD 03/15/17 08:00 04/14/17 08:59 03/19/17 08:16 1 PATCH Losartan Potassium (coZAAR TAB) 75 mg DAILY PO 03/15/17 08:00 04/14/17 08:59 03/19/17 08:06 75 MG Metoprolol Tartrate (Lopressor Tab) 25 mg BID PO 03/14/17 20:09 04/13/17 20:59 03/19/17 08:07 25 MG Multivitamins/ Minerals (Multivitamin W/ Minerals Tab) 1 tab QAM PO 03/15/17 08:00 04/14/17 08:59 03/19/17 08:05 1 TAB Nitroglycerin (Nitrostat Tab) 0.4 mg UD PRN SL 03/14/17 18:15 04/13/17 18:14 Spironolactone (Aldactone Tab) 12.5 mg DAILY PO 03/15/17 08:00 04/14/17 08:59 03/19/17 08:07 12.5 MG Amiodarone HCl (Cordarone Tab) 50 mg BID PO 03/14/17 20:09 04/13/17 20:59 03/19/17 08:13 50 MG Pantoprazole Sodium (Protonix Tab) 40 mg QAM PO 03/15/17 08:00 04/14/17 08:59 03/19/17 08:07 40 MG Miscellaneous (Remove Lidoderm Patch) 1 ea DAILY@21 N/A 03/14/17 21:00 04/13/17 20:59 03/18/17 20:07 1 EA Hydralazine HCl (HydrALAZINE INJ) 10 mg Q6H PRN IV. 03/14/17 19:15 04/13/17 19:14 Fentanyl (Duragesic Patch) 75 mcg Q3D TD 03/16/17 09:00 03/30/17 08:59 03/19/17 10:08 75 MCG Heparin Sodium (Porcine) (Heparin Sq 5000 Unit/0.5ml) 5,000 unit Q12H SQ 03/14/17 21:00 04/13/17 20:59 03/18/17 20:18 5,000 UNIT Miscellaneous Information (Check Fentanyl Patch Placement) 1 ea QS N/A 03/15/17 00:00 04/14/17 00:00 03/19/17 08:16 1 EA Miscellaneous (Fentanyl Patch Remove & Waste) 1 ea Q3D@0859 N/A 03/16/17 08:59 04/15/17 08:58 03/19/17 08:59 1 EA Ketorolac Tromethamine (Toradol Inj) 15 mg Q6H PRN IV. 03/15/17 13:15 03/20/17 13:14 03/18/17 15:22 15 MG Hydromorphone HCl (Dilaudid Inj) 1 mg Q4 PRN IV 03/15/17 16:45 03/29/17 16:44 03/19/17 07:59 1 MG Review of Systems Musculoskeletal: + muscle pain, + problem reported Physical Exam Date Time Temp Pulse Resp B/P (MAP) Pulse Ox O2 Delivery O2 Flow Rate FiO2 03/19/17 07:34 36.8 77 20 181/72 (108) 91 03/19/17 00:29 36.8 67 18 145/67 (93) 92 Room Air 03/19/17 00:00 Room Air 03/18/17 16:00 Room Air 03/18/17 15:21 36.8 78 20 154/76 (102) 94 Room Air She is sitting in a chair in her room. She is moderately uncomfortable. She does have a rigid LSO brace across her lumbar spine and waistline. Strength is intact bilateral lower extremities. General Appearance: + mild distress Head: normocephalic Eyes: normal inspection ENT: hearing grossly normal Neck: supple Respiratory/Chest: no respiratory distress Cardiovascular: regular rate, rhythm, normal peripheral pulses Abdomen/GI: soft Back: normal inspection Extremities/Musculoskelatal: normal inspection, non-tender, pelvis stable Neurologic/Psych: no motor/sensory deficits, alert Skin: normal color, warm/dry Laboratory Results Patient Name: HUSSAIN DIOP Unit Number: [id number] Dictated: 03/19/17951 Transcribed: 03/19/17951 GAURI Printed Date/Time: [~ rep prt dt]/[~ rep prt tm] [~ rep ct labl] - [~ rep ct ivnm] [facility] [place] [address] Dictated: 03/19/17951 Transcribed: 03/19/1752 JRB Printed Date/Time: [~ rep prt dt]/[~ rep prt tm] [~ rep ct labl] - [~ rep ct ivnm] Patient: HUSSAIN DIOP Address1: [address] [facility] Rec: [id number] Address2: Acct ID: [id number] [facility] Zip: [place] [address] Date: 1935 Sex: F Room/Bed: [facility] Ref Phy: Jose A Ruiz M.D. SC: NOLAN Att Phy: Griffin Littlejohn M.D. Report #: [id number] Elyssa Phy: Hansa Suarez Test: LSFEO Admit Phy: Edu Tong D.O. Ct Technician: ZENAIDA Interpreting Phy: Derrek Scott D.O. Diagnosis: ABDOMINAL PAIN Ordering Phy: Edgar Green D.O. Service Date: 03/19/17 Admit Date: 03/14/1709/21/17 MNE: [id number] CONF: DICTATED BY: Derrek Scott D.O.]] CC: Edgar Green D.O. LynnHansa Frank, M.D. Saborio, George A. M.D. Endcc: [~ rep ct add3]] THORACIC SPINE 2-VIEWS, LUMBAR SPINE FLEX/EXT ONLY HISTORY: 81 years-old Female back pain acute back pain without reported trauma. COMPARISON: CT abdomen and pelvis 03/14/2017 TECHNIQUE: 2 views of the thoracic spine and lateral flexion and extension views of the lumbar spine. FINDINGS: THORACIC SPINE: Bones are severely demineralized. Compression deformity of T11 is unchanged from comparison CT. Again, this demonstrates a few millimeters of retropulsion. Remaining thoracic levels are normal in height and alignment. Multilevel endplate spurring intervertebral disc space narrowing is noted. No malalignment. There is atherosclerosis of the aorta. Sternotomy wires are partially imaged. Contrast is seen within the colon. LUMBAR SPINE: Compression deformities of the L3, L4 and L5 vertebral bodies redemonstrated. L1 and L2 vertebral bodies appear preserved. There is no significant change in alignment with flexion and extension. Proximal 8 mm retrolisthesis of L3 on L4 is noted, unchanged. IMPRESSION: 1. Compression deformities of T11, L3, L4 and L5 appear unchanged from comparison CT. Degree of retropulsion is better assessed on comparison CT. 2. No new compression deformity identified. 3. No change in alignment on flexion and extension views. The above report was generated using voice recognition software. It may contain grammatical, syntax or spelling errors. Electronically signed by: Ever Scott M.D. 03/19/2017 9:58 AM Dictated Date/Time: 03/19/2017 9:52 AM The status of this report is Signed. Draft = Not yet reviewed or approved by Radiologist. Signed = Reviewed and approved by Radiologist. <AttendingPhy>Griffin Littlejohn M.D.</AttendingPhy> <FamilyPhy>Jose A Ruiz M.D.</FamilyPhy> <PrimaryPhy>[facility]</PrimaryPhy> <UnitNumber>[id number]</ UnitNumber> <VisitNumber>[id number]</VisitNumber> <PatientName>HUSSAIN DIOP</PatientName> <DateOfBirth>1935</DateOfBirth> <Location>[facility]</ Location> <ServiceDate>03/14/17</ServiceDate> <MNE>ESINDI</MNE> <OrderingPhy> Edgar Green D.O.</OrderingPhy> <OrderingPhyMNE>f rep ord dr pickens</ OrderingPhyMNE> <DictatingPhyMNE>f rep dict dr pickens</DictatingPhyMNE> <CCListMNE> f rep ct mne</CCListMNE> <AdmittingPhyMNE>f pt admit dr pickens</AdmittingPhyMNE> < AttendingPhyMNE>f pt attend dr pickens</AttendingPhyMNE> <ConsultingPhyMNE>f pt consult dr pickens</ConsultingPhyMNE> <FamilyPhyMNE>f pt fam dr pickens</FamilyPhyMNE> <OtherPhyMNE>f pt other dr mne</OtherPhyMNE> < PrimaryPhyMNE>f pt prim care dr pickens</PrimaryPhyMNE> <ReferringPhyMNE>f pt referring dr pickens</ReferringPhyMNE> Patient: HUSSAIN DIOP Address1: [address] [facility] Rec: [id number] Address2: Acct ID: [id number] [facility] Zip: [place] [address] Date: 1935 Sex: F Room/Bed: Ref Phy: Jose A Ruiz M.D. SC: C.EDC Att Phy: Report #: [id number] Elyssa Phy: LynnHansa Test: APW Admit Phy: Ct Technician: JELANI Interpreting Phy: Geoff Blue MD Diagnosis: ABDOMINAL PAIN Ordering Phy: Bry Miguel MD Service Date: 03/14/17 Admit Date: 03/14/17 MNE: [id number] CONF: DICTATED BY: Geoff Blue MD]] CC: Lynn, [place] Bry Miguel M.D. Guillard, Frank, M.D. Endcc: [~ rep ct add3]] CT OF THE ABDOMEN AND PELVIS WITH CONTRAST CLINICAL HISTORY: Abdominal pain. Severe back pain. COMPARISON STUDY: CT of the abdomen and pelvis September 13, [address] December 02, 2016. TECHNIQUE: Following IV administration of 92 mL of Optiray-320, axial images of the abdomen and pelvis were obtained from the lung bases to the proximal femurs. Images were reviewed in the axial, sagittal, and coronal planes. IV contrast was administered without complication. A dose lowering technique was utilized adhering to the principles of ALARA. Oral contrast was administered. CT DOSE: 767.94 mGycm FINDINGS: The heart is moderately enlarged. There is extensive coronary artery calcification. A bandlike hypodensity within the right hepatic lobe is unchanged. No pneumatosis, free air or portal venous gas is present. The spleen, adrenal glands, kidneys and pancreas are unremarkable. There is no evidence for a bowel obstruction. Study is mildly, must by motion artifact. There is sigmoid diverticulosis without evidence for acute diverticulitis. There is no evidence for a bowel obstruction. No hydronephrosis is present. There is extensive atherosclerotic plaque of the abdominal aorta. There is a moderate T11 compression fracture with 50% loss of vertebral body height and mild retropulsion. This is new since CT of December 02, 2016. Severe L3, L4 and L5 compression fractures have slightly progressed since prior exam. These fractures are not acute. No additional acute fractures are present. IMPRESSION: 1. Moderate T11 compression fracture which is new since CT of December 02, 2016. This fracture is likely subacute to acute. Mild retropulsion with 50% loss of vertebral body height. 2. Slight progression of the severe L3, L4 and L5 compression fracture since exam of December 02, 2016. 3. Layering material within the gallbladder which could reflect sludge or stones. Mild gallbladder distention without pericholecystic infiltration. 4. Sigmoid diverticulosis without evidence for acute diverticulitis. Electronically signed by: Geoff Blue M.D. 03/14/2017 2:34 PM Dictated Date/Time: 03/14/2017 2:06 PM The status of this report is Signed. Draft = Not yet reviewed or approved by Radiologist. Signed = Reviewed and approved by Radiologist. <AttendingPhy></AttendingPhy> <FamilyPhy>Jose A Ruiz M.D.</FamilyPhy> < PrimaryPhy>[facility]</PrimaryPhy> <UnitNumber>[id number]</UnitNumber> < VisitNumber>[id number]</VisitNumber> <PatientName>HUSSAIN DIOP</ PatientName> <DateOfBirth>1935</DateOfBirth> <Location>C.EDC</Location> < ServiceDate>03/14/17</ServiceDate> <MNE>ESINDI</MNE> <OrderingPhy>Bry Miguel MD</OrderingPhy> <OrderingPhyMNE>f rep ord dr pickens</OrderingPhyMNE> < DictatingPhyMNE>f rep dict dr pickens</DictatingPhyMNE> <CCListMNE>f rep ct nelia</ CCListMNE> <AdmittingPhyMNE>f pt admit dr pickens</AdmittingPhyMNE> <AttendingPhyMNE >f pt attend dr pickens</AttendingPhyMNE> <ConsultingPhyMNE>f pt consult dr pickens</ConsultingPhyMNE> <FamilyPhyMNE>f pt fam dr pickens</FamilyPhyMNE> <OtherPhyMNE>f pt other dr pickens</OtherPhyMNE> < PrimaryPhyMNE>f pt prim care dr pickens</PrimaryPhyMNE> <ReferringPhyMNE>f pt referring dr pickens</ReferringPhyMNE> Assessment & Plan Assessment: Acute T11 compression fracture Chronic L3 burst fracture, L4 compression fracture, L5 compression fracture Plan: Case as well as imaging is been reviewed with Dr. Green. At this point we're going to treat this patient conservatively in light of her significant osteoporosis and medical history. She may continue with her current bracing. Continue physical therapy and occupational therapy. Continue pain control measures. I have reviewed with her that any type of surgical intervention would be considered high risk in light of her medical status as well as her significant osteoporosis which makes her prone to adjacent level fractures. 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 May consider referral to pain management on an outpatient basis for possible injections.
[2017-03-19 12:00] VITALS: O2SAT 91
[2017-03-19 14:56] VITALS: BP 113/66; PULSE 64; TEMP 36.4; O2SAT 96
[2017-03-19] MEDS: OXYCODONE HCL IR 5 MG TAB (IMMEDIATE RELEASE) PO SCH ×2 (16:00→20:55)
[2017-03-19] MEDS: GABAPENTIN 400 MG CAP PO SCH ×2 (17:13→21:03)
[2017-03-19 20:04] VITALS: BP 143/80; PULSE 76
[2017-03-19] MEDS: ATORVASTATIN 40 MG TAB PO SCH (21:01)
--- NOTE | 2017-03-19 22:43 | Progress Note ---
Subjective Date of Service: Mar 19, 2017. Subjective Pt evaluation today including: conversation w/ patient, physical exam, chart review, lab review, review of studies Patient continues to be in pain. Patient reports no significant changes from yesterday. After discussion with nursing, dilaudid appears to improve pain, but when patient twists her torso, her pain worsens. Problem List Medical Problems: (1) Back pain Status: Acute (2) Cholelithiasis Status: Acute (3) Compression fracture of L5 lumbar vertebra Status: Acute (4) Fall Status: Acute (5) Fall at home Status: Acute (6) Head injury Status: Acute (7) Left hip pain Status: Acute (8) Lumbar compression fracture Status: Acute (9) Right lumbar pain Status: Acute (10) Thoracic compression fracture Status: Acute (11) Upper abdominal pain Status: Acute Review of Systems Constitutional: No fever Respiratory: No cough, No sputum Cardiac: No chest pain, No orthopnea Abdomen: No pain, No nausea All Other Systems: Reviewed and Negative Medications Current Inpatient Medications Medications (Trade) Dose Ordered Sig/Naomi Route Start Time Stop Time Status Last Admin Dose Admin Acetaminophen (Tylenol Tab) 650 mg Q4H PRN PO 03/14/17 18:15 04/13/17 18:14 Al Hydrox/Mg Hydrox/Simethicone (Maalox Max Susp) 15 ml Q4H PRN PO 03/14/17 18:15 04/13/17 18:14 Magnesium Hydroxide (Milk Of Magnesia Susp) 30 ml Q6H PRN PO 03/14/17 18:15 04/13/17 18:14 Polyethylene (Miralax Powder Packet) 17 gm DAILY PRN PO 03/14/17 18:15 04/13/17 18:14 Ondansetron HCl (Zofran Inj) 4 mg Q6H PRN IV 03/14/17 18:15 04/13/17 18:14 03/15/17 16:01 4 MG Acetaminophen (Tylenol Tab) 1,000 mg BID PO 03/14/17 20:09 04/13/17 20:59 03/19/17 21:00 1,000 MG Aspirin (Ecotrin Tab) 325 mg DAILY PO 03/15/17 08:00 04/14/17 08:59 03/19/17 08:06 325 MG Atorvastatin Calcium (Lipitor Tab) 40 mg QPM PO 03/14/17 21:00 04/13/17 20:59 03/19/17 21:01 40 MG Calcitonin [place] (Fortical Nasal [place]) 1 spray DAILY NA 03/15/17 08:00 04/14/17 08:59 03/19/17 08:17 1 SPRAY Carbidopa/Levodopa (Sinemet 25/ 100MG Tab) 1 tab QID PO 03/14/17 20:09 04/13/17 20:59 03/19/17 21:00 1 TAB Cholecalciferol (Vitamin D Tab) 1,000 inter.unit DAILY PO 03/15/17 08:00 04/14/17 08:59 03/19/17 08:07 1,000 INTER.UNIT Clonazepam (Klonopin Tab) 0.5 mg BID PO 03/14/17 20:09 04/13/17 20:59 03/19/17 20:57 0.5 MG Docusate Sodium (coLACE CAP) 100 mg BID PRN PO 03/14/17 18:15 04/13/17 18:14 Fluticasone Propionate (Flonase Nasal [place]) 1 sprays DAILY REMI 03/15/17 08:00 04/14/17 08:59 03/19/17 08:16 1 SPRAYS Gabapentin (Neurontin Cap) 400 mg BID@1630,2230 PO 03/14/17 22:30 04/13/17 22:29 03/19/17 21:03 400 MG Gabapentin (Neurontin Tab) 600 mg DAILY@0830 PO 03/15/17 08:30 04/14/17 08:29 03/19/17 08:15 600 MG Lidocaine (Lidoderm Patch 5%) 1 patch QAM TD 03/15/17 08:00 04/14/17 08:59 03/19/17 08:16 1 PATCH Losartan Potassium (coZAAR TAB) 75 mg DAILY PO 03/15/17 08:00 04/14/17 08:59 03/19/17 08:06 75 MG Metoprolol Tartrate (Lopressor Tab) 25 mg BID PO 03/14/17 20:09 04/13/17 20:59 03/19/17 20:56 25 MG Multivitamins/ Minerals (Multivitamin W/ Minerals Tab) 1 tab QAM PO 03/15/17 08:00 04/14/17 08:59 03/19/17 08:05 1 TAB Nitroglycerin (Nitrostat Tab) 0.4 mg UD PRN SL 03/14/17 18:15 04/13/17 18:14 Spironolactone (Aldactone Tab) 12.5 mg DAILY PO 03/15/17 08:00 04/14/17 08:59 03/19/17 08:07 12.5 MG Amiodarone HCl (Cordarone Tab) 50 mg BID PO 03/14/17 20:09 04/13/17 20:59 03/19/17 21:00 50 MG Pantoprazole Sodium (Protonix Tab) 40 mg QAM PO 03/15/17 08:00 04/14/17 08:59 03/19/17 08:07 40 MG Miscellaneous (Remove Lidoderm Patch) 1 ea DAILY@21 N/A 03/14/17 21:00 04/13/17 20:59 03/19/17 21:02 1 EA Hydralazine HCl (HydrALAZINE INJ) 10 mg Q6H PRN IV. 03/14/17 19:15 04/13/17 19:14 Fentanyl (Duragesic Patch) 75 mcg Q3D TD 03/16/17 09:00 03/30/17 08:59 03/19/17 10:08 75 MCG Heparin Sodium (Porcine) (Heparin Sq 5000 Unit/0.5ml) 5,000 unit Q12H SQ 03/14/17 21:00 04/13/17 20:59 03/19/17 21:06 5,000 UNIT Miscellaneous Information (Check Fentanyl Patch Placement) 1 ea QS N/A 03/15/17 00:00 04/14/17 00:00 03/19/17 17:14 1 EA Miscellaneous (Fentanyl Patch Remove & Waste) 1 ea Q3D@0859 N/A 03/16/17 08:59 04/15/17 08:58 03/19/17 08:59 1 EA Oxycodone HCl (Roxicodone Immediate Rel Tab) 10 mg Q4HWA PO 03/19/17 16:00 04/02/17 15:59 03/19/17 20:55 10 MG Objective Vital Signs Date Time Temp Pulse Resp B/P (MAP) Pulse Ox O2 Delivery O2 Flow Rate FiO2 03/19/17 20:04 76 143/80 (101) 03/19/17 16:00 Room Air 03/19/17 14:56 36.4 64 20 113/66 (82) 96 03/19/17 12:00 91 Room Air 2.0 03/19/17 07:34 36.8 77 20 181/72 (108) 91 03/19/17 00:29 36.8 67 18 145/67 (93) 92 Room Air 03/19/17 00:00 Room Air Physical Exam Comments: General Appearance: WD/WN, + moderate distress, + pertinent finding ( Tenderness to midline of lumbar spine and paraspinal muscles.) Neck: supple, no adenopathy Respiratory/Chest: chest non-tender, lungs clear, normal breath sounds Cardiovascular: regular rate, rhythm, no edema Abdomen: normal bowel sounds, non tender, soft, no organomegaly Skin: normal color, warm/dry Assessment and Plan Assessment and Plan 81 y/o female with a history of a-fib, HTN, HLD, CAD, diastolic CHF, essential tremor, Parkinson's disease, depression, and GERD who presented to the ED on with back and abdominal pain. Pt afebrile, VSS on arrival. Abdomen/pelvis CT shows new T11 compression fracture and progressive L3, L4, and L5 compression fractures. Mild gallbladder distention. Gallbladder ultrasound shows distention, sludge and few gallstones. No evidence of acute cholecystitis. EKG no ischemic changes. WBC 11.70, labs otherwise grossly unremarkable. Abdominal Pain: Possible from Sludge - normal HIDA rules out infection/inflammation - LFT not elevated - small stones and sludge on US but no wall thickening to suggest cholecystitis - patient can eat, no surgical consult needed, unlikely source of pain New T11 Compression Fx with Old Fx: - pain is not controlled. -Px no using brace, prefers to be seated eventhough explained that this will make pain worse. - It appears that dilaudid controls pain as patient is not opiate naive. - will convert meds to PO today - consulted ortho. no surgery due to comorbidities. may benefit from outpatient injection. - she was at [facility], can return there once pain is adequately controlled Paroxysmal A Fib: Currently NSR - Amiodarone 50 mg BID and Lopressor 25 mg BID - No current anticoagulant HTN: - Losartan 75 mg daily and Hydralazine PRN CHronic Diastolic CHF: Appears Euvolemic - Sprionolactone 12.5 mg daily DVT Prophylaxis: Heparin 5000 units SC BID Code Status: DO NOT RESUSCITATE Pt may discharge tomorrow if pain is better controlled, she need a rehab Continued [facility] stay due to:uncontrolled pain Discharge planning: nursing home facility Continued [facility] stay due to: multiple IV medications needed Discharge planning: nursing home facility
[2017-03-20 00:05] VITALS: BP 143/74; PULSE 61; TEMP 36.6; O2SAT 93
[2017-03-20] MEDS: CHECK FENTANYL PATCH PLACEMENT SCH ×2 (00:37→08:00)
[2017-03-20] MEDS: OXYCODONE HCL IR 5 MG TAB (IMMEDIATE RELEASE) PO SCH ×3 (04:11→13:36)
[2017-03-20 07:06] VITALS: BP 165/68; PULSE 64; TEMP 36.7; O2SAT 93
[2017-03-20 08:00] VITALS: O2SAT 92
[2017-03-20] MEDS: GABAPENTIN 600 MG TAB PO SCH (08:30)
[2017-03-20] MEDS: HEPARIN SOD 5000 UNIT/0.5 ML CARP SQ SCH (09:00)
[2017-03-20] MEDS: METOPROLOL TARTRATE 25 MG TAB PO SCH (09:25)
[2017-03-20] MEDS: PANTOprazole SOD 40 MG TAB PO SCH (09:25)
[2017-03-20] MEDS: CEROVITE ADV FORMULA TAB PO SCH (09:25)
[2017-03-20] MEDS: CHOLECALCIFEROL 1000 INTER.UNIT TAB PO SCH (09:25)
[2017-03-20] MEDS: AMIODARONE 200 MG TAB PO SCH (09:25)
[2017-03-20] MEDS: CLONAZEPAM 1 MG TAB PO SCH (09:26)
[2017-03-20] MEDS: LOSARTAN POTASSIUM 25 MG TAB PO SCH (09:26)
[2017-03-20] MEDS: SPIRONOLACTONE 25 MG TAB PO SCH (09:28)
[2017-03-20] MEDS: CARBIDOPA/LEVODOPA 25/100MG TAB PO SCH ×2 (09:28→12:00)
[2017-03-20] MEDS: LIDODERM (LIDOCAINE) PATCH 5% TD SCH (09:29)
[2017-03-20] MEDS: ACETAMINOPHEN 500 MG TAB PO SCH (09:29)
[2017-03-20] MEDS: ASPIRIN 325 MG ECTAB PO SCH (09:31)
[2017-03-20] MEDS: CALCITONIN SALMON NA 200 IU/AC 3.7 ML BTL SCH (09:32)
[2017-03-20] MEDS: FLUTICASONE PROPIONATE NA SPR 16 GM BTL NAE SCH (09:32)
[2017-03-20] MEDS ORDERED: OXYC-609 PO (13:11)
--- NOTE | 2017-03-20 13:17 | Discharge Instructions ---
Discharge Instructions Date of Service Mar 20, 2017. Admission Reason for Admission: Abdominal Pain Discharge Discharge Diagnosis / Problem: ACUTE T11 Fracture Discharge Goals Goal(s): Decrease discomfort, Improve function Activity Recommendations Activity Limitations: per Instructions/Follow-up section Lifting Limitations: until after follow-up appointment Exercise/Sports Limitations: until after follow-up appointment May Resume Sexual Activity: after follow-up appointment Current Hospital Diet Patient's current hospital diet: AHA Diet (Heart Healthy) Discharge Diet Recommended Diet: AHA Diet (Heart Healthy) Pending Studies Studies pending at discharge: no Laboratory Results Lipid Panel Test 02/01/17 05:16 Range/Units Triglycerides Level 154 H 0-150 mg/dl Cholesterol Level 115 0-200 mg/dl HDL Cholesterol 43 mg/dl Cholesterol/HDL Ratio 2.7 LDL Cholesterol, Calculated 41 mg/dl Medical Emergencies . Who to Call and When: Medical Emergencies: If at any time you feel your situation is an emergency, please call 911 immediately. . Non-Emergent Contact Non-Emergency issues call your: Primary Care Provider . . "Provider Documentation" section prepared by Griffin Littlejohn. . Pricing Supervisor Recommendations Pricing Supervisor Recommendations: Recommend F/U with [facility] for her T11 fracture within 1 week Recommend F/U with [facility] in 3-4 weeks. VTE Core Measure Inpt VTE Proph given/why not?: Enoxaparin (Lovenox)JOSE DANIEL, T.EMilla Mccbae, SCD's [place] Drug Monitoring Program Search Results: no issues identified
--- NOTE | 2017-03-20 13:18 | Discharge Summary ---
Discharge Summary Date of Service Mar 20, 2017. Discharge Summary Admission Date: Mar 14, 2017 at 18:19 Discharge Date: Mar 20, 2017 Hospital Course Assessment and Plan 81 y/o female with a history of a-fib, HTN, HLD, CAD, diastolic CHF, essential tremor, Parkinson's disease, depression, and GERD who presented to the ED on with back and abdominal pain. Pt afebrile, VSS on arrival. Abdomen/pelvis CT shows new T11 compression fracture and progressive L3, L4, and L5 compression fractures. Mild gallbladder distention. Gallbladder ultrasound shows distention, sludge and few gallstones. No evidence of acute cholecystitis. EKG no ischemic changes. WBC 11.70, labs otherwise grossly unremarkable. Abdominal Pain: Possible from Sludge - normal HIDA rules out infection/inflammation - LFT not elevated - small stones and sludge on US but no wall thickening to suggest cholecystitis - patient can eat, no surgical consult needed, unlikely source of pain New T11 Compression Fx with Old Fx: - pain is not controlled. -Px no using brace, prefers to be seated eventhough explained that this will make pain worse. - It appears that dilaudid controls pain as patient is not opiate naive. - will convert meds to PO today - consulted ortho. no surgery due to comorbidities. may benefit from outpatient injection. - she was at [facility], can return there once pain is adequately controlled Paroxysmal A Fib: Currently NSR - Amiodarone 50 mg BID and Lopressor 25 mg BID - No current anticoagulant HTN: - Losartan 75 mg daily and Hydralazine PRN CHronic Diastolic CHF: Appears Euvolemic - Sprionolactone 12.5 mg daily DVT Prophylaxis: Heparin 5000 units SC BID Code Status: DO NOT RESUSCITATE Pt may discharge tomorrow if pain is better controlled, she need a rehab Continued [facility] stay due to:uncontrolled pain Discharge planning: correction facility This includes examination of the patient, discharge planning, medication reconciliation, and communication with other providers. Discharge Instructions Please refer to the electronic Patient Visit Report (Discharge Instructions) for additional information.
[2017-03-20 13:25] VITALS: BP 165/68; PULSE 64; TEMP 36.7; O2SAT 92
== END 2017-03-20 14:15 | DRG 445 ==
LOC: EDBD 09:55 → C.EDC 09:56 → C.MS4W 18:19 → ENRESERV 18:48
PROVIDERS: ADMIT Hospitalist; ATTEND Internal Medicine Sports Medicine
DX: K80.20 Calculus of gallbladder without cholecystitis without obstruction (principal); S22.081A Stable burst fracture of T11-T12 vertebra, initial encounter for closed fracture; F02.81 Dementia in other diseases classified elsewhere, unspecified severity, with behavioral disturbance; I50.32 Chronic diastolic (congestive) heart failure; I10 Essential (primary) hypertension; Z66 Do not resuscitate; G20 Parkinson's disease; I48.0 Paroxysmal atrial fibrillation; K21.9 Gastro-esophageal reflux disease without esophagitis; Z79.82 Long term (current) use of aspirin; X58.XXXA Exposure to other specified factors, initial encounter; Z80.9 Family history of malignant neoplasm, unspecified; Z82.49 Family history of ischemic heart disease and other diseases of the circulatory system

== ENCOUNTER → 2017-03-22 | Outpatient (CLI) | payer BC ==
[~2017-03-22] MED LIST changes: +ACET-176 PO; -DRGTP12 TD; +FNTTP50 TD; +GABA400C PO; -MULTCHW PO; +MULTTAB63 PO; +NALO1TAB2 PO; +NF656 TD; +NRN/600 PO; -OXYC-57 PO; +OXYC-609 PO; +PRLSR20 PO; -PRT/40 PO; -TYLOTC500 PO
[2017-03-22 08:24] LABS: BLOOD UREA NITROGEN 12 mg/dl (7-18); BUN/CREATININE RATIO 23.8 (10-20); CALCIUM 9.2 mg/dl (8.5-10.1); CARBON DIOXIDE 31 mmol/L (21-32); CHLORIDE 103 mmol/L (98-107); CREATININE 0.52 mg/dl (0.60-1.20); GLUCOSE 77 mg/dl (70-99); POTASSIUM 4.4 mmol/L (3.5-5.1); SODIUM 139 mmol/L (136-145)
[2017-03-25 15:00] LABS: ALBUMIN 2.5 G/DL (3.8-4.8); GAMMA GLOBULIN 0.6 G/DL (0.8-1.7); TOTAL PROTEIN 5.1 G/DL (6.2-8.3)
== END ==
LOC: C.LABCC 07:57
PROVIDERS: ATTEND Internal Medicine
DX: M81.0 Age-related osteoporosis without current pathological fracture (principal)

== ENCOUNTER → 2017-09-23 | Outpatient (CLI) | payer BC ==
[~2017-09-23] MED LIST changes: -FNTTP50 TD; +FNTTP75 TOP
[2017-09-23 09:05] LABS: BASO % 0.5 %; BASO ABS # 0.04 K/uL (0-0.2); EOS % 2.4 %; EOS ABS # 0.21 K/uL (0-0.5); HEMATOCRIT 43.4 % (37-47); HEMOGLOBIN 13.9 g/dL (12.0-16.0); IG# 0.05 K/uL (0.00-0.02); LYMPH % 31.3 %; LYMPH ABS # 2.73 K/uL (1.2-3.4); MEAN CELL VOLUME 100.7 fL (80-100); MEAN CORPUSCULAR HEMOGLOBIN 32.3 pg (25-34); MEAN PLATELET VOLUME 8.9 fL (7.4-10.4); MONO % 10.8 %; MONO ABS # 0.94 K/uL (0.11-0.59); NEUT % 54.4 %; NEUT ABS # 4.76 K/uL (1.4-6.5); PLATELET COUNT 252 K/uL (130-400); RED CELL DISTRIBUTION WIDTH CV 13.7 % (11.5-14.5); RED CELL DISTRIBUTION WIDTH SD 50.8 fL (36.4-46.3); WHITE BLOOD COUNT 8.73 K/uL (4.8-10.8)
[2017-09-23 09:14] LABS: ALBUMIN 3.2 gm/dl (3.4-5.0); ALT/SGPT 12 U/L (12-78); BLOOD UREA NITROGEN 16 mg/dl (7-18); CALCIUM 8.9 mg/dl (8.5-10.1); CARBON DIOXIDE 32 mmol/L (21-32); CREATININE 0.53 mg/dl (0.60-1.20); GLUCOSE 72 mg/dl (70-99); POTASSIUM 4.1 mmol/L (3.5-5.1); SODIUM 142 mmol/L (136-145)
[2017-09-23 09:25] LABS: ALKALINE PHOSPHATASE 90 U/L (45-117); AST/SGOT 14 U/L (15-37)
== END | disposition home or self-care (01) ==
LOC: C.LABCC 08:05
PROVIDERS: ATTEND Internal Medicine
DX: I48.91 Unspecified atrial fibrillation (principal); I50.9 Heart failure, unspecified; M19.90 Unspecified osteoarthritis, unspecified site; M48.50XA Collapsed vertebra, not elsewhere classified, site unspecified, initial encounter for fracture

== ENCOUNTER 2017-12-13 07:36 | Inpatient (IN) | payer BC, OTHER ==
[2017-12-13] VITALS (12 sets, daily range): BP systolic 98–156; BP diastolic 65–91; PULSE 66–132; TEMP 36.4–36.8; O2SAT 81–98; Ht 149.9 cm; Wt 67.1 kg
[~2017-12-13] VITALS: Ht 149.9 cm; Wt 67.1 kg
[~2017-12-13 07:36] MED LIST changes: +ASPECOTC PO; -ASPI325T45 PO; +CLON1TAB10 PO; -CLON1TAB3 PO
[2017-12-13 07:56] LABS: BASO % 0.2 %; BASO ABS # 0.02 K/uL (0-0.2); EOS % 1.7 %; EOS ABS # 0.17 K/uL (0-0.5); HEMATOCRIT 42.9 % (37-47); HEMOGLOBIN 13.7 g/dL (12.0-16.0); IG# 0.03 K/uL (0.00-0.02); LYMPH % 32.8 %; LYMPH ABS # 3.19 K/uL (1.2-3.4); MEAN CELL VOLUME 104.6 fL (80-100); MEAN CORPUSCULAR HEMOGLOBIN 33.4 pg (25-34); MEAN CORPUSCULAR HGB CONC 31.9 g/dl (32-36); MONO % 10.2 %; MONO ABS # 0.99 K/uL (0.11-0.59); NEUT % 54.8 %; NEUT ABS # 5.34 K/uL (1.4-6.5); NUCLEATED RED BLOOD CELL ABS 0.05 K/uL (0-0); PLATELET COUNT 224 K/uL (130-400); RED CELL DISTRIBUTION WIDTH CV 14.5 % (11.5-14.5); RED CELL DISTRIBUTION WIDTH SD 55.5 fL (36.4-46.3); WHITE BLOOD COUNT 9.74 K/uL (4.8-10.8)
[2017-12-13] MEDS ORDERED: METOPROLOL TARTRATE 1 MG/ML VIAL IV STA ×2 (07:58→08:34)
[2017-12-13 08:04] LABS: INR 1.1 (0.9-1.1); PTT PATIENT 26.3 SECONDS (21.0-31.0)
[2017-12-13] MEDS ORDERED: METOPROLOL TARTRATE 1 MG/ML VIAL ONE (08:05)
--- NOTE | 2017-12-13 08:11 | DIAGNOSTIC IMAGING REPORT ---
CHEST ONE VIEW PORTABLE CLINICAL HISTORY: Shortness of breath. Atrial fibrillation. COMPARISON STUDY: Chest radiograph August 08, 2016. FINDINGS: Old healed fracture of the proximal right humerus is incidentally noted. There are median sternotomy wires and mediastinal surgical post. Cardiomegaly is unchanged. Marked elevation of the right hemidiaphragm is unchanged. No pneumothorax or pleural effusion is noted. No lobar consolidation is identified. A probable hiatal hernia is noted. There is no evidence for pulmonary edema. IMPRESSION: No acute cardiopulmonary findings. Moderate cardiomegaly. No evidence for overt pulmonary edema. Electronically signed by: Geoff Blue M.D. 12/13/2017 8:09 AM Dictated Date/Time: 12/13/2017 8:06 AM
[2017-12-13] MEDS ORDERED: ONDANSETRON INJ 2 MG/ML 2 ML VIAL IV STA (08:13)
--- NOTE | 2017-12-13 08:19 | EMERGENCY ROOM VISIT NOTE ---
History Report prepared by Stephany: Nasim Hussein Under the Supervision of: Dr. Nila Lloyd M.D. First contact with patient: 07:42 Chief Complaint: CARDIAC ASSESSMENT Stated Complaint: RAPID AFIB Nursing Triage Summary: Pt. is DNR, at [facility] for a lumbar fracture, pt. was noted this morning to be nauseated and with a rapid heart rate. She is without complaints upon ALS arrival. EKG shows A fib, 130s-150s. "I feel blank." History of Present Illness The patient is an 82 year old female who presents to the Emergency Room from [facility] secondary to a rapid heart rate that was first noticed 1.5 hours ago. The patient states that she has felt "odd" for the past couple of days, and was nauseous when she woke up this morning. She denies any chest pain, shortness of breath, or any other complaints at this time. The patient has a history of atrial fibrillation and takes Amiodarone and Aspirin daily. She also has a history of Parkinson's disease. Source of History: patient, halfway notes Onset: 1.5 hours ago Position: chest Symptom Intensity: Heart Rate in the 150s on exam Quality: other (A-fib) Associated Symptoms: + nausea Review of Systems See HPI for pertinent positives & negatives. A total of 10 systems reviewed and were otherwise negative. Past Medical & Surgical Medical Problems: (1) Compression fracture of L3 lumbar vertebra (2) Frequent falls (3) Heart disease (4) HTN (hypertension) Family History Cancer Heart disease Hypertension Stroke Social History Smoking Status: Never Smoker Drug Use: none Marital Status: Housing Status: lives with significant other Occupation Status: retired Current/Historical Medications Scheduled Acetaminophen (Apap Extra Strength), 1,000 MG PO BID Amiodarone Hcl (Amiodarone Hcl), 50 MG PO BID Aspirin (Aspirin), 325 MG PO DAILY Atorvastatin (Lipitor), 40 MG PO QPM Calcitonin [place] (Calcitonin-[place]), 1 SPRAY NA DAILY Calcium Carbonate-Vitamin D (Calcium + D), 1 TAB PO BID Carbidopa/Levodopa (Sinemet 25MG/100MG), 1.5 TAB PO QID Cholecalciferol (Vitamin D3), 1,000 MG PO DAILY Clonazepam (Klonopin), 0.5 MG PO BID Fentanyl (Fentanyl), 1 PATCH TOP q72 hours Fluticasone Propionate (Nasal) (Flonase Allergy Relief), 1 SPRAY REMI DAILY Gabapentin (Neurontin), 400 MG PO BID Gabapentin (Neurontin), 600 MG PO QAM Lidocaine (Lidoderm Patch 5%), 1 PATCH TD QAM Losartan Potassium (Losartan Potassium), 75 MG PO DAILY Metoprolol Tartrate (Lopressor), 25 MG PO BID Multiple Vitamins W/ Minerals (Therems M), 1 TAB PO QAM Naloxegol Oxalate (Movantik), 1 TAB PO QAM Omeprazole (Prilosec), 20 MG PO DAILY Polyethylene Glycol 3350 (Miralax), 17 GM PO DAILY Spironolactone (Aldactone), 12.5 MG PO DAILY Scheduled PRN Docusate Sodium (Docusate Sodium), 100 MG PO BID PRN for Constipation Nitroglycerin (Nitrostat), 0.4 MG SL UD PRN for Chest Pain Oxycodone HCl (Oxycodone HCl), 1 TAB PO Q6H PRN for Pain Allergies Coded Allergies: Atropine (Verified Allergy, Mild, 12/13/17) Diphenoxylate (Verified Allergy, Mild, 12/13/17) Diazepam (Verified Allergy, Unknown, unknown, 12/13/17) Hydrochlorothiazide (Verified Adverse Reaction, Unknown, UNKNOWN, 12/13/17) Lisinopril (Verified Adverse Reaction, Unknown, NIGHTMARES, 12/13/17) Physical Exam Vital Signs Date Time Temp Pulse Resp B/P (MAP) Pulse Ox O2 Delivery O2 Flow Rate FiO2 12/13/17 10:31 111 11 97 12/13/17 10:30 143/90 12/13/17 10:26 100 14 97 12/13/17 10:21 132 15 96 12/13/17 10:16 103 9 96 12/13/17 10:11 98 15 97 12/13/17 10:06 108 12 96 12/13/17 10:01 93 13 97 12/13/17 09:56 100 20 96 12/13/17 09:51 106 15 96 12/13/17 09:46 83 14 96 12/13/17 09:41 92 13 96 12/13/17 09:36 82 18 93 12/13/17 09:31 82 11 94 12/13/17 09:26 85 13 94 12/13/17 09:21 98 11 94 12/13/17 09:16 115 13 96 12/13/17 09:14 117/85 12/13/17 09:11 109 11 96 12/13/17 09:06 115 13 96 12/13/17 09:01 110 13 96 12/13/17 08:56 116 12 96 12/13/17 08:51 111 14 96 12/13/17 08:46 116 12 96 12/13/17 08:43 107/81 12/13/17 08:41 114 15 96 12/13/17 08:36 124 16 95 12/13/17 08:34 118 107/81 12/13/17 08:31 106 14 95 12/13/17 08:26 114 16 95 12/13/17 08:21 128 15 106/87 95 12/13/17 08:16 123 17 96 12/13/17 08:14 118/99 12/13/17 08:14 134 118/99 12/13/17 08:11 144 18 12/13/17 08:06 152 19 12/13/17 08:05 147 118/99 12/13/17 08:01 155 19 97 12/13/17 07:56 144 16 97 12/13/17 07:53 98 Nasal Cannula 2.0 12/13/17 07:51 159 20 98 12/13/17 07:47 144 12/13/17 07:47 133/98 12/13/17 07:46 149 19 128/100 97 12/13/17 07:41 88 Room Air 12/13/17 07:41 37.0 141 18 133/98 88 Room Air Physical Exam Vital signs reviewed. General: chronically ill-appearing elderly female, in no significant distress. Kyphotic with baseline tremors HEENT: No scleral icterus, PERRLA, neck supple. Atraumatic. Cardiovascular: Tachycardic rate and irregularly irregular, no extra sounds. Pulmonary: Nicky crackles bilaterally, normal work of breathing. Abdomen: Soft, nontender, nondistended, positive bowel sounds. Musculoskeletal: Atraumatic, no peripheral edema. Neurologic: Patient awake alert and oriented x 3, full strength in all 4 extremities. Cranial nerves 2 through 12 grossly intact. Skin: Warm, diaphoretic, no rash. Tinea versicolor Medical Decision & Procedures ER Provider Diagnostic Interpretation: Radiology results as stated below per my review and radiologist interpretation: CHEST ONE VIEW PORTABLE CLINICAL HISTORY: Shortness of breath. Atrial fibrillation. COMPARISON STUDY: Chest radiograph August 08, 2016. FINDINGS: Old healed fracture of the proximal right humerus is incidentally noted. There are median sternotomy wires and mediastinal surgical post. Cardiomegaly is unchanged. Marked elevation of the right hemidiaphragm is unchanged. No pneumothorax or pleural effusion is noted. No lobar consolidation is identified. A probable hiatal hernia is noted. There is no evidence for pulmonary edema. IMPRESSION: No acute cardiopulmonary findings. Moderate cardiomegaly. No evidence for overt pulmonary edema. Electronically signed by: Geoff Blue M.D. 12/13/2017 8:09 AM Dictated Date/Time: 12/13/2017 8:06 AM Laboratory Results Test 12/13/17 07:13 Immature Granulocyte % (Auto) 0.3 % White Blood Count 9.74 K/uL (4.8-10.8) Red Blood Count 4.10 M/uL (4.2-5.4) Hemoglobin 13.7 g/dL (12.0-16.0) Hematocrit 42.9 % (37-47) Mean Corpuscular Volume 104.6 fL (80-100) Mean Corpuscular Hemoglobin 33.4 pg (25-34) Mean Corpuscular Hemoglobin Concent 31.9 g/dl (32-36) Platelet Count 224 K/uL (130-400) Mean Platelet Volume 9.0 fL (7.4-10.4) Neutrophils (%) (Auto) 54.8 % Lymphocytes (%) (Auto) 32.8 % Monocytes (%) (Auto) 10.2 % Eosinophils (%) (Auto) 1.7 % Basophils (%) (Auto) 0.2 % Neutrophils # (Auto) 5.34 K/uL (1.4-6.5) Lymphocytes # (Auto) 3.19 K/uL (1.2-3.4) Monocytes # (Auto) 0.99 K/uL (0.11-0.59) Eosinophils # (Auto) 0.17 K/uL (0-0.5) Basophils # (Auto) 0.02 K/uL (0-0.2) Immature Granulocyte # (Auto) 0.03 K/uL (0.00-0.02) Nucleated RBC Absolute Count (auto) 0.05 K/uL (0-0) Nucleated Red Blood Cells % 0.5 % Prothrombin Time 11.6 SECONDS (9.0-12.0) Prothromb Time International Ratio 1.1 (0.9-1.1) Total Bilirubin 0.6 mg/dl (0.2-1) Direct Bilirubin 0.3 mg/dl (0-0.2) Aspartate Amino Transf (AST/SGOT) 49 U/L (15-37) Alanine Aminotransferase (ALT/SGPT) 34 U/L (12-78) Alkaline Phosphatase 158 U/L (45-117) Total Protein 7.1 gm/dl (6.4-8.2) Albumin 3.7 gm/dl (3.4-5.0) Thyroid Stimulating Hormone (TSH) 1.210 uIu/ml (0.300-4.500) Laboratory results per my review. Medications Administered Medications (Trade) Dose Ordered Sig/Naomi Route Start Time Stop Time Status Last Admin Dose Admin Metoprolol Tartrate (Lopressor Iv) 5 mg NOW STAT IV 12/13/17 07:58 12/13/17 07:59 DC 12/13/17 08:14 5 MG Metoprolol Tartrate (Lopressor Iv) 5 mg STK-MED ONCE .ROUTE 12/13/17 08:05 12/13/17 08:06 DC 12/13/17 08:05 5 MG Ondansetron HCl (Zofran Inj) 4 mg NOW STAT IV 12/13/17 08:13 12/13/17 08:15 DC 12/13/17 08:16 4 MG Metoprolol Tartrate (Lopressor Iv) 5 mg NOW STAT IV 12/13/17 08:34 12/13/17 08:35 DC 12/13/17 08:34 5 MG Sodium Chloride 250 ml @ 999 mls/hr Q16M STAT IV 12/13/17 09:08 12/13/17 09:23 DC 12/13/17 09:08 999 MLS/HR Diltiazem HCl (Cardizem Inj) 10 mg NOW STAT IV 12/13/17 09:08 12/13/17 09:09 DC 12/13/17 09:19 10 MG ECG Per My Interpretation Indication: tachycardia Rate (beats per minute): 164 Rhythm: atrial fibrillation Findings: other (A-fib with RVR. Diffuse T-wave flattening) ED Course 0801: Past medical records reviewed. The patient was evaluated in room C9. A complete history and physical examination was performed. 0805: Ordered Metoprolol 5 mg IV. 0813: Ordered Zofran 4 mg IV 0834: Ordered Lopressor 5 mg IV. 0908: Ordered Cardizem 10 mg IV, Sodium Chloride 250 mL/999 mL/hr IV. 1030: Dr. Jsoe BELLAMY Hospitalist was made aware of the case. Medical Decision Differential diagnosis: Etiologies such as premature contractions, electrolyte abnormality, cardiac dysrhythmia, thyroid dysfunction, pulmonary embolism, infection, gastrointestinal, as well as others were entertained. This patient was evaluated and appeared to be in some discomfort. IV access was obtained and laboratory work was drawn. The patient was placed on monitoring and evaluation advisor and found to be in a rapid atrial fibrillation. Blood pressure remained stable. Patient was given 5 mg of IV metoprolol 2. Patient required 4 mg of IV Zofran and 250 cc of IV normal saline solution. She had some rate control but remained in the 120s. Laboratory work reveals no evidence of significant abnormality. Patient was then given Cardizem 10 mg IV with great rate control into the 70s/80s. She did remain in atrial fibrillation which is chronic. Given the intervention required, the hospital service will evaluate the patient for further management. Medication Reconcilliation Current Medication List: was personally reviewed by me Blood Pressure Screening Patient's blood pressure: Normal blood pressure Consults Time Called: 1009 Consulting Physician: Dr. Jose BELLAMY Hospitalist Returned Call: 1030 Dr. Jose BELLAMY Hospitalist was made aware of the case. Impression Primary Impression: Atrial fibrillation with rapid ventricular response Critical Care I have personally spent greater than 30 minutes of critical care time in the direct management of this patient. This includes bedside care, interpretation of diagnostic studies, and testing, discussion with consultants, patient, and family members, and other required patient management activities. This 30 minutes is in excess of all separately billable procedures. Scribe Attestation The scribe's documentation has been prepared under my direction and personally reviewed by me in its entirety. I confirm that the note above accurately reflects all work, treatment, procedures, and medical decision making performed by me. Departure Information Dispostion Being Evaluated By Hospitalist Referrals TillmanHansa (PCP) Patient Instructions [facility]
[2017-12-13 08:27] LABS: ALBUMIN 3.7 gm/dl (3.4-5.0); ALKALINE PHOSPHATASE 158 U/L (45-117); ALT/SGPT 34 U/L (12-78); AST/SGOT 49 U/L (15-37); BLOOD UREA NITROGEN 28 mg/dl (7-18); CALCIUM 8.9 mg/dl (8.5-10.1); CARBON DIOXIDE 31 mmol/L (21-32); CREATININE 0.58 mg/dl (0.60-1.20); GLUCOSE 104 mg/dl (70-99); POTASSIUM 4.1 mmol/L (3.5-5.1); SODIUM 141 mmol/L (136-145); TOTAL PROTEIN 7.1 gm/dl (6.4-8.2)
[2017-12-13] MEDS ORDERED: DILTIAZEM HCL 5 MG/ML 5 ML VIAL IV STA (09:08)
[2017-12-13] MEDS ORDERED: SODIUM CHLORIDE 0.9% 250ML 250 ML IV STA (09:08)
[2017-12-13] MEDS ORDERED: ALUMINUM/MAGNESIUM/SIMETH (MAALOX MAX) 30 ML UDC PO PRN (10:30)
[2017-12-13] MEDS ORDERED: NON-FORMULARY MEDICATION (Fentanyl 1 PATCH) TOP SCH (10:30)
[2017-12-13] MEDS ORDERED: MAGNESIUM HYDROXIDE SUSP 30 ML UDC PO PRN (10:30)
[2017-12-13] MEDS ORDERED: DILTIAZEM BOLUS / DRIP IV STA (10:30)
--- NOTE | 2017-12-13 10:30 | History and Physical ---
History & Physical Date & Time of Service: Dec 13, 2017 at 10:23 Chief Complaint: Rapid Afib Primary Care Physician: Erick Barney History of Present Illness 82 y/o F Hx Paroxysmal AF, HTN, HLD, CAD, diastolic CHF, severe mitral regurge, Parkinson's disease, depression, GERD. The pt resides at [facility] and had complained only of feeling odd. She was noted to be tachycardic by nursing staff and directed to the ER due to her history of AF. Rapid AF was confirmed on arrival to the ER. She was slow to respond to IV Metoprolol in addition to Diltiazem. She is relatively asymptomatic at the time of admission. She did not c/o CP, SOB, N/V, dysuria or fevers. Past Medical/Surgical History 1) CAD 2) HTN 3) HLD 4) Paroxysmal A-fib 5) Chronic diastolic CHF 6) Essential tremor 7) Parkinson's disease 8) Depression 9) GERD Family History Cancer Heart disease Hypertension Stroke Social History Resides at [facility] with Smoking Status: Never Smoker Drug Use: none Marital Status: Housing status: group home Occupational Status: retired Allergies Coded Allergies: Atropine (Verified Allergy, Mild, 12/13/17) Diphenoxylate (Verified Allergy, Mild, 12/13/17) Diazepam (Verified Allergy, Unknown, unknown, 12/13/17) Hydrochlorothiazide (Verified Adverse Reaction, Unknown, UNKNOWN, 12/13/17) Lisinopril (Verified Adverse Reaction, Unknown, NIGHTMARES, 12/13/17) Home Medications Scheduled Acetaminophen (Apap Extra Strength), 1,000 MG PO BID Amiodarone Hcl (Amiodarone Hcl), 50 MG PO BID Aspirin (Aspirin), 325 MG PO DAILY Atorvastatin (Lipitor), 40 MG PO QPM Calcitonin [place] (Calcitonin-[place]), 1 SPRAY NA DAILY Calcium Carbonate-Vitamin D (Calcium + D), 1 TAB PO BID Carbidopa/Levodopa (Sinemet 25MG/100MG), 1.5 TAB PO QID Cholecalciferol (Vitamin D3), 1,000 MG PO DAILY Clonazepam (Klonopin), 0.5 MG PO BID Fentanyl (Fentanyl), 1 PATCH TOP q72 hours Fluticasone Propionate (Nasal) (Flonase Allergy Relief), 1 SPRAY REMI DAILY Gabapentin (Neurontin), 400 MG PO BID Gabapentin (Neurontin), 600 MG PO QAM Lidocaine (Lidoderm Patch 5%), 1 PATCH TD QAM Losartan Potassium (Losartan Potassium), 75 MG PO DAILY Metoprolol Tartrate (Lopressor), 25 MG PO BID Multiple Vitamins W/ Minerals (Therems M), 1 TAB PO QAM Naloxegol Oxalate (Movantik), 1 TAB PO QAM Omeprazole (Prilosec), 20 MG PO DAILY Polyethylene Glycol 3350 (Miralax), 17 GM PO DAILY Spironolactone (Aldactone), 12.5 MG PO DAILY Scheduled PRN Docusate Sodium (Docusate Sodium), 100 MG PO BID PRN for Constipation Nitroglycerin (Nitrostat), 0.4 MG SL UD PRN for Chest Pain Oxycodone HCl (Oxycodone HCl), 1 TAB PO Q6H PRN for Pain Review of Systems Constitutional: No fever, No chills, No sweats Eyes: No worsening of vision ENT: No hearing loss, No unusual epistaxis, No nasal symptoms Respiratory: No cough, No sputum, No wheezing Cardiovascular: No chest pain, No PND Abdomen: No pain, No nausea, No vomiting Musculoskeletal: No joint pain Genitourinary - Female: No dysuria, No urinary frequency Neurologic: No memory loss, No paralysis, No weakness Psychiatric: No depression symptoms Endocrine: No fatigue Hematologic / Lymphatic: No abnormal bleeding/bruising Integumentary: No rash Allergic / Immunologic: No environmental allergies Physical Exam Vital Signs Date Time Temp Pulse Resp B/P (MAP) Pulse Ox O2 Delivery O2 Flow Rate FiO2 12/13/17 09:46 83 14 96 12/13/17 09:41 92 13 96 12/13/17 09:36 82 18 93 12/13/17 09:31 82 11 94 12/13/17 09:26 85 13 94 12/13/17 09:21 98 11 94 12/13/17 09:16 115 13 96 12/13/17 09:14 117/85 12/13/17 09:11 109 11 96 12/13/17 09:06 115 13 96 12/13/17 09:01 110 13 96 12/13/17 08:56 116 12 96 12/13/17 08:51 111 14 96 12/13/17 08:46 116 12 96 12/13/17 08:43 107/81 12/13/17 08:41 114 15 96 12/13/17 08:36 124 16 95 12/13/17 08:34 118 107/81 12/13/17 08:31 106 14 95 12/13/17 08:26 114 16 95 12/13/17 08:21 128 15 106/87 95 12/13/17 08:16 123 17 96 12/13/17 08:14 118/99 12/13/17 08:14 134 118/99 12/13/17 08:11 144 18 12/13/17 08:06 152 19 12/13/17 08:05 147 118/99 12/13/17 08:01 155 19 97 12/13/17 07:56 144 16 97 12/13/17 07:53 98 Nasal Cannula 2.0 12/13/17 07:51 159 20 98 12/13/17 07:47 144 12/13/17 07:47 133/98 12/13/17 07:46 149 19 128/100 97 12/13/17 07:41 88 Room Air 12/13/17 07:41 37.0 141 18 133/98 88 Room Air General Appearance: WD/WN, no apparent distress Head: normocephalic Eyes: normal inspection ENT: normal ENT inspection, pharynx normal Neck: supple, + JVD Respiratory/Chest: chest non-tender, + pertinent finding (Reduced air at bases - no audible crackles) Cardiovascular: + tachycardia, + irregularly irregular Abdomen/GI: normal bowel sounds, non tender, soft Back: normal inspection, no CVA tenderness Extremities/Musculoskelatal: no calf tenderness, normal capillary refill, + pedal edema Neurologic/Psych: manager line II-XII nml as tested, no motor/sensory deficits, alert Skin: normal color, warm/dry Diagnostics Laboratory Results Results Past 24 Hours Test 12/13/17 07:13 Range/Units White Blood Count 9.74 4.8-10.8 K/uL Red Blood Count 4.10 4.2-5.4 M/uL Hemoglobin 13.7 12.0-16.0 g/dL Hematocrit 42.9 37-47 % Mean Corpuscular Volume 104.6 80-100 fL Mean Corpuscular Hemoglobin 33.4 25-34 pg Mean Corpuscular Hemoglobin Concent 31.9 32-36 g/dl Platelet Count 224 130-400 K/uL Mean Platelet Volume 9.0 7.4-10.4 fL Neutrophils (%) (Auto) 54.8 % Lymphocytes (%) (Auto) 32.8 % Monocytes (%) (Auto) 10.2 % Eosinophils (%) (Auto) 1.7 % Basophils (%) (Auto) 0.2 % Neutrophils # (Auto) 5.34 1.4-6.5 K/uL Lymphocytes # (Auto) 3.19 1.2-3.4 K/uL Monocytes # (Auto) 0.99 0.11-0.59 K/uL Eosinophils # (Auto) 0.17 0-0.5 K/uL Basophils # (Auto) 0.02 0-0.2 K/uL RDW Standard Deviation 55.5 36.4-46.3 fL RDW Coefficient of Variation 14.5 11.5-14.5 % Immature Granulocyte % (Auto) 0.3 % Immature Granulocyte # (Auto) 0.03 0.00-0.02 K/uL Nucleated RBC Absolute Count (auto) 0.05 0-0 K/uL Nucleated Red Blood Cells % 0.5 % Prothrombin Time 11.6 9.0-12.0 SECONDS Prothromb Time International Ratio 1.1 0.9-1.1 Activated Partial Thromboplast Time 26.3 21.0-31.0 SECONDS Partial Thromboplastin Ratio 1.0 Sodium Level 141 136-145 mmol/L Potassium Level 4.1 3.5-5.1 mmol/L Chloride Level 103 98-107 mmol/L Carbon Dioxide Level 31 21-32 mmol/L Anion Gap 7.0 3-11 mmol/L Blood Urea Nitrogen 28 7-18 mg/dl Creatinine 0.58 0.60-1.20 mg/dl Est Creatinine Clear Calc Drug Dose 59.9 ml/min Estimated GFR () 100.2 Estimated GFR (Non- 86.4 BUN/Creatinine Ratio 47.8 10-20 Random Glucose 104 70-99 mg/dl Calcium Level 8.9 8.5-10.1 mg/dl Magnesium Level 2.2 1.8-2.4 mg/dl Total Bilirubin 0.6 0.2-1 mg/dl Direct Bilirubin 0.3 0-0.2 mg/dl Aspartate Amino Transf (AST/SGOT) 49 15-37 U/L Alanine Aminotransferase (ALT/SGPT) 34 12-78 U/L Alkaline Phosphatase 158 45-117 U/L Troponin I < 0.015 0-0.045 ng/ml Total Protein 7.1 6.4-8.2 gm/dl Albumin 3.7 3.4-5.0 gm/dl Thyroid Stimulating Hormone (TSH) 1.210 0.300-4.500 uIu/ml Diagnostic Radiology CXR: : No acute cardiopulmonary findings. Moderate cardiomegaly. No evidence for overt pulmonary edema. EKG Rapid AF Impression Assessment and Plan 82 y/o F Hx Paroxysmal AF, HTN, HLD, CAD, diastolic CHF, severe mitral regurge, Parkinson's disease, depression, GERD. The pt resides at [facility] and had complained only of feeling odd. She was noted to be tachycardic by nursing staff and directed to the ER due to her history of AF. Rapid AF was confirmed on arrival to the ER. She was slow to respond to IV Metoprolol in addition to Diltiazem. She is relatively asymptomatic at the time of admission. She did not c/o CP, SOB, N/V, dysuria or fevers. 1) Rapid AF - the pt has required cardioversion during previous admissions. We have consulted her paid search analyst therefore. It is noted that she is not anticoagulated and had previously been prescribed Xarelto. She was not sure why. We will anticoagulate her pending evaluation by her paid search analyst as she may again require cardioversion. She is placed on a Cardizem drip, Heparin and assigned to telemetry. We will continue her PO B willian and Amio. 2) Diastolic CHF - she appears mildly volume overloaded. We will continue her Furosemide, Aldactone and Metoprolol as prescribed. Additional diuresis can be provided based on daily volume assessment. 3) Parkinson - cont Sinemet 4) CAD - no current evidence of ACS - cont ASA, Lipitor, Metoprolol 5) HTN - cont Losartan and Metoprolol with parameters 6) HPL - cont Lipitor 7) GERD - cont Omeprazole DNR - Heparin prophylaxis Total time for this admit ioncluding review of labs, meds, imaging, records - discussion with pt and ER attending - 40 min Resuscitation Status VTE Prophylaxis Will order VTE Prophylaxis: Yes
[2017-12-13] MEDS: DILTIAZEM HCL INJ 125 MG in DEXTROSE 5% 100ML IV SCH (12:55)
[2017-12-13] MEDS: FENTANYL 75 MCG/HR TDSY TD SCH (13:30)
[2017-12-13] MEDS: HEPARIN 25,000 UNIT/500ML D5W 500 ML IV SCH (13:32)
[2017-12-13] MEDS ORDERED: HEPARIN IV BOLUS 4,000 UNIT in SYRINGE 0 ML IV ONE (13:45)
[2017-12-13] MEDS: CHECK FENTANYL PATCH PLACEMENT SCH ×2 (15:19→23:44)
[2017-12-13] MEDS ORDERED: NURSING VERBAL MED ORDER ONE (15:30)
[2017-12-13] MEDS ORDERED: FENTANYL PATCH REMOVE & WASTE ONE (15:30)
--- NOTE | 2017-12-13 15:52 | Cardiology Consultation ---
Cardiology Consultation Date of Consultation: Dec 13, 2017 History of Present Illness Patient is a 82 year old female seen in cardiology consultation per the request of Dr Garcia for the evaluation of atrial fibrillation with rapid ventricular response. The patient is a resident of [facility]. She apparently complained of not feeling well with generalized complaints. No specific cardiac complaints. She was found to be tachycardic and was referred to the emergency room today where she was found to have atrial fibrillation with rapid ventricular response. Initial EKG performed 12/13/17 at 7:42 AM revealed atrial fibrillation at 164 bpm with mild nonspecific ST changes. The patient was placed on anticoagulation with unfractionated heparin and diltiazem infusion at 10 mg/h and was admitted to the telemetry floor. Currently during my assessment of her in room 217 she is without complaints. She denies any subjective fevers or chills. Nursing reports that her urine was very concentrated and foul-smelling. Patient typically follows with Dr. Tamayo of our practice. Her most recent outpatient visit was in June 2017 at which time stable cardiac signs and symptoms were noted. History Past Medical History: 1. Chronic coronary heart disease with cardiac catheterization in 2002 revealing three-vessel disease and she subsequently underwent CABG 3 with ARMSTRONG to LAD SVG to diagonal and SVG to the right PDA 2. Chronic exertional class II-III angina 3. 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 Single episode of atrial fibrillation that took place in the setting of an acute illness (diverticulitis) in 2014 previously this had not recurred until today 5. Chronic back pain 6. Parkinson's Past Surgical History: 1. CABG as outlined above 2. Cardiac catheterization prior to CABG Social History: Patient is . Her spouse still lives independently, but she [facility] Is a non-smoker Family History: Contributory due to her advanced age Review Of Systems 10 point review systems is reviewed and is negative with exception of that above Allergies Coded Allergies: Atropine (Verified Allergy, Mild, 12/13/17) Diphenoxylate (Verified Allergy, Mild, 12/13/17) Diazepam (Verified Allergy, Unknown, unknown, 12/13/17) Hydrochlorothiazide (Verified Adverse Reaction, Unknown, UNKNOWN, 12/13/17) Lisinopril (Verified Adverse Reaction, Unknown, NIGHTMARES, 12/13/17) Medications Reported Home Medications Medications Dose Route/Sig Max Daily Dose Days Date Category Dose Instructions Fentanyl 75 Mcg Tdsy 1 Patch TOP Q72 HOURS 04/12/17 Reported Oxycodone HCl 5 Mg Tab 1 Tab PO Q6H PRN 30 03/20/17 Rx Changed to 10 mg PO Q4HPRN FOR SEVERE PAIN. For moderate pain please give 5mg of oxycodone. Prilosec (Omeprazole) 20 Mg Capcr 20 Mg PO DAILY 03/14/17 Reported Lidoderm Patch 5% (Lidocaine) 1 Ea Tdsy 1 Patch TD QAM 03/14/17 Reported Neurontin (Gabapentin) 600 Mg Tab 600 Mg PO QAM 03/14/17 Reported 0830 Neurontin (Gabapentin) 400 Mg Cap 400 Mg PO BID 03/14/17 Reported [id number] Therems M (Multiple Vitamins W/ Minerals) 1 Tab Tab 1 Tab PO QAM 03/14/17 Reported Apap Extra Strength (Acetaminophen) 500 Mg Tab 1,000 Mg PO BID 03/14/17 Reported Movantik (Naloxegol Oxalate) 25 Mg Tab 1 Tab PO QAM 03/14/17 Reported Miralax (Polyethylene Glycol 3350) 1 Pow Pow 17 Gm PO DAILY 12/02/16 Reported Aspirin 325 Mg Tab 325 Mg PO DAILY 11/05/16 Reported Amiodarone Hcl 100 Mg Tab 50 Mg PO BID 11/05/16 Reported Calcitonin-[place] (Calcitonin [place]) 30 [place]/3.7 Ml Soln 1 [place] NA DAILY 30 09/18/16 Rx Lopressor (Metoprolol Tartrate) 25 Mg Tab 25 Mg PO BID 30 09/18/16 Rx hold when sbp <105, HR <65 Losartan Potassium 25 Mg Tab 75 Mg PO DAILY 30 09/18/16 Rx Klonopin (Clonazepam) 1 Mg Tab 0.5 Mg PO BID 3 09/18/16 Rx Docusate Sodium 100 Mg Cap 100 Mg PO BID PRN 09/13/16 Reported Vitamin D3 (Cholecalciferol) 1,000 Unit Tab 1,000 Mg PO DAILY 08/08/16 Reported Calcium + D (Calcium Carbonate-Vitamin D) 1 Tab Tab 1 Tab PO BID 08/08/16 Reported Flonase Allergy Relief (Fluticasone Propionate (Nasal)) 50 Mcg/Act Spr 1 [place] REMI DAILY 01/30/16 Reported Sinemet 25MG/100MG (Carbidopa/Levodopa) Tab 1.5 Tab PO QID 06/27/15 Reported [id number] Aldactone (Spironolactone) 25 Mg Tab 12.5 Mg PO DAILY 04/07/15 Reported Nitrostat (Nitroglycerin) 0.4 Mg Tab 0.4 Mg SL UD PRN 01/22/15 Reported Lipitor (Atorvastatin Calcium) 40 Mg Tab 40 Mg PO QPM 01/22/15 Reported Physical Exam Vital Signs (Last 8hrs): Last 8 Hrs Date Time Temp Pulse Resp B/P (MAP) Pulse Ox O2 Delivery O2 Flow Rate FiO2 12/13/17 15:32 36.8 87 20 135/74 (94) 95 Nasal Cannula 2.0 12/13/17 14:06 125 120/87 (98) 12/13/17 13:35 108 134/84 (101) 12/13/17 13:08 130 127/77 (94) 12/13/17 12:58 132 127/80 (96) 12/13/17 12:36 36.8 121 20 120/91 (101) 93 Nasal Cannula 12/13/17 10:59 118 12/13/17 10:56 123 12 94 12/13/17 10:51 121 17 96 12/13/17 10:50 94 Nasal Cannula 2.0 12/13/17 10:46 127 19 91 12/13/17 10:43 112/84 12/13/17 10:31 111 11 97 12/13/17 10:30 143/90 12/13/17 10:26 100 14 97 12/13/17 10:21 132 15 96 12/13/17 10:16 103 9 96 12/13/17 10:11 98 15 97 12/13/17 10:06 108 12 96 12/13/17 10:01 93 13 97 12/13/17 09:56 100 20 96 12/13/17 09:51 106 15 96 12/13/17 09:46 83 14 96 12/13/17 09:41 92 13 96 12/13/17 09:36 82 18 93 12/13/17 09:31 82 11 94 12/13/17 09:26 85 13 94 12/13/17 09:21 98 11 94 12/13/17 09:16 115 13 96 12/13/17 09:14 117/85 12/13/17 09:11 109 11 96 12/13/17 09:06 115 13 96 12/13/17 09:01 110 13 96 12/13/17 08:56 116 12 96 12/13/17 08:51 111 14 96 12/13/17 08:46 116 12 96 12/13/17 08:43 107/81 12/13/17 08:41 114 15 96 12/13/17 08:36 124 16 95 12/13/17 08:34 118 107/81 12/13/17 08:31 106 14 95 12/13/17 08:26 114 16 95 12/13/17 08:21 128 15 106/87 95 12/13/17 08:16 123 17 96 12/13/17 08:14 118/99 12/13/17 08:14 134 118/99 12/13/17 08:11 144 18 12/13/17 08:06 152 19 12/13/17 08:05 147 118/99 12/13/17 08:01 155 19 97 12/13/17 07:56 144 16 97 12/13/17 07:53 98 Nasal Cannula 2.0 12/13/17 07:51 159 20 98 12/13/17 07:47 144 12/13/17 07:47 133/98 12/13/17 07:46 149 19 128/100 97 General Appearance: Alert and Oriented x3. NAD. Head: Normocephalic Atraumatic. Eyes: PERRLA, EOMI, conjunctiva and sclera clear Neck: Supple. No carotid bruits noted. No JVD. No HJD. Respiratory: Breath sounds clear to auscultation bilaterally. No w/r/r. Cardiovascular: Reg rate and rhythm. S1 and S2 noted. No murmurs, rubs, gallops. PMI non displace. Abdomen: Normal bowel sounds, soft nontender. no abdominal bruits. Extremities: No edema, no clubbing or cyanosis. distal pulses 2/4 bilaterally. Neuro: No focal deficits. Psychiatric: Normal affect. Data Last 24 Hours Test 12/13/17 07:13 White Blood Count 9.74 K/uL Red Blood Count 4.10 M/uL Hemoglobin 13.7 g/dL Hematocrit 42.9 % Mean Corpuscular Volume 104.6 fL Mean Corpuscular Hemoglobin 33.4 pg Mean Corpuscular Hemoglobin Concent 31.9 g/dl Platelet Count 224 K/uL Mean Platelet Volume 9.0 fL Neutrophils (%) (Auto) 54.8 % Lymphocytes (%) (Auto) 32.8 % Monocytes (%) (Auto) 10.2 % Eosinophils (%) (Auto) 1.7 % Basophils (%) (Auto) 0.2 % Neutrophils # (Auto) 5.34 K/uL Lymphocytes # (Auto) 3.19 K/uL Monocytes # (Auto) 0.99 K/uL Eosinophils # (Auto) 0.17 K/uL Basophils # (Auto) 0.02 K/uL RDW Standard Deviation 55.5 fL RDW Coefficient of Variation 14.5 % Immature Granulocyte % (Auto) 0.3 % Immature Granulocyte # (Auto) 0.03 K/uL Nucleated RBC Absolute Count (auto) 0.05 K/uL Nucleated Red Blood Cells % 0.5 % Prothrombin Time 11.6 SECONDS Prothromb Time International Ratio 1.1 Activated Partial Thromboplast Time 26.3 SECONDS Partial Thromboplastin Ratio 1.0 Sodium Level 141 mmol/L Potassium Level 4.1 mmol/L Chloride Level 103 mmol/L Carbon Dioxide Level 31 mmol/L Anion Gap 7.0 mmol/L Blood Urea Nitrogen 28 mg/dl Creatinine 0.58 mg/dl Est Creatinine Clear Calc Drug Dose 59.9 ml/min Estimated GFR () 100.2 Estimated GFR (Non- 86.4 BUN/Creatinine Ratio 47.8 Random Glucose 104 mg/dl Calcium Level 8.9 mg/dl Magnesium Level 2.2 mg/dl Total Bilirubin 0.6 mg/dl Direct Bilirubin 0.3 mg/dl Aspartate Amino Transf (AST/SGOT) 49 U/L Alanine Aminotransferase (ALT/SGPT) 34 U/L Alkaline Phosphatase 158 U/L Troponin I < 0.015 ng/ml Total Protein 7.1 gm/dl Albumin 3.7 gm/dl Thyroid Stimulating Hormone (TSH) 1.210 uIu/ml EKG as outlined above Assessment & Plan Impression: 82-year-old female 1. Atrial fibrillation with rapid ventricular response 2. History of mixed valvular heart disease with moderate mitral stenosis and moderate mitral regurgitation 3. History of coronary heart disease, history of chronic exertional angina, remote CABG 3 in 2002 Discussion/recommendations: The patient had a previous [employer] outpatient monitoring specialist placed in 2017. No recurrent atrial fibrillation was observed. Several very brief episodes of supraventricular tachycardia were noted there were only a few beats in duration. Sinus bradycardia was the predominant rhythm with average heart rate of 54 bpm. Patient is apparently been maintained on low-dose amiodarone. Although her admission record states 50 mg twice daily, our office chart has written down that she takes 100 mg twice daily. Apparently she had been deemed to be a poor anticoagulation candidate and therefore rhythm control strategy was pursued with hopes to avoid anticoagulation. At present, continue heparin for stroke prophylaxis. I am going to place her amiodarone on hold. Because at this point we are not certain with the duration of her atrial fibrillation has been with her history of mitral stenosis she is at high risk for atrial thrombus. We will increase her metoprolol tartrate from 25 mg 2 times per day to 25 mg 4 times daily for now. We will check a urinalysis and urine culture since nursing had observed concerns of concentrated foul-smelling urine the patient presented with vague nonspecific symptoms of illness. An echocardiogram will be obtained during her hospital stay. Dr. Salinas will be rounding for our service tomorrow 12/14/17.
[2017-12-13] MEDS: METOPROLOL TARTRATE 25 MG TAB PO SCH ×2 (16:48→20:18)
[2017-12-13] MEDS: CARBIDOPA/LEVODOPA 25/100MG TAB PO SCH ×2 (16:49→20:17)
[2017-12-13] MEDS: GABAPENTIN 400 MG CAP PO SCH ×2 (16:50→20:42)
[2017-12-13] MEDS: ATORVASTATIN 40 MG TAB PO SCH (20:18)
[2017-12-13 20:24] LABS: PTT PATIENT 69.2 SECONDS (21.0-31.0)
[2017-12-13] MEDS: CLONAZEPAM 1 MG TAB PO SCH (20:43)
[2017-12-13] MEDS ORDERED: AMIODARONE 200 MG TAB PO SCH (21:00)
[2017-12-13] MEDS ORDERED: METOPROLOL TARTRATE 25 MG TAB PO SCH (21:00)
[2017-12-14] VITALS (13 sets, daily range): BP systolic 108–139; BP diastolic 66–93; PULSE 73–123; TEMP 36.4–37; O2SAT 90–97
[2017-12-14 06:38] LABS: HEMATOCRIT 43.2 % (37-47); HEMOGLOBIN 13.1 g/dL (12.0-16.0); MEAN CELL VOLUME 107.7 fL (80-100); MEAN CORPUSCULAR HEMOGLOBIN 32.7 pg (25-34); MEAN CORPUSCULAR HGB CONC 30.3 g/dl (32-36); MEAN PLATELET VOLUME 8.7 fL (7.4-10.4); PLATELET COUNT 200 K/uL (130-400); RED CELL DISTRIBUTION WIDTH CV 14.5 % (11.5-14.5); RED CELL DISTRIBUTION WIDTH SD 56.6 fL (36.4-46.3); WHITE BLOOD COUNT 9.72 K/uL (4.8-10.8)
[2017-12-14 06:55] LABS: PTT PATIENT 60.5 SECONDS (21.0-31.0)
[2017-12-14] MEDS: CHECK FENTANYL PATCH PLACEMENT SCH ×2 (07:11→14:32)
[2017-12-14 07:13] LABS: CALCIUM 8.7 mg/dl (8.5-10.1); CREATININE 0.54 mg/dl (0.60-1.20); POTASSIUM 4.1 mmol/L (3.5-5.1)
[2017-12-14] MEDS: SPIRONOLACTONE 25 MG TAB PO SCH (07:55)
[2017-12-14] MEDS: GABAPENTIN 600 MG TAB PO SCH (07:55)
[2017-12-14] MEDS: CALCITONIN SALMON NA 200 IU/AC 3.7 ML BTL SCH (07:55)
[2017-12-14] MEDS: LOSARTAN POTASSIUM 25 MG TAB PO SCH (07:55)
[2017-12-14] MEDS: CARBIDOPA/LEVODOPA 25/100MG TAB PO SCH ×4 (07:56→22:00)
[2017-12-14] MEDS: METOPROLOL TARTRATE 25 MG TAB PO SCH ×4 (07:56→21:59)
[2017-12-14] MEDS: ASPIRIN 325 MG ECTAB PO SCH (07:56)
[2017-12-14] MEDS: PANTOprazole SOD 40 MG TAB PO SCH (07:56)
[2017-12-14] MEDS: CLONAZEPAM 1 MG TAB PO SCH ×2 (07:56→21:59)
[2017-12-14] MEDS: LIDODERM (LIDOCAINE) PATCH 5% TD SCH (07:56)
[2017-12-14] MEDS: POLYETHYLENE (MIRALAX) 17 GM PACK PO SCH (07:56)
--- NOTE | 2017-12-14 08:08 | DIAGNOSTIC IMAGING REPORT ---
HEAD CT NONCONTRAST CT DOSE: 614.27 mGy.cm HISTORY: Stroke symptoms. TECHNIQUE: Multiaxial CT images of the head were performed without the use of intravenous contrast. Automated exposure control was utilized for this study. A dose lowering technique was utilized adhering to the principles of ALARA. Comparison: Head CT 09/13/2016. Findings: The paranasal sinuses and mastoid air cells are clear. The calvarium and skull base are intact. There is no mass, hematoma, midline shift, acute infarct. White matter hypodensity is nonspecific but suggestive of microvascular ischemic change. The ventricles and sulci demonstrate mild age-related involutional changes. Stable prominence of the extra-axial space at the left high convexity measuring 4.6 cm. This likely represents an arachnoid cyst. Impression: No significant change compared to the prior study. No acute intracranial abnormality. Electronically signed by: Prashant Medina M.D. 12/14/2017 8:07 AM Dictated Date/Time: 12/14/2017 8:02 AM
[2017-12-14 08:33] LABS: CKMB 1.4 ng/ml (0.5-3.6)
[2017-12-14] MEDS ORDERED: OPTIRAY 320 IV PRN (08:45)
[2017-12-14] MEDS ORDERED: PHARMACIST DISCHARGE MED REC CONSULT PRN (08:45)
--- NOTE | 2017-12-14 09:49 | DIAGNOSTIC IMAGING REPORT ---
HEAD & NECK CTA HISTORY: Left-sided weakness. Assess for stroke. TECHNIQUE: Multiaxial CT images of the head were performed following the intravenous administration of contrast to evaluate the major cerebral vessels. Multiaxial CT images of the neck were also performed following the intravenous administration of contrast to evaluate the major cervical vessels. Maximum intensity projection images were also obtained. A dose lowering technique was utilized adhering to the principles of ALARA. COMPARISON: Head CT 12/11/2017. FINDINGS: There is no mass, hematoma, midline shift, or acute infarct. Visualized intracranial internal carotid arteries, distal right vertebral artery, and basilar artery are widely patent. There is no significant stenosis, occlusion, or aneurysm seen within the bilateral ACAs, MCAs, or materials management supervisor. Mild focal narrowing due to the calcified plaque within the distal left vertebral artery. There is moderate calcified plaque within the bilateral carotid siphons resulting in mild multifocal narrowing The aortic arch and proximal great vessels are widely patent. There is no significant stenosis, occlusion, or dissection identified within the bilateral common carotid, internal carotid, or vertebral arteries. Mildly enlarged left neck base lymph nodes remain unchanged. Mild calcified plaque within the aortic arch. Mild calcified plaque within the bilateral carotid bifurcations. A 7 mm left thyroid hypodense nodule. IMPRESSION: 1. No significant stenosis, occlusion, or aneurysm within the [place]. Mild focal narrowing within the distal left vertebral artery and bilateral carotid siphons due to the calcified plaque. 2. No significant stenosis, occlusion, or dissection identified within the cervical carotid or vertebral arteries. Electronically signed by: Prashant Medina M.D. 12/14/2017 9:48 AM Dictated Date/Time: 12/14/2017 9:03 AM
--- NOTE | 2017-12-14 09:49 | DIAGNOSTIC IMAGING REPORT ---
HEAD & NECK CTA HISTORY: Left-sided weakness. Assess for stroke. TECHNIQUE: Multiaxial CT images of the head were performed following the intravenous administration of contrast to evaluate the major cerebral vessels. Multiaxial CT images of the neck were also performed following the intravenous administration of contrast to evaluate the major cervical vessels. Maximum intensity projection images were also obtained. A dose lowering technique was utilized adhering to the principles of ALARA. COMPARISON: Head CT 12/11/2017. FINDINGS: There is no mass, hematoma, midline shift, or acute infarct. Visualized intracranial internal carotid arteries, distal right vertebral artery, and basilar artery are widely patent. There is no significant stenosis, occlusion, or aneurysm seen within the bilateral ACAs, MCAs, or city magistrate. Mild focal narrowing due to the calcified plaque within the distal left vertebral artery. There is moderate calcified plaque within the bilateral carotid siphons resulting in mild multifocal narrowing The aortic arch and proximal great vessels are widely patent. There is no significant stenosis, occlusion, or dissection identified within the bilateral common carotid, internal carotid, or vertebral arteries. Mildly enlarged left neck base lymph nodes remain unchanged. Mild calcified plaque within the aortic arch. Mild calcified plaque within the bilateral carotid bifurcations. A 7 mm left thyroid hypodense nodule. IMPRESSION: 1. No significant stenosis, occlusion, or aneurysm within the [place]. Mild focal narrowing within the distal left vertebral artery and bilateral carotid siphons due to the calcified plaque. 2. No significant stenosis, occlusion, or dissection identified within the cervical carotid or vertebral arteries. Electronically signed by: Prashant Medina M.D. 12/14/2017 9:48 AM Dictated Date/Time: 12/14/2017 9:03 AM
[2017-12-14] MEDS ORDERED: PERFLUTREN LIPID MICROSPHERE (DEFINITY) IV ONE (10:06)
[2017-12-14] MEDS ORDERED: NURSING VERBAL MED ORDER ONE ×2 (10:30→11:45)
--- NOTE | 2017-12-14 10:35 | Neurology Consultation ---
Neurology Consultation Date of Consultation: Dec 14, 2017. Attending Physician: Yoan Boggs MD, PhD Primary Care Physician: Hansa Suarez Reason for Consultation: Patient is an 82-year-old, who was asked to see, emergently, by Dr. Boggs, for neurologic evaluation regarding acute stroke History of Present Illness Source: patient, family, caregiver, clinic records, hospital records This patient has a history of essential tremor of a significant nature followed by Dr. Hess for the last several years. She also has some mild Parkinson's disease and is on Sinemet 25/100, 1/2 tablets 4 times daily. She also takes clonazepam for the tremor. She has a mild underlying dementia with short-term forgetfulness. An MRI of the brain in June of 2015 revealed mild generalized atrophy and old nonspecific scattered small vessel ischemic disease. She last saw Dr. Hess in September of 2017. She has been a resident of [facility] for about the last year because of her disabilities. She has had a history of falling and in early 2016 had a burst fracture of the L3 bone. MRI of the lumbar spine in August of 2016 showed fragments of the L3 bone scattered hitting nerve roots as well as moderate spinal stenosis from disc in bone degenerative disease at L4-5. She has chronic low back pain and has been on chronic pain medication including fentanyl, oxycodone, and gabapentin. In addition, the patient has had a history of atrial fibrillation although she was not on anticoagulation. She has a history of congestive heart failure and hypertension. She has dyslipidemia. Although she was diagnosed with borderline obstructive sleep apnea in the past she did not require CPAP. The patient had felt "odd" for couple of days prior to admission. There was a nausea and nonspecific ill feeling. This was worse morning of December 13 when she arose. EMS found her to be in atrial fibrillation with a rate between 130 and 150 She arrived to the emergency room December 13 at 0741 hours with a temperature 37.0, pulse of 141, respiratory rate 18, blood pressure 133/98, and O2 saturation 84 percent. She was fully oriented in the emergency room and a chest x-ray was unremarkable. She had no apparent neurologic deficits. She has been in atrial fibrillation since admission. CBC was unremarkable. Chemistry profile showed elevated BUN. TSH was 1.2 and she had some mild elevation of AST and alk-phos. The patient was put on anticoagulation with heparin because of the atrial fibrillation and was followed by Cardiology. There is history of severe mitral regurgitation and coronary disease. At 0621 PTT was 60.5. It was 69 at 1927. There is a reported the chart at midnight she was oriented and doing well. There is no other note regarding her mental status or neurologic condition until 0720. There are nursing notes at 0400 which she is described as sleeping, and a note at 0500 for a bladder scan with no mention of her mental state or neurologic exam. Sometime around 0715 the patient the head echocardiogram initiated. The patient opened her eyes to voice according to the echocardiogram tech and close them without speaking. At 0720 hours nursing came in to move the patient in bed for the echo which she was found to be not responding properly and had a left facial droop. NIH stroke scale was [address] Boggs arrived assess the patient at 0739 and a stroke alert was called at 0740. CT scan was ordered at 0750 and was finished at 0755. I saw the patient at 0800 hours and found that the patient had an NIH stroke scale of approximately 10. The details of the initial examination arre in the physical examination section below, with an updated exam afterwards. The exam was consistent with a significant left-sided danuta paresis, left homonymous hemianopsia, and aphasia, there by potentially being large vessel occlusion. At 0815 CT scan results were unremarkable with no hemorrhage. The patient was not a tPA candidate due to being completely anticoagulated on heparin. At that same time I spoke with Dr. Mejia solo [facility] stroke industrial relations manager via telephone. He verified that she was not a tPA candidate. He suggested CT angiography of the head and neck and the patient with still potentially be a thrombectomy candidate. CT angiography of the head and neck with contrast was ordered at 0820. Apparently there was some issue with the CT scan machine and I received a verbal order from the radiologist via telephone that the CT angiography of the head was unremarkable Ms., with no significant vessel occlusion or stenosis at 0915. The patient was very sleepy but opened eyes and answered with loud voice. She could move her left upper extremity fairly well although there was some slight weakness compared to the right and she still appeared to have a slight facial droop at the corner of the mouth on the right. She would speak nonsense at times but could follow one-step commands. She was not moving her left leg voluntarily. Her , who was present in the room at that time, believes that her left leg has been weak and painful and she does not ambulate because of that limb. Past Medical/Surgical History Medical Problems: (1) Atrial fibrillation with rapid ventricular response Status: Acute (2) Back pain Status: Acute (3) Cholelithiasis Status: Acute (4) Compression fracture of L5 lumbar vertebra Status: Acute (5) Fall Status: Acute (6) Fall at home Status: Acute (7) Head injury Status: Acute (8) Left hip pain Status: Acute (9) Lumbar compression fracture Status: Acute (10) Right lumbar pain Status: Acute (11) Thoracic compression fracture Status: Acute (12) Upper abdominal pain Status: Acute History of atrial fibrillation Diastolic congestive heart failure Dyslipidemia History of dysphagia Significant essential tremor with mild Parkinson's disease, followed by Dr. Hess Mild dementia, likely vascular Hypertension Gastroesophageal reflux disease Coronary artery bypass graft many years ago at [facility] Hysterectomy Family History Mother around age this 53 of an CO. Father around age 70 of an CO Father: coronary artery disease Sibling(s): coronary artery disease Social History Patient never used tobacco products. 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 Smoking Status: Never smoker Smokeless Tobacco Use: No Alcohol Use: none Drug Use: none Marital Status: Housing Status: halfway Occupation Status: retired Allergies Coded Allergies: Atropine (Verified Allergy, Mild, 12/13/17) Diphenoxylate (Verified Allergy, Mild, 12/13/17) Diazepam (Verified Allergy, Unknown, unknown, 12/13/17) Hydrochlorothiazide (Verified Adverse Reaction, Unknown, UNKNOWN, 12/13/17) Lisinopril (Verified Adverse Reaction, Unknown, NIGHTMARES, 12/13/17) Current Inpatient Medications Current Inpatient Medications Medications (Trade) Dose Ordered Sig/Naomi Route Start Time Stop Time Status Last Admin Dose Admin Aspirin (Ecotrin Tab) 325 mg DAILY PO 12/14/17 09:00 01/13/18 08:59 Atorvastatin Calcium (Lipitor Tab) 40 mg QPM PO 12/13/17 21:00 01/12/18 20:59 12/13/17 20:18 40 MG Calcitonin [place] (Fortical Nasal [place]) 1 spray DAILY NA 12/14/17 09:00 01/13/18 08:59 Carbidopa/Levodopa (Sinemet 25/ 100MG Tab) 1.5 tab QID PO 12/13/17 17:00 01/12/18 16:59 12/13/17 20:17 1.5 TAB Clonazepam (Klonopin Tab) 0.5 mg BID PO 12/13/17 21:00 01/12/18 20:59 12/13/17 20:43 0.5 MG Gabapentin (Neurontin Cap) 400 mg DAILY@1630,2230 PO 12/13/17 16:30 01/12/18 16:29 12/13/17 20:42 400 MG Gabapentin (Neurontin Tab) 600 mg DAILY@0830 PO 12/14/17 08:30 01/13/18 08:29 Lidocaine (Lidoderm Patch 5%) 1 patch QAM TD 12/14/17 09:00 01/13/18 08:59 Losartan Potassium (coZAAR TAB) 75 mg DAILY PO 12/14/17 09:00 01/13/18 08:59 Spironolactone (Aldactone Tab) 12.5 mg DAILY PO 12/14/17 09:00 01/13/18 08:59 Miscellaneous Information (Order Awaiting Action) 1 ea QS N/A 12/13/17 16:00 01/12/18 15:59 Pantoprazole Sodium (Protonix Tab) 40 mg DAILY PO 12/14/17 09:00 01/13/18 08:59 Polyethylene (Miralax Powder Packet) 17 gm DAILY PO 12/14/17 09:00 01/13/18 08:59 Miscellaneous (Remove Lidoderm Patch) 1 ea DAILY@21 N/A 12/13/17 21:00 01/12/18 20:59 Oxycodone HCl (Roxicodone Immediate Rel Tab) 5 mg Q6H PRN PO 12/13/17 10:30 12/27/17 10:29 Acetaminophen (Tylenol Tab) 650 mg Q4H PRN PO 12/13/17 10:30 01/12/18 10:29 Al Hydrox/Mg Hydrox/Simethicone (Maalox Max Susp) 15 ml Q4H PRN PO 12/13/17 10:30 01/12/18 10:29 Magnesium Hydroxide (Milk Of Magnesia Susp) 30 ml Q12H PRN PO 12/13/17 10:30 01/12/18 10:29 Ondansetron HCl (Zofran Inj) 4 mg Q6H PRN IV 12/13/17 10:30 01/12/18 10:29 Morphine Sulfate (MoRPHine SULFATE INJ) 2 mg Q30M PRN IV 12/13/17 10:30 12/27/17 10:29 Diltiazem HCl 125 mg/Dextrose 125 ml @ 0 mls/hr Q0M IV 12/13/17 11:15 01/12/18 11:14 12/13/17 12:55 10 MLS/HR Fentanyl (Duragesic Patch) 75 mcg Q3D@1400 TD 12/13/17 14:00 12/27/17 13:59 12/13/17 13:30 75 MCG Miscellaneous (Fentanyl Patch Remove & Waste) 1 ea Q3D@1359 N/A 12/14/17 13:59 01/13/18 13:58 Miscellaneous Information (Check Fentanyl Patch Placement) 1 ea QS N/A 12/13/17 16:00 01/12/18 15:59 12/14/17 07:11 1 EA Heparin Sodium/ Dextrose 500 ml @ 18 mls/hr Q24H IV 12/13/17 14:01 01/12/18 14:00 12/13/17 13:32 18 MLS/HR Metoprolol Tartrate (Lopressor Tab) 25 mg QID PO 12/13/17 17:00 01/12/18 16:59 12/13/17 20:18 25 MG Ioversol (Optiray 320) 111 ml UD PRN IV 12/14/17 08:45 12/18/17 08:44 Miscellaneous Information (Pharmacist Discharge Med Rec Consult) 1 ea UD PRN N/A 12/14/17 08:45 01/13/18 08:44 Review of Systems Review of systems is difficult because of her recent events and mental status Constitutional: + weakness, + fatigue Eyes: No diplopia ENT: No hearing loss, No sore throat Respiratory: No cough, No shortness of breath Cardiovascular: No chest pain, No palpitations Abdomen: No pain, No nausea Musculoskeletal: + joint pain Genitourinary - Female: No dysuria, No urinary incontinence Neurologic: + memory loss, + weakness, + balance problems, No numbness/tingling Psychiatric: No depression symptoms, No anxiety Endocrine: + fatigue Hematologic / Lymphatic: No abnormal bleeding/bruising Integumentary: No rash Allergic / Immunologic: No hives Physical Exam Vital Signs (Past 24 Hrs): Date Time Temp Pulse Resp B/P (MAP) Pulse Ox O2 Delivery O2 Flow Rate FiO2 12/14/17 09:21 122 20 135/92 (106) 96 Oxymask 4.0 12/14/17 08:00 Nasal Cannula 2.0 12/14/17 07:42 36.4 110 20 137/88 (104) 97 Nasal Cannula 3.0 12/14/17 07:20 36.5 110 20 118/82 (94) 92 Nasal Cannula 3.0 12/14/17 06:56 102 117/78 (91) 12/14/17 06:42 122/93 (103) 12/14/17 04:01 36.9 84 16 122/81 (95) 96 Nasal Cannula 3.0 12/14/17 04:00 Nasal Cannula 2.0 12/13/17 23:59 Nasal Cannula 2.0 12/13/17 23:23 36.5 85 18 98/65 (76) 98 Nasal Cannula 3.0 12/13/17 20:00 Nasal Cannula 2.0 12/13/17 19:59 36.4 66 20 128/84 (99) 96 Nasal Cannula 3.0 12/13/17 18:15 78 122/80 (94) 93 Nasal Cannula 2.0 12/13/17 18:10 81 Room Air 12/13/17 16:57 98 156/89 (111) 12/13/17 16:00 Nasal Cannula 2.0 12/13/17 15:32 36.8 87 20 135/74 (94) 95 Nasal Cannula 2.0 12/13/17 14:06 125 120/87 (98) 12/13/17 13:35 108 134/84 (101) 12/13/17 13:08 130 127/77 (94) 12/13/17 12:58 132 127/80 (96) 12/13/17 12:36 36.8 121 20 120/91 (101) 93 Nasal Cannula 12/13/17 10:59 118 6/22/18 10:56 123 12 94 12/13/17 10:51 121 17 96 12/13/17 10:50 94 Nasal Cannula 2.0 12/13/17 10:46 127 19 91 12/13/17 10:43 112/84 12/13/17 10:31 111 11 97 12/13/17 10:30 143/90 12/13/17 10:26 100 14 97 12/13/17 10:21 132 15 96 12/13/17 10:16 103 9 96 12/13/17 10:11 98 15 97 12/13/17 10:06 108 12 96 12/13/17 10:01 93 13 97 12/13/17 09:56 100 20 96 12/13/17 09:51 106 15 96 12/13/17 09:46 83 14 96 12/13/17 09:41 92 13 96 12/13/17 09:36 82 18 93 12/13/17 09:31 82 11 94 When I 1st saw the patient at 0800 hours, she was lying with her eyes closed moving her head and arm some. With voice she would open her eyes but seemed open her right eye more easily than her left eye. When startled, both eyes opened fairly symmetrically. Pupils were 3-4 millimeters bilaterally and reactive to light. Discs seem sharp bilaterally. There was a mild droop of the corner of the mouth on the left and I was having trouble getting her to voluntarily smile but she did once and both sides seem to move some. Her tongue was midline and palate raised well. There were no deficits to sensation of the face. The patient had trouble tracking my finger but could move her eyes to the right and to the left conjugately without nystagmus. Up and down gaze was more difficult. She seemed to identify the correct finger count in her right visual kwong but not all in the left visual kwong. She was agitated some and a little resistant to the exam but did tend to cooperate fairly well. Her speech was not dysarthric but I felt there was some expressive and receptive aphasia. She could name her name and her 's name but was speaking with a short word sentences and was not fluent. At times, she would come out with the nonsense sentence such as "we have to feed the pigs ". She gets irritated the more you manipulate her and get ask her to do things. She could not tell me the month (was not oriented to time) or where she was. When left alone briefly she would close her eyes and go back to sleep. Neck was supple and there were no cervical bruits . With outstretched arms she could not hold her left arm up as well and she had a drift and would put it back down on the bed after a couple of seconds. She could hold her right arm off well. She could not raise her left leg off the bed but could raise her right leg up and keep it up very well. She had right greater than left resting tremor and she had a chin tremor. There was no obvious ataxia of the limbs but she had action tremor bilaterally. Tone was increased in all 4 limbs. Reflexes were 2/4 in the biceps, triceps, and brachioradialis tendons bilaterally. Quadriceps and Achilles tendons were decreased bilaterally. Toes were downgoing to plantar stimulation bilaterally and she had no sensory deficits in the limbs diffusely. There was no peripheral edema and she had good peripheral pulses NIH stroke scale at that time was approximately 10 Later on in the morning around 0930 she was a little more easily aroused and a little more fluent with her speech. She still was not moving her left leg and was not seeing well off to the left but was moving her left arm fairly well. Laboratory Results Past 24 Hours: 12/14/17 06:21 12/14/17 06:21 Test 12/14/17 06:21 12/14/17 06:31 12/14/17 07:38 12/14/17 07:50 Red Blood Count 4.01 M/uL (4.2-5.4) Mean Corpuscular Volume 107.7 fL (80-100) Mean Corpuscular Hemoglobin 32.7 pg (25-34) Mean Corpuscular Hemoglobin Concent 30.3 g/dl (32-36) RDW Standard Deviation 56.6 fL (36.4-46.3) RDW Coefficient of Variation 14.5 % (11.5-14.5) Mean Platelet Volume 8.7 fL (7.4-10.4) Activated Partial Thromboplast Time 60.5 SECONDS (21.0-31.0) Partial Thromboplastin Ratio 2.3 Anion Gap 2.0 mmol/L (3-11) Est Creatinine Clear Calc Drug Dose 63.8 ml/min Estimated GFR () 102.6 Estimated GFR (Non- 88.5 BUN/Creatinine Ratio 43.5 (10-20) Calcium Level 8.7 mg/dl (8.5-10.1) Magnesium Level 2.2 mg/dl (1.8-2.4) Phosphorus Level 4.0 mg/dl (2.5-4.9) Creatine Kinase MB 1.4 ng/ml (0.5-3.6) Troponin I < 0.015 ng/ml (0-0.045) Bedside Glucose 93 mg/dl (70-90) Creatine Kinase MB Ratio (0-3.0) Test 12/14/17 08:42 Date/Time Source Procedure Growth Status 12/13/17 18:00 Nasal MRSA DNA Surveillance Screen - Final Specimen Negative for MRSA by DNA Probe Complete Imaging HEAD CT NONCONTRAST CT DOSE: 614.27 mGy.cm HISTORY: Stroke symptoms. TECHNIQUE: Multiaxial CT images of the head were performed without the use of intravenous contrast. Automated exposure control was utilized for this study. A dose lowering technique was utilized adhering to the principles of ALARA. Comparison: Head CT 09/13/2016. Findings: The paranasal sinuses and mastoid air cells are clear. The calvarium and skull base are intact. There is no mass, hematoma, midline shift, acute infarct. White matter hypodensity is nonspecific but suggestive of microvascular ischemic change. The ventricles and sulci demonstrate mild age-related involutional changes. Stable prominence of the extra-axial space at the left high convexity measuring 4.6 cm. This likely represents an arachnoid cyst. Impression: No significant change compared to the prior study. No acute intracranial abnormality. Electronically signed by: Prashant Medina M.D. 12/14/2017 8:07 AM Impression 1. Acute stroke this morning with left-sided deficits including paresis, speech problems, and a left homonymous hemianopsia. There does not seem to be a left danuta sensory deficit. She has a history of atrial fibrillation and was recently initiated on heparin. She was fully heparinized by the time this event happened. There does not seem to be a large vessel occlusion by CT angiography although the final report of the neck is pending. She has a history of hypertension dyslipidemia which also gives her small vessel ischemic risk. This event happened despite being on 09/15 aspirin tablet daily Overall, I suspect an ischemic event however MRI is pending. 2. Parkinson's disease with significant essential tremor This is stable on current dose of carbidopa/levodopa and other medication 3. Dementia, likely vascular in aging This is stable as well 4. Atrial fibrillation chronic, but with recent anticoagulation. She has other heart issues and is followed by Cardiology 5. History of chronic lumbar spine pain with spinal stenosis and L3 burst fracture in the past she is on chronic narcotic and other medication for pain. Plan 1. MRI of the brain to evaluate for stroke 2. Echocardiogram if not already done 3. I may consider Plavix instead of aspirin but will make this decision after the MRI. 4. Keep anticoagulation for now 5. Keep Sinemet dose the same for now. Overall, I spent a total of 150 minutes with this case including records review , review of films, direct patient evaluation and care (this was the vast majority of the time), discussion of the case with Dr. Ba at [facility], ICU staff, Radiology, the patient and her spouse who is present at bedside, and Dr. Boggs including differential diagnosis and treatment options.
[2017-12-14] MEDS: SODIUM CHLORIDE 0.9% 1000ML 1,000 ML IV SCH (10:45)
[2017-12-14 11:01] LABS: HEMOGLOBIN A1C 5.9 % (4.5-5.6)
[2017-12-14] MEDS: DILTIAZEM HCL INJ 125 MG in DEXTROSE 5% 100ML IV SCH (11:48)
[2017-12-14] MEDS ORDERED: LORAZEPAM INJ 0.5 MG in SYRINGE 0.75 ML IV SCH (12:15)
[2017-12-14] MEDS ORDERED: DILTIAZEM HCL 5 MG/ML 5 ML VIAL IV STA (12:23)
--- NOTE | 2017-12-14 12:29 | Cardiology Follow-Up ---
Subjective General Date of Service: Dec 14, 2017. Pt evaluation today including: conversation w/ patient, physical exam, chart review, lab review, review of studies, conversation w/ oim consultant, review of inpatient medication list History of Present Illness The patient is a 82 year old female seen in follow-up. Stroke alert called this morning secondary to unresponsiveness and facial droop. Patient evaluated by neurology who suspects acute cerebrovascular accident. CT of the head, and CT angiogram negative. MRI pending at this time. Patient is n.p.o. Atrial fibrillation with rapid ventricular response on telemetry. Intravenous heparin infusing. Allergies Coded Allergies: Atropine (Verified Allergy, Mild, 12/13/17) Diphenoxylate (Verified Allergy, Mild, 12/13/17) Diazepam (Verified Allergy, Unknown, unknown, 12/13/17) Hydrochlorothiazide (Verified Adverse Reaction, Unknown, UNKNOWN, 12/13/17) Lisinopril (Verified Adverse Reaction, Unknown, NIGHTMARES, 12/13/17) Social History Smoking Status: Never Smoker Hx Tobacco Use In Past Year?: No Hx Alcohol Use - Type And Amou: No Hx Substance Use - Type And Am: No Problem List Medical Problems: (1) Atrial fibrillation with rapid ventricular response Status: Acute (2) Back pain Status: Acute (3) Cholelithiasis Status: Acute (4) Compression fracture of L5 lumbar vertebra Status: Acute (5) Fall Status: Acute (6) Fall at home Status: Acute (7) Head injury Status: Acute (8) Left hip pain Status: Acute (9) Lumbar compression fracture Status: Acute (10) Right lumbar pain Status: Acute (11) Thoracic compression fracture Status: Acute (12) Upper abdominal pain Status: Acute Review of Systems Respiratory: No cough, No sputum, No wheezing, No shortness of breath, No dyspnea on exertion, No dyspnea at rest Cardiac: No chest pain, No orthopnea, No PND, No edema, No palpitations Physical Exam Vital Signs Last Vital Signs Documentation Date Time Temp Pulse Resp B/P (MAP) Pulse Ox O2 Delivery O2 Flow Rate FiO2 12/14/17 12:00 Oxymask 4.0 12/14/17 11:08 37.0 109 20 115/74 (88) 95 Physical Exam Constitutional: General Apperance: well-developed Level of Distress: NAD Neck: supple, trachea midline Lungs: Auscultation: breath sounds normal, no wheezing, no rales/crackles, no rhonchi Cardiovascular: Heart Auscultation: no murmurs, tachycardia, irregular rate rhythm Abdomen: Bowel Sounds: normal Inspection & Palpation: soft, non-distended Extremities: no cyanosis, no edema, no clubbing, no ulcers Assessment and Plan Assessment and Plan Final Impression: 1. Acute cerebrovascular accident, presumed embolic event in the setting of atrial fibrillation 2. Atrial fibrillation with rapid ventricular response 3. 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 History of coronary heart disease, history of chronic exertional angina, remote CABG 3 in 2002 Plan/recommendations: Administer 10 mg of intravenous Cardizem 1 now to improve rate control. She will continue her intravenous Cardizem infusion at 10 mg/h. Restart oral metoprolol when speech/swallow eval complete. Continue intravenous heparin as a bridge to Coumadin. Goal INR of 2.0-3.0. Await results of MRI. Continue full dose aspirin therapy. Await further recommendations regarding transition to Plavix as per neurology. Laboratory Results Last 24 Hours Test 12/13/17 19:27 12/14/17 06:21 12/14/17 06:31 12/14/17 07:38 Activated Partial Thromboplast Time 69.2 SECONDS 60.5 SECONDS Partial Thromboplastin Ratio 2.7 2.3 White Blood Count 9.72 K/uL Red Blood Count 4.01 M/uL Hemoglobin 13.1 g/dL Hematocrit 43.2 % Mean Corpuscular Volume 107.7 fL Mean Corpuscular Hemoglobin 32.7 pg Mean Corpuscular Hemoglobin Concent 30.3 g/dl RDW Standard Deviation 56.6 fL RDW Coefficient of Variation 14.5 % Platelet Count 200 K/uL Mean Platelet Volume 8.7 fL Sodium Level 141 mmol/L Potassium Level 4.1 mmol/L Chloride Level 104 mmol/L Carbon Dioxide Level 35 mmol/L Anion Gap 2.0 mmol/L Blood Urea Nitrogen 24 mg/dl Creatinine 0.54 mg/dl Est Creatinine Clear Calc Drug Dose 63.8 ml/min Estimated GFR () 102.6 Estimated GFR (Non- 88.5 BUN/Creatinine Ratio 43.5 Random Glucose 91 mg/dl Calcium Level 8.7 mg/dl Magnesium Level 2.2 mg/dl Phosphorus Level 4.0 mg/dl Creatine Kinase MB 1.4 ng/ml Creatine Kinase MB Ratio Troponin I < 0.015 ng/ml Bedside Glucose 93 mg/dl Test 12/14/17 07:50 12/14/17 08:42 12/14/17 10:45 Creatine Kinase MB Ratio Estimated Average Glucose 123 mg/dl Hemoglobin A1c 5.9 %
[2017-12-14] MEDS: HEPARIN 25,000 UNIT/500ML D5W 500 ML IV SCH (12:56)
--- NOTE | 2017-12-14 13:02 | Progress Note ---
Subjective Date of Service: Dec 14, 2017. Subjective Pt evaluation today including: conversation w/ patient, conversation w/ family , physical exam, chart review, lab review, review of studies, conversation w/ beauty sales consultant, review of inpatient medication list pt was found to be not responding properly , lethargic, and had a left facial droop, which is new, I came to bedside stat, NIH stroke scale was 18 at [address] stroke alert [address] scan was done Problem List Medical Problems: (1) Atrial fibrillation with rapid ventricular response Status: Acute (2) Back pain Status: Acute (3) Cholelithiasis Status: Acute (4) Compression fracture of L5 lumbar vertebra Status: Acute (5) Fall Status: Acute (6) Fall at home Status: Acute (7) Head injury Status: Acute (8) Left hip pain Status: Acute (9) Lumbar compression fracture Status: Acute (10) Right lumbar pain Status: Acute (11) Thoracic compression fracture Status: Acute (12) Upper abdominal pain Status: Acute Review of Systems Constitutional: + weakness, + fatigue, + problem reported (Limited because patient was lethargic mild slurred speech in the moment of stroke), No fever, No chills, No sweats, No weight loss Eyes: No worsening of vision, No eye pain ENT: No hearing loss, No unusual epistaxis, No trouble swallowing Respiratory: No cough, No sputum, No wheezing, No shortness of breath, No dyspnea on exertion, No dyspnea at rest, No hemoptysis Cardiac: No chest pain, No orthopnea, No PND, No edema, No claudication, No palpitations Abdomen: No pain, No nausea, No vomiting, No diarrhea, No constipation Musculoskeletal: No joint pain, No muscle pain, No swelling, No calf pain Female : No dysuria, No urinary frequency, No hematuria, No incontinence, No abnormal vaginal bleeding, No vaginal discharge Neurologic: + weakness, No memory loss, No vertigo, No balance problems Psychiatric: No depression symptoms, No anhedonism, No anxiety, No insomnia, No substance abuse Heme: No abnormal bleeding/bruising, No clotting problems, No swollen lymph nodes, No night sweats Endo: No fatigue, No excessive thirst, No excessive urination Skin: No rash, No itch, No new/changing skin lesions, No color change, No bleeding Objective Vital Signs Date Time Temp Pulse Resp B/P (MAP) Pulse Ox O2 Delivery O2 Flow Rate FiO2 12/14/17 12:00 Oxymask 4.0 12/14/17 11:08 37.0 109 20 115/74 (88) 95 Nasal Cannula 4.0 12/14/17 10:45 36.9 123 20 115/79 (91) 92 Oxymask 4.0 12/14/17 09:40 112 20 109/74 (86) 90 Oxymask 4.0 12/14/17 09:21 122 20 135/92 (106) 96 Oxymask 4.0 12/14/17 08:00 Nasal Cannula 2.0 12/14/17 07:42 36.4 110 20 137/88 (104) 97 Nasal Cannula 3.0 12/14/17 07:20 36.5 110 20 118/82 (94) 92 Nasal Cannula 3.0 12/14/17 06:56 102 117/78 (91) 12/14/17 06:42 122/93 (103) 12/14/17 04:01 36.9 84 16 122/81 (95) 96 Nasal Cannula 3.0 12/14/17 04:00 Nasal Cannula 2.0 12/13/17 23:59 Nasal Cannula 2.0 12/13/17 23:23 36.5 85 18 98/65 (76) 98 Nasal Cannula 3.0 12/13/17 20:00 Nasal Cannula 2.0 12/13/17 19:59 36.4 66 20 128/84 (99) 96 Nasal Cannula 3.0 12/13/17 18:15 78 122/80 (94) 93 Nasal Cannula 2.0 12/13/17 18:10 81 Room Air 12/13/17 16:57 98 156/89 (111) 12/13/17 16:00 Nasal Cannula 2.0 12/13/17 15:32 36.8 87 20 135/74 (94) 95 Nasal Cannula 2.0 12/13/17 14:06 125 120/87 (98) 12/13/17 13:35 108 134/84 (101) 12/13/17 13:08 130 127/77 (94) 12/13/17 12:58 132 127/80 (96) Physical Exam General Appearance: WD/WN, no apparent distress Eyes: normal inspection, PERRL, EOMI, sclerae normal ENT: normal ENT inspection, hearing grossly normal, pharynx normal Neck: supple, no adenopathy, thyroid normal, no JVD, no carotid bruits, trachea midline Respiratory/Chest: chest non-tender, normal breath sounds, no respiratory distress, no accessory muscle use, + decreased breath sounds Cardiovascular: no edema, no gallop, no JVD, no murmur, + irregularly irregular Abdomen: normal bowel sounds, non tender, soft, no organomegaly, no pulsatile mass Extremities: normal range of motion, non-tender, normal inspection, no pedal edema, no calf tenderness, normal capillary refill, pelvis stable Neurologic/Psychiatric: + pertinent finding (Lethargic right facial droop, NIH stroke scale was 18) Skin: normal color, warm/dry, no rash Lymphatic: no adenopathy Laboratory Results Last 24 Hours Test 12/13/17 19:27 12/14/17 06:21 12/14/17 06:31 12/14/17 07:38 Activated Partial Thromboplast Time 69.2 SECONDS 60.5 SECONDS Partial Thromboplastin Ratio 2.7 2.3 White Blood Count 9.72 K/uL Red Blood Count 4.01 M/uL Hemoglobin 13.1 g/dL Hematocrit 43.2 % Mean Corpuscular Volume 107.7 fL Mean Corpuscular Hemoglobin 32.7 pg Mean Corpuscular Hemoglobin Concent 30.3 g/dl RDW Standard Deviation 56.6 fL RDW Coefficient of Variation 14.5 % Platelet Count 200 K/uL Mean Platelet Volume 8.7 fL Sodium Level 141 mmol/L Potassium Level 4.1 mmol/L Chloride Level 104 mmol/L Carbon Dioxide Level 35 mmol/L Anion Gap 2.0 mmol/L Blood Urea Nitrogen 24 mg/dl Creatinine 0.54 mg/dl Est Creatinine Clear Calc Drug Dose 63.8 ml/min Estimated GFR () 102.6 Estimated GFR (Non- 88.5 BUN/Creatinine Ratio 43.5 Random Glucose 91 mg/dl Calcium Level 8.7 mg/dl Magnesium Level 2.2 mg/dl Phosphorus Level 4.0 mg/dl Creatine Kinase MB 1.4 ng/ml Creatine Kinase MB Ratio Troponin I < 0.015 ng/ml Bedside Glucose 93 mg/dl Test 12/14/17 07:50 12/14/17 08:42 12/14/17 10:00 Creatine Kinase MB Ratio Estimated Average Glucose 123 mg/dl Hemoglobin A1c 5.9 % Assessment and Plan 82 y/o F Hx Paroxysmal AF, HTN, HLD, CAD, diastolic CHF, severe mitral regurge, Parkinson's disease, depression, GERD admitted on December 13, 2017 because of A. fib with rapid ventricle response Possible acute CVA, stroke alert this morning, NIH stroke scale was 18 in the stroke alert, Head CT was done there was no acute disease, CTA of the brain no obvious blockages Brain MRI is pending, echo was done talked to neurologist and wagon drill operator, Continue heparin drip, Patient is not a candidate for TPA because he is already on heparin drip, stroke protocol, follow-up MRI results, Gentle IV fluid before speech defined diet Rapid AF, stable, will continue her PO B willian and Amio, follow-up cardiology input Diastolic CHF exacerbation, continue her Furosemide, Aldactone and Metoprolol as prescribed. Parkinson - cont Sinemet CAD - no current evidence of ACS - cont ASA, Lipitor, Metoprolol HTN - cont Losartan and Metoprolol with parameters HPL - cont Lipitor GERD - cont Omeprazole The above conditions stable I discussed with patient and patient's family about patient's conditions, I told them patient's condition is guarded, I answered all questions to their satisfactions. The patient and family had multiple questions which were answered to their full satisfaction. DNR DVT prophylaxis, heparin prophylaxis GI prophylaxis Protonix I called to patient's , update to him patient's conditions and care plan , answered all the questions patient possible eating critical condition may be poor prognosis Continued [facility] stay due to: multiple IV medications needed Discharge planning: uncertain
[2017-12-14] MEDS ORDERED: FENTANYL PATCH REMOVE & WASTE SCH (13:59)
[2017-12-14] MEDS ORDERED: GADAVIST IV PRN (14:00)
--- NOTE | 2017-12-14 14:08 | DIAGNOSTIC IMAGING REPORT ---
Brain MRI WITH AND WITHOUT CONTRAST HISTORY: Headache. TECHNIQUE: Multiplanar multisequence MRI of the brain was performed both before and after the intravenous administration of contrast. COMPARISON STUDY: Head CT 12/14/2017. FINDINGS: Small focal areas of restricted diffusion seen within the right posterior parietal/occipital lobe. These are consistent with acute infarcts. These areas demonstrate faint patchy increased T2 signal consistent with edema from the acute infarct. Mild atrophy and microvascular ischemic changes are again noted. The midline structures are intact. No significant mass effect or midline shift. Focal prominence of the extra axial space within the left parietal lobe which measures 4.3 cm. This is consistent with an arachnoid cyst. The major vascular flow voids at the skull base are well-maintained. The paranasal sinuses and mastoid air cells are clear. No acute hemorrhage. No abnormal enhancement. IMPRESSION: Small focal areas of restricted diffusion within the right posterior parietal/occipital lobes consistent with acute infarcts. Electronically signed by: Prashant Medina M.D. 12/14/2017 2:07 PM Dictated Date/Time: 12/14/2017 2:02 PM
--- NOTE | 2017-12-14 14:31 | ECHOCARDIOGRAM REPORT ---
*NOTICE TO RECEIVING [employer] This information is strictly Confidential and protected under [place] law. [place] law prohibits you from making any further disclosure of this information unless further disclosure is expressly permitted by the written consent of the person to whom it pertains or is authorized by law. A general authorization for the release of medical or other information is not sufficient for this purpose. Hospital accepts no responsibility if the information is made available to any other person, INCLUDING THE PATIENT. Interpretation Summary * Name: HUSSAIN DIOP Study Date: 12/14/2017 07:17 AM BP: 115/79 mmHg * Patient Location: C.MSICU\[id number]\E111\S\1 HR: 123 * : 1935 (M/d/yyyy) Gender: Female * Age: 82 yrs Ethnicity: [place] Weight: 132 lb * Ordering Physician: Alfred Robles DO, [facility] * Referring Physician: Hansa Suarez * Performed By: Meli Narayanan RDCS * * Reason For Study: A-FIB, MR, MS, STROKE * The study was technically difficult. * Compared to prior study, changes are noted. * -- Conclusions -- * The rhythm is atrial fibrillation with rapid ventricular response. * Ejection Fraction = 50-55%. * The right ventricle is moderately dilated. * The right ventricular systolic function is mildly reduced. * Flattened septum is consistent with RV pressure overload. * The left atrium is severely dilated. * The right atrium is moderately dilated. * Aortic valve sclerosis moderate, without significant aortic valvular stenosis. * Calcified mitral apparatus causing mitral stenosis. * There is moderate mitral stenosis. * There is mild tricuspid regurgitation. Procedure Details * A complete two-dimensional transthoracic echocardiogram was performed (2D, M-mode, Doppler and color flow Doppler). * The study was technically difficult. * There were technical limitations due to patient'sinability to cooperate * A saline contrast injection was performed to assess for cardiac shunting. * The injection was performed through an intravenous line in the left arm. * The attending nurse who injected the saline contrast was MARILEE GARRETT RN. * A total of 20 cc of agitated saline was given. * A contrast injection of Definity was performed to improve assessment of LV function. * Contrast was injected into an intravenous site in the left arm. * One vial of Definity ultrasound contrast was diluted in normal saline to a total volume of 10 ml. A total of '3' ml of solution was administered during imaging. * Lot # [id number] of Definity utilized for procedure. * Expiration date 11/09. * The attending nurse who injected the contrast agent was MARILEE GARRETT RN. Left Ventricle * The left ventricle is normal in size. * The rhythm is atrial fibrillation with rapid ventricular response. * There is no thrombus. * There is mild concentric left ventricular hypertrophy. * The basal septum is thickened and angulated consistent with sigmoid septum. * Ejection Fraction = 50-55%. * Left ventricular systolic function is normal. * No regional wall motion abnormalities noted. * Flattened septum is consistent with RV pressure overload. Right Ventricle * The right ventricle is moderately dilated. * The right ventricular systolic function is mildly reduced. Atria * The left atrium is severely dilated. * The right atrium is moderately dilated. * There is no evidence of atrial septal defect, but resolution does not allow assessment for a patent foramen ovale. * Injection of agitated saline contrast images inadequate to exclude presence of patent foramen ovale. Mitral Valve * There is severe mitral annular calcification. * Calcified mitral apparatus causing mitral stenosis. * The mitral valve leaflets appear severely thickened and calcified. * There is moderate mitral stenosis. * There is mild to moderate mitral regurgitation. Tricuspid Valve * The tricuspid valve is normal. * There is no tricuspid stenosis. * There is mild tricuspid regurgitation. * Doppler findings do not suggest pulmonary hypertension. Aortic Valve * The aortic valve is trileaflet. * Aortic valve sclerosis moderate, without significant aortic valvular stenosis. * Aortic stenosis is absent. * There is no significant aortic regurgitation. Pulmonic Valve * The pulmonary valve is inadequately visualized, but the Doppler data is adequate for interpretation. * There is no pulmonic valvular stenosis. * Mild pulmonic valvular regurgitation. Great Vessels * The aortic root is normal size. Pericardium/Pleural * There is no pericardial effusion. Great Vessels * IVC inadequately visualized. Left Ventricular Diastolic Function * Abnormal diastolic function suggested by left ventricular hypertrophy and dilated left atrium. MMode 2D Measurements and Calculations IVSd 1.3 cm IVSs 1.8 cm LVIDd 4.2 cm LVIDs 3.1 cm LVPWd 1.2 cm LVPWs 1.2 cm IVS/LVPW 1.1 FS 27.4 % EDV(Teich) 80.8 ml ESV(Teich) 37.5 ml EF(Teich) 53.6 % EDV(cubed) 76.7 ml ESV(cubed) 29.3 ml EF(cubed) 61.8 % % IVS thick 40.6 % % LVPW thick 4.7 % LV mass(C)d 188.5 grams LV mass(C)s 167.0 grams SV(Teich) 43.3 ml SV(cubed) 47.4 ml ACS 0.98 cm LA dimension 6.7 cm asc Aorta Diam 2.9 cm LVOT diam 1.8 cm LVOT area 2.7 cm\S\2 LVAd ap4 20.4 cm\S\2 LVLd ap4 5.9 cm EDV(MOD-sp4) 58.5 ml EDV(sp4-el) 59.4 ml LVAs ap4 13.7 cm\S\2 LVLs ap4 4.5 cm ESV(MOD-sp4) 32.7 ml ESV(sp4-el) 35.1 ml EF(MOD-sp4) 44.0 % EF(sp4-el) 40.9 % LVAd ap2 20.7 cm\S\2 LVLd ap2 6.2 cm EDV(MOD-sp2) 58.6 ml EDV(sp2-el) 59.3 ml LVAs ap2 14.2 cm\S\2 LVLs ap2 5.5 cm ESV(MOD-sp2) 32.0 ml ESV(sp2-el) 31.1 ml EF(MOD-sp2) 45.4 % EF(sp2-el) 47.6 % LVLd %diff 3.7 % EDV(MOD-bp) 58.2 ml LVLs %diff 17.2 % ESV(MOD-bp) 33.4 ml EF(MOD-bp) 42.6 % SV(MOD-sp4) 25.7 ml SV(MOD-sp2) 26.6 ml SV(MOD-bp) 24.8 ml SV(sp4-el) 24.3 ml SV(sp2-el) 28.2 ml Doppler Measurements and Calculations MV E max rodrigo 212.2 cm/sec MV V2 max 213.1 cm/sec MV max PG 18.2 mmHg MV V2 mean 95.8 cm/sec MV mean PG 5.0 mmHg MV V2 VTI 57.6 cm MV dec time 0.40 sec Ao V2 max 141.2 cm/sec Ao max PG 8.0 mmHg Ao max PG (full) 5.5 mmHg ELLEN(V,A) 1.5 cm\S\2 ELLEN(V,D) 1.5 cm\S\2 LV V1 max PG 2.4 mmHg LV V1 max 78.0 cm/sec MR max rodrigo 500.1 cm/sec MR max PG 100.2 mmHg PA V2 max 48.3 cm/sec PA max PG 0.93 mmHg PI end-d rodrigo 104.4 cm/sec TR max rodrigo 217.4 cm/sec
[2017-12-14] MEDS: GABAPENTIN 400 MG CAP PO SCH ×2 (15:48→21:59)
[2017-12-14] MEDS: ACETAMINOPHEN 325 MG TAB PO PRN (17:32)
[2017-12-14] MEDS: ATORVASTATIN 40 MG TAB PO SCH (21:59)
[2017-12-15] MEDS: CHECK FENTANYL PATCH PLACEMENT SCH ×3 (00:01→15:22)
[2017-12-15] MEDS: DILTIAZEM HCL INJ 125 MG in DEXTROSE 5% 100ML IV SCH (00:54)
[2017-12-15 03:38] VITALS: BP 115/68; PULSE 77; TEMP 36.6; O2SAT 94
[2017-12-15] MEDS: SODIUM CHLORIDE 0.9% 1000ML 1,000 ML IV SCH ×2 (05:41→22:07)
[2017-12-15 06:59] VITALS: BP 119/58; PULSE 102; TEMP 36.8; O2SAT 90
[2017-12-15 06:59] LABS: HEMATOCRIT 38.9 % (37-47); HEMOGLOBIN 11.9 g/dL (12.0-16.0); MEAN CELL VOLUME 106.6 fL (80-100); MEAN CORPUSCULAR HEMOGLOBIN 32.6 pg (25-34); MEAN CORPUSCULAR HGB CONC 30.6 g/dl (32-36); MEAN PLATELET VOLUME 8.8 fL (7.4-10.4); NUCLEATED RED BLOOD CELL ABS 0.02 K/uL (0-0); PLATELET COUNT 191 K/uL (130-400); RED CELL DISTRIBUTION WIDTH CV 14.5 % (11.5-14.5); RED CELL DISTRIBUTION WIDTH SD 56.7 fL (36.4-46.3); WHITE BLOOD COUNT 7.28 K/uL (4.8-10.8)
[2017-12-15] MEDS ORDERED: NURSING VERBAL MED ORDER ONE (08:00)
[2017-12-15 08:29] LABS: CALCIUM 8.3 mg/dl (8.5-10.1); CREATININE 0.42 mg/dl (0.60-1.20); PHOSPHORUS 3.3 mg/dl (2.5-4.9); POTASSIUM 4.1 mmol/L (3.5-5.1)
[2017-12-15] MEDS: POLYETHYLENE (MIRALAX) 17 GM PACK PO SCH (09:00)
[2017-12-15] MEDS: CLONAZEPAM 1 MG TAB PO SCH ×2 (09:00→22:03)
[2017-12-15] MEDS: LIDODERM (LIDOCAINE) PATCH 5% TD SCH (09:15)
[2017-12-15] MEDS: METOPROLOL TARTRATE 25 MG TAB PO SCH ×4 (09:15→22:05)
[2017-12-15] MEDS: PANTOprazole SOD 40 MG TAB PO SCH (09:15)
[2017-12-15] MEDS: CALCITONIN SALMON NA 200 IU/AC 3.7 ML BTL SCH (09:16)
[2017-12-15] MEDS: SPIRONOLACTONE 25 MG TAB PO SCH (09:16)
[2017-12-15] MEDS: GABAPENTIN 600 MG TAB PO SCH (09:17)
[2017-12-15] MEDS: LOSARTAN POTASSIUM 25 MG TAB PO SCH (09:17)
[2017-12-15] MEDS: CARBIDOPA/LEVODOPA 25/100MG TAB PO SCH ×4 (09:18→22:05)
--- NOTE | 2017-12-15 09:50 | Neurology Progress Notes ---
Neurology Progress Note Date of Service Dec 15, 2017. Subjective Follow-up for acute stroke The patient is an 82-year-old female who was admitted for further evaluation and management of atrial fibrillation. She was found with an altered mental status and left facial droop yesterday and diagnosed with an acute right parieto -occipital stroke on MRI. Past medical history notable for Parkinson's disease and associated dementia. She continues to exhibit some confusion this morning and is not a reliable historian. She is generally restless and tremulous and has not received her morning dose of Sinemet as of yet. Objective Date Time Temp Pulse Resp B/P (MAP) Pulse Ox O2 Delivery O2 Flow Rate FiO2 12/15/17 06:59 36.8 102 20 119/58 (78) 90 Nasal Cannula 3.0 12/15/17 04:00 Nasal Cannula 3.0 12/15/17 03:38 36.6 77 16 115/68 (84) 94 Nasal Cannula 3.0 12/15/17 00:02 Nasal Cannula 3.0 12/14/17 23:53 36.9 73 18 108/69 (82) 91 Nasal Cannula 3.0 12/14/17 20:25 36.9 82 18 108/66 (80) 96 Nasal Cannula 3.0 12/14/17 20:00 Nasal Cannula 3.0 12/14/17 16:00 Nasal Cannula 3.0 12/14/17 15:49 37.0 117 22 139/71 (93) 97 Nasal Cannula 3.0 12/14/17 12:58 109 137/88 (104) 12/14/17 12:00 Oxymask 4.0 12/14/17 11:08 37.0 109 20 115/74 (88) 95 Nasal Cannula 4.0 12/14/17 10:45 36.9 123 20 115/79 (91) 92 Oxymask 4.0 12/14/17 09:40 112 20 109/74 (86) 90 Oxymask 4.0 Last 24 Hours Test 12/14/17 10:00 12/15/17 05:55 12/15/17 05:57 Urine Color DK YELLOW Urine Appearance TURBID Urine pH 5.0 Urine Specific [place] 1.045 Urine Protein NEG Urine Glucose (UA) NEG Urine Ketones TRACE Urine Occult Blood NEG Urine Nitrite NEG Urine Bilirubin NEG Urine Urobilinogen NEG Urine Leukocyte Esterase NEG Urine WBC (Auto) 5-10 /hpf Urine RBC (Auto) 0-4 /hpf Urine Hyaline Casts (Auto) /lpf Urine Epithelial Cells (Auto) >30 /lpf Urine Bacteria (Auto) NEG Urine Renal Epithelial Cells /lpf Urine Crystals AMORPHOUS SEDIMENT Urine Pathogenic Casts /lpf Urine Yeast (Auto) Sodium Level 141 mmol/L Potassium Level 4.1 mmol/L Chloride Level 103 mmol/L Carbon Dioxide Level 34 mmol/L Anion Gap 4.0 mmol/L Blood Urea Nitrogen 18 mg/dl Creatinine 0.42 mg/dl Est Creatinine Clear Calc Drug Dose 83.4 ml/min Estimated GFR () 111.4 Estimated GFR (Non- 96.1 BUN/Creatinine Ratio 42.3 Random Glucose 88 mg/dl Calcium Level 8.3 mg/dl Phosphorus Level 3.3 mg/dl Magnesium Level 1.9 mg/dl White Blood Count 7.28 K/uL Red Blood Count 3.65 M/uL Hemoglobin 11.9 g/dL Hematocrit 38.9 % Mean Corpuscular Volume 106.6 fL Mean Corpuscular Hemoglobin 32.6 pg Mean Corpuscular Hemoglobin Concent 30.6 g/dl RDW Standard Deviation 56.7 fL RDW Coefficient of Variation 14.5 % Platelet Count 191 K/uL Mean Platelet Volume 8.8 fL Nucleated RBC Absolute Count (auto) 0.02 K/uL Nucleated Red Blood Cells % 0.3 % Activated Partial Thromboplast Time 53.0 SECONDS Partial Thromboplastin Ratio 2.0 Triglycerides Level 67 mg/dl Cholesterol Level 77 mg/dl HDL Cholesterol 33 mg/dl LDL Cholesterol, Calculated 31 mg/dl VLDL Cholesterol, Calculated 13 mg/dl Cholesterol/HDL Ratio 2.3 Imaging: I reviewed the images and radiologist's interpretation of the brain MRI completed yesterday.There are a few small areas of restricted diffusion within the right parieto-occipital region consistent with acute ischemic infarcts, probably in a posterior right MCA branch. CT angiography of the head and neck were unremarkable, however, with no evidence of major proximal branch occlusion. Exam: The patient is alert and oriented to person and hospital only. She appears mildly restless. Attention and concentration are impaired. Visual kwogn full to confrontation. Visual acuity normal. Pupils equal round react to light and accommodation. Eye movements normal. No nystagmus. There is no facial droop. Tongue and palate move well and are midline. Patient exhibits a fairly continuous bilateral upper extremity resting tremor. Strength for the arms and legs is normal bilaterally. Current Inpatient Medications Medications (Trade) Dose Ordered Sig/Naomi Route Start Time Stop Time Status Last Admin Dose Admin Aspirin (Ecotrin Tab) 325 mg DAILY PO 12/14/17 09:00 01/13/18 08:59 Atorvastatin Calcium (Lipitor Tab) 40 mg QPM PO 12/13/17 21:00 01/12/18 20:59 12/14/17 21:59 40 MG Calcitonin [place] (Fortical Nasal [place]) 1 spray DAILY NA 12/14/17 09:00 01/13/18 08:59 12/15/17 09:16 1 SPRAY Carbidopa/Levodopa (Sinemet 25/ 100MG Tab) 1.5 tab QID PO 12/13/17 17:00 01/12/18 16:59 12/15/17 09:18 2 TAB Clonazepam (Klonopin Tab) 0.5 mg BID PO 12/13/17 21:00 01/12/18 20:59 12/14/17 21:59 0.5 MG Gabapentin (Neurontin Cap) 400 mg DAILY@1630,2230 PO 12/13/17 16:30 01/12/18 16:29 12/14/17 21:59 400 MG Gabapentin (Neurontin Tab) 600 mg DAILY@0830 PO 12/14/17 08:30 01/13/18 08:29 12/15/17 09:17 600 MG Lidocaine (Lidoderm Patch 5%) 1 patch QAM TD 12/14/17 09:00 01/13/18 08:59 12/15/17 09:15 1 PATCH Losartan Potassium (coZAAR TAB) 75 mg DAILY PO 12/14/17 09:00 01/13/18 08:59 12/15/17 09:17 75 MG Spironolactone (Aldactone Tab) 12.5 mg DAILY PO 12/14/17 09:00 01/13/18 08:59 12/15/17 09:16 12.5 MG Miscellaneous Information (Order Awaiting Action) 1 ea QS N/A 12/13/17 16:00 01/12/18 15:59 Pantoprazole Sodium (Protonix Tab) 40 mg DAILY PO 12/14/17 09:00 7/23/18 08:59 12/15/17 09:15 40 MG Polyethylene (Miralax Powder Packet) 17 gm DAILY PO 12/14/17 09:00 01/13/18 08:59 Miscellaneous (Remove Lidoderm Patch) 1 ea DAILY@21 N/A 12/13/17 21:00 01/12/18 20:59 Oxycodone HCl (Roxicodone Immediate Rel Tab) 5 mg Q6H PRN PO 12/13/17 10:30 12/27/17 10:29 Acetaminophen (Tylenol Tab) 650 mg Q4H PRN PO 12/13/17 10:30 01/12/18 10:29 12/14/17 17:32 650 MG Al Hydrox/Mg Hydrox/Simethicone (Maalox Max Susp) 15 ml Q4H PRN PO 12/13/17 10:30 01/12/18 10:29 Magnesium Hydroxide (Milk Of Magnesia Susp) 30 ml Q12H PRN PO 12/13/17 10:30 01/12/18 10:29 Ondansetron HCl (Zofran Inj) 4 mg Q6H PRN IV 12/13/17 10:30 01/12/18 10:29 Morphine Sulfate (MoRPHine SULFATE INJ) 2 mg Q30M PRN IV 12/13/17 10:30 12/27/17 10:29 Diltiazem HCl 125 mg/Dextrose 125 ml @ 0 mls/hr Q0M IV 12/13/17 11:15 01/12/18 11:14 12/15/17 00:54 10 MLS/HR Fentanyl (Duragesic Patch) 75 mcg Q3D@1400 TD 12/13/17 14:00 12/27/17 13:59 12/13/17 13:30 75 MCG Miscellaneous (Fentanyl Patch Remove & Waste) 1 ea Q3D@1359 N/A 12/14/17 13:59 01/13/18 13:58 Miscellaneous Information (Check Fentanyl Patch Placement) 1 ea QS N/A 12/13/17 16:00 01/12/18 15:59 12/15/17 09:23 1 EA Heparin Sodium/ Dextrose 500 ml @ 18 mls/hr Q24H IV 12/13/17 14:01 01/12/18 14:00 12/14/17 12:56 18 MLS/HR Metoprolol Tartrate (Lopressor Tab) 25 mg QID PO 12/13/17 17:00 01/12/18 16:59 12/15/17 09:15 25 MG Ioversol (Optiray 320) 111 ml UD PRN IV 12/14/17 08:45 12/18/17 08:44 Miscellaneous Information (Pharmacist Discharge Med Rec Consult) 1 ea UD PRN N/A 12/14/17 08:45 01/13/18 08:44 Sodium Chloride 1,000 ml @ 50 mls/hr Q20H IV 12/14/17 10:30 01/13/18 10:29 12/15/17 05:41 50 MLS/HR Gadobutrol (Gadavist) 5.5 mmol UD PRN IV 12/14/17 14:00 12/18/17 13:59 Impression Acute right parieto-occipital stroke, probably cardioembolic in light of atrial fibrillation. No obvious signs of sensory or visual neglect at this time although difficult to assess in light of patient's current confusion. Parkinson's disease with associated dementia. Chronic issues. Plan Agree with anticoagulation. Would reduce dosage of aspirin to 81 milligrams per day as patient will also be prescribed warfarin. I do not believe there would be a distinct advantage to Plavix over low-dose aspirin in this patient. Either antiplatelet agent could be added to warfarin although I would generally prefer the 81 milligram dose of aspirin over the 325 milligram dose in terms of stroke risk reduction, especially when added to an anticoagulant. Continue Sinemet.
[2017-12-15] MEDS: ONDANSETRON INJ 2 MG/ML 2 ML VIAL IV PRN (10:43)
[2017-12-15] MEDS: ASPIRIN 325 MG ECTAB PO SCH (11:09)
--- NOTE | 2017-12-15 11:53 | Cardiology Follow-Up ---
Subjective General Date of Service: Dec 15, 2017. Pt evaluation today including: conversation w/ patient, physical exam, chart review, lab review, review of studies, review of inpatient medication list History of Present Illness The patient is a 82 year old female seen in follow-up. More alert today, however remains mildly confused. Denies chest pain or palpitations. Voices frustration with inability to get comfortable in her bed. Intravenous diltiazem infusing at 10 mg/h. Heart rate improved. Received her a.m. dose of metoprolol. Allergies Coded Allergies: Atropine (Verified Allergy, Mild, 12/13/17) Diphenoxylate (Verified Allergy, Mild, 12/13/17) Diazepam (Verified Allergy, Unknown, unknown, 12/13/17) Hydrochlorothiazide (Verified Adverse Reaction, Unknown, UNKNOWN, 12/13/17) Lisinopril (Verified Adverse Reaction, Unknown, NIGHTMARES, 12/13/17) Social History Smoking Status: Never Smoker Hx Tobacco Use In Past Year?: No Hx Alcohol Use - Type And Amou: No Hx Substance Use - Type And Am: No Problem List Medical Problems: (1) Atrial fibrillation with rapid ventricular response Status: Acute (2) Back pain Status: Acute (3) Cholelithiasis Status: Acute (4) Compression fracture of L5 lumbar vertebra Status: Acute (5) Fall Status: Acute (6) Fall at home Status: Acute (7) Head injury Status: Acute (8) Left hip pain Status: Acute (9) Lumbar compression fracture Status: Acute (10) Right lumbar pain Status: Acute (11) Thoracic compression fracture Status: Acute (12) Upper abdominal pain Status: Acute Review of Systems Respiratory: No cough, No sputum, No wheezing, No shortness of breath, No dyspnea at rest, No hemoptysis Cardiac: No chest pain, No orthopnea, No PND, No edema Physical Exam Vital Signs Last Vital Signs Documentation Date Time Temp Pulse Resp B/P (MAP) Pulse Ox O2 Delivery O2 Flow Rate FiO2 12/15/17 06:59 36.8 102 20 119/58 (78) 90 Nasal Cannula 3.0 Physical Exam Constitutional: General Apperance: well-developed Level of Distress: NAD Neck: supple, trachea midline Lungs: Auscultation: breath sounds normal, no wheezing, no rales/crackles, no rhonchi Cardiovascular: Heart Auscultation: no murmurs, irregular rate rhythm Abdomen: Bowel Sounds: normal Inspection & Palpation: soft, non-distended Extremities: no cyanosis, no edema, no clubbing, no ulcers Assessment and Plan Assessment and Plan Final Impression: 1. Acute cerebrovascular accident / embolic event 2. Atrial fibrillation with rapid ventricular response -Heart rate improving 3. 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 History of coronary heart disease, history of chronic exertional angina, remote CABG 3 in 2002 5. Right ventricular dilation/dysfunction without signs of acute heart failure Plan/recommendations: Wean intravenous Cardizem infusion as tolerated. Continue metoprolol 25 mg 4 times daily Continue intravenous heparin as a bridge to Coumadin. Goal INR of 2.0-3.0. Reduce aspirin to 81 mg daily. Continue other cardiovascular medications as previously ordered. Laboratory Results Last 24 Hours Test 12/15/17 05:55 12/15/17 05:57 Sodium Level 141 mmol/L Potassium Level 4.1 mmol/L Chloride Level 103 mmol/L Carbon Dioxide Level 34 mmol/L Anion Gap 4.0 mmol/L Blood Urea Nitrogen 18 mg/dl Creatinine 0.42 mg/dl Est Creatinine Clear Calc Drug Dose 83.4 ml/min Estimated GFR () 111.4 Estimated GFR (Non- 96.1 BUN/Creatinine Ratio 42.3 Random Glucose 88 mg/dl Calcium Level 8.3 mg/dl Phosphorus Level 3.3 mg/dl Magnesium Level 1.9 mg/dl White Blood Count 7.28 K/uL Red Blood Count 3.65 M/uL Hemoglobin 11.9 g/dL Hematocrit 38.9 % Mean Corpuscular Volume 106.6 fL Mean Corpuscular Hemoglobin 32.6 pg Mean Corpuscular Hemoglobin Concent 30.6 g/dl RDW Standard Deviation 56.7 fL RDW Coefficient of Variation 14.5 % Platelet Count 191 K/uL Mean Platelet Volume 8.8 fL Nucleated RBC Absolute Count (auto) 0.02 K/uL Nucleated Red Blood Cells % 0.3 % Activated Partial Thromboplast Time 53.0 SECONDS Partial Thromboplastin Ratio 2.0 Triglycerides Level 67 mg/dl Cholesterol Level 77 mg/dl HDL Cholesterol 33 mg/dl LDL Cholesterol, Calculated 31 mg/dl VLDL Cholesterol, Calculated 13 mg/dl Cholesterol/HDL Ratio 2.3
[2017-12-15 11:55] VITALS: BP 107/66; PULSE 66; TEMP 36.5; O2SAT 95
--- NOTE | 2017-12-15 14:46 | Progress Note ---
Subjective Date of Service: Dec 15, 2017. Subjective Pt evaluation today including: conversation w/ patient, conversation w/ family , physical exam, chart review, lab review, review of studies, conversation w/ philatelic consultant, review of inpatient medication list More awake and alert, conversational, answer simple questions, possible in baseline per in bedside, mild anxiety, resting tremor, still right facial droop, no other deficit Problem List Medical Problems: (1) Atrial fibrillation with rapid ventricular response Status: Acute (2) Back pain Status: Acute (3) Cholelithiasis Status: Acute (4) Compression fracture of L5 lumbar vertebra Status: Acute (5) Fall Status: Acute (6) Fall at home Status: Acute (7) Head injury Status: Acute (8) Left hip pain Status: Acute (9) Lumbar compression fracture Status: Acute (10) Right lumbar pain Status: Acute (11) Thoracic compression fracture Status: Acute (12) Upper abdominal pain Status: Acute Review of Systems Constitutional: + weakness, + fatigue, No fever, No chills, No sweats, No weight loss, No problem reported Eyes: No worsening of vision, No eye pain, No redness, No discharge, No diplopia ENT: No hearing loss, No unusual epistaxis, No nasal symptoms, No sore throat, No tinnitus, No dental problems, No trouble swallowing Respiratory: No cough, No sputum, No wheezing, No shortness of breath, No dyspnea on exertion, No dyspnea at rest, No hemoptysis Cardiac: No chest pain, No orthopnea, No PND, No edema, No claudication, No palpitations Abdomen: No pain, No nausea, No vomiting, No diarrhea, No constipation Musculoskeletal: + joint pain, No muscle pain, No swelling, No calf pain Female : No dysuria, No urinary frequency, No hematuria, No incontinence, No abnormal vaginal bleeding, No vaginal discharge Neurologic: + problem reported (Resting tremor,), No memory loss, No paralysis , No weakness, No numbness/tingling, No vertigo, No balance problems Psychiatric: No depression symptoms, No anhedonism, No anxiety, No insomnia, No substance abuse Heme: No abnormal bleeding/bruising, No clotting problems, No swollen lymph nodes, No night sweats Endo: No fatigue, No excessive thirst, No excessive urination Skin: No rash, No itch, No new/changing skin lesions, No color change, No bleeding Objective Vital Signs Date Time Temp Pulse Resp B/P (MAP) Pulse Ox O2 Delivery O2 Flow Rate FiO2 12/15/17 12:00 Nasal Cannula 3.0 12/15/17 11:55 36.5 66 18 107/66 (80) 95 12/15/17 08:00 Nasal Cannula 3.0 12/15/17 06:59 36.8 102 20 119/58 (78) 90 Nasal Cannula 3.0 12/15/17 04:00 Nasal Cannula 3.0 12/15/17 03:38 36.6 77 16 115/68 (84) 94 Nasal Cannula 3.0 12/15/17 00:02 Nasal Cannula 3.0 12/14/17 23:53 36.9 73 18 108/69 (82) 91 Nasal Cannula 3.0 12/14/17 20:25 36.9 82 18 108/66 (80) 96 Nasal Cannula 3.0 12/14/17 20:00 Nasal Cannula 3.0 12/14/17 16:00 Nasal Cannula 3.0 12/14/17 15:49 37.0 117 22 139/71 (93) 97 Nasal Cannula 3.0 Physical Exam General Appearance: WD/WN, no apparent distress, + pertinent finding (Frail chronically ill looking,) Eyes: normal inspection, PERRL, EOMI, sclerae normal ENT: normal ENT inspection, hearing grossly normal, pharynx normal Neck: supple, no adenopathy, thyroid normal, no JVD, no carotid bruits, trachea midline Respiratory/Chest: chest non-tender, normal breath sounds, no respiratory distress, no accessory muscle use, + decreased breath sounds Cardiovascular: no gallop, no JVD, no murmur, + irregularly irregular, + pertinent finding (Trace edema) Abdomen: normal bowel sounds, non tender, soft, no organomegaly, no pulsatile mass Extremities: normal range of motion, non-tender, normal inspection, no pedal edema, no calf tenderness, normal capillary refill, pelvis stable Neurologic/Psychiatric: four 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 driver II-XII nml as tested, no motor/sensory deficits, alert, normal mood/affect, oriented x 3, + facial droop (In right side) Skin: normal color, warm/dry, no rash Lymphatic: no adenopathy Laboratory Results Last 24 Hours Test 12/15/17 05:55 12/15/17 05:57 Sodium Level 141 mmol/L Potassium Level 4.1 mmol/L Chloride Level 103 mmol/L Carbon Dioxide Level 34 mmol/L Anion Gap 4.0 mmol/L Blood Urea Nitrogen 18 mg/dl Creatinine 0.42 mg/dl Est Creatinine Clear Calc Drug Dose 83.4 ml/min Estimated GFR () 111.4 Estimated GFR (Non- 96.1 BUN/Creatinine Ratio 42.3 Random Glucose 88 mg/dl Calcium Level 8.3 mg/dl Phosphorus Level 3.3 mg/dl Magnesium Level 1.9 mg/dl White Blood Count 7.28 K/uL Red Blood Count 3.65 M/uL Hemoglobin 11.9 g/dL Hematocrit 38.9 % Mean Corpuscular Volume 106.6 fL Mean Corpuscular Hemoglobin 32.6 pg Mean Corpuscular Hemoglobin Concent 30.6 g/dl RDW Standard Deviation 56.7 fL RDW Coefficient of Variation 14.5 % Platelet Count 191 K/uL Mean Platelet Volume 8.8 fL Nucleated RBC Absolute Count (auto) 0.02 K/uL Nucleated Red Blood Cells % 0.3 % Activated Partial Thromboplast Time 53.0 SECONDS Partial Thromboplastin Ratio 2.0 Triglycerides Level 67 mg/dl Cholesterol Level 77 mg/dl HDL Cholesterol 33 mg/dl LDL Cholesterol, Calculated 31 mg/dl VLDL Cholesterol, Calculated 13 mg/dl Cholesterol/HDL Ratio 2.3 Assessment and Plan 82 y/o F Hx Paroxysmal AF, HTN, HLD, CAD, diastolic CHF, severe mitral regurge, Parkinson's disease, depression, GERD admitted on December 13, 2017 because of A. fib with rapid ventricle response acute CVA in the second day of hospitalization, which was confirmed by brain MRI , stroke alert was called, NIH stroke scale was 18 in the stroke alert, Likely has embolic CVA because patient has A. fib with rapid ventricular response Head CT was done there was no acute disease, CTA of the brain no obvious blockages Brain MRI per report, Small focal areas of restricted diffusion within the right posterior parietal/occipital lobes consistent with acute infarcts. echo was done, per report: Left ventricular systolic function is normal, No regional wall motion abnormalities noted. talked to neurologist and folder seamer, Patient was not a candidate for TPA because he is already on heparin drip, Continue heparin drip bridging for Coumadin, Coumadin will be started today, stroke protocol, Patient is already on statin, decrease Lipitor from 40 to 20 because LDL and total cholesterol are both significantly now, agree folder seamer to decrease aspirin from 325 to 81, Rapid AF, stable, as of Cardizem drip, will continue current medication, examination heparin drip bridging for Coumadin for stroke prevention Diastolic CHF exacerbation, continue Furosemide, Aldactone and Metoprolol as prescribed. Parkinson - cont Sinemet CAD - no current evidence of ACS - cont ASA, Lipitor, Metoprolol HTN - cont Losartan and Metoprolol with parameters HPL - cont Lipitor GERD - cont Omeprazole The above conditions stable Discussed with specialty, DNR DVT prophylaxis, heparin prophylaxis GI prophylaxis Protonix Continued [facility] stay due to: multiple IV medications needed Discharge planning: uncertain
[2017-12-15] MEDS ORDERED: WARFARIN SOD 5 MG TAB PO ONE (15:00)
[2017-12-15 16:09] VITALS: BP 125/82; PULSE 104; TEMP 36.6; O2SAT 96
[2017-12-15] MEDS: GABAPENTIN 400 MG CAP PO SCH ×2 (17:04→22:06)
[2017-12-15] MEDS: HEPARIN 25,000 UNIT/500ML D5W 500 ML IV SCH (18:22)
[2017-12-15 19:56] VITALS: BP 127/85; PULSE 102; TEMP 36.4; O2SAT 96
[2017-12-15] MEDS: ATORVASTATIN 20 MG TAB PO SCH (22:05)
[2017-12-15 22:56] VITALS: BP 119/81; PULSE 110; TEMP 36.9; O2SAT 95
[2017-12-15] MEDS: MoRPHine SULFATE 4 MG/ML 1 ML CARP\\VIAL IV PRN (23:59)
[2017-12-16] VITALS (8 sets, daily range): BP systolic 108–139; BP diastolic 70–89; PULSE 97–143; TEMP 36.4–37; O2SAT 94–97
[2017-12-16] MEDS: CHECK FENTANYL PATCH PLACEMENT SCH ×4 (00:02→23:47)
[2017-12-16] MEDS: METOPROLOL TARTRATE 25 MG TAB PO SCH ×4 (05:45→21:14)
[2017-12-16 07:09] LABS: BASO % 0.1 %; BASO ABS # 0.01 K/uL (0-0.2); EOS % 0.4 %; EOS ABS # 0.04 K/uL (0-0.5); HEMATOCRIT 39.5 % (37-47); HEMOGLOBIN 12.2 g/dL (12.0-16.0); IG# 0.04 K/uL (0.00-0.02); LYMPH % 15.2 %; LYMPH ABS # 1.38 K/uL (1.2-3.4); MEAN CELL VOLUME 104.2 fL (80-100); MEAN CORPUSCULAR HEMOGLOBIN 32.2 pg (25-34); MEAN CORPUSCULAR HGB CONC 30.9 g/dl (32-36); MEAN PLATELET VOLUME 8.7 fL (7.4-10.4); MONO % 10.6 %; MONO ABS # 0.96 K/uL (0.11-0.59); NEUT % 73.3 %; NEUT ABS # 6.66 K/uL (1.4-6.5); PLATELET COUNT 200 K/uL (130-400); RED CELL DISTRIBUTION WIDTH CV 14.4 % (11.5-14.5); RED CELL DISTRIBUTION WIDTH SD 54.9 fL (36.4-46.3); WHITE BLOOD COUNT 9.09 K/uL (4.8-10.8)
[2017-12-16 07:23] LABS: INR 1.2 (0.9-1.1)
[2017-12-16 07:24] LABS: PTT PATIENT 55.8 SECONDS (21.0-31.0)
[2017-12-16] MEDS: ACETAMINOPHEN 325 MG TAB PO PRN (07:33)
[2017-12-16] MEDS: OXYCODONE HCL IR 5 MG TAB (IMMEDIATE RELEASE) PO PRN ×2 (07:34→21:34)
[2017-12-16] MEDS: LIDODERM (LIDOCAINE) PATCH 5% TD SCH (07:45)
[2017-12-16] MEDS: GABAPENTIN 600 MG TAB PO SCH (07:46)
[2017-12-16] MEDS: PANTOprazole SOD 40 MG TAB PO SCH (07:47)
[2017-12-16] MEDS: SPIRONOLACTONE 25 MG TAB PO SCH (07:47)
[2017-12-16] MEDS: CARBIDOPA/LEVODOPA 25/100MG TAB PO SCH ×4 (07:48→21:15)
[2017-12-16] MEDS: LOSARTAN POTASSIUM 25 MG TAB PO SCH (07:49)
[2017-12-16] MEDS: ASPIRIN 81 MG ECTAB PO SCH (07:49)
[2017-12-16] MEDS: CLONAZEPAM 1 MG TAB PO SCH (07:50)
[2017-12-16 07:51] LABS: ALBUMIN 2.9 gm/dl (3.4-5.0); CALCIUM 8.3 mg/dl (8.5-10.1); CREATININE 0.48 mg/dl (0.60-1.20); PHOSPHORUS 2.6 mg/dl (2.5-4.9); TOTAL PROTEIN 6.2 gm/dl (6.4-8.2)
[2017-12-16] MEDS: POLYETHYLENE (MIRALAX) 17 GM PACK PO SCH (07:57)
[2017-12-16] MEDS: CALCITONIN SALMON NA 200 IU/AC 3.7 ML BTL SCH (08:05)
[2017-12-16] MEDS: SODIUM CHLORIDE 0.9% 1000ML 1,000 ML IV SCH ×2 (10:21→23:48)
--- NOTE | 2017-12-16 11:34 | Cardiology Follow-Up ---
Subjective General Date of Service: Dec 16, 2017. Chief Complaint: follow up AF, stroke Pt evaluation today including: conversation w/ patient, physical exam History of Present Illness The patient is a 82 year old female seen in follow up. Pt resting comfortably. Telemetry reveals AF at 100 bpm while resting. Allergies Coded Allergies: Atropine (Verified Allergy, Mild, 12/13/17) Diphenoxylate (Verified Allergy, Mild, 12/13/17) Diazepam (Verified Allergy, Unknown, unknown, 12/13/17) Hydrochlorothiazide (Verified Adverse Reaction, Unknown, UNKNOWN, 12/13/17) Lisinopril (Verified Adverse Reaction, Unknown, NIGHTMARES, 12/13/17) Social History Smoking Status: Never Smoker Hx Tobacco Use In Past Year?: No Hx Alcohol Use - Type And Amou: No Hx Substance Use - Type And Am: No Problem List Medical Problems: (1) Atrial fibrillation with rapid ventricular response Status: Acute (2) Back pain Status: Acute (3) Cholelithiasis Status: Acute (4) Compression fracture of L5 lumbar vertebra Status: Acute (5) Fall Status: Acute (6) Fall at home Status: Acute (7) Head injury Status: Acute (8) Left hip pain Status: Acute (9) Lumbar compression fracture Status: Acute (10) Right lumbar pain Status: Acute (11) Thoracic compression fracture Status: Acute (12) Upper abdominal pain Status: Acute Physical Exam Vital Signs Last Vital Signs Documentation Date Time Temp Pulse Resp B/P (MAP) Pulse Ox O2 Delivery O2 Flow Rate FiO2 12/16/17 07:58 125 16 125/84 (98) 95 Oxymask 4.0 12/16/17 06:54 37.0 Physical Exam Constitutional: General Apperance: well-developed Level of Distress: NAD Neck: supple, trachea midline Lungs: Auscultation: breath sounds normal, no wheezing, no rales/crackles, no rhonchi Cardiovascular: Heart Auscultation: no murmurs, irregular rate rhythm Abdomen: Bowel Sounds: normal Inspection & Palpation: soft, non-distended Extremities: no cyanosis, no edema, no clubbing, no ulcers Assessment and Plan Assessment and Plan Summary of transthoracic echocardiogram performed 12/14/17: * The rhythm is atrial fibrillation with rapid ventricular response. * The LV Ejection Fraction = 50-55%. * The right ventricle is moderately dilated. * The right ventricular systolic function is mildly reduced. * Flattened septum is consistent with RV pressure overload. * The left atrium is severely dilated. * The right atrium is moderately dilated. * Aortic valve sclerosis moderate, without significant aortic valvular stenosis. * Calcified mitral apparatus causing mitral stenosis. * There is moderate mitral stenosis. * There is mild tricuspid regurgitation. IMPRESSION: 82 YEAR OLD FEMALE 1. Acute cerebrovascular accident / embolic event 2. Atrial fibrillation with rapid ventricular response -Heart rate stable 3. 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 History of coronary heart disease, history of chronic exertional angina, remote CABG 3 in 2002 5. Right ventricular dilation/dysfunction without signs of acute heart failure Plan: Continue heparin bridge to coumadin. Continue current dose of metoprolol 25 mg PO QID. Laboratory Results Last 24 Hours Test 12/15/17 15:12 12/16/17 06:45 Magnesium Level 1.9 mg/dl 2.1 mg/dl White Blood Count 9.09 K/uL Red Blood Count 3.79 M/uL Hemoglobin 12.2 g/dL Hematocrit 39.5 % Mean Corpuscular Volume 104.2 fL Mean Corpuscular Hemoglobin 32.2 pg Mean Corpuscular Hemoglobin Concent 30.9 g/dl Platelet Count 200 K/uL Mean Platelet Volume 8.7 fL Neutrophils (%) (Auto) 73.3 % Lymphocytes (%) (Auto) 15.2 % Monocytes (%) (Auto) 10.6 % Eosinophils (%) (Auto) 0.4 % Basophils (%) (Auto) 0.1 % Neutrophils # (Auto) 6.66 K/uL Lymphocytes # (Auto) 1.38 K/uL Monocytes # (Auto) 0.96 K/uL Eosinophils # (Auto) 0.04 K/uL Basophils # (Auto) 0.01 K/uL RDW Standard Deviation 54.9 fL RDW Coefficient of Variation 14.4 % Immature Granulocyte % (Auto) 0.4 % Immature Granulocyte # (Auto) 0.04 K/uL Prothrombin Time 12.5 SECONDS Prothromb Time International Ratio 1.2 Activated Partial Thromboplast Time 55.8 SECONDS Partial Thromboplastin Ratio 2.1 Sodium Level 139 mmol/L Potassium Level 4.0 mmol/L Chloride Level 103 mmol/L Carbon Dioxide Level 33 mmol/L Anion Gap 3.0 mmol/L Blood Urea Nitrogen 14 mg/dl Creatinine 0.48 mg/dl Est Creatinine Clear Calc Drug Dose 73.0 ml/min Estimated GFR () 106.6 Estimated GFR (Non- 92.0 BUN/Creatinine Ratio 29.0 Random Glucose 110 mg/dl Calcium Level 8.3 mg/dl Phosphorus Level 2.6 mg/dl Total Bilirubin 1.0 mg/dl Direct Bilirubin 0.3 mg/dl Aspartate Amino Transf (AST/SGOT) 15 U/L Alanine Aminotransferase (ALT/SGPT) 11 U/L Alkaline Phosphatase 133 U/L Total Protein 6.2 gm/dl Albumin 2.9 gm/dl
[2017-12-16] MEDS: FENTANYL 75 MCG/HR TDSY TD SCH (15:04)
--- NOTE | 2017-12-16 15:51 | Progress Note ---
Subjective Date of Service: Dec 16, 2017. Subjective pt is pleasantly confused, she is able to wake up and answer some questions but falls back to sleep easily Problem List Medical Problems: (1) Atrial fibrillation with rapid ventricular response Status: Acute (2) Back pain Status: Acute (3) Cholelithiasis Status: Acute (4) Compression fracture of L5 lumbar vertebra Status: Acute (5) Fall Status: Acute (6) Fall at home Status: Acute (7) Head injury Status: Acute (8) Left hip pain Status: Acute (9) Lumbar compression fracture Status: Acute (10) Right lumbar pain Status: Acute (11) Thoracic compression fracture Status: Acute (12) Upper abdominal pain Status: Acute Review of Systems Constitutional: + weakness, + fatigue, + problem reported (sleeps easily), No fever, No chills Respiratory: No cough, No shortness of breath Cardiac: No chest pain, No edema Abdomen: No pain, No nausea, No vomiting, No diarrhea Musculoskeletal: No joint pain, No muscle pain Psychiatric: + depression symptoms, No anxiety Objective Vital Signs Date Time Temp Pulse Resp B/P (MAP) Pulse Ox O2 Delivery O2 Flow Rate FiO2 12/16/17 06:54 37.0 143 18 139/80 (99) 94 5.0 12/16/17 04:00 Nasal Cannula 3.0 12/16/17 04:00 118 115/80 (92) 12/16/17 00:02 Nasal Cannula 3.0 12/15/17 22:56 36.9 110 18 119/81 (94) 95 Nasal Cannula 3.0 12/15/17 20:00 Nasal Cannula 3.0 12/15/17 19:56 36.4 102 20 127/85 (99) 96 Nasal Cannula 3.0 12/15/17 16:09 36.6 104 20 125/82 (96) 96 Nasal Cannula 3.0 12/15/17 16:00 Nasal Cannula 3.0 12/15/17 12:00 Nasal Cannula 3.0 12/15/17 11:55 36.5 66 18 107/66 (80) 95 12/15/17 08:00 Nasal Cannula 3.0 Physical Exam General Appearance: WD/WN, + moderate distress Eyes: normal inspection, sclerae normal Neck: supple, trachea midline Respiratory/Chest: chest non-tender, lungs clear, normal breath sounds Cardiovascular: + tachycardia, + irregularly irregular Abdomen: normal bowel sounds, non tender, soft Extremities: no pedal edema, no calf tenderness Laboratory Results Last 24 Hours Test 12/15/17 15:12 12/16/17 06:45 Magnesium Level 1.9 mg/dl White Blood Count 9.09 K/uL Red Blood Count 3.79 M/uL Hemoglobin 12.2 g/dL Hematocrit 39.5 % Mean Corpuscular Volume 104.2 fL Mean Corpuscular Hemoglobin 32.2 pg Mean Corpuscular Hemoglobin Concent 30.9 g/dl Platelet Count 200 K/uL Mean Platelet Volume 8.7 fL Neutrophils (%) (Auto) 73.3 % Lymphocytes (%) (Auto) 15.2 % Monocytes (%) (Auto) 10.6 % Eosinophils (%) (Auto) 0.4 % Basophils (%) (Auto) 0.1 % Neutrophils # (Auto) 6.66 K/uL Lymphocytes # (Auto) 1.38 K/uL Monocytes # (Auto) 0.96 K/uL Eosinophils # (Auto) 0.04 K/uL Basophils # (Auto) 0.01 K/uL RDW Standard Deviation 54.9 fL RDW Coefficient of Variation 14.4 % Immature Granulocyte % (Auto) 0.4 % Immature Granulocyte # (Auto) 0.04 K/uL Prothrombin Time 12.5 SECONDS Prothromb Time International Ratio 1.2 Activated Partial Thromboplast Time 55.8 SECONDS Partial Thromboplastin Ratio 2.1 Assessment and Plan 82 F presents with afib RVR, and feeling odd has a history of Paroxysmal AF, HTN , HLD, CAD, diastolic CHF, severe mitral regurge, Parkinson's disease, depression, GERD. The pt resides at [facility] Atrial fibrillation with RVR - the pt has required cardioversion during previous admissions. On admission she was not anticoagulated and had previously been prescribed Xarelto. She has been anticoagulated as she may again require cardioversion. Cardiology suggests qid metoprolol and continued amiodarone, anticoagulation with heparin in case Cardioversion is needed Encephalopathy, ? toxic, pt is on multiple IT DIRECTOR depressant medications, will reduce her fentanyl, neurontin and stop her scheduled klonipin, will reasses in am to see if her lethargy improves, will have prn ativan if she seems to have some withdrawal issues Diastolic CHF - she appears mildly volume overloaded, Furosemide, Aldactone and Metoprolol. daily volume assessment. Parkinson - stable Sinemet CAD - no current evidence of ACS - cont ASA, Lipitor, Metoprolol HTN - cont Losartan and Metoprolol HPL - Lipitor GERD - Omeprazole DNR - Heparin prophylaxis Continued [facility] stay due to: multiple IV medications needed Discharge planning: uncertain
[2017-12-16] MEDS ORDERED: LORAZEPAM INJ 1 MG in SYRINGE 0.5 ML IV PRN (16:00)
[2017-12-16] MEDS: FENTANYL PATCH REMOVE & WASTE SCH (16:43)
[2017-12-16] MEDS: FENTANYL 25 MCG/HR TDSY TD SCH (16:45)
[2017-12-16] MEDS: WARFARIN SOD 5 MG TAB PO SCH (16:50)
[2017-12-16] MEDS: GABAPENTIN 100 MG CAP PO SCH ×2 (17:00→21:14)
[2017-12-16] MEDS: HEPARIN 25,000 UNIT/500ML D5W 500 ML IV SCH ×2 (17:09→22:31)
[2017-12-16] MEDS: ATORVASTATIN 20 MG TAB PO SCH (21:14)
[2017-12-17] VITALS (11 sets, daily range): BP systolic 115–157; BP diastolic 64–99; PULSE 83–136; TEMP 36.5–37.7; O2SAT 91–96
[2017-12-17 05:42] LABS: HEMATOCRIT 43.3 % (37-47); HEMOGLOBIN 13.1 g/dL (12.0-16.0); MEAN CELL VOLUME 106.1 fL (80-100); MEAN CORPUSCULAR HEMOGLOBIN 32.1 pg (25-34); MEAN CORPUSCULAR HGB CONC 30.3 g/dl (32-36); MEAN PLATELET VOLUME 8.6 fL (7.4-10.4); NUCLEATED RED BLOOD CELL ABS 0.02 K/uL (0-0); PLATELET COUNT 210 K/uL (130-400); RED CELL DISTRIBUTION WIDTH CV 14.3 % (11.5-14.5); RED CELL DISTRIBUTION WIDTH SD 55.4 fL (36.4-46.3); WHITE BLOOD COUNT 7.74 K/uL (4.8-10.8)
[2017-12-17 06:05] LABS: PTT PATIENT 72.5 SECONDS (21.0-31.0)
[2017-12-17] MEDS: CARBIDOPA/LEVODOPA 25/100MG TAB PO SCH ×5 (07:58→21:50)
[2017-12-17] MEDS: POLYETHYLENE (MIRALAX) 17 GM PACK PO SCH (07:58)
[2017-12-17] MEDS: LIDODERM (LIDOCAINE) PATCH 5% TD SCH (07:58)
[2017-12-17] MEDS: ASPIRIN 81 MG ECTAB PO SCH (07:59)
[2017-12-17] MEDS: LOSARTAN POTASSIUM 25 MG TAB PO SCH (07:59)
[2017-12-17] MEDS: METOPROLOL TARTRATE 25 MG TAB PO SCH ×5 (07:59→21:50)
[2017-12-17] MEDS: SPIRONOLACTONE 25 MG TAB PO SCH (07:59)
[2017-12-17] MEDS: GABAPENTIN 600 MG TAB PO SCH (07:59)
[2017-12-17] MEDS: PANTOprazole SOD 40 MG TAB PO SCH (07:59)
[2017-12-17] MEDS: CALCITONIN SALMON NA 200 IU/AC 3.7 ML BTL SCH (08:00)
[2017-12-17] MEDS: CHECK FENTANYL PATCH PLACEMENT SCH ×2 (08:02→16:29)
[2017-12-17] MEDS: MoRPHine SULFATE 4 MG/ML 1 ML CARP\\VIAL IV PRN (08:28)
--- NOTE | 2017-12-17 08:41 | Progress Note ---
Subjective Date of Service: Dec 17, 2017. Subjective this pt is depressed she stated to me that she wants to , I do think that her chronic health issues have added up to be to the point were she is not comfortable especially with her chronic pain. She is agreeable to a palliative care consultation. she continues with afib with rates in the low 100's, cardiology is adding digoxin to metoprolol and recommends a bridge with coumadin Problem List Medical Problems: (1) Atrial fibrillation with rapid ventricular response Status: Acute (2) Back pain Status: Acute (3) Cholelithiasis Status: Acute (4) Compression fracture of L5 lumbar vertebra Status: Acute (5) Fall Status: Acute (6) Fall at home Status: Acute (7) Head injury Status: Acute (8) Left hip pain Status: Acute (9) Lumbar compression fracture Status: Acute (10) Right lumbar pain Status: Acute (11) Thoracic compression fracture Status: Acute (12) Upper abdominal pain Status: Acute Review of Systems Constitutional: + weakness, + fatigue, No fever, No chills Respiratory: + dyspnea on exertion, No cough, No shortness of breath Cardiac: No chest pain, No orthopnea, No edema Abdomen: + pain (neck) Female : No dysuria, No urinary frequency Neurologic: + weakness, + balance problems, No memory loss Psychiatric: + depression symptoms, + anxiety Objective Vital Signs Date Time Temp Pulse Resp B/P (MAP) Pulse Ox O2 Delivery O2 Flow Rate FiO2 12/17/17 07:10 37.0 111 22 132/88 (103) 91 Nasal Cannula 2.0 12/17/17 04:15 94 Nasal Cannula 2.0 12/17/17 03:50 37.0 96 16 115/78 (90) 94 Nasal Cannula 2.0 12/17/17 00:10 95 Nasal Cannula 2.0 12/16/17 23:40 36.5 106 22 128/87 (101) 95 Nasal Cannula 2.0 12/16/17 20:30 97 Nasal Cannula 3.0 12/16/17 20:11 36.4 102 20 130/89 (103) 97 Nasal Cannula 3.0 12/16/17 16:08 36.5 97 20 123/82 (96) 96 Nasal Cannula 3.0 12/16/17 16:00 Nasal Cannula 3.0 12/16/17 12:30 36.5 110 18 108/70 (83) 97 Nasal Cannula 2.0 12/16/17 12:00 Nasal Cannula 3.0 Physical Exam General Appearance: WD/WN, + mild distress Eyes: normal inspection, funduscopic exam normal Neck: supple, no JVD Respiratory/Chest: chest non-tender, no respiratory distress, + decreased breath sounds Cardiovascular: + tachycardia, + irregularly irregular Abdomen: normal bowel sounds, non tender, soft Extremities: no pedal edema, no calf tenderness Neurologic/Psychiatric: alert, oriented x 3 Laboratory Results Last 24 Hours Test 12/17/17 05:25 White Blood Count 7.74 K/uL Red Blood Count 4.08 M/uL Hemoglobin 13.1 g/dL Hematocrit 43.3 % Mean Corpuscular Volume 106.1 fL Mean Corpuscular Hemoglobin 32.1 pg Mean Corpuscular Hemoglobin Concent 30.3 g/dl RDW Standard Deviation 55.4 fL RDW Coefficient of Variation 14.3 % Platelet Count 210 K/uL Mean Platelet Volume 8.6 fL Nucleated RBC Absolute Count (auto) 0.02 K/uL Nucleated Red Blood Cells % 0.2 % Activated Partial Thromboplast Time 72.5 SECONDS Partial Thromboplastin Ratio 2.8 Assessment and Plan 82 F presents with afib RVR, and feeling odd has a history of Paroxysmal AF, HTN , HLD, CAD, diastolic CHF, severe mitral regurge, Parkinson's disease, depression, GERD. The pt resides at [facility] Pt states today that she wants to , she voiced that she feels she has no life quality and is tired of her chronic health problems, will have palliative care consult Atrial fibrillation with RVR - the pt has required cardioversion during previous admissions. On admission she was not anticoagulated and had previously been prescribed Xarelto. She has been anticoagulated with heparin, Cardiology wants to transition to Coumadin, suggests qid metoprolol and continued amiodarone with addition of digoxin, if rate control is issue consider increased metoprolol or digoxin Encephalopathy, ? toxic, pt is on multiple [employer] depressant medications,her mental state has improved with reduction of her fentanyl, Neurontin and stopping her scheduled Klonopin, she states her pain is no worse at this time but her fentanyl patch has not likely resumed its new baseline acute on chronic Diastolic CHF due to valvular heart disease - she appears mildly volume overloaded, Furosemide, Aldactone and Metoprolol. Parkinson - stable Sinemet CAD - no current evidence of ACS - cont ASA, Lipitor, Metoprolol HTN - cont Losartan and Metoprolol HPL - Lipitor GERD - Omeprazole DNR - Heparin prophylaxis Continued [facility] stay due to: multiple IV medications needed Discharge planning: uncertain
--- NOTE | 2017-12-17 10:26 | Cardiology Follow-Up ---
Subjective General Date of Service: Dec 17, 2017. Chief Complaint: follow up AF, stroke Pt evaluation today including: conversation w/ patient, conversation w/ family , physical exam History of Present Illness The patient is a 82 year old female seen in follow up. She is more alert today. She recognizes her , but she is certainly unaware of the circumstances of why she is in the hospital. Telemetry reveals ongoing atrial fibrillation with ventricular rates anywhere from 100-120 bpm at rest in bed. Allergies Coded Allergies: Atropine (Verified Allergy, Mild, 12/13/17) Diphenoxylate (Verified Allergy, Mild, 12/13/17) Diazepam (Verified Allergy, Unknown, unknown, 12/13/17) Hydrochlorothiazide (Verified Adverse Reaction, Unknown, UNKNOWN, 12/13/17) Lisinopril (Verified Adverse Reaction, Unknown, NIGHTMARES, 12/13/17) Social History Smoking Status: Never Smoker Hx Tobacco Use In Past Year?: No Hx Alcohol Use - Type And Amou: No Hx Substance Use - Type And Am: No Problem List Medical Problems: (1) Atrial fibrillation with rapid ventricular response Status: Acute (2) Back pain Status: Acute (3) Cholelithiasis Status: Acute (4) Compression fracture of L5 lumbar vertebra Status: Acute (5) Fall Status: Acute (6) Fall at home Status: Acute (7) Head injury Status: Acute (8) Left hip pain Status: Acute (9) Lumbar compression fracture Status: Acute (10) Right lumbar pain Status: Acute (11) Thoracic compression fracture Status: Acute (12) Upper abdominal pain Status: Acute Physical Exam Vital Signs Last Vital Signs Documentation Date Time Temp Pulse Resp B/P (MAP) Pulse Ox O2 Delivery O2 Flow Rate FiO2 12/17/17 08:00 93 Nasal Cannula 2.0 12/17/17 07:10 37.0 111 22 132/88 (103) Physical Exam Constitutional: General Apperance: well-developed Level of Distress: NAD Neck: supple, trachea midline Lungs: Auscultation: breath sounds normal, no wheezing, no rales/crackles, no rhonchi Cardiovascular: Heart Auscultation: no murmurs, irregular rate rhythm Abdomen: Bowel Sounds: normal Inspection & Palpation: soft, non-distended Extremities: no cyanosis, no edema, no clubbing, no ulcers Neurologic: Gait & Station: pertinent finding (Decreased cognition some trouble with word finding moves all 4 extremities on command) Assessment and Plan Assessment and Plan Summary of transthoracic echocardiogram performed 12/14/17: * The rhythm is atrial fibrillation with rapid ventricular response. * The LV Ejection Fraction = 50-55%. * The right ventricle is moderately dilated. * The right ventricular systolic function is mildly reduced. * Flattened septum is consistent with RV pressure overload. * The left atrium is severely dilated. * The right atrium is moderately dilated. * Aortic valve sclerosis moderate, without significant aortic valvular stenosis. * Calcified mitral apparatus causing mitral stenosis. * There is moderate mitral stenosis. * There is mild tricuspid regurgitation. IMPRESSION: 82 YEAR OLD FEMALE 1. Acute cerebrovascular accident / embolic event 2. Valvular atrial fibrillation with rapid ventricular response 3. 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 History of coronary heart disease, history of chronic exertional angina, remote CABG 3 in 2002 5. Right ventricular dilation/dysfunction without signs of acute heart failure Plan: Continue heparin bridge to coumadin. Continue current dose of metoprolol 25 mg PO QID. Add digoxin. Start with IV load. Renal function and electrolytes are stable. This is classified is papular atrial fibrillation given her underlying mitral valve stenosis and therefore anticoagulation with Coumadin is indicated in terms of further stroke prophylaxis rather than a direct oral anticoagulant agent. Laboratory Results Last 24 Hours Test 12/17/17 05:25 White Blood Count 7.74 K/uL Red Blood Count 4.08 M/uL Hemoglobin 13.1 g/dL Hematocrit 43.3 % Mean Corpuscular Volume 106.1 fL Mean Corpuscular Hemoglobin 32.1 pg Mean Corpuscular Hemoglobin Concent 30.3 g/dl RDW Standard Deviation 55.4 fL RDW Coefficient of Variation 14.3 % Platelet Count 210 K/uL Mean Platelet Volume 8.6 fL Nucleated RBC Absolute Count (auto) 0.02 K/uL Nucleated Red Blood Cells % 0.2 % Activated Partial Thromboplast Time 72.5 SECONDS Partial Thromboplastin Ratio 2.8
[2017-12-17] MEDS ORDERED: DIGOXIN IV 250 MCG in SYRINGE 9 ML IV ONE (10:30)
[2017-12-17 12:49] LABS: PTT PATIENT 63.7 SECONDS (21.0-31.0)
[2017-12-17] MEDS: SODIUM CHLORIDE 0.9% 1000ML 1,000 ML IV SCH (13:08)
[2017-12-17] MEDS: LORAZEPAM 2 MG/ML 1 ML VIAL IV PRN (13:32)
--- NOTE | 2017-12-17 14:52 | Palliative Care Consultation ---
Consultation Date of Consultation: Dec 17, 2017. Requesting Physician: Dr. Mares Attending Physician: Dr. Mares Reason for Consultation: Goals of care History of Present Illness This 82 year old female patient with PMH paroxysmal afib, htn, CAD, diastolic chF, severe mitral regurgitation, Parkinson's dementia, and others listed below , presented to the hospital four days ago from [facility] where she resides with c/o "feeling odd." [facility] found her to be tachycardic. She was found to be in afib with RVR, she was given IV lopressor and diltiazem and admitted to telemetry unit. Patient has fairly advanced dementia at baseline and is rather deconditioned. Patient was stated to the nurses and hospitalist that she just wanted to be left alone and to . Palliative care consulted to establish goals of care. I met with patient in room 217. She is awake and alert, oriented to person, place and somewhat event. Stated to me, "I just want to ." She really could not tell me why. As we talked further, patient said she is just worried that she is too much of a burden on her and she's worried about him. She then said, "I'm sorry, I don't know why I said that. I don't want to ." We discussed her goals. She states she does want to continue treatment, but also said she was tired of being in the hospital and being stuck with needles. Some confusion was apparent. I called patient's Akin and discussed with him. He stated that patient is not ready for anything like comfort/hospice care and he wants her to continue to receive medical treatment. He stated if patient gets to the point of not improving despite medical treatment/hospitalization, he would consider hospice care at that time. Past Medical/Surgical History Medical History: 1) CAD 2) HTN 3) HLD 4) Paroxysmal A-fib 5) Chronic diastolic CHF 6) Essential tremor 7) Parkinson's disease 8) Depression 9) GERD Social History Smoking Status: Never Smoker History of Alcohol Use: No Drug Use: none Marital Status: Housing Status: intermediate Occupation Status: retired Review of Systems Constitutional: + weakness ENT: No trouble swallowing Respiratory: No cough, No wheezing, No shortness of breath Cardiac: No chest pain, No edema Abdomen: No pain, No nausea, No vomiting Neurologic: + problem reported (patient reports feeling confused) Psychiatric: + anxiety Allergies Coded Allergies: Atropine (Verified Allergy, Mild, 12/13/17) Diphenoxylate (Verified Allergy, Mild, 12/13/17) Diazepam (Verified Allergy, Unknown, unknown, 12/13/17) Hydrochlorothiazide (Verified Adverse Reaction, Unknown, UNKNOWN, 12/13/17) Lisinopril (Verified Adverse Reaction, Unknown, NIGHTMARES, 12/13/17) Medications Current Inpatient Medications Medications (Trade) Dose Ordered Sig/Naomi Route Start Time Stop Time Status Last Admin Dose Admin Calcitonin [place] (Fortical Nasal Costa) 1 spray DAILY NA 12/14/17 09:00 01/13/18 08:59 12/17/17 08:00 1 SPRAY Carbidopa/Levodopa (Sinemet 25/ 100MG Tab) 1.5 tab QID PO 12/13/17 17:00 01/12/18 16:59 12/17/17 13:07 1.5 TAB Gabapentin (Neurontin Tab) 600 mg DAILY@0830 PO 12/14/17 08:30 01/13/18 08:29 12/17/17 07:59 600 MG Lidocaine (Lidoderm Patch 5%) 1 patch QAM TD 12/14/17 09:00 01/13/18 08:59 12/17/17 07:58 1 PATCH Losartan Potassium (coZAAR TAB) 75 mg DAILY PO 12/14/17 09:00 01/13/18 08:59 12/17/17 07:59 75 MG Spironolactone (Aldactone Tab) 12.5 mg DAILY PO 12/14/17 09:00 01/13/18 08:59 12/17/17 07:59 12.5 MG Miscellaneous Information (Order Awaiting Action) 1 ea QS N/A 12/13/17 16:00 01/12/18 15:59 Pantoprazole Sodium (Protonix Tab) 40 mg DAILY PO 12/14/17 09:00 01/13/18 08:59 12/17/17 07:59 40 MG Polyethylene (Miralax Powder Packet) 17 gm DAILY PO 12/14/17 09:00 01/13/18 08:59 12/17/17 07:58 17 GM Miscellaneous (Remove Lidoderm Patch) 1 ea DAILY@21 N/A 12/13/17 21:00 01/12/18 20:59 12/16/17 21:15 1 EA Oxycodone HCl (Roxicodone Immediate Rel Tab) 5 mg Q6H PRN PO 12/13/17 10:30 12/27/17 10:29 12/16/17 21:34 5 MG Acetaminophen (Tylenol Tab) 650 mg Q4H PRN PO 12/13/17 10:30 01/12/18 10:29 12/16/17 07:33 650 MG Al Hydrox/Mg Hydrox/Simethicone (Maalox Max Susp) 15 ml Q4H PRN PO 12/13/17 10:30 01/12/18 10:29 12/15/17 18:18 15 ML Magnesium Hydroxide (Milk Of Magnesia Susp) 30 ml Q12H PRN PO 12/13/17 10:30 01/12/18 10:29 12/17/17 06:27 30 ML Ondansetron HCl (Zofran Inj) 4 mg Q6H PRN IV 12/13/17 10:30 01/12/18 10:29 12/15/17 10:43 4 MG Morphine Sulfate (MoRPHine SULFATE INJ) 2 mg Q30M PRN IV 12/13/17 10:30 12/27/17 10:29 12/17/17 08:28 2 MG Miscellaneous Information (Check Fentanyl Patch Placement) 1 ea QS N/A 12/13/17 16:00 01/12/18 15:59 12/17/17 08:02 1 EA Heparin Sodium/ Dextrose 500 ml @ 17 mls/hr Q24H IV 12/13/17 14:01 01/12/18 14:00 12/16/17 22:31 18 MLS/HR Metoprolol Tartrate (Lopressor Tab) 25 mg QID PO 12/13/17 17:00 01/12/18 16:59 12/17/17 13:07 25 MG Ioversol (Optiray 320) 111 ml UD PRN IV 12/14/17 08:45 12/18/17 08:44 Miscellaneous Information (Pharmacist Discharge Med Rec Consult) 1 ea UD PRN N/A 12/14/17 08:45 01/13/18 08:44 Sodium Chloride 1,000 ml @ 75 mls/hr [id number] IV 12/14/17 10:30 01/13/18 10:29 12/17/17 13:08 75 MLS/HR Gadobutrol (Gadavist) 5.5 mmol UD PRN IV 12/14/17 14:00 12/18/17 13:59 Atorvastatin Calcium (Lipitor Tab) 20 mg QPM PO 12/15/17 21:00 01/12/18 20:59 12/16/17 21:14 20 MG Warfarin Sodium (Coumadin Tab) 5 mg DAILY@16 PO 12/16/17 16:00 01/15/18 15:59 12/16/17 16:50 5 MG Aspirin (Ecotrin Tab) 81 mg QAM PO 12/16/17 09:00 01/15/18 08:59 12/17/17 07:59 81 MG Metoprolol Tartrate (Lopressor Iv) 5 mg Q4 PRN IV 12/16/17 07:45 01/15/18 07:44 Gabapentin (Neurontin Cap) 200 mg DAILY@1630,2230 PO 12/16/17 16:30 01/12/18 16:29 12/16/17 21:14 200 MG Lorazepam (Ativan Tab) 0.5 mg Q6 PRN PO 12/16/17 16:00 01/15/18 15:59 Lorazepam (Ativan Inj) 1 mg Q4H PRN IV 12/16/17 16:00 01/15/18 15:59 12/17/17 13:32 1 MG Lorazepam (Ativan Inj) 0.5 mg Q4H PRN IV 12/16/17 16:00 01/15/18 15:59 Lorazepam 0.5 mg/ Syringe 1 ml @ 1 mls/min Q4H PRN IV 12/16/17 16:15 01/15/18 16:14 Lorazepam 1 mg/ Syringe 1 ml @ 1 mls/min Q4H PRN IV 12/16/17 16:00 01/15/18 15:59 Fentanyl (Duragesic Patch) 25 mcg Q3D@1700 TD 12/16/17 17:00 12/30/17 16:59 12/16/17 16:45 25 MCG Miscellaneous (Fentanyl Patch Remove & Waste) 1 ea Q3D@1659 N/A 12/16/17 16:59 01/15/18 16:58 12/16/17 16:43 1 EA Digoxin 125 mcg/ Syringe 10 ml @ 2 mls/min ONE ONCE IV 12/17/17 16:00 12/17/17 16:04 Physical Exam Date Time Temp Pulse Resp B/P (MAP) Pulse Ox O2 Delivery O2 Flow Rate FiO2 12/17/17 12:00 93 Nasal Cannula 2.0 12/17/17 11:54 37.2 103 20 142/90 (107) 95 Nasal Cannula 2.0 12/17/17 10:30 135 12/17/17 08:00 93 Nasal Cannula 2.0 12/17/17 07:10 37.0 111 22 132/88 (103) 91 Nasal Cannula 2.0 12/17/17 04:15 94 Nasal Cannula 2.0 12/17/17 03:50 37.0 96 16 115/78 (90) 94 Nasal Cannula 2.0 12/17/17 00:10 95 Nasal Cannula 2.0 12/16/17 23:40 36.5 106 22 128/87 (101) 95 Nasal Cannula 2.0 12/16/17 20:30 97 Nasal Cannula 3.0 12/16/17 20:11 36.4 102 20 130/89 (103) 97 Nasal Cannula 3.0 12/16/17 16:08 36.5 97 20 123/82 (96) 96 Nasal Cannula 3.0 12/16/17 16:00 Nasal Cannula 3.0 General Appearance: no apparent distress, + pertinent finding (chronically ill appearing) ENT: hearing grossly normal Neck: supple, no JVD Respiratory: no respiratory distress, no accessory muscle use, + decreased breath sounds Cardiovascular: + irregularly irregular, + normal peripheral pulses, + pertinent finding (trace BLE edema) Abdomen: normal bowel sounds, non tender, soft Neurologic/Psychiatric: alert, normal mood/affect, oriented x 3 (some forgetfulness/history of dementia) Laboratory Results Last 24 Hours Test 12/17/17 05:25 12/17/17 11:58 White Blood Count 7.74 K/uL Red Blood Count 4.08 M/uL Hemoglobin 13.1 g/dL Hematocrit 43.3 % Mean Corpuscular Volume 106.1 fL Mean Corpuscular Hemoglobin 32.1 pg Mean Corpuscular Hemoglobin Concent 30.3 g/dl RDW Standard Deviation 55.4 fL RDW Coefficient of Variation 14.3 % Platelet Count 210 K/uL Mean Platelet Volume 8.6 fL Nucleated RBC Absolute Count (auto) 0.02 K/uL Nucleated Red Blood Cells % 0.2 % Activated Partial Thromboplast Time 72.5 SECONDS 63.7 SECONDS Partial Thromboplastin Ratio 2.8 2.5 Assessment & Plan Problem list: Confusion Dementia/Parkinson's Afib with RVR Acute on chronic diastolic CHF Goals of care Palliative care recs: -Discussed with patient at bedside-- she states "I don't know why they won't just let me ." She has no suicidal ideations. She states she is tired and worried about what is going to happen to her and her . We talked about how we can make her more comfortable including the possibility of hospice care if her and her decide on that. She said, "I don't know what I want. I don't know why I said I wanted to ." -I spoke at length with patient's , Akin, on the phone. He states that he knows his is tired of being in hospital and undergoing treatment, but he doesn't know if she is ready to transition to comfort/hospice care. He wants current medical care to continue as is for now until he is able to have a conversation with patient about her wishes/goals. -Further goals of care to come. I will follow as needed. Thank you kindly for this consult. Total time spent 70 minutes with >50% of time spent at bedside with patient and on phone with counseling and discussing goals of care.
[2017-12-17] MEDS ORDERED: DIGOXIN IV 125 MCG in SYRINGE 9.5 ML IV ONE (16:00)
[2017-12-17] MEDS: WARFARIN SOD 5 MG TAB PO SCH (18:24)
[2017-12-17] MEDS: GABAPENTIN 100 MG CAP PO SCH ×2 (18:24→21:50)
[2017-12-17] MEDS: ATORVASTATIN 20 MG TAB PO SCH (21:00)
[2017-12-18] VITALS (13 sets, daily range): BP systolic 114–179; BP diastolic 72–127; PULSE 75–137; TEMP 36.3–36.8; O2SAT 88–99
[2017-12-18] MEDS: CHECK FENTANYL PATCH PLACEMENT SCH ×3 (00:03→16:00)
[2017-12-18] MEDS: MoRPHine SULFATE 4 MG/ML 1 ML CARP\\VIAL IV PRN (00:55)
[2017-12-18] MEDS: SODIUM CHLORIDE 0.9% 1000ML 1,000 ML IV SCH ×2 (04:03→21:49)
[2017-12-18] MEDS: HEPARIN 25,000 UNIT/500ML D5W 500 ML IV SCH (04:04)
[2017-12-18] MEDS: METOPROLOL TARTRATE 1 MG/ML VIAL IV PRN ×3 (05:13→20:00)
[2017-12-18] MEDS: LORAZEPAM 2 MG/ML 1 ML VIAL IV PRN ×3 (05:13→23:59)
--- NOTE | 2017-12-18 05:44 | Progress Note ---
Progress Note Date of Service Dec 18, 2017. Progress Note Was called to the patients bedside due to blood in dominguez bag. Patient was in minimal distress. She had just been given ativan prior to my arrival therefore patient was minimally responsive to my questioning and just groaned when asked questions. Patient was tachycardic but otherwise her vital signs were stable. Her abdomen was minimally tender to palpation and she had positive bowel sounds I held her coumadin, heparin drip and aspirin. We will wait to see what her morning cbc shows and I added a UA to her morning labs. Will leave decision to day team as to whether they want to continue anticoagulation or do any further imaging/investigation into source of bleeding. - Yoan Olivares PGY2
[2017-12-18 06:43] LABS: HEMATOCRIT 38.5 % (37-47); HEMOGLOBIN 12.1 g/dL (12.0-16.0); MEAN CELL VOLUME 104.3 fL (80-100); MEAN CORPUSCULAR HEMOGLOBIN 32.8 pg (25-34); MEAN CORPUSCULAR HGB CONC 31.4 g/dl (32-36); MEAN PLATELET VOLUME 8.6 fL (7.4-10.4); PLATELET COUNT 190 K/uL (130-400); RED CELL DISTRIBUTION WIDTH CV 14.3 % (11.5-14.5); RED CELL DISTRIBUTION WIDTH SD 54.3 fL (36.4-46.3); WHITE BLOOD COUNT 7.62 K/uL (4.8-10.8)
[2017-12-18 06:57] LABS: INR 2.4 (0.9-1.1)
[2017-12-18 07:06] LABS: PTT PATIENT 51.9 SECONDS (21.0-31.0)
[2017-12-18] MEDS: CARBIDOPA/LEVODOPA 25/100MG TAB PO SCH ×4 (09:02→21:11)
[2017-12-18] MEDS: SPIRONOLACTONE 25 MG TAB PO SCH (09:03)
[2017-12-18] MEDS: METOPROLOL TARTRATE 25 MG TAB PO SCH (09:04)
[2017-12-18] MEDS: LOSARTAN POTASSIUM 25 MG TAB PO SCH (09:05)
[2017-12-18] MEDS: PANTOprazole SOD 40 MG TAB PO SCH (09:05)
[2017-12-18] MEDS: LIDODERM (LIDOCAINE) PATCH 5% TD SCH (09:05)
[2017-12-18] MEDS: GABAPENTIN 600 MG TAB PO SCH (09:05)
[2017-12-18] MEDS: CALCITONIN SALMON NA 200 IU/AC 3.7 ML BTL SCH (09:06)
[2017-12-18] MEDS: POLYETHYLENE (MIRALAX) 17 GM PACK PO SCH (09:08)
[2017-12-18] MEDS ORDERED: METOPROLOL TARTRATE 25 MG TAB PO ONE ×2 (10:05→10:45)
[2017-12-18] MEDS ORDERED: DILTIAZEM HCL 30 MG TAB PO ONE (10:07)
[2017-12-18] MEDS: CEFTRIAXONE SOD INJ 1 GM in DEXTROSE 5% ADD-VANTAGE 50ML 50 ML IV SCH (10:16)
[2017-12-18] MEDS: LORAZEPAM 0.5 MG TAB PO PRN ×2 (10:24→22:22)
--- NOTE | 2017-12-18 10:29 | Cardiology Follow-Up ---
Subjective General Date of Service: Dec 18, 2017. Chief Complaint: follow up AF, stroke Pt evaluation today including: conversation w/ patient, conversation w/ family , physical exam History of Present Illness The patient is a 82 year old female seen in follow up. Despite the addition of IV digoxin yesterday, she remains tachycardic with telemetry revealing atrial fibrillation with ventricular rate in the range of 130 bpm. The patient has become progressively more agitated and confused. Although her initial urinalysis and urine culture from 12/14 were unrevealing for definite infection, she has had repeat, and repeat preliminary urine culture from 12/17/17 reveals gram-negative bacilli. She has concentrated urine with suggestion of hematuria. Her INR is now at goal at 2.4 Allergies Coded Allergies: Atropine (Verified Allergy, Mild, 12/13/17) Diphenoxylate (Verified Allergy, Mild, 12/13/17) Diazepam (Verified Allergy, Unknown, unknown, 12/13/17) Hydrochlorothiazide (Verified Adverse Reaction, Unknown, UNKNOWN, 12/13/17) Lisinopril (Verified Adverse Reaction, Unknown, NIGHTMARES, 12/13/17) Social History Smoking Status: Never Smoker Hx Tobacco Use In Past Year?: No Hx Alcohol Use - Type And Amou: No Hx Substance Use - Type And Am: No Problem List Medical Problems: (1) Atrial fibrillation with rapid ventricular response Status: Acute (2) Back pain Status: Acute (3) Cholelithiasis Status: Acute (4) Compression fracture of L5 lumbar vertebra Status: Acute (5) Fall Status: Acute (6) Fall at home Status: Acute (7) Head injury Status: Acute (8) Left hip pain Status: Acute (9) Lumbar compression fracture Status: Acute (10) Right lumbar pain Status: Acute (11) Thoracic compression fracture Status: Acute (12) Upper abdominal pain Status: Acute Physical Exam Vital Signs Last Vital Signs Documentation Date Time Temp Pulse Resp B/P (MAP) Pulse Ox O2 Delivery O2 Flow Rate FiO2 12/18/17 08:35 168/120 (136) 12/18/17 08:15 36.4 137 22 92 Nasal Cannula 2.0 Physical Exam Constitutional: General Apperance: well-developed Level of Distress: acutely ill Neck: supple, trachea midline Lungs: Auscultation: breath sounds normal, no wheezing, no rales/crackles, no rhonchi Cardiovascular: Heart Auscultation: tachycardia, irregular rate rhythm, pertinent finding Abdomen: Bowel Sounds: normal Inspection & Palpation: soft, non-distended Extremities: no cyanosis, no edema, no clubbing, no ulcers Neurologic: Gait & Station: pertinent finding (Confused, moving all 4 extremities) Assessment and Plan Assessment and Plan Summary of transthoracic echocardiogram performed 12/14/17: * The rhythm is atrial fibrillation with rapid ventricular response. * The LV Ejection Fraction = 50-55%. * The right ventricle is moderately dilated. * The right ventricular systolic function is mildly reduced. * Flattened septum is consistent with RV pressure overload. * The left atrium is severely dilated. * The right atrium is moderately dilated. * Aortic valve sclerosis moderate, without significant aortic valvular stenosis. * Calcified mitral apparatus causing mitral stenosis. * There is moderate mitral stenosis. * There is mild tricuspid regurgitation. INR level today 12/18/17: 2.4 summary brain MRI report 12/14/17: Small focal areas of restricted diffusion within the right posterior parietal/ occipital lobes consistent with acute infarct IMPRESSION: 82 YEAR OLD FEMALE 1. Acute cerebrovascular accident / embolic event -In the setting of moderate mitral stenosis, atrial fibrillation 2. Valvular atrial fibrillation with rapid ventricular response 3. 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 History of coronary heart disease, history of chronic exertional angina, remote CABG 3 in 2002 5. Right ventricular dilation/dysfunction without signs of acute heart failure 6. Urinary tract infection 7. Multifactorial delirium with acute stroke, infection Plan: Discontinue heparin bridge. Hold further Coumadin as I anticipate that given her decreased oral intake that her INR may increase especially with the introduction of antibiotics. Will reassess INR tomorrow. At present she is still able to tolerate oral medications. We will increase her metoprolol tartrate dose to 100 mg twice daily, add oral diltiazem, and place a standing dose for oral digoxin 0.125 mg daily at 1600. At this time, her degree tachycardia is likely a physiologic response to her stroke and infection, so we do need to be cautious not to over treat her heart rate because resultant bradycardia. Her intake and output have been decreased. She is on normal saline maintenance dose of 75 mm/h. I recommend a 500 mL normal saline bolus and then will return to 75 mL an hour and reassess. We do have to be concerned about volume overload given her tachycardia and mitral stenosis, however given the clinical scenario with infection and tachycardia, I would recommend that we err on the side of providing IV fluid resuscitation at this point. Discussed with her nurse as well as Dr. Mares at the nurses station Laboratory Results Last 24 Hours Test 12/17/17 11:58 12/18/17 05:33 12/18/17 06:25 Activated Partial Thromboplast Time 63.7 SECONDS 51.9 SECONDS Partial Thromboplastin Ratio 2.5 2.0 Urine Color BROWN Urine Appearance CLOUDY Urine pH Urine Specific [place] 1.021 Urine Protein POS Urine Glucose (UA) Urine Ketones Urine Occult Blood Urine Nitrite Urine Bilirubin Urine Urobilinogen Urine Leukocyte Esterase Urine RBC >30 /hpf Urine WBC >30 /hpf Urine Epithelial Cells 10-20 /lpf Urine Bacteria 2+ Urine Granular Casts 20-30 /lpf White Blood Count 7.62 K/uL Red Blood Count 3.69 M/uL Hemoglobin 12.1 g/dL Hematocrit 38.5 % Mean Corpuscular Volume 104.3 fL Mean Corpuscular Hemoglobin 32.8 pg Mean Corpuscular Hemoglobin Concent 31.4 g/dl RDW Standard Deviation 54.3 fL RDW Coefficient of Variation 14.3 % Platelet Count 190 K/uL Mean Platelet Volume 8.6 fL Prothrombin Time 24.9 SECONDS Prothromb Time International Ratio 2.4
[2017-12-18] MEDS ORDERED: SODIUM CHLORIDE 0.9% 500ML 500 ML IV SCH ×2 (10:30→12:15)
[2017-12-18] MEDS ORDERED: METOPROLOL TARTRATE 25 MG TAB PO SCH (14:00)
[2017-12-18] MEDS: DILTIAZEM HCL 30 MG TAB PO SCH ×2 (14:41→21:12)
--- NOTE | 2017-12-18 15:20 | Palliative Care Progress Note ---
Palliative Care Progress Note Date of Service Dec 18, 2017. Subjective Pt evaluation today including: conversation w/ patient, physical exam, chart review, conversation w/ sales and leasing consultant (Dr. Mares) Pain: no s/s pain Voiding: dominguez catheter in place Patient is very confused/disoriented today. She has a UTI she is now being treated for. Patient now states that she wants to continue treatment and does not want to . Review of Systems unable to obtain due to confusion Objective Vital Signs Date Time Temp Pulse Resp B/P (MAP) Pulse Ox O2 Delivery O2 Flow Rate FiO2 12/18/17 14:42 75 117/74 (88) 12/18/17 12:15 Nasal Cannula 2.0 12/18/17 10:57 36.4 90 22 179/121 (140) 90 Nasal Cannula 2.0 12/18/17 08:35 168/120 (136) 12/18/17 08:15 36.4 137 22 176/127 (143) 92 Nasal Cannula 2.0 12/18/17 08:00 Nasal Cannula 2.0 12/18/17 05:13 150 116/83 12/18/17 04:06 117 14 94 Oxymask 2.0 12/18/17 04:03 36.8 101 20 116/83 (94) 88 Nasal Cannula 2.0 12/18/17 04:00 Oxymask 2.0 12/18/17 00:01 Nasal Cannula 2.0 12/18/17 00:00 36.3 12/18/17 00:00 134 142/64 12/17/17 23:43 37.7 136 20 142/64 (90) 92 Nasal Cannula 2.0 12/17/17 20:00 Nasal Cannula 2.0 12/17/17 19:37 36.5 119 18 157/99 (118) 96 Nasal Cannula 2.0 12/17/17 16:53 103 12/17/17 16:00 93 Nasal Cannula 2.0 12/17/17 15:58 36.8 83 16 137/79 (98) 93 Nasal Cannula 2.0 Physical Exam General Appearance: no apparent distress ENT: hearing grossly normal Neck: supple, no JVD Respiratory/Chest: no respiratory distress, no accessory muscle use Cardiovascular: + irregularly irregular, + normal peripheral pulses Abdomen: normal bowel sounds, soft Neurologic/Psychiatric: + disoriented Laboratory Results Last 24 Hours Test 12/18/17 05:33 12/18/17 06:25 Urine Color BROWN Urine Appearance CLOUDY Urine pH Urine Specific Street 1.021 Urine Protein POS Urine Glucose (UA) Urine Ketones Urine Occult Blood Urine Nitrite Urine Bilirubin Urine Urobilinogen Urine Leukocyte Esterase Urine RBC >30 /hpf Urine WBC >30 /hpf Urine Epithelial Cells 10-20 /lpf Urine Bacteria 2+ Urine Granular Casts 20-30 /lpf White Blood Count 7.62 K/uL Red Blood Count 3.69 M/uL Hemoglobin 12.1 g/dL Hematocrit 38.5 % Mean Corpuscular Volume 104.3 fL Mean Corpuscular Hemoglobin 32.8 pg Mean Corpuscular Hemoglobin Concent 31.4 g/dl RDW Standard Deviation 54.3 fL RDW Coefficient of Variation 14.3 % Platelet Count 190 K/uL Mean Platelet Volume 8.6 fL Prothrombin Time 24.9 SECONDS Prothromb Time International Ratio 2.4 Activated Partial Thromboplast Time 51.9 SECONDS Partial Thromboplastin Ratio 2.0 Assessment and Plan Problem list: Confusion Dementia/Parkinson's Afib with RVR Acute on chronic diastolic CHF Goals of care Palliative care recs: -After speaking with patient and her yesterday, plan is for patient to continue treatment. -I did discuss option of comfort/hospice care. I don't think patient or were wanting that route quite yet. -Plan will be for patient to return to SNF upon discharge. -Please contact me with any further palliative care needs. I will sign off for now. Total time spent 25 minutes with >50% of time spent at bedside and on nursing unit discussing patient and plan of care. Continued [facility] stay due to: multiple IV medications needed Discharge planning: retirement facility
[2017-12-18] MEDS ORDERED: DIGOXIN 0.125 MG TAB PO SCH (16:00)
--- NOTE | 2017-12-18 17:16 | Progress Note ---
Subjective Date of Service: Dec 18, 2017. Subjective this pt is with acute metabolic encephalopathy from uti that was poa but late to be diagnosed. her is at bedside and is updated, we spoke of hospice care as the pt herself had voiced some concerns about not wanting to keep being treated but today she has changed her mind Problem List Medical Problems: (1) Atrial fibrillation with rapid ventricular response Status: Acute (2) Back pain Status: Acute (3) Cholelithiasis Status: Acute (4) Compression fracture of L5 lumbar vertebra Status: Acute (5) Fall Status: Acute (6) Fall at home Status: Acute (7) Head injury Status: Acute (8) Left hip pain Status: Acute (9) Lumbar compression fracture Status: Acute (10) Right lumbar pain Status: Acute (11) Thoracic compression fracture Status: Acute (12) Upper abdominal pain Status: Acute Review of Systems Constitutional: No fever, No chills, No weakness Respiratory: No cough, No shortness of breath, No dyspnea on exertion Cardiac: No chest pain, No orthopnea, No edema Abdomen: No pain, No nausea, No vomiting, No diarrhea Female : No dysuria, No urinary frequency Neurologic: + memory loss, + weakness, + balance problems Objective Vital Signs Date Time Temp Pulse Resp B/P (MAP) Pulse Ox O2 Delivery O2 Flow Rate FiO2 12/18/17 16:02 36.7 80 16 114/72 (86) 95 Nasal Cannula 4.0 12/18/17 16:00 90 Nasal Cannula 2.0 12/18/17 14:42 75 117/74 (88) 12/18/17 12:15 Nasal Cannula 2.0 12/18/17 10:57 36.4 90 22 179/121 (140) 90 Nasal Cannula 2.0 12/18/17 08:35 168/120 (136) 12/18/17 08:15 36.4 137 22 176/127 (143) 92 Nasal Cannula 2.0 12/18/17 08:00 Nasal Cannula 2.0 12/18/17 05:13 150 116/83 12/18/17 04:06 117 14 94 Oxymask 2.0 12/18/17 04:03 36.8 101 20 116/83 (94) 88 Nasal Cannula 2.0 12/18/17 04:00 Oxymask 2.0 12/18/17 00:01 Nasal Cannula 2.0 12/18/17 00:00 36.3 12/18/17 00:00 134 142/64 12/17/17 23:43 37.7 136 20 142/64 (90) 92 Nasal Cannula 2.0 12/17/17 20:00 Nasal Cannula 2.0 12/17/17 19:37 36.5 119 18 157/99 (118) 96 Nasal Cannula 2.0 Physical Exam General Appearance: WD/WN, + moderate distress Eyes: normal inspection, sclerae normal Respiratory/Chest: chest non-tender, lungs clear Cardiovascular: + tachycardia, + irregularly irregular Abdomen: normal bowel sounds, non tender, soft Extremities: no pedal edema, no calf tenderness Neurologic/Psychiatric: alert, oriented x 3 Skin: normal color, warm/dry, no rash Laboratory Results Last 24 Hours Test 12/18/17 05:33 12/18/17 06:25 Urine Color BROWN Urine Appearance CLOUDY Urine pH Urine Specific [place] 1.021 Urine Protein POS Urine Glucose (UA) Urine Ketones Urine Occult Blood Urine Nitrite Urine Bilirubin Urine Urobilinogen Urine Leukocyte Esterase Urine RBC >30 /hpf Urine WBC >30 /hpf Urine Epithelial Cells 10-20 /lpf Urine Bacteria 2+ Urine Granular Casts 20-30 /lpf White Blood Count 7.62 K/uL Red Blood Count 3.69 M/uL Hemoglobin 12.1 g/dL Hematocrit 38.5 % Mean Corpuscular Volume 104.3 fL Mean Corpuscular Hemoglobin 32.8 pg Mean Corpuscular Hemoglobin Concent 31.4 g/dl RDW Standard Deviation 54.3 fL RDW Coefficient of Variation 14.3 % Platelet Count 190 K/uL Mean Platelet Volume 8.6 fL Prothrombin Time 24.9 SECONDS Prothromb Time International Ratio 2.4 Activated Partial Thromboplast Time 51.9 SECONDS Partial Thromboplastin Ratio 2.0 Assessment and Plan 82 F presents with afib RVR, and feeling odd has a history of Paroxysmal AF, HTN , HLD, CAD, diastolic CHF, severe mitral regurge, Parkinson's disease, depression, GERD. The pt resides at [facility] palliative care consult, will follow along no definite decision is made Atrial fibrillation with RVR -diltiazem added by cardiology and increased metoprolol with added digoxin anticoagulated with heparin, Cardiology wants to transition to Coumadin however she did have significant hematuria associated with her uti and anticoagulation is held Metabolic Encephalopathy, is from UTI poa antibiotics rocephin started 12/18/17, pt was on multiple [employer] depressant medications,her mental state has improved with reduction of her fentanyl, Neurontin and stopping her scheduled Klonopin, she states her pain is no worse acute on chronic Diastolic CHF due to valvular heart disease - she appears mildly volume overloaded, Furosemide, Aldactone and Metoprolol. Parkinson - stable Sinemet, during her confusion she was having some increased resting tremor CAD - no current evidence of ACS - cont ASA, Lipitor, Metoprolol HTN - cont Losartan and Metoprolol HPL - Lipitor GERD - Omeprazole DNR - Heparin prophylaxis Continued [facility] stay due to: multiple IV medications needed Discharge planning: assisted facility
[2017-12-18] MEDS: GABAPENTIN 100 MG CAP PO SCH ×2 (17:33→22:22)
[2017-12-18] MEDS: DIGOXIN 0.125 MG TAB PO SCH (17:33)
[2017-12-18] MEDS: METOPROLOL TARTRATE 100 MG TAB PO SCH (21:11)
[2017-12-18] MEDS: ATORVASTATIN 20 MG TAB PO SCH (21:11)
[2017-12-18] MEDS ORDERED: FUROSEMIDE INJ 40 MG in SYRINGE 0 ML IV ONE (23:00)
[2017-12-18] MEDS ORDERED: NURSING VERBAL MED ORDER ONE (23:15)
[2017-12-19] VITALS (7 sets, daily range): BP systolic 126–182; BP diastolic 71–124; PULSE 69–138; TEMP 36.5–36.9; O2SAT 91–96
--- NOTE | 2017-12-19 07:30 | Progress Note ---
Subjective Date of Service: Dec 19, 2017. Subjective pt remains encephalopathic but is slightly improved, nursing staff noted rash on face and flexural folds and maybe from antibiotic, otherwise still with better control of heart rate and heart failure Problem List Medical Problems: (1) Atrial fibrillation with rapid ventricular response Status: Acute (2) Back pain Status: Acute (3) Cholelithiasis Status: Acute (4) Compression fracture of L5 lumbar vertebra Status: Acute (5) Fall Status: Acute (6) Fall at home Status: Acute (7) Head injury Status: Acute (8) Left hip pain Status: Acute (9) Lumbar compression fracture Status: Acute (10) Right lumbar pain Status: Acute (11) Thoracic compression fracture Status: Acute (12) Upper abdominal pain Status: Acute Review of Systems Constitutional: + problem reported (Pt is confused states she does not have significant pain, but full ROS is not reliable) Objective Vital Signs Date Time Temp Pulse Resp B/P (MAP) Pulse Ox O2 Delivery O2 Flow Rate FiO2 12/19/17 04:00 Nasal Cannula 3.0 12/19/17 04:00 36.5 119 20 155/94 (114) 96 Nasal Cannula 3.0 12/18/17 23:59 Nasal Cannula 3.0 12/18/17 23:58 36.5 105 20 155/84 (107) 94 Nasal Cannula 3.0 12/18/17 20:00 90 Nasal Cannula 3.0 12/18/17 20:00 130 175/102 12/18/17 19:43 36.6 130 22 175/101 (125) 99 Room Air 12/18/17 17:33 120 12/18/17 16:02 36.7 80 16 114/72 (86) 95 Nasal Cannula 4.0 12/18/17 16:00 90 Nasal Cannula 2.0 12/18/17 14:42 75 117/74 (88) 12/18/17 12:15 Nasal Cannula 2.0 12/18/17 10:57 36.4 90 22 179/121 (140) 90 Nasal Cannula 2.0 12/18/17 08:35 168/120 (136) 12/18/17 08:15 36.4 137 22 176/127 (143) 92 Nasal Cannula 2.0 12/18/17 08:00 Nasal Cannula 2.0 Physical Exam General Appearance: WD/WN, + moderate distress Eyes: normal inspection, sclerae normal Respiratory/Chest: chest non-tender, + decreased breath sounds Cardiovascular: + systolic murmur, + irregularly irregular Abdomen: normal bowel sounds, non tender, soft Extremities: no pedal edema, no calf tenderness Neurologic/Psychiatric: alert, + disoriented Skin: + rash Laboratory Results Last 24 Hours Test 12/19/17 06:40 Prothrombin Time 30.5 SECONDS Prothromb Time International Ratio 3.0 Assessment and Plan 82 F presents with afib RVR, found to have uti poa, has associated metabolic encephalopathy with a history of Paroxysmal AF, HTN, HLD, CAD, diastolic CHF, severe mitral regurge, Parkinson's disease, depression, GERD. The pt resides at [facility] palliative care consult, will follow along no definite decision is made, pt has expressed some statements of being tired of being ill Atrial fibrillation with RVR -better rate control after diltiazem added by cardiology and increased metoprolol with added digoxin anticoagulated with heparin, Cardiology wants to transition to Coumadin however she did have significant hematuria associated with her uti and anticoagulation is held, aspirin restarted initial presentation concerning for embolic tia Metabolic Encephalopathy, is from UTI poa antibiotics rocephin started 12/18/17, rash noted 12/19, sensitivities allow cipro po changed to this 12/19 pt was on multiple [employer] depressant medications,her mental state has improved with reduction of her fentanyl, Neurontin and stopping her scheduled Klonopin, she states her pain is no worse Pt maybe having mild element of BZD withdrawal will start low dose clonazepam back hs acute on chronic Diastolic CHF due to valvular heart disease - euvolemic with, Furosemide, Aldactone and Metoprolol. Parkinson - stable Sinemet, during her confusion she was having some increased resting tremor CAD - no current evidence of ACS - cont ASA, Lipitor, Metoprolol HTN - cont Losartan and Metoprolol tolerating diltiazem without significant lows HPL - Lipitor GERD - Omeprazole DNR - Heparin prophylaxis Continued [facility] stay due to: multiple IV medications needed Discharge planning: [facility] facility
[2017-12-19] MEDS: CHECK FENTANYL PATCH PLACEMENT SCH ×4 (07:51→23:56)
[2017-12-19] MEDS: CARBIDOPA/LEVODOPA 25/100MG TAB PO SCH ×4 (07:52→20:39)
[2017-12-19] MEDS: DILTIAZEM HCL 30 MG TAB PO SCH ×3 (07:52→20:38)
[2017-12-19] MEDS: METOPROLOL TARTRATE 100 MG TAB PO SCH ×2 (07:53→20:37)
[2017-12-19] MEDS: SPIRONOLACTONE 25 MG TAB PO SCH (07:53)
[2017-12-19] MEDS: LOSARTAN POTASSIUM 25 MG TAB PO SCH (07:54)
[2017-12-19] MEDS: GABAPENTIN 600 MG TAB PO SCH (07:54)
[2017-12-19] MEDS: PANTOprazole SOD 40 MG TAB PO SCH (07:55)
[2017-12-19] MEDS: CALCITONIN SALMON NA 200 IU/AC 3.7 ML BTL SCH (07:55)
[2017-12-19] MEDS: POLYETHYLENE (MIRALAX) 17 GM PACK PO SCH (07:55)
[2017-12-19] MEDS: LIDODERM (LIDOCAINE) PATCH 5% TD SCH (07:56)
--- NOTE | 2017-12-19 09:45 | Cardiology Follow-Up ---
Subjective General Date of Service: Dec 19, 2017. Chief Complaint: follow up AF, stroke Pt evaluation today including: conversation w/ patient, physical exam History of Present Illness The patient is a 82 year old female seen in follow-up. Patient still confused. She was able to follow commands including wiggling her toes, and grasp my hand. She has a mild erythematous rash on her hands, legs, and trunk that is apparently new within the last 24 hours. Yesterday, her rate control medications were titrated up including increase in her metoprolol to 100 mg twice daily in addition of oral diltiazem and oral digoxin. She also received a dose of lorazepam yesterday morning. She seemed to calm down from an agitation standpoint history of morning and her heart rates were better controlled during the day down to the 70-80 bpm range, but it increased again overnight upwards of 130-150 and she is received several supplemental doses of IV metoprolol as well. The patient received a 500 mL normal saline bolus yesterday in addition to 75 mg normal saline. Her urine output since midnight has been 3.1 L. Her intake however has yet to be recorded. Allergies Coded Allergies: Atropine (Verified Allergy, Mild, 12/13/17) Diphenoxylate (Verified Allergy, Mild, 12/13/17) Diazepam (Verified Allergy, Unknown, unknown, 12/13/17) Hydrochlorothiazide (Verified Adverse Reaction, Unknown, UNKNOWN, 12/13/17) Lisinopril (Verified Adverse Reaction, Unknown, NIGHTMARES, 12/13/17) Social History Smoking Status: Never Smoker Hx Tobacco Use In Past Year?: No Hx Alcohol Use - Type And Amou: No Hx Substance Use - Type And Am: No Problem List Medical Problems: (1) Atrial fibrillation with rapid ventricular response Status: Acute (2) Back pain Status: Acute (3) Cholelithiasis Status: Acute (4) Compression fracture of L5 lumbar vertebra Status: Acute (5) Fall Status: Acute (6) Fall at home Status: Acute (7) Head injury Status: Acute (8) Left hip pain Status: Acute (9) Lumbar compression fracture Status: Acute (10) Right lumbar pain Status: Acute (11) Thoracic compression fracture Status: Acute (12) Upper abdominal pain Status: Acute Physical Exam Vital Signs Last Vital Signs Documentation Date Time Temp Pulse Resp B/P (MAP) Pulse Ox O2 Delivery O2 Flow Rate FiO2 12/19/17 08:44 84 149/90 (109) 12/19/17 08:00 Nasal Cannula 3.0 12/19/17 07:36 36.7 22 91 Physical Exam Constitutional: General Apperance: well-developed Level of Distress: acutely ill Neck: supple, trachea midline Lungs: Auscultation: breath sounds normal, no wheezing, no rales/crackles, no rhonchi Cardiovascular: Heart Auscultation: tachycardia, irregular rate rhythm, pertinent finding Abdomen: Bowel Sounds: normal Inspection & Palpation: soft, non-distended Extremities: no cyanosis, no edema, no clubbing, no ulcers Neurologic: Gait & Station: pertinent finding (Confused, moving all 4 extremities) Assessment and Plan Assessment and Plan Summary of transthoracic echocardiogram performed 12/14/17: * The rhythm is atrial fibrillation with rapid ventricular response. * The LV Ejection Fraction = 50-55%. * The right ventricle is moderately dilated. * The right ventricular systolic function is mildly reduced. * Flattened septum is consistent with RV pressure overload. * The left atrium is severely dilated. * The right atrium is moderately dilated. * Aortic valve sclerosis moderate, without significant aortic valvular stenosis. * Calcified mitral apparatus causing mitral stenosis. * There is moderate mitral stenosis. * There is mild tricuspid regurgitation. INR level 12/18/17: 2.4 INR 12/19/17 3 summary brain MRI report 12/14/17: Small focal areas of restricted diffusion within the right posterior parietal/ occipital lobes consistent with acute infarct IMPRESSION: 82 YEAR OLD FEMALE 1. Acute cerebrovascular accident / embolic event -In the setting of moderate mitral stenosis, atrial fibrillation 2. Valvular atrial fibrillation with rapid ventricular response 3. 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 History of coronary heart disease, history of chronic exertional angina, remote CABG 3 in 2002 5. Right ventricular dilation/dysfunction without signs of acute heart failure 6. Urinary tract infection-urine culture growing Klebsiella pneumoniae, pansensitive 7. Multifactorial delirium with acute stroke, infection 8. Parkinson's disease-prior to this hospital stay she had not been on chronic anticoagulation due to concerns of bleeding risk. Plan: The patient's INR has trended up to 3 despite having not received warfarin yesterday 12/18/17. Plan to continue to hold warfarin. She is a decreased oral intake, and is on antibiotics, likely explaining her elevated INR. There are no additional concerns of hematuria from my standpoint at present, and therefore we will resume low-dose aspirin for ongoing stroke prophylaxis. Her rate control medications were increased somewhat aggressively yesterday with increase of metoprolol in addition of Cardizem in addition of digoxin. Present, going to continue these medications and will reassess her heart rates later today. Laboratory Results Last 24 Hours Test 12/19/17 06:40 Prothrombin Time 30.5 SECONDS Prothromb Time International Ratio 3.0
[2017-12-19] MEDS: CEFTRIAXONE SOD INJ 1 GM in DEXTROSE 5% ADD-VANTAGE 50ML 50 ML IV SCH (10:02)
[2017-12-19] MEDS: SODIUM CHLORIDE 0.9% 1000ML 1,000 ML IV SCH ×2 (11:01→23:55)
[2017-12-19 11:56] LABS: CALCIUM 8.5 mg/dl (8.5-10.1); CREATININE 0.43 mg/dl (0.60-1.20); POTASSIUM 3.6 mmol/L (3.5-5.1)
[2017-12-19] MEDS: LORAZEPAM 0.5 MG TAB PO PRN ×2 (12:57→20:35)
[2017-12-19] MEDS ORDERED: FENTANYL 25 MCG/HR TDSY TD SCH (14:00)
[2017-12-19] MEDS: DIGOXIN 0.125 MG TAB PO SCH ×2 (16:00→17:31)
[2017-12-19] MEDS: GABAPENTIN 100 MG CAP PO SCH ×2 (16:19→20:37)
[2017-12-19] MEDS: FENTANYL 25 MCG/HR TDSY TD SCH (17:20)
[2017-12-19] MEDS: METOPROLOL TARTRATE 1 MG/ML VIAL IV PRN (17:32)
[2017-12-19] MEDS: FENTANYL PATCH REMOVE & WASTE SCH (17:33)
[2017-12-19] MEDS: CIPROFLOXACIN 500 MG TAB PO SCH (20:35)
[2017-12-19] MEDS: ATORVASTATIN 20 MG TAB PO SCH (20:38)
[2017-12-19] MEDS ORDERED: CLONAZEPAM 0.5 MG TAB PO SCH (21:00)
[2017-12-20] VITALS (8 sets, daily range): BP systolic 106–154; BP diastolic 64–95; PULSE 63–108; TEMP 36.4–36.8; O2SAT 91–99
[2017-12-20] MEDS: OXYCODONE HCL IR 5 MG TAB (IMMEDIATE RELEASE) PO PRN (04:12)
[2017-12-20] MEDS: ONDANSETRON INJ 2 MG/ML 2 ML VIAL IV PRN (04:19)
[2017-12-20 06:25] LABS: HEMATOCRIT 40.7 % (37-47); HEMOGLOBIN 12.4 g/dL (12.0-16.0); MEAN CELL VOLUME 105.2 fL (80-100); MEAN CORPUSCULAR HGB CONC 30.5 g/dl (32-36); MEAN PLATELET VOLUME 8.8 fL (7.4-10.4); PLATELET COUNT 221 K/uL (130-400); RED CELL DISTRIBUTION WIDTH CV 14.1 % (11.5-14.5); RED CELL DISTRIBUTION WIDTH SD 53.9 fL (36.4-46.3); WHITE BLOOD COUNT 10.33 K/uL (4.8-10.8)
[2017-12-20 06:31] LABS: INR 2.1 (0.9-1.1)
[2017-12-20] MEDS: METOPROLOL TARTRATE 100 MG TAB PO SCH ×2 (07:44→21:00)
[2017-12-20] MEDS: ASPIRIN 81 MG ECTAB PO SCH (07:44)
[2017-12-20] MEDS: CIPROFLOXACIN 500 MG TAB PO SCH (07:44)
[2017-12-20] MEDS: SPIRONOLACTONE 25 MG TAB PO SCH (07:44)
[2017-12-20] MEDS: CHECK FENTANYL PATCH PLACEMENT SCH ×2 (07:44→17:07)
[2017-12-20] MEDS: POLYETHYLENE (MIRALAX) 17 GM PACK PO SCH (07:45)
[2017-12-20] MEDS: CALCITONIN SALMON NA 200 IU/AC 3.7 ML BTL SCH (07:45)
[2017-12-20] MEDS: PANTOprazole SOD 40 MG TAB PO SCH (07:45)
[2017-12-20] MEDS: LOSARTAN POTASSIUM 25 MG TAB PO SCH (07:45)
[2017-12-20] MEDS: DILTIAZEM HCL 30 MG TAB PO SCH ×3 (07:45→21:00)
[2017-12-20] MEDS: GABAPENTIN 600 MG TAB PO SCH (07:45)
[2017-12-20] MEDS: LIDODERM (LIDOCAINE) PATCH 5% TD SCH (07:46)
[2017-12-20] MEDS: CARBIDOPA/LEVODOPA 25/100MG TAB PO SCH ×4 (07:47→21:00)
[2017-12-20] MEDS ORDERED: SODIUM CHLORIDE 0.9% 500ML 500 ML IV SCH (12:00)
[2017-12-20] MEDS: SODIUM CHLORIDE 0.9% 1000ML 1,000 ML IV SCH ×2 (12:04→20:10)
--- NOTE | 2017-12-20 12:21 | DIAGNOSTIC IMAGING REPORT ---
HEAD CT NONCONTRAST CT DOSE: 1560.23 mGy.cm HISTORY: Follow-up right occipital stroke. eval for hemorrhage TECHNIQUE: Multiaxial CT images of the head were performed without the use of intravenous contrast. Automated exposure control was utilized for this study. A dose lowering technique was utilized adhering to the principles of ALARA. Comparison: Brain MRI 12/14/2017. Findings: The paranasal sinuses and mastoid air cells are clear. There is no mass, hematoma, midline shift. Atrophy and microvascular ischemic changes are again noted. Stable arachnoid cyst within the left parietal lobe. Small focal infarcts within the posterior right parietal/occipital lobes are better appreciated on the recent brain MRI. This may be identified on image 16. Impression: 1. No significant change compared to the prior study. No evidence for intracranial hemorrhage. 2. Small focal right posterior parietal/occipital lobe infarcts are noted. These are better appreciated on the prior brain MRI. Electronically signed by: Prashant Medina M.D. 12/20/2017 12:20 PM Dictated Date/Time: 12/20/2017 12:15 PM
--- NOTE | 2017-12-20 13:09 | Cardiology Follow-Up ---
Subjective General Date of Service: Dec 20, 2017. Chief Complaint: follow up AF, stroke Pt evaluation today including: conversation w/ patient, physical exam History of Present Illness The patient is a 82 year old female seen in follow up. She is lethargic today. Had repeat CT of head without any acute new changes. No intracranial hemorrhage noted. She remains in AF. Rates better controlled down to 65 bpm at present from 130's. Allergies Coded Allergies: Atropine (Verified Allergy, Mild, 12/13/17) Diphenoxylate (Verified Allergy, Mild, 12/13/17) Diazepam (Verified Allergy, Unknown, unknown, 12/13/17) Hydrochlorothiazide (Verified Adverse Reaction, Unknown, UNKNOWN, 12/13/17) Lisinopril (Verified Adverse Reaction, Unknown, NIGHTMARES, 12/13/17) Social History Smoking Status: Never Smoker Hx Tobacco Use In Past Year?: No Hx Alcohol Use - Type And Amou: No Hx Substance Use - Type And Am: No Problem List Medical Problems: (1) Atrial fibrillation with rapid ventricular response Status: Acute (2) Back pain Status: Acute (3) Cholelithiasis Status: Acute (4) Compression fracture of L5 lumbar vertebra Status: Acute (5) Fall Status: Acute (6) Fall at home Status: Acute (7) Head injury Status: Acute (8) Left hip pain Status: Acute (9) Lumbar compression fracture Status: Acute (10) Right lumbar pain Status: Acute (11) Thoracic compression fracture Status: Acute (12) Upper abdominal pain Status: Acute Physical Exam Vital Signs Last Vital Signs Documentation Date Time Temp Pulse Resp B/P (MAP) Pulse Ox O2 Delivery O2 Flow Rate FiO2 12/20/17 12:02 Nasal Cannula 2.0 12/20/17 11:40 36.7 63 18 135/79 (97) 93 Physical Exam Constitutional: General Apperance: well-developed Level of Distress: acutely ill Neck: supple, trachea midline Lungs: Auscultation: breath sounds normal, no wheezing, no rales/crackles, no rhonchi Cardiovascular: Heart Auscultation: tachycardia, irregular rate rhythm, pertinent finding Abdomen: Bowel Sounds: normal Inspection & Palpation: soft, non-distended Extremities: no cyanosis, no edema, no clubbing, no ulcers Neurologic: Gait & Station: pertinent finding (somnolent) Assessment and Plan Assessment and Plan IMPRESSION: 82 YEAR OLD FEMALE 1. Acute cerebrovascular accident / embolic event -In the setting of moderate mitral stenosis, atrial fibrillation 2. Valvular atrial fibrillation with rapid ventricular response 3. 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 History of coronary heart disease, history of chronic exertional angina, remote CABG 3 in 2002 5. Right ventricular dilation/dysfunction without signs of acute heart failure 6. Urinary tract infection-urine culture growing Klebsiella pneumoniae, pansensitive 7. Multifactorial delirium with acute stroke, infection 8. Parkinson's disease-prior to this hospital stay she had not been on chronic anticoagulation due to concerns of bleeding risk. Plan: INR has trended down to 2, resume coumadin. Continue supportive care. Discussed mental status with nursing and Dr Mares , narcotic doses have been reduced, if pt does not receive she has severe pain. CT stable. Treating UTI. Laboratory Results Last 24 Hours Test 12/20/17 05:59 White Blood Count 10.33 K/uL Red Blood Count 3.87 M/uL Hemoglobin 12.4 g/dL Hematocrit 40.7 % Mean Corpuscular Volume 105.2 fL Mean Corpuscular Hemoglobin 32.0 pg Mean Corpuscular Hemoglobin Concent 30.5 g/dl RDW Standard Deviation 53.9 fL RDW Coefficient of Variation 14.1 % Platelet Count 221 K/uL Mean Platelet Volume 8.8 fL Prothrombin Time 22.2 SECONDS Prothromb Time International Ratio 2.1 Digoxin Level 0.9 ng/ml
[2017-12-20] MEDS ORDERED: WARFARIN SOD 3 MG TAB PO SCH (16:00)
[2017-12-20] MEDS: GABAPENTIN 100 MG CAP PO SCH (17:09)
--- NOTE | 2017-12-20 17:22 | Progress Note ---
Subjective Date of Service: Dec 20, 2017. Subjective pt is lethargic but does awaken to sternal rub, difficulty getting oral medications into her., limiting sedating medications Problem List Medical Problems: (1) Atrial fibrillation with rapid ventricular response Status: Acute (2) Back pain Status: Acute (3) Cholelithiasis Status: Acute (4) Compression fracture of L5 lumbar vertebra Status: Acute (5) Fall Status: Acute (6) Fall at home Status: Acute (7) Head injury Status: Acute (8) Left hip pain Status: Acute (9) Lumbar compression fracture Status: Acute (10) Right lumbar pain Status: Acute (11) Thoracic compression fracture Status: Acute (12) Upper abdominal pain Status: Acute Review of Systems Constitutional: + weakness, + problem reported (cannot obtain ROS due to lethargy), No fever, No chills Objective Vital Signs Date Time Temp Pulse Resp B/P (MAP) Pulse Ox O2 Delivery O2 Flow Rate FiO2 12/20/17 16:09 Nasal Cannula 2.0 12/20/17 15:45 36.7 85 16 106/64 (78) 91 Nasal Cannula 2.0 12/20/17 12:02 Nasal Cannula 2.0 12/20/17 11:40 36.7 63 18 135/79 (97) 93 2.0 12/20/17 08:20 36.5 108 18 118/74 (89) 99 Nasal Cannula 2.0 12/20/17 08:06 Nasal Cannula 3.0 12/20/17 04:00 Nasal Cannula 4.0 12/20/17 03:00 36.6 104 22 147/90 (109) 96 Nasal Cannula 4.0 12/20/17 00:46 36.8 12/20/17 00:18 94 18 154/95 (114) 94 Nasal Cannula 2.5 12/19/17 23:59 Nasal Cannula 2.0 12/19/17 22:04 69 138/84 (102) 12/19/17 20:00 Nasal Cannula 3.0 12/19/17 19:42 36.9 133 24 167/124 (138) 92 Nasal Cannula 3.0 12/19/17 17:32 122 126/71 12/19/17 17:31 122 Physical Exam General Appearance: WD/WN, + mild distress Eyes: normal inspection, sclerae normal Neck: supple, no JVD Respiratory/Chest: + decreased breath sounds, + accessory muscle use, + rhonchi Cardiovascular: regular rate, rhythm, + systolic murmur Abdomen: normal bowel sounds, non tender, soft Extremities: no pedal edema, no calf tenderness Neurologic/Psychiatric: alert, oriented x 3 Laboratory Results Last 24 Hours Test 12/20/17 05:59 White Blood Count 10.33 K/uL Red Blood Count 3.87 M/uL Hemoglobin 12.4 g/dL Hematocrit 40.7 % Mean Corpuscular Volume 105.2 fL Mean Corpuscular Hemoglobin 32.0 pg Mean Corpuscular Hemoglobin Concent 30.5 g/dl RDW Standard Deviation 53.9 fL RDW Coefficient of Variation 14.1 % Platelet Count 221 K/uL Mean Platelet Volume 8.8 fL Prothrombin Time 22.2 SECONDS Prothromb Time International Ratio 2.1 Digoxin Level 0.9 ng/ml Assessment and Plan 82 F presents with afib RVR, found to have uti poa, has associated metabolic encephalopathy with a history of Paroxysmal AF, HTN, HLD, CAD, diastolic CHF, severe mitral regurge, Parkinson's disease, depression, GERD. The pt resides at [facility] palliative care consult, will follow along continues with no definite decision, pt has expressed some statements of being tired of being ill. i spoke to her 12/20 and he still is not ready to make a decision despite patient being lethargic Atrial fibrillation with RVR - rate control with diltiazem increased metoprolol and digoxin initially anticoagulated with heparin, Cardiology wanted to transition to Coumadin however she did have significant hematuria associated with a uti and anticoagulation is held, aspirin restarted initial presentation concerning for embolic tia, hematuria improved resarted coumadin Metabolic Encephalopathy, is from UTI poa antibiotics rocephin started 12/18/17, rash noted 12/19, sensitivities allow cipro po changed to this 12/19 pt was on multiple [employer] depressant medications,her mental state transiently improved with reduction of her fentanyl, Neurontin and stopping her scheduled Klonopin, however she has slipped backward with increased lethargy, will check ammonia and did repeat CT head without additional cva Question if Pt maybe having mild element of BZD withdrawal will start low dose clonazepam back hs acute on chronic Diastolic CHF due to valvular heart disease - had decreased urine output and dark urine will hold Furosemide and Aldactone Parkinson - Sinemet, CAD - no current evidence of ACS - cont ASA, Lipitor, Metoprolol HTN - cont Losartan and Metoprolol tolerating diltiazem without significant lows HPL - Lipitor GERD - Omeprazole DNR - coumadin Continued [facility] stay due to: multiple IV medications needed Discharge planning: custodial facility
[2017-12-20] MEDS: DIGOXIN IV 125 MCG in SYRINGE 9.5 ML IV SCH (17:58)
[2017-12-20] MEDS: ATORVASTATIN 20 MG TAB PO SCH (21:00)
[2017-12-20] MEDS ORDERED: CIPROFLOXACIN / D5W 400 MG in PREMIXED IN D5W 200 ML IV SCH (21:00)
[2017-12-21] VITALS (9 sets, daily range): BP systolic 96–163; BP diastolic 56–92; PULSE 80–127; TEMP 35.5–36.8; O2SAT 85–95
[2017-12-21] MEDS: CHECK FENTANYL PATCH PLACEMENT SCH ×4 (00:15→23:50)
[2017-12-21 05:50] LABS: INR 2.6 (0.9-1.1)
[2017-12-21 05:51] LABS: HEMATOCRIT 42.9 % (37-47); HEMOGLOBIN 12.4 g/dL (12.0-16.0); MEAN CELL VOLUME 108.9 fL (80-100); MEAN CORPUSCULAR HEMOGLOBIN 31.5 pg (25-34); MEAN CORPUSCULAR HGB CONC 28.9 g/dl (32-36); PLATELET COUNT 218 K/uL (130-400); RED CELL DISTRIBUTION WIDTH CV 14.4 % (11.5-14.5); RED CELL DISTRIBUTION WIDTH SD 57.7 fL (36.4-46.3); WHITE BLOOD COUNT 7.98 K/uL (4.8-10.8)
[2017-12-21 06:10] LABS: CALCIUM 8.2 mg/dl (8.5-10.1); CREATININE 0.29 mg/dl (0.60-1.20); POTASSIUM 4.1 mmol/L (3.5-5.1)
[2017-12-21] MEDS: ATORVASTATIN 20 MG TAB PO SCH (07:26)
[2017-12-21] MEDS: LIDODERM (LIDOCAINE) PATCH 5% TD SCH (07:26)
[2017-12-21] MEDS: POLYETHYLENE (MIRALAX) 17 GM PACK PO SCH (07:27)
[2017-12-21] MEDS: SODIUM CHLORIDE 0.9% 1000ML 1,000 ML IV SCH (07:29)
[2017-12-21] MEDS: CALCITONIN SALMON NA 200 IU/AC 3.7 ML BTL SCH (07:29)
[2017-12-21] MEDS: METOPROLOL TARTRATE 1 MG/ML VIAL IV PRN (07:36)
[2017-12-21 08:25] LABS: ALBUMIN 2.5 gm/dl (3.4-5.0); TOTAL PROTEIN 5.5 gm/dl (6.4-8.2)
[2017-12-21] MEDS: GABAPENTIN 600 MG TAB PO SCH (08:30)
[2017-12-21] MEDS: DILTIAZEM HCL 30 MG TAB PO SCH ×4 (09:00→22:27)
[2017-12-21] MEDS: LOSARTAN POTASSIUM 25 MG TAB PO SCH (09:00)
[2017-12-21] MEDS: CARBIDOPA/LEVODOPA 25/100MG TAB PO SCH ×5 (09:00→22:28)
[2017-12-21] MEDS: ASPIRIN 81 MG ECTAB PO SCH (09:00)
[2017-12-21] MEDS: PANTOprazole SOD 40 MG TAB PO SCH (09:00)
[2017-12-21] MEDS: METOPROLOL TARTRATE 100 MG TAB PO SCH ×3 (09:00→22:27)
--- NOTE | 2017-12-21 09:02 | Cardiology Follow-Up ---
Subjective General Date of Service: Dec 21, 2017. Chief Complaint: follow up AF, stroke Pt evaluation today including: conversation w/ patient, physical exam, chart review, lab review History of Present Illness The patient is a 82 year old female seen in follow-up. She is no longer lethargic like yesterday, she is awake but is agitated. She complains of a problem with her "belly label". She however follows commands, taking deep inspirations for chest exam, and she moved toes on both sides per request. She has been declining oral medications as a result her heart rate has trended up since yesterday afternoon. She has not taken oral metoprolol or oral diltiazem. Her ventricular rates which had been as low as the 50-60 bpm range on 12/20/17 have now trended to 120-150 bpm. Currently atrial fibrillation at 120-130 bpm is present. She has received IV digoxin and IV metoprolol for heart rate control. She did take Coumadin yesterday and her INR this morning is 2.6. Allergies Coded Allergies: Atropine (Verified Allergy, Mild, 12/13/17) Diphenoxylate (Verified Allergy, Mild, 12/13/17) Ceftriaxone (Verified Allergy, Unknown, RASH, 12/21/17) started 12/18/17, rash noted 12/19/17 Diazepam (Verified Allergy, Unknown, unknown, 12/13/17) Hydrochlorothiazide (Verified Adverse Reaction, Unknown, UNKNOWN, 12/13/17) Lisinopril (Verified Adverse Reaction, Unknown, NIGHTMARES, 12/13/17) Social History Smoking Status: Never Smoker Hx Tobacco Use In Past Year?: No Hx Alcohol Use - Type And Amou: No Hx Substance Use - Type And Am: No Problem List Medical Problems: (1) Atrial fibrillation with rapid ventricular response Status: Acute (2) Back pain Status: Acute (3) Cholelithiasis Status: Acute (4) Compression fracture of L5 lumbar vertebra Status: Acute (5) Fall Status: Acute (6) Fall at home Status: Acute (7) Head injury Status: Acute (8) Left hip pain Status: Acute (9) Lumbar compression fracture Status: Acute (10) Right lumbar pain Status: Acute (11) Thoracic compression fracture Status: Acute (12) Upper abdominal pain Status: Acute Physical Exam Vital Signs Last Vital Signs Documentation Date Time Temp Pulse Resp B/P (MAP) Pulse Ox O2 Delivery O2 Flow Rate FiO2 12/21/17 07:36 128 163/72 12/21/17 07:12 35.5 20 94 Oxymask 3.0 Physical Exam Constitutional: General Apperance: well-developed Level of Distress: acutely ill Neck: supple, trachea midline Lungs: Auscultation: breath sounds normal, no wheezing, no rales/crackles, no rhonchi Cardiovascular: Heart Auscultation: tachycardia, irregular rate rhythm, pertinent finding Abdomen: Bowel Sounds: normal Inspection & Palpation: soft, non-distended Extremities: no cyanosis, no edema, no clubbing, no ulcers Neurologic: Gait & Station: pertinent finding (somnolent) Assessment and Plan Assessment and Plan IMPRESSION: 82 YEAR OLD FEMALE 1. Acute cerebrovascular accident / embolic event -In the setting of moderate mitral stenosis, atrial fibrillation 2. Valvular atrial fibrillation with rapid ventricular response 3. 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 History of coronary heart disease, history of chronic exertional angina, remote CABG 3 in 2002 5. Right ventricular dilation/dysfunction without signs of acute heart failure 6. Urinary tract infection-urine culture growing Klebsiella pneumoniae, pansensitive 7. Multifactorial delirium with acute stroke, infection 8. Parkinson's disease-prior to this hospital stay she had not been on chronic anticoagulation due to concerns of bleeding risk. Plan: Continue Coumadin if able to tolerate oral medication. Coumadin is the oral anticoagulant of choice for her rather than a direct oral anticoagulant agent because this is considered valvular atrial fibrillation as mitral stenosis is present. Continue supportive care. Her current agitated state is much better than the somnolence noted early in the day yesterday. As noted yesterday repeat CT findings were stable. She remains afebrile, antibiotics have been transitioned to IV ertapenem. Agree with minimizing medications with sedative effect. DVT prophylaxis: She is anticoagulated on Coumadin with INR greater than 2. He does have a baseline history of dementia, it appears her current mental status is worse than her typical baseline. Laboratory Results Last 24 Hours Test 12/21/17 05:31 White Blood Count 7.98 K/uL Red Blood Count 3.94 M/uL Hemoglobin 12.4 g/dL Hematocrit 42.9 % Mean Corpuscular Volume 108.9 fL Mean Corpuscular Hemoglobin 31.5 pg Mean Corpuscular Hemoglobin Concent 28.9 g/dl RDW Standard Deviation 57.7 fL RDW Coefficient of Variation 14.4 % Platelet Count 218 K/uL Mean Platelet Volume 9.0 fL Prothrombin Time 26.3 SECONDS Prothromb Time International Ratio 2.6 Sodium Level 146 mmol/L Potassium Level 4.1 mmol/L Chloride Level 107 mmol/L Carbon Dioxide Level 36 mmol/L Anion Gap 3.0 mmol/L Blood Urea Nitrogen 16 mg/dl Creatinine 0.29 mg/dl Est Creatinine Clear Calc Drug Dose 124.7 ml/min Estimated GFR () 125.9 Estimated GFR (Non- 108.6 BUN/Creatinine Ratio 54.2 Random Glucose 97 mg/dl Calcium Level 8.2 mg/dl Total Bilirubin 0.3 mg/dl Direct Bilirubin 0.2 mg/dl Aspartate Amino Transf (AST/SGOT) 16 U/L Alanine Aminotransferase (ALT/SGPT) 19 U/L Alkaline Phosphatase 115 U/L Ammonia 68.0 umol/L Total Protein 5.5 gm/dl Albumin 2.5 gm/dl
[2017-12-21] MEDS: ERTAPENEM IV 1 GM in SODIUM CHLOR 0.9% AD-VAN 50ML 50 ML IV SCH (09:13)
[2017-12-21] MEDS: ONDANSETRON INJ 2 MG/ML 2 ML VIAL IV PRN (09:14)
[2017-12-21] MEDS: MoRPHine SULFATE 4 MG/ML 1 ML CARP\\VIAL IV PRN ×2 (10:30→18:17)
[2017-12-21] MEDS ORDERED: LACTULOSE SYRUP 30 GM/45 ML UDP PO ONE (10:30)
[2017-12-21] MEDS: LORAZEPAM 2 MG/ML 1 ML VIAL IV PRN (12:57)
--- NOTE | 2017-12-21 13:50 | DIAGNOSTIC IMAGING REPORT ---
ABDOMINAL ULTRASOUND, RIGHT UPPER QUADRANT HISTORY: Evaluate for cirrhosis or steatosis. COMPARISON: CT of the abdomen and pelvis and right upper quadrant ultrasound March 14, 2017. FINDINGS: Exam is compromised by suboptimal penetration. The liver is not overtly cirrhotic. No hepatic lesions are identified. The pancreatic body is normal. The head and tail are obscured. There is no biliary ductal dilatation. No gallstones are identified. There is no right hydronephrosis. A small right pleural effusion is incidentally noted. IMPRESSION: 1. No gallstones or biliary ductal dilatation. 2. Liver not overtly cirrhotic. 3. Study compromised by suboptimal penetration. Partially obscured pancreas. 4. Small right pleural effusion. Electronically signed by: Geoff Blue M.D. 12/21/2017 1:48 PM Dictated Date/Time: 12/21/2017 1:46 PM
--- NOTE | 2017-12-21 15:37 | Progress Note ---
Subjective Date of Service: Dec 21, 2017. Subjective this lady is very challenging, her mental status seems to wax and wain without direct relation to medication, she has lethargy and encephalopathy, does have a uti and recently did have embolic strokes. Her is at the bedside and updated Problem List Medical Problems: (1) Atrial fibrillation with rapid ventricular response Status: Acute (2) Back pain Status: Acute (3) Cholelithiasis Status: Acute (4) Compression fracture of L5 lumbar vertebra Status: Acute (5) Fall Status: Acute (6) Fall at home Status: Acute (7) Head injury Status: Acute (8) Left hip pain Status: Acute (9) Lumbar compression fracture Status: Acute (10) Right lumbar pain Status: Acute (11) Thoracic compression fracture Status: Acute (12) Upper abdominal pain Status: Acute Review of Systems Constitutional: + weakness, + fatigue, No fever, No chills Respiratory: No cough, No wheezing, No shortness of breath Cardiac: No chest pain, No PND, No edema Abdomen: No pain, No nausea, No vomiting, No diarrhea Musculoskeletal: No joint pain, No muscle pain, No swelling Neurologic: + memory loss, + weakness, + balance problems Psychiatric: + depression symptoms, + anxiety Objective Vital Signs Date Time Temp Pulse Resp B/P (MAP) Pulse Ox O2 Delivery O2 Flow Rate FiO2 12/21/17 15:23 36.5 104 18 132/79 (96) 85 Nasal Cannula 3.0 12/21/17 12:03 Nasal Cannula 2.0 12/21/17 11:15 36.5 119 22 163/91 (115) 87 Oxymask 4.0 12/21/17 08:04 Nasal Cannula 2.0 12/21/17 07:36 128 163/72 12/21/17 07:12 35.5 127 20 163/92 (115) 94 Oxymask 3.0 12/21/17 04:00 91 Oxymask 3.0 12/21/17 03:11 36.3 116 23 122/80 (94) 91 Oxymask 3.0 12/21/17 00:00 36.8 96 12 112/78 (89) 95 Oxymask 3.0 12/21/17 00:00 95 Oxymask 12/20/17 20:00 95 Nasal Cannula 12/20/17 19:33 36.4 86 16 112/78 (89) 95 Nasal Cannula 2.0 12/20/17 17:58 91 12/20/17 16:09 Nasal Cannula 2.0 12/20/17 15:45 36.7 85 16 106/64 (78) 91 Nasal Cannula 2.0 Physical Exam General Appearance: WD/WN, + moderate distress Eyes: normal inspection, sclerae normal Neck: supple, trachea midline Respiratory/Chest: chest non-tender, + decreased breath sounds, + accessory muscle use Cardiovascular: + tachycardia, + irregularly irregular Abdomen: normal bowel sounds, non tender, soft Extremities: no pedal edema, no calf tenderness Neurologic/Psychiatric: + depressed affect, + disoriented Skin: normal color, warm/dry Laboratory Results Last 24 Hours Test 12/21/17 05:31 White Blood Count 7.98 K/uL Red Blood Count 3.94 M/uL Hemoglobin 12.4 g/dL Hematocrit 42.9 % Mean Corpuscular Volume 108.9 fL Mean Corpuscular Hemoglobin 31.5 pg Mean Corpuscular Hemoglobin Concent 28.9 g/dl RDW Standard Deviation 57.7 fL RDW Coefficient of Variation 14.4 % Platelet Count 218 K/uL Mean Platelet Volume 9.0 fL Prothrombin Time 26.3 SECONDS Prothromb Time International Ratio 2.6 Sodium Level 146 mmol/L Potassium Level 4.1 mmol/L Chloride Level 107 mmol/L Carbon Dioxide Level 36 mmol/L Anion Gap 3.0 mmol/L Blood Urea Nitrogen 16 mg/dl Creatinine 0.29 mg/dl Est Creatinine Clear Calc Drug Dose 124.7 ml/min Estimated GFR () 125.9 Estimated GFR (Non- 108.6 BUN/Creatinine Ratio 54.2 Random Glucose 97 mg/dl Calcium Level 8.2 mg/dl Total Bilirubin 0.3 mg/dl Direct Bilirubin 0.2 mg/dl Aspartate Amino Transf (AST/SGOT) 16 U/L Alanine Aminotransferase (ALT/SGPT) 19 U/L Alkaline Phosphatase 115 U/L Ammonia 68.0 umol/L Total Protein 5.5 gm/dl Albumin 2.5 gm/dl Assessment and Plan 82 F presents with afib RVR, embolic stroke and found to have uti poa, has associated metabolic encephalopathy with a history of Paroxysmal AF, HTN, HLD, CAD, diastolic CHF, severe mitral regurge, Parkinson's disease, depression, GERD. The pt resides at [facility] palliative care consult, family not ready to move in this direction, pt has expressed some statements of being tired of being ill. i spoke to her , 12/21 and he still is not ready to make a decision despite patient being lethargic Atrial fibrillation with RVR - rate control with diltiazem increased metoprolol and digoxin initially anticoagulated with heparin, Cardiology decided on Coumadin since valvular heart disese is present however she did have significant hematuria associated with a uti and anticoagulation was held, but hematuria improved ans restarted aspirin and Coumadin 12/20 Metabolic Encephalopathy, is from UTI poa antibiotics rocephin started 12/18/17, rash noted 12/19, sensitivities allow cipro po changed to this 12/19 given some elevation of inr was changed to ertapenem, 12/21 pt was on multiple [employer] depressant medications,her mental state transiently improved with reduction of her fentanyl, Neurontin and stopping her scheduled Klonopin, however she has slipped backward with increased lethargy, elevated ammonia without significant liver pathology, she refused to swallow lactulose, and did repeat CT head without additional cva Question if Pt maybe having mild element of BZD withdrawal but no real improvement in symptoms with treatment will try hs seroquel acute on chronic Diastolic CHF due to valvular heart disease - had decreased urine output and dark urine will hold Furosemide and Aldactone, given some ivf with improved urine output Parkinson - Sinemet, but with her variable alertness her medication input is variable CAD - no current evidence of ACS - cont ASA, Lipitor, Metoprolol HTN - cont Losartan and Metoprolol tolerating diltiazem without significant lows HPL - Lipitor GERD - Omeprazole DNR - coumadin overall her lethargy and agitation are the biggest issues, after trying hs seroquel we will need to speak to about how agressive he wants to be, consider neurology input Continued [facility] stay due to: multiple IV medications needed Discharge planning: assisted facility
[2017-12-21] MEDS: WARFARIN SOD 1 MG TAB PO SCH ×2 (16:00→22:29)
[2017-12-21] MEDS: DIGOXIN IV 125 MCG in SYRINGE 9.5 ML IV SCH (16:38)
[2017-12-21] MEDS ORDERED: NURSING VERBAL MED ORDER ONE (18:15)
[2017-12-21] MEDS: QUETIAPINE FUMARATE 25 MG TAB PO SCH ×2 (21:00→22:33)
[2017-12-21] MEDS: OXYCODONE HCL IR 5 MG TAB (IMMEDIATE RELEASE) PO PRN (22:36)
[2017-12-22] VITALS (9 sets, daily range): BP systolic 104–159; BP diastolic 65–97; PULSE 79–148; TEMP 35.9–36.7; O2SAT 90–96
[2017-12-22] MEDS: LIDODERM (LIDOCAINE) PATCH 5% TD SCH (07:38)
[2017-12-22] MEDS: POLYETHYLENE (MIRALAX) 17 GM PACK PO SCH (07:39)
[2017-12-22] MEDS: CHECK FENTANYL PATCH PLACEMENT SCH ×2 (07:39→16:29)
[2017-12-22] MEDS: ERTAPENEM IV 1 GM in SODIUM CHLOR 0.9% AD-VAN 50ML 50 ML IV SCH (07:42)
[2017-12-22] MEDS: MoRPHine SULFATE 4 MG/ML 1 ML CARP\\VIAL IV PRN (07:43)
[2017-12-22] MEDS: METOPROLOL TARTRATE 100 MG TAB PO SCH ×2 (07:54→21:00)
[2017-12-22] MEDS: DILTIAZEM HCL 30 MG TAB PO SCH ×3 (07:54→21:00)
[2017-12-22] MEDS: LOSARTAN POTASSIUM 25 MG TAB PO SCH (07:54)
[2017-12-22] MEDS: PANTOprazole SOD 40 MG TAB PO SCH (07:55)
[2017-12-22] MEDS: CALCITONIN SALMON NA 200 IU/AC 3.7 ML BTL SCH (07:55)
[2017-12-22] MEDS: CARBIDOPA/LEVODOPA 25/100MG TAB PO SCH ×4 (07:55→21:00)
[2017-12-22] MEDS: ASPIRIN 81 MG ECTAB PO SCH (07:56)
[2017-12-22] MEDS: ONDANSETRON INJ 2 MG/ML 2 ML VIAL IV PRN (08:08)
[2017-12-22] MEDS: METOPROLOL TARTRATE 1 MG/ML VIAL IV PRN (08:08)
[2017-12-22 08:17] LABS: CALCIUM 8.9 mg/dl (8.5-10.1); CREATININE 0.41 mg/dl (0.60-1.20); INR 3.9 (0.9-1.1); POTASSIUM 4.2 mmol/L (3.5-5.1)
[2017-12-22] MEDS: LORAZEPAM 2 MG/ML 1 ML VIAL IV PRN (08:48)
--- NOTE | 2017-12-22 09:04 | Progress Note ---
Subjective Date of Service: Dec 22, 2017. Subjective pt is moaning uncontrollably, did have some medication for sedation and with hs seroquel did have a better night, overall not improving and with variable alertness is taking her afib medications variably also Problem List Medical Problems: (1) Atrial fibrillation with rapid ventricular response Status: Acute (2) Back pain Status: Acute (3) Cholelithiasis Status: Acute (4) Compression fracture of L5 lumbar vertebra Status: Acute (5) Fall Status: Acute (6) Fall at home Status: Acute (7) Head injury Status: Acute (8) Left hip pain Status: Acute (9) Lumbar compression fracture Status: Acute (10) Right lumbar pain Status: Acute (11) Thoracic compression fracture Status: Acute (12) Upper abdominal pain Status: Acute Review of Systems Constitutional: + weakness, + fatigue, + problem reported (lethargy prevents full ros) Objective Vital Signs Date Time Temp Pulse Resp B/P (MAP) Pulse Ox O2 Delivery O2 Flow Rate FiO2 12/22/17 08:09 133 154/93 (113) 12/22/17 08:08 133 154/93 12/22/17 07:14 36.5 20 Nasal Cannula 3.0 12/22/17 04:00 96 Nasal Cannula 3.0 12/22/17 03:28 35.9 79 23 104/65 (78) 96 Nasal Cannula 3.0 12/22/17 00:00 91 Nasal Cannula 3.0 12/21/17 23:29 36.8 80 18 96/56 (69) 91 Nasal Cannula 3.0 12/21/17 20:00 93 Nasal Cannula 3.0 12/21/17 19:44 36.6 109 22 113/66 (82) 93 Nasal Cannula 2.5 12/21/17 16:38 103 12/21/17 16:04 Nasal Cannula 4.0 12/21/17 15:23 36.5 104 18 132/79 (96) 85 Nasal Cannula 3.0 12/21/17 12:03 Nasal Cannula 2.0 12/21/17 11:15 36.5 119 22 163/91 (115) 87 Oxymask 4.0 Physical Exam General Appearance: + moderate distress, + thin Eyes: normal inspection, sclerae normal Respiratory/Chest: + decreased breath sounds, + accessory muscle use Cardiovascular: + tachycardia, + irregularly irregular Abdomen: normal bowel sounds, soft Extremities: + pedal edema, + swelling (third spacing due to poor diet) Neurologic/Psychiatric: alert, + depressed affect, + disoriented Laboratory Results Last 24 Hours Test 12/21/17 18:02 12/21/17 20:28 12/22/17 06:03 12/22/17 07:24 Bedside Glucose 85 mg/dl 82 mg/dl 106 mg/dl Prothrombin Time 39.5 SECONDS Prothromb Time International Ratio 3.9 Sodium Level 145 mmol/L Potassium Level 4.2 mmol/L Chloride Level 104 mmol/L Carbon Dioxide Level 37 mmol/L Anion Gap 4.0 mmol/L Blood Urea Nitrogen 17 mg/dl Creatinine 0.41 mg/dl Est Creatinine Clear Calc Drug Dose 89.0 ml/min Estimated GFR () 112.3 Estimated GFR (Non- 96.9 BUN/Creatinine Ratio 40.9 Random Glucose 92 mg/dl Calcium Level 8.9 mg/dl Ammonia 27.0 umol/L Assessment and Plan 82 F presents with afib RVR, embolic stroke and found to have uti poa, has associated metabolic encephalopathy with a history of Paroxysmal AF, HTN, HLD, CAD, diastolic CHF, severe mitral regurge, Parkinson's disease, depression, GERD. The pt resides at [facility], but had been somewhat functional prior to events palliative care consult, I spoke to 12/22, family still not ready to move in this direction, pt previously had expressed some statements of being tired of being ill. Atrial fibrillation with RVR - rate control with diltiazem increased metoprolol and digoxin initially anticoagulated with heparin, Cardiology decided on Coumadin since valvular heart disease is present however she did have significant hematuria associated with a uti and anticoagulation was held, but hematuria improved and restarted aspirin and Coumadin 12/20 Metabolic Encephalopathy, is from UTI poa antibiotics rocephin started 12/18/17, rash noted 12/19, sensitivities allow cipro po changed to this 12/19 given some elevation of inr was changed to ertapenem, 12/21 pt was on multiple [employer] depressant medications,her mental state transiently improved with reduction of her fentanyl, Neurontin and stopping her scheduled Klonopin, however she has slipped backward with increased lethargy, elevated ammonia without significant liver pathology, she refused to swallow lactulose, and did repeat CT head without additional cva, liver us without cirrhosis coumadin coagulopathy, she seems very sensitive to coumadin, holding dose 12/22 and reducing it to start 12/23 Question if Pt maybe having mild element of BZD withdrawal but no real improvement in symptoms with treatment, better sleep with hs seroquel acute on chronic Diastolic CHF due to valvular heart disease - had decreased urine output and dark urine will hold Furosemide and Aldactone, given some ivf with improved urine output, peripheral edema largely from third spacing from moderate protein malnutrition , will offer dietary consult Parkinson - Sinemet, but with her variable alertness her medication input is variable CAD - no current evidence of ACS - cont ASA, Lipitor, Metoprolol HTN - cont Losartan and Metoprolol tolerating diltiazem without significant lows HPL - Lipitor GERD - Omeprazole DNR - coumadin overall her lethargy and agitation continue to be the biggest issues, after trying hs seroquel, still not clear of direction, still holding out hope to have pt improve Continued [facility] stay due to: multiple IV medications needed Discharge planning: alf facility
--- NOTE | 2017-12-22 12:02 | Cardiology Follow-Up ---
Subjective General Date of Service: Dec 22, 2017. Chief Complaint: follow up AF, stroke Pt evaluation today including: conversation w/ patient, physical exam History of Present Illness The patient is a 82 year old female seen in follow up. Patient lethargic again today. Telemetry reveals AF with V rates in the range of 100-115 bpm , having received IV metoprolol. Had coumadin yesterday, but not reliably taking oral medications, spitting them out. Allergies Coded Allergies: Atropine (Verified Allergy, Mild, 12/13/17) Diphenoxylate (Verified Allergy, Mild, 12/13/17) Ceftriaxone (Verified Allergy, Unknown, RASH, 12/21/17) started 12/18/17, rash noted 12/19/17 Diazepam (Verified Allergy, Unknown, unknown, 12/13/17) Hydrochlorothiazide (Verified Adverse Reaction, Unknown, UNKNOWN, 12/13/17) Lisinopril (Verified Adverse Reaction, Unknown, NIGHTMARES, 12/13/17) Social History Smoking Status: Never Smoker Hx Tobacco Use In Past Year?: No Hx Alcohol Use - Type And Amou: No Hx Substance Use - Type And Am: No Problem List Medical Problems: (1) Atrial fibrillation with rapid ventricular response Status: Acute (2) Back pain Status: Acute (3) Cholelithiasis Status: Acute (4) Compression fracture of L5 lumbar vertebra Status: Acute (5) Fall Status: Acute (6) Fall at home Status: Acute (7) Head injury Status: Acute (8) Left hip pain Status: Acute (9) Lumbar compression fracture Status: Acute (10) Right lumbar pain Status: Acute (11) Thoracic compression fracture Status: Acute (12) Upper abdominal pain Status: Acute Physical Exam Vital Signs Last Vital Signs Documentation Date Time Temp Pulse Resp B/P (MAP) Pulse Ox O2 Delivery O2 Flow Rate FiO2 12/22/17 08:09 133 154/93 (113) 12/22/17 08:03 Nasal Cannula 3.0 12/22/17 07:14 36.5 20 12/22/17 04:00 96 Physical Exam Constitutional: General Apperance: well-developed Level of Distress: acutely ill Neck: supple, trachea midline Lungs: Auscultation: breath sounds normal, no wheezing, no rales/crackles, no rhonchi Cardiovascular: Heart Auscultation: tachycardia, irregular rate rhythm, pertinent finding Abdomen: Bowel Sounds: normal Inspection & Palpation: soft, non-distended Extremities: no cyanosis, no edema, no clubbing, no ulcers Neurologic: Gait & Station: pertinent finding (somnolent) Assessment and Plan Assessment and Plan IMPRESSION: 82 YEAR OLD FEMALE 1. Acute cerebrovascular accident / embolic event -In the setting of moderate mitral stenosis, atrial fibrillation 2. Valvular atrial fibrillation with rapid ventricular response 3. 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 History of coronary heart disease, history of chronic exertional angina, remote CABG 3 in 2002 5. Right ventricular dilation/dysfunction without signs of acute heart failure 6. Urinary tract infection-urine culture growing Klebsiella pneumoniae, pansensitive 7. Multifactorial delirium with acute stroke, infection 8. Parkinson's disease-prior to this hospital stay she had not been on chronic anticoagulation due to concerns of bleeding risk. Plan: Patient continues to lack improvement. Hold coumadin today for INR > 3.5. Palliative care likely next step. Laboratory Results Last 24 Hours Test 12/21/17 18:02 12/21/17 20:28 12/22/17 06:03 12/22/17 07:24 Bedside Glucose 85 mg/dl 82 mg/dl 106 mg/dl Prothrombin Time 39.5 SECONDS Prothromb Time International Ratio 3.9 Sodium Level 145 mmol/L Potassium Level 4.2 mmol/L Chloride Level 104 mmol/L Carbon Dioxide Level 37 mmol/L Anion Gap 4.0 mmol/L Blood Urea Nitrogen 17 mg/dl Creatinine 0.41 mg/dl Est Creatinine Clear Calc Drug Dose 89.0 ml/min Estimated GFR () 112.3 Estimated GFR (Non- 96.9 BUN/Creatinine Ratio 40.9 Random Glucose 92 mg/dl Calcium Level 8.9 mg/dl Ammonia 27.0 umol/L
[2017-12-22] MEDS: DIGOXIN IV 125 MCG in SYRINGE 9.5 ML IV SCH (16:27)
[2017-12-22] MEDS ORDERED: NURSING VERBAL MED ORDER ONE (16:30)
[2017-12-22] MEDS: LORAZEPAM INJ 0.5 MG in SYRINGE 0.75 ML IV PRN ×2 (16:32→20:28)
[2017-12-22] MEDS ORDERED: FENTANYL PATCH REMOVE & WASTE SCH (16:59)
[2017-12-22] MEDS ORDERED: FENTANYL 50 MCG/HR TDSY TD SCH (17:00)
[2017-12-22] MEDS: ATORVASTATIN 20 MG TAB PO SCH (21:00)
[2017-12-22] MEDS: QUETIAPINE FUMARATE 25 MG TAB PO SCH (21:00)
[2017-12-23 07:24] VITALS: BP_SYST 164; BP_SYST 176; BP_DIAS 100; BP_DIAS 110; PULSE 138; PULSE 149; TEMP 37; O2SAT 89
[2017-12-23] MEDS: DILTIAZEM HCL 30 MG TAB PO SCH ×3 (07:30→21:00)
[2017-12-23] MEDS: LORAZEPAM 0.5 MG TAB PO PRN (07:30)
[2017-12-23] MEDS: METOPROLOL TARTRATE 25 MG TAB PO PRN ×2 (07:30→07:33)
[2017-12-23] MEDS: CHECK FENTANYL PATCH PLACEMENT SCH ×3 (07:32→16:20)
[2017-12-23] MEDS: CARBIDOPA/LEVODOPA 25/100MG TAB PO SCH ×4 (07:33→21:00)
[2017-12-23 07:45] LABS: CALCIUM 8.8 mg/dl (8.5-10.1); CREATININE 0.55 mg/dl (0.60-1.20); MEAN PLATELET VOLUME 9.1 fL (7.4-10.4); PLATELET COUNT 250 K/uL (130-400); POTASSIUM 4.2 mmol/L (3.5-5.1)
[2017-12-23 07:50] LABS: HEMATOCRIT 45.1 % (37-47); RED CELL DISTRIBUTION WIDTH CV 14.1 % (11.5-14.5); RED CELL DISTRIBUTION WIDTH SD 53.2 fL (36.4-46.3); WHITE BLOOD COUNT 13.03 K/uL (4.8-10.8)
[2017-12-23 08:30] VITALS: BP 161/101; PULSE 146; O2SAT 95
[2017-12-23] MEDS: CALCITONIN SALMON NA 200 IU/AC 3.7 ML BTL SCH (08:36)
[2017-12-23] MEDS: MoRPHine SULFATE 4 MG/ML 1 ML CARP\\VIAL IV PRN (08:37)
[2017-12-23] MEDS: PANTOprazole SOD 40 MG TAB PO SCH (08:43)
[2017-12-23] MEDS: POLYETHYLENE (MIRALAX) 17 GM PACK PO SCH (08:44)
[2017-12-23] MEDS: LOSARTAN POTASSIUM 25 MG TAB PO SCH (08:44)
[2017-12-23] MEDS: ASPIRIN 81 MG ECTAB PO SCH (08:44)
[2017-12-23] MEDS: METOPROLOL TARTRATE 100 MG TAB PO SCH ×2 (08:44→21:00)
[2017-12-23] MEDS ORDERED: DILTIAZEM HCL 30 MG TAB PO ONE (09:00)
[2017-12-23] MEDS: ERTAPENEM IV 1 GM in SODIUM CHLOR 0.9% AD-VAN 50ML 50 ML IV SCH (09:17)
[2017-12-23] MEDS: LIDODERM (LIDOCAINE) PATCH 5% TD SCH (09:59)
[2017-12-23 11:19] VITALS: BP 100/64; PULSE 75; O2SAT 95
--- NOTE | 2017-12-23 14:49 | Progress Note ---
Subjective Date of Service: Dec 23, 2017. Subjective Pt evaluation today including: conversation w/ patient, physical exam, chart review, conversation w/ accounting consultant, review of inpatient medication list Nurse reported patient was moaning, even only slightly change her position, She was given morphine and Ativan, when I interview with her, she was not awakable, however she is comfortable no pain,\ heart rate was found has significant elevated at was at 146, blood pressure was up to 160/101, Nose report has difficult to give oral medications, however she did get some medicine of metoprolol, blood pressure and heart rate improved later, possible from the effect of oral medication Problem List Medical Problems: (1) Atrial fibrillation with rapid ventricular response Status: Acute (2) Back pain Status: Acute (3) Cholelithiasis Status: Acute (4) Compression fracture of L5 lumbar vertebra Status: Acute (5) Fall Status: Acute (6) Fall at home Status: Acute (7) Head injury Status: Acute (8) Left hip pain Status: Acute (9) Lumbar compression fracture Status: Acute (10) Right lumbar pain Status: Acute (11) Thoracic compression fracture Status: Acute (12) Upper abdominal pain Status: Acute Review of Systems Constitutional: + problem reported (Afebrile, not able to get a review of system, patient has dry mucous membranes, RN reported patient not able to eat and drink) Objective Vital Signs Date Time Temp Pulse Resp B/P (MAP) Pulse Ox O2 Delivery O2 Flow Rate FiO2 12/23/17 11:19 75 20 100/64 (76) 95 Nasal Cannula 4.0 12/23/17 08:30 146 24 161/101 (121) 95 Nasal Cannula 4.0 12/23/17 08:00 Nasal Cannula 4.0 12/23/17 07:24 37.0 138 20 176/110 (132) 89 Nasal Cannula 5.0 149 164/100 (121) 12/23/17 00:00 Nasal Cannula 4.0 12/22/17 22:48 36.3 120 20 155/93 (113) 90 Room Air 12/22/17 16:27 156 12/22/17 16:00 Nasal Cannula 4.0 12/22/17 14:43 36.6 148 18 159/97 (117) 93 Physical Exam General Appearance: + pertinent finding (Frail, comfortable, in deep breathing , minimal awakable, but no conversational not wake up) Eyes: normal inspection ENT: + pertinent finding (Dry mucous membranes) Neck: supple, no adenopathy Respiratory/Chest: chest non-tender, normal breath sounds, + pertinent finding (Decreased) Cardiovascular: no edema, no gallop, no JVD, + irregularly irregular Abdomen: normal bowel sounds, non tender Extremities: normal range of motion Neurologic/Psychiatric: remnants cutter II-XII nml as tested, no motor/sensory deficits Skin: normal color, warm/dry Laboratory Results Last 24 Hours Test 12/23/17 06:57 12/23/17 14:30 White Blood Count 13.03 K/uL Red Blood Count 4.38 M/uL Hemoglobin 14.0 g/dL Hematocrit 45.1 % Mean Corpuscular Volume 103.0 fL Mean Corpuscular Hemoglobin 32.0 pg Mean Corpuscular Hemoglobin Concent 31.0 g/dl RDW Standard Deviation 53.2 fL RDW Coefficient of Variation 14.1 % Platelet Count 250 K/uL Mean Platelet Volume 9.1 fL Nucleated RBC Absolute Count (auto) 0.10 K/uL Nucleated Red Blood Cells % 0.7 % Sodium Level 146 mmol/L Potassium Level 4.2 mmol/L Chloride Level 104 mmol/L Carbon Dioxide Level 34 mmol/L Anion Gap 8.0 mmol/L Blood Urea Nitrogen 23 mg/dl Creatinine 0.55 mg/dl Est Creatinine Clear Calc Drug Dose 66.3 ml/min Estimated GFR () 102.0 Estimated GFR (Non- 88.0 BUN/Creatinine Ratio 42.5 Random Glucose 123 mg/dl Calcium Level 8.8 mg/dl Assessment and Plan 82 F presents with afib RVR, embolic stroke and found to have uti poa, has associated metabolic encephalopathy with a history of Paroxysmal AF, HTN, HLD, CAD, diastolic CHF, severe mitral regurge, Parkinson's disease, depression, GERD. The pt resides at [facility], but had been somewhat functional prior to events Persistent atrial fibrillation with RVR No able to give medication regularly because of mental status changes, rate control with diltiazem, increased metoprolol and digoxin initially anticoagulated with heparin, Cardiology decided on Coumadin since valvular heart disease is present, and INR the day before was 3.9 Continue hold Coumadin follow-up PT/INR, continue dig and beta willian, Metabolic Encephalopathy, is from UTI poa antibiotics rocephin started 12/18/17, rash noted 12/19, sensitivities allow cipro po changed to this 12/19 given some elevation of inr was changed to ertapenem, 12/21 pt was on multiple [employer] depressant medications,her mental state transiently improved with reduction of her fentanyl, Neurontin and stopping her scheduled Klonopin, Patient continue lethargic, repeat CT head without additional cva, liver us without cirrhosis coumadin coagulopathy, she seems very sensitive to coumadin, holding dose 12/22 and reducing it to start 12/23 accordingly, will follow up Question if Pt maybe having mild element of BZD withdrawal but no real improvement in symptoms with treatment, better sleep with hs seroquel acute on chronic Diastolic CHF due to valvular heart disease - had decreased urine output and dark urine will hold Furosemide and Aldactone, given some ivf with improved urine output, peripheral edema largely from third spacing from moderate protein malnutrition , will offer dietary consult Parkinson - Sinemet, but with her variable alertness her medication input is variable CAD - no current evidence of ACS - cont ASA, Lipitor, Metoprolol HTN - cont Losartan and Metoprolol tolerating diltiazem without significant lows HPL - Lipitor GERD - Omeprazole DNR - coumadin Cardiology input appreciated, can continue current care, patient from [facility] for discharge plan Talk to patient's , about her significant changes, and do some of the critical conditions Continued [facility] stay due to: multiple IV medications needed Discharge planning: alf facility
[2017-12-23 14:54] VITALS: BP 127/75; PULSE 110; TEMP 36.9; O2SAT 92
[2017-12-23] MEDS: D5W AND 1/2NSS 1,000 ML IV SCH (15:02)
[2017-12-23] MEDS ORDERED: WARFARIN SOD 1 MG TAB PO SCH (16:00)
[2017-12-23] MEDS ORDERED: PHYTONADIONE INJ 5 MG in SODIUM CHLORIDE 0.9% 50ML 50 ML IV ONE (16:00)
--- NOTE | 2017-12-23 16:13 | DIAGNOSTIC IMAGING REPORT ---
HEAD WITHOUT CONTRAST (CT) CLINICAL HISTORY: 82 years-old Female presenting with Altered mental status and hypertherapeutic INR more than 10. TECHNIQUE: Multidetector CT imaging of the head was performed without the use of intravenous contrast. IV contrast: None. A dose lowering technique was used consistent with the principles of ALARA (as low as reasonably achievable). COMPARISON: 12/20/2017. CT DOSE (mGy.cm): The estimated cumulative dose is 614.27 mGy.cm. FINDINGS: Ear Nose Throat Surgeon topogram: Unremarkable. Evaluation limited by patient positioning. This mildly affects diagnostic sensitivity of the exam. Ventricles and sulci normal in size. The known right parieto-occipital infarct is not well appreciated. No evidence of hemorrhagic transformation. No mass effect or midline shift. No hemorrhage or acute territorial infarct. No extra-axial fluid collection. Paranasal sinuses and mastoid air cells clear. Calvarium intact. IMPRESSION: 1. The small right parieto-occipital infarct, now subacute, is not well appreciated in part due to suboptimal positioning. No evidence of hemorrhagic transformation. No acute intracranial pathology. Electronically signed by: Steve Adamson M.D. 12/23/2017 4:11 PM Dictated Date/Time: 12/23/2017 4:07 PM
[2017-12-23] MEDS: DIGOXIN IV 125 MCG in SYRINGE 9.5 ML IV SCH (16:56)
[2017-12-23 18:14] LABS: INR > 10.0 (0.9-1.1)
[2017-12-23] MEDS: QUETIAPINE FUMARATE 25 MG TAB PO SCH (21:00)
[2017-12-23] MEDS: ATORVASTATIN 20 MG TAB PO SCH (21:00)
[2017-12-23 23:37] VITALS: BP 130/82; PULSE 77; TEMP 36.9; O2SAT 92
[2017-12-24] MEDS: CHECK FENTANYL PATCH PLACEMENT SCH ×3 (00:13→16:00)
[2017-12-24] MEDS: D5W AND 1/2NSS 1,000 ML IV SCH ×2 (03:07→16:35)
[2017-12-24 06:47] LABS: INR 1.7 (0.9-1.1)
[2017-12-24 07:08] LABS: CALCIUM 8.2 mg/dl (8.5-10.1); CREATININE 0.42 mg/dl (0.60-1.20); PHOSPHORUS 2.8 mg/dl (2.5-4.9); POTASSIUM 4.2 mmol/L (3.5-5.1)
[2017-12-24 07:47] VITALS: BP 127/97; PULSE 151; TEMP 36.3; O2SAT 95
[2017-12-24 08:00] VITALS: O2SAT 95
[2017-12-24] MEDS: ERTAPENEM IV 1 GM in SODIUM CHLOR 0.9% AD-VAN 50ML 50 ML IV SCH (08:31)
[2017-12-24] MEDS: CALCITONIN SALMON NA 200 IU/AC 3.7 ML BTL SCH (08:32)
[2017-12-24] MEDS: CARBIDOPA/LEVODOPA 25/100MG TAB PO SCH ×4 (08:33→21:00)
[2017-12-24] MEDS: METOPROLOL TARTRATE 100 MG TAB PO SCH ×2 (08:35→21:00)
[2017-12-24] MEDS: DILTIAZEM HCL 30 MG TAB PO SCH ×3 (08:40→21:00)
[2017-12-24] MEDS: ASPIRIN 81 MG ECTAB PO SCH (09:00)
[2017-12-24] MEDS: POLYETHYLENE (MIRALAX) 17 GM PACK PO SCH (09:00)
[2017-12-24] MEDS: LIDODERM (LIDOCAINE) PATCH 5% TD SCH (09:00)
[2017-12-24] MEDS: PANTOprazole SOD 40 MG TAB PO SCH (09:00)
[2017-12-24] MEDS: LOSARTAN POTASSIUM 25 MG TAB PO SCH (09:00)
[2017-12-24 09:33] VITALS: PULSE 86
[2017-12-24 14:59] VITALS: BP 122/68; PULSE 72; TEMP 36.4; O2SAT 94
--- NOTE | 2017-12-24 15:38 | Progress Note ---
Subjective Date of Service: Dec 24, 2017. Subjective Pt evaluation today including: conversation w/ patient, conversation w/ family , physical exam, chart review, lab review, review of studies, conversation w/ agricultural consultant, review of inpatient medication list Very lethargic, however compared to yesterday patient a little awake, answer simple questions, getting some feeding, however fell sleep soon Problem List Medical Problems: (1) Atrial fibrillation with rapid ventricular response Status: Acute (2) Back pain Status: Acute (3) Cholelithiasis Status: Acute (4) Compression fracture of L5 lumbar vertebra Status: Acute (5) Fall Status: Acute (6) Fall at home Status: Acute (7) Head injury Status: Acute (8) Left hip pain Status: Acute (9) Lumbar compression fracture Status: Acute (10) Right lumbar pain Status: Acute (11) Thoracic compression fracture Status: Acute (12) Upper abdominal pain Status: Acute Review of Systems Constitutional: + problem reported (Limited because of very lethargic) Objective Vital Signs Date Time Temp Pulse Resp B/P (MAP) Pulse Ox O2 Delivery O2 Flow Rate FiO2 12/24/17 14:59 36.4 72 16 122/68 (86) 94 Room Air 12/24/17 09:33 86 12/24/17 08:00 95 Nasal Cannula 3.0 12/24/17 07:47 36.3 151 20 127/97 (107) 95 Nasal Cannula 3.0 12/24/17 00:45 Nasal Cannula 4.0 12/23/17 23:37 36.9 77 16 130/82 (98) 92 Nasal Cannula 4.0 12/23/17 16:56 84 12/23/17 16:00 Nasal Cannula 4.0 Physical Exam Eyes: normal inspection ENT: + pertinent finding (Patient was moaning and uncomfortable) Respiratory/Chest: no respiratory distress, no accessory muscle use, + decreased breath sounds Cardiovascular: no JVD, + irregularly irregular Abdomen: normal bowel sounds, non tender, soft, no organomegaly Extremities: normal range of motion, non-tender, normal inspection, + swelling (Trace edema) Neurologic/Psychiatric: + motor weakness (Left arm weakness, able to move right) Skin: normal color, warm/dry Laboratory Results Last 24 Hours Test 12/24/17 06:24 Prothrombin Time 17.5 SECONDS Prothromb Time International Ratio 1.7 Sodium Level 146 mmol/L Potassium Level 4.2 mmol/L Chloride Level 105 mmol/L Carbon Dioxide Level 40 mmol/L Anion Gap 1.0 mmol/L Blood Urea Nitrogen 27 mg/dl Creatinine 0.42 mg/dl Est Creatinine Clear Calc Drug Dose 87.5 ml/min Estimated GFR () 111.4 Estimated GFR (Non- 96.1 BUN/Creatinine Ratio 64.8 Random Glucose 150 mg/dl Calcium Level 8.2 mg/dl Phosphorus Level 2.8 mg/dl Magnesium Level 2.2 mg/dl Assessment and Plan 82 F dated on December 17, 2017 with afib RVR, embolic stroke and found to have uti poa, has associated metabolic encephalopathy with a history of Paroxysmal AF, HTN, HLD, CAD, diastolic CHF, severe mitral regurge, Parkinson's disease, depression, GERD. The pt resides at [facility], but had been somewhat functional prior to events Persistent atrial fibrillation with RVR No able to give medication regularly because of mental status changes, rate control with diltiazem, increased metoprolol and digoxin initially anticoagulated with heparin, Cardiology decided on Coumadin since valvular heart disease is present, INR was more than 10 yesterday, today is 1.7 after 5 mg of vitamin K continue dig and beta willian as long as she able to take the medication Acute right parieto-occipital stroke, probably cardioembolic in light of atrial fibrillation. continue anticoagulation. cont aspirin to 81 milligrams per day Metabolic Encephalopathy, is from UTI poa, or stroke antibiotics rocephin started 12/18/17,rash noted 12/19, sensitivities allow cipro po changed to this 12/19 given some elevation of inr was changed to ertapenem which was started on 12/21 pt was on multiple [employer] depressant medications,her mental state transiently improved with reduction of her fentanyl, Neurontin and stopping her scheduled Klonopin, Patient continue lethargic, repeat CT head without additional cva, coumadin coagulopathy, she seems very sensitive to coumadin, holding dose 12/22 and reducing it to start 12/23 accordingly, however yesterday was up to more than 10, Has improved after vitamin K , will follow up acute on chronic Diastolic CHF due to valvular heart disease had decreased urine output and dark urine will hold Furosemide and Aldactone, Protein malnutrition, feeding as much as tolerated Parkinson - Sinemet, but with her variable alertness her medication input is variable CAD - no current evidence of ACS - cont ASA, Lipitor, Metoprolol if she able to take medicine HTN - cont Losartan and Metoprolol tolerating diltiazem without significant lows HPL - Lipitor GERD - Omeprazole DNR Patient has multiple comorbidities, possible poor prognosis, talk to today, he fully understand patient's poor conditions and poor prognosis, he agreed supportive care and comfort measures and palliative care consultation, patient from [facility] Continued [facility] stay due to: multiple IV medications needed, home environment unsafe for pt Discharge planning: detention facility
[2017-12-24] MEDS: DIGOXIN IV 125 MCG in SYRINGE 9.5 ML IV SCH (16:35)
[2017-12-24] MEDS: LORAZEPAM INJ 0.5 MG in SYRINGE 0.75 ML IV PRN (17:10)
[2017-12-24] MEDS: MoRPHine SULFATE 4 MG/ML 1 ML CARP\\VIAL IV PRN (17:19)
[2017-12-24] MEDS: ATORVASTATIN 20 MG TAB PO SCH (21:00)
[2017-12-24] MEDS: QUETIAPINE FUMARATE 25 MG TAB PO SCH (21:00)
[2017-12-24 23:15] VITALS: BP 126/78; PULSE 111; TEMP 36.4; O2SAT 97
[2017-12-25] MEDS: CHECK FENTANYL PATCH PLACEMENT SCH ×2 (00:09→07:57)
[2017-12-25] MEDS: LORAZEPAM INJ 0.5 MG in SYRINGE 0.75 ML IV PRN (02:08)
[2017-12-25] MEDS: D5W AND 1/2NSS 1,000 ML IV SCH (04:34)
[2017-12-25 07:17] VITALS: BP 110/69; PULSE 120; TEMP 36.1; O2SAT 93
[2017-12-25] MEDS: ERTAPENEM IV 1 GM in SODIUM CHLOR 0.9% AD-VAN 50ML 50 ML IV SCH (07:56)
[2017-12-25 07:57] LABS: INR 1.2 (0.9-1.1)
[2017-12-25] MEDS: CALCITONIN SALMON NA 200 IU/AC 3.7 ML BTL SCH (07:57)
[2017-12-25 08:00] VITALS: O2SAT 93
[2017-12-25 08:41] LABS: CALCIUM 8.2 mg/dl (8.5-10.1); CREATININE 0.36 mg/dl (0.60-1.20); PHOSPHORUS 2.7 mg/dl (2.5-4.9); POTASSIUM 4.3 mmol/L (3.5-5.1)
[2017-12-25 08:53] LABS: HEMATOCRIT 45.2 % (37-47); HEMOGLOBIN 13.1 g/dL (12.0-16.0); MEAN CELL VOLUME 109.7 fL (80-100); MEAN CORPUSCULAR HEMOGLOBIN 31.8 pg (25-34); MEAN PLATELET VOLUME 9.6 fL (7.4-10.4); PLATELET COUNT 250 K/uL (130-400); RED CELL DISTRIBUTION WIDTH CV 14.5 % (11.5-14.5); RED CELL DISTRIBUTION WIDTH SD 57.8 fL (36.4-46.3)
[2017-12-25] MEDS ORDERED: MoRPHine SULFATE 5 MG/0.25 ML UDP PO PRN (12:00)
[2017-12-25] MEDS: MoRPHine SULFATE 5 MG/0.25 ML UDP PO PRN ×5 (15:44→23:55)
--- NOTE | 2017-12-25 16:57 | Progress Note ---
Subjective Date of Service: Dec 25, 2017. Subjective Pt evaluation today including: conversation w/ family, physical exam, chart review, lab review, review of studies, review of inpatient medication list Significant moaning, uncomfortable, obvious labored breathing, more confused not arousable, did not take eat/drink anything this morning Problem List Medical Problems: (1) Atrial fibrillation with rapid ventricular response Status: Acute (2) Back pain Status: Acute (3) Cholelithiasis Status: Acute (4) Compression fracture of L5 lumbar vertebra Status: Acute (5) Fall Status: Acute (6) Fall at home Status: Acute (7) Head injury Status: Acute (8) Left hip pain Status: Acute (9) Lumbar compression fracture Status: Acute (10) Right lumbar pain Status: Acute (11) Thoracic compression fracture Status: Acute (12) Upper abdominal pain Status: Acute Review of Systems Constitutional: + problem reported (No able to obtain because patient not arousable , not conversational) Objective Vital Signs Date Time Temp Pulse Resp B/P (MAP) Pulse Ox O2 Delivery O2 Flow Rate FiO2 12/25/17 16:00 Nasal Cannula 4.0 12/25/17 08:00 93 Nasal Cannula 4.0 12/25/17 07:17 36.1 120 14 110/69 (83) 93 4.0 12/25/17 00:00 Nasal Cannula 4.0 12/24/17 23:15 36.4 111 16 126/78 (94) 97 Nasal Cannula 4.0 Physical Exam General Appearance: + pertinent finding (Moaning uncomfortable) Eyes: normal inspection ENT: normal ENT inspection Neck: supple Respiratory/Chest: + decreased breath sounds Cardiovascular: + tachycardia, + irregularly irregular Abdomen: normal bowel sounds, soft Extremities: + swelling (1-2+ edema) Neurologic/Psychiatric: + pertinent finding (Obvious facial droop, others not able to evaluation because patient not awake) Skin: + pallor (Cold) Laboratory Results Last 24 Hours Test 12/25/17 07:13 White Blood Count 9.20 K/uL Red Blood Count 4.12 M/uL Hemoglobin 13.1 g/dL Hematocrit 45.2 % Mean Corpuscular Volume 109.7 fL Mean Corpuscular Hemoglobin 31.8 pg Mean Corpuscular Hemoglobin Concent 29.0 g/dl RDW Standard Deviation 57.8 fL RDW Coefficient of Variation 14.5 % Platelet Count 250 K/uL Mean Platelet Volume 9.6 fL Prothrombin Time 12.7 SECONDS Prothromb Time International Ratio 1.2 Sodium Level 145 mmol/L Potassium Level 4.3 mmol/L Chloride Level 103 mmol/L Carbon Dioxide Level 42 mmol/L Anion Gap 0.0 mmol/L Blood Urea Nitrogen 23 mg/dl Creatinine 0.36 mg/dl Est Creatinine Clear Calc Drug Dose 102.1 ml/min Estimated GFR () 117.2 Estimated GFR (Non- 101.1 BUN/Creatinine Ratio 63.2 Random Glucose 137 mg/dl Calcium Level 8.2 mg/dl Phosphorus Level 2.7 mg/dl Magnesium Level 2.3 mg/dl Assessment and Plan 82 F dated on December 17, 2017 with afib RVR, embolic stroke and found to have uti poa, has associated metabolic encephalopathy with a history of Paroxysmal AF, HTN, HLD, CAD, diastolic CHF, severe mitral regurge, Parkinson's disease, depression , GERD. The pt resides at [facility], but had been somewhat functional prior to events , changed to comfort measures only this morning because of patient's significant declining and after talking to patient's and witnessed by registered nurse over the phone Persistent atrial fibrillation with RVR Acute right parieto-occipital stroke, probably cardioembolic Metabolic Encephalopathy, is from UTI poa, coumadin coagulopathy, acute on chronic Diastolic CHF due to valvular heart disease Protein malnutrition, Parkinson disease CAD HTN HPL GERD DNR Patient has multiple comorbidities, possible poor prognosis, Today's condition is declining, possible patient is in active dying, talk to , switched to comfort measures only, Continued [facility] stay due to: other (Active dying) Discharge planning: uncertain
[2017-12-25] MEDS: LORAZEPAM INJ 1 MG in SYRINGE 0.5 ML IV PRN ×3 (17:14→23:56)
[2017-12-26] MEDS: MoRPHine SULFATE 5 MG/0.25 ML UDP PO PRN ×5 (03:19→22:19)
[2017-12-26] MEDS: LORAZEPAM INJ 1 MG in SYRINGE 0.5 ML IV PRN ×4 (03:20→21:08)
--- NOTE | 2017-12-26 15:43 | Progress Note ---
Subjective Date of Service: Dec 26, 2017. Subjective Pt evaluation today including: conversation w/ patient, conversation w/ family , physical exam, chart review, lab review, review of studies, conversation w/ business process consultant, review of inpatient medication list Nursing staff report patient not wake up, occasional moaning, did not eat and drink, when I examining her, patient is comfortable no sign of pain, Problem List Medical Problems: (1) Atrial fibrillation with rapid ventricular response Status: Acute (2) Back pain Status: Acute (3) Cholelithiasis Status: Acute (4) Compression fracture of L5 lumbar vertebra Status: Acute (5) Fall Status: Acute (6) Fall at home Status: Acute (7) Head injury Status: Acute (8) Left hip pain Status: Acute (9) Lumbar compression fracture Status: Acute (10) Right lumbar pain Status: Acute (11) Thoracic compression fracture Status: Acute (12) Upper abdominal pain Status: Acute Review of Systems Constitutional: + problem reported (Unable to obtain,) Objective Vital Signs Date Time Temp Pulse Resp B/P (MAP) Pulse Ox O2 Delivery O2 Flow Rate FiO2 12/26/17 08:50 Nasal Cannula 4.0 12/26/17 00:00 Nasal Cannula 4.0 12/25/17 16:00 Nasal Cannula 4.0 Physical Exam General Appearance: + pertinent finding (In rest, mild labored breathing,) Eyes: + pertinent finding (not awake, not open eyes,) Neck: supple Respiratory/Chest: + decreased breath sounds Cardiovascular: + irregularly irregular Abdomen: soft Extremities: + swelling Neurologic/Psychiatric: + pertinent finding (Not awakable, not movement) Skin: normal color, warm/dry Assessment and Plan 82 F dated on December 17, 2017 with afib RVR, embolic stroke and found to have uti poa, has associated metabolic encephalopathy with a history of Paroxysmal AF, HTN, HLD, CAD, diastolic CHF, severe mitral regurge, Parkinson's disease, depression , GERD. The pt resides at [facility], but had been somewhat functional prior to events , changed to comfort measures only on December 25, 2017 after agree with the Persistent atrial fibrillation with RVR Acute right parieto-occipital stroke, probably cardioembolic Metabolic Encephalopathy, is from UTI poa, coumadin coagulopathy, acute on chronic Diastolic CHF due to valvular heart disease Protein malnutrition, Parkinson disease CAD HTN HPL GERD DNR patient is in active dying, talked to , update him about patient's condition which is active dying, he understands Continued [facility] stay due to: other (Active dying) Discharge planning: other (active dying)
[2017-12-26] MEDS: LORAZEPAM IV PRN (23:26)
[2017-12-27] MEDS: MoRPHine SULFATE 10 MG/0.5 ML UDP PO PRN ×6 (00:26→21:14)
[2017-12-27] MEDS: LORAZEPAM IV PRN ×3 (05:16→23:36)
--- NOTE | 2017-12-27 08:28 | Progress Note ---
Subjective Date of Service: Dec 27, 2017. Subjective Pt evaluation today including: conversation w/ patient, conversation w/ family , physical exam, chart review, lab review, review of studies, review of inpatient medication list comfortable, in rest Problem List Medical Problems: (1) Atrial fibrillation with rapid ventricular response Status: Acute (2) Back pain Status: Acute (3) Cholelithiasis Status: Acute (4) Compression fracture of L5 lumbar vertebra Status: Acute (5) Fall Status: Acute (6) Fall at home Status: Acute (7) Head injury Status: Acute (8) Left hip pain Status: Acute (9) Lumbar compression fracture Status: Acute (10) Right lumbar pain Status: Acute (11) Thoracic compression fracture Status: Acute (12) Upper abdominal pain Status: Acute Review of Systems Constitutional: + problem reported (not able to obtains becasue of not arousable) Objective Vital Signs Date Time Temp Pulse Resp B/P (MAP) Pulse Ox O2 Delivery O2 Flow Rate FiO2 12/27/17 00:00 Nasal Cannula 4.0 12/26/17 16:00 Nasal Cannula 4.0 12/26/17 08:50 Nasal Cannula 4.0 Physical Exam General Appearance: + pertinent finding (no pain, or uncomfortable signs) Eyes: PERRL, sclerae normal ENT: normal ENT inspection Neck: supple Respiratory/Chest: normal breath sounds, no respiratory distress, no accessory muscle use, + decreased breath sounds, + rales Cardiovascular: + irregularly irregular Abdomen: soft Extremities: + swelling Skin: warm/dry Assessment and Plan 82 F dated on December 17, 2017 with afib RVR, embolic stroke and found to have uti poa, has associated metabolic encephalopathy with a history of Paroxysmal AF, HTN, HLD, CAD, diastolic CHF, severe mitral regurge, Parkinson's disease, depression , GERD. The pt resides at [facility], but had been somewhat functional prior to events , changed to comfort measures only on December 25, 2017 after agree with the Persistent atrial fibrillation with RVR Acute right parieto-occipital stroke, probably cardioembolic Metabolic Encephalopathy, is from UTI poa, coumadin coagulopathy, acute on chronic Diastolic CHF due to valvular heart disease Protein malnutrition, Parkinson disease CAD HTN HPL GERD DNR patient is in active dying, talked to , update him about patient's condition which is active dying, he understands Continued [facility] stay due to: other (Active dying) Discharge planning: other (active dying)
--- NOTE | 2017-12-27 09:59 | Palliative Care Progress Note ---
Palliative Care Progress Note Date of Service Dec 27, 2017. Subjective Pt evaluation today including: physical exam, chart review, conversation w/ dietitian consultant (Dr. Boggs), review of inpatient medication list Patient is obtunded, has some irregular breathing this morning. Did have periods of wakefulness over night, even ate some ice cream. Last saw patient last week and signed off as she and her were wishing to continue to pursue acute treatment. Apparently she had a large CVA and was a stroke alert. Patient has continued to decline and she was made "comfort measures only" status. I saw her today to ensure comfort and provide support. Review of Systems unable to obtain full ROS due to obtundation Objective Vital Signs Date Time Temp Pulse Resp B/P (MAP) Pulse Ox O2 Delivery O2 Flow Rate FiO2 12/27/17 00:00 Nasal Cannula 4.0 12/26/17 16:00 Nasal Cannula 4.0 Physical Exam General Appearance: no apparent distress ENT: + pertinent finding (oral mucosa moist) Neck: no JVD Respiratory/Chest: lungs clear, no respiratory distress, no accessory muscle use, + pertinent finding (some irregular breathing patterns) Cardiovascular: regular rate, rhythm, no edema, + normal peripheral pulses Abdomen: normal bowel sounds, soft Neurologic/Psychiatric: + pertinent finding (obtunded) Skin: normal color Assessment and Plan Problem list: Lethargy/obtundation Dementia/Parkinson's Acute CVA Afib with RVR Acute on chronic diastolic CHF Comfort measures only Palliative care recs: -Patient is now comfort measures only status. -She is well-controlled on Roxanol 7.5 PRN pain or SOB. In no distress. -Case management is following and has a call out to patient's , Akin, to see if patient will be returning to [facility]. She does not meet GIP criteria at this time. -Patient did have periods of wakefulness overnight and even ate some ice cream. This morning she is rather obtunded and did not wake for me. Total time spent 25 minutes with >50% of time spent at bedside and on nursing unit discussing patient and plan of care. Palliative Performance Scale: 10 % Discharge planning: uncertain
[2017-12-28] MEDS: MoRPHine SULFATE 10 MG/0.5 ML UDP PO PRN ×6 (03:22→23:37)
[2017-12-28 08:00] VITALS: O2SAT 93
[2017-12-28] MEDS: LORAZEPAM IV PRN ×2 (09:53→17:32)
[2017-12-28] MEDS ORDERED: LORAZEPAM 2 MG/ML 1 ML VIAL IV PRN (10:00)
--- NOTE | 2017-12-28 10:08 | Progress Note ---
Subjective Date of Service: Dec 28, 2017. Subjective Pt evaluation today including: conversation w/ family, physical exam, chart review, lab review, review of studies, review of inpatient medication list some moaning and uncomfortable Problem List Medical Problems: (1) Atrial fibrillation with rapid ventricular response Status: Acute (2) Back pain Status: Acute (3) Cholelithiasis Status: Acute (4) Compression fracture of L5 lumbar vertebra Status: Acute (5) Fall Status: Acute (6) Fall at home Status: Acute (7) Head injury Status: Acute (8) Left hip pain Status: Acute (9) Lumbar compression fracture Status: Acute (10) Right lumbar pain Status: Acute (11) Thoracic compression fracture Status: Acute (12) Upper abdominal pain Status: Acute Review of Systems Constitutional: + problem reported (unawakable) Objective Vital Signs Date Time Temp Pulse Resp B/P (MAP) Pulse Ox O2 Delivery O2 Flow Rate FiO2 12/28/17 00:00 Nasal Cannula 2.0 12/27/17 16:00 Nasal Cannula 2.0 Physical Exam General Appearance: + pertinent finding (some moaning, uncomfortable) Eyes: + pertinent finding (frail, mucus dry) Respiratory/Chest: + decreased breath sounds Cardiovascular: + pertinent finding (S1S2) Abdomen: soft Extremities: + pertinent finding (warm, trace edema) Skin: warm/dry Assessment and Plan 82 F dated on December 17, 2017 with afib RVR, embolic stroke and found to have uti poa, has associated metabolic encephalopathy with a history of Paroxysmal AF, HTN, HLD, CAD, diastolic CHF, severe mitral regurge, Parkinson's disease, depression , GERD. The pt resides at [facility], but had been somewhat functional prior to events , changed to comfort measures only on December 25, 2017 after agree with the Persistent atrial fibrillation with RVR Acute right parieto-occipital stroke, probably cardioembolic Metabolic Encephalopathy, is from UTI poa, coumadin coagulopathy, acute on chronic Diastolic CHF due to valvular heart disease Protein malnutrition, Parkinson disease CAD HTN HPL GERD DNR patient is in active dying, some uncomfortable, talked to nursing staff, increase frequency of morphine, and Ativan, morphine drip if need Discharge planning: uncertain
[2017-12-28 16:00] VITALS: O2SAT 93
[2017-12-29] MEDS: LORAZEPAM IV PRN ×3 (00:16→07:47)
[2017-12-29] MEDS: MoRPHine SULFATE 10 MG/0.5 ML UDP PO PRN ×6 (02:30→21:22)
[2017-12-29 08:00] VITALS: O2SAT 93
[2017-12-29] MEDS ORDERED: MICONAZOLE NITRATE POWDER 43 GM ONE (08:42)
--- NOTE | 2017-12-29 14:00 | Progress Note ---
Subjective Date of Service: Dec 29, 2017. Subjective Pt evaluation today including: physical exam, chart review, lab review, review of studies, review of inpatient medication list Comfortable, not awake , not eating drinking, Problem List Medical Problems: (1) Atrial fibrillation with rapid ventricular response Status: Acute (2) Back pain Status: Acute (3) Cholelithiasis Status: Acute (4) Compression fracture of L5 lumbar vertebra Status: Acute (5) Fall Status: Acute (6) Fall at home Status: Acute (7) Head injury Status: Acute (8) Left hip pain Status: Acute (9) Lumbar compression fracture Status: Acute (10) Right lumbar pain Status: Acute (11) Thoracic compression fracture Status: Acute (12) Upper abdominal pain Status: Acute Review of Systems Constitutional: + problem reported (No able to obtain because patient not awake ) Objective Vital Signs Date Time Temp Pulse Resp B/P (MAP) Pulse Ox O2 Delivery O2 Flow Rate FiO2 12/29/17 08:00 93 Nasal Cannula 2.0 12/28/17 20:00 Nasal Cannula 2.0 12/28/17 16:00 93 Nasal Cannula 2.0 Physical Exam Eyes: sclerae normal ENT: pharynx normal Respiratory/Chest: + decreased breath sounds, + pertinent finding (Mild labored breathing sound) Cardiovascular: + tachycardia, + irregularly irregular Abdomen: soft Extremities: + swelling (2+ edema) Neurologic/Psychiatric: + pertinent finding (Unremarkable) Skin: warm/dry Assessment and Plan 82 F dated on December 17, 2017 with afib RVR, embolic stroke and found to have uti poa, has associated metabolic encephalopathy with a history of Paroxysmal AF, HTN, HLD, CAD, diastolic CHF, severe mitral regurge, Parkinson's disease, depression , GERD. The pt resides at [facility], but had been somewhat functional prior to events , changed to comfort measures only on December 25, 2017 after agree with the Persistent atrial fibrillation with RVR Acute right parieto-occipital stroke, probably cardioembolic Metabolic Encephalopathy, is from UTI poa, coumadin coagulopathy, acute on chronic Diastolic CHF due to valvular heart disease Protein malnutrition, Parkinson disease CAD HTN HPL GERD DNR patient is in active dying, some uncomfortable, talked to nursing staff, increase frequency of morphine, and Ativan, morphine drip if need Continue current care Discharge planning: other (Patient is active dying)
[2017-12-29 16:00] VITALS: O2SAT 93
[2017-12-30] MEDS: MoRPHine SULFATE 10 MG/0.5 ML UDP PO PRN ×3 (01:03→11:44)
[2017-12-30 08:00] VITALS: O2SAT 93
--- NOTE | 2017-12-30 08:19 | Progress Note ---
Subjective Date of Service: Dec 30, 2017. Problem List Medical Problems: (1) Atrial fibrillation with rapid ventricular response Status: Acute (2) Back pain Status: Acute (3) Cholelithiasis Status: Acute (4) Compression fracture of L5 lumbar vertebra Status: Acute (5) Fall Status: Acute (6) Fall at home Status: Acute (7) Head injury Status: Acute (8) Left hip pain Status: Acute (9) Lumbar compression fracture Status: Acute (10) Right lumbar pain Status: Acute (11) Thoracic compression fracture Status: Acute (12) Upper abdominal pain Status: Acute Objective Vital Signs Date Time Temp Pulse Resp B/P (MAP) Pulse Ox O2 Delivery O2 Flow Rate FiO2 12/29/17 20:50 Nasal Cannula 2.0 12/29/17 16:00 93 Nasal Cannula 2.0 Assessment and Plan 82 F presents with afib RVR, embolic stroke and found to have uti poa, has associated metabolic encephalopathy with a history of Paroxysmal AF, HTN, HLD, CAD, diastolic CHF, severe mitral regurge, Parkinson's disease, depression, GERD. Pt has had a decline in past few days and is on comfort measures as of December 25, [address] Boggs with the . Medications for treatment and control of her acute and Chronic conditions have stopped Persistent atrial fibrillation with RVR, CAD, HTN Acute right parieto-occipital stroke, probably cardioembolic Metabolic Encephalopathy, is from UTI poa, coumadin coagulopathy, acute on chronic Diastolic CHF due to valvular heart disease Protein malnutrition, Parkinson disease patient is in active dying, palliative care is involved, morphine drip if need Continue current care Discharge planning: other (Patient is active dying)
--- NOTE | 2017-12-30 13:48 | Palliative Care Progress Note ---
Palliative Care Progress Note Date of Service Dec 30, 2017. Subjective Pt evaluation today including: physical exam, chart review, conversation w/ telecom sales consultant, review of inpatient medication list Pain: no s/s pain PO Intake: none Voiding: dominguez catheter in place Patient is obtunded, on RADARMAN. Was waking some over weekend but now is completely obtunded. She did not wake for me at all. Review of Systems unable to obtain ROS due to obtundation Objective Vital Signs Date Time Temp Pulse Resp B/P (MAP) Pulse Ox O2 Delivery O2 Flow Rate FiO2 12/29/17 20:50 Nasal Cannula 2.0 12/29/17 16:00 93 Nasal Cannula 2.0 Physical Exam General Appearance: no apparent distress ENT: + pertinent finding (oral mucosa moist) Neck: no JVD Respiratory/Chest: no respiratory distress, no accessory muscle use, + decreased breath sounds, + pertinent finding (mild gurgling, no distress) Cardiovascular: regular rate, rhythm, + pertinent finding (weak pedal pulses) Abdomen: normal bowel sounds, non tender, soft Neurologic/Psychiatric: + pertinent finding (obtunded) Skin: + mottled (BL ankles) Assessment and Plan Problem list: Lethargy/obtundation Dementia/Parkinson's Acute CVA Afib with RVR Acute on chronic diastolic CHF Comfort measures only Palliative care recs: -Patient is now comfort measures only status. -She is well-controlled on Roxanol 10mg PRN pain or SOB. In no distress. -Case management is following and has a call out to patient's , Akin, to see if patient will be returning to [facility]. She does not meet GIP criteria at this time. -Patient did have periods of wakefulness yesterday, but only to yell out/moan when being repositioned. Total time spent 25 minutes with >50% of time spent at bedside and on nursing unit discussing patient and plan of care. Palliative Performance Scale: 10 % Discharge planning: uncertain
--- NOTE | 2017-12-31 06:42 | Death Summary ---
Summary of Admission Date Dec 13, 2017 at 10:33 Date & Time of Dec 30, 2017.@ 1400 1400 Cause of embolic cva from afib Hospital Course 82 F presents with afib RVR, embolic stroke and found to have uti poa, has associated metabolic encephalopathy with a history of Paroxysmal AF, HTN, HLD, CAD, diastolic CHF, severe mitral regurge, Parkinson's disease, depression, GERD. Pt has had a decline in past few days and is on comfort measures as of December 25, [address] Boggs with the . Medications for treatment and control of her acute and Chronic conditions have stopped, patient at 1400 12/30/17 Persistent atrial fibrillation with RVR, CAD, HTN Acute right parieto-occipital stroke, probably cardioembolic Metabolic Encephalopathy, is from UTI poa, coumadin coagulopathy, acute on chronic Diastolic CHF due to valvular heart disease Protein malnutrition, Parkinson disease
== END 2017-12-30 14:00 | disposition expired | DRG 64 ==
LOC: EDBD 07:36 → C.EDC 07:38 → C.2T 10:33 → EDBEDREQ 10:55 → ENRESERV 11:49 → CANRESERV 12:03 → ENRESERV 12:03 → C.MSICU 12-14 08:09 → C.2T 12-14 08:22 → ENRESERV 12-22 14:05 → C.MS2W 12-22 14:35 → ENRESERV 12-25 13:16 → C.4E 12-25 14:35
PROVIDERS: ADMIT Internal Medicine; ATTEND Internal Medicine
DX: I63.40 Cerebral infarction due to embolism of unspecified cerebral artery (principal); I50.33 Acute on chronic diastolic (congestive) heart failure; G93.41 Metabolic encephalopathy; N39.0 Urinary tract infection, site not specified; D68.32 Hemorrhagic disorder due to extrinsic circulating anticoagulants; Z51.5 Encounter for palliative care; Z79.82 Long term (current) use of aspirin; Z88.8 Allergy status to other drugs, medicaments and biological substances; I48.0 Paroxysmal atrial fibrillation; I11.0 Hypertensive heart disease with heart failure; E78.5 Hyperlipidemia, unspecified; I25.10 Atherosclerotic heart disease of native coronary artery without angina pectoris; I34.0 Nonrheumatic mitral (valve) insufficiency; G20 Parkinson's disease; F32.9 Major depressive disorder, single episode, unspecified; K21.9 Gastro-esophageal reflux disease without esophagitis; T45.515A Adverse effect of anticoagulants, initial encounter; Z66 Do not resuscitate